=== PATIENT | male | born 1945 | race Caucasian/White ===

== ENCOUNTER 2021-07-23 12:01 | Inpatient (IN) ==
--- NOTE | 2021-07-23 12:12 | DR.SOBA ---
HPI Time Seen Time Seen by Provider: 07/23/21 12:10 Complaints Chief Complaint Doctors Comments: KNOWN COVID POSITIVE PATIENT THAT WAS BROUGHT IN BY EMS WITH PROGRESSIVE SHORTNESS OF BREATH. WAS DIAGNOSED 2 DAYS AGO AND SENT HOME ON O2 FROM [facility]. ROS Review of Systems Constitutional: Fatigue Eyes: No Symptoms Reported ENTM: No Symptoms Reported Respiratoy: Dry Cough and Short of Breath Cardiovascular: No Symptoms Reported Gastrointestinal/Abdominal: No Symptoms Reported Genitourinary: No Symptoms Reported Neurological: No Symptoms Reported Musculoskeletal: No Symptoms Reported Integumentary: No Symptoms Reported Hematologic/Lymphatic: No Symptoms Reported Endocrine: No Symptoms Reported Psychiatric: No Symptoms Reported All Other Systems: Reviewed and Negative PE Vital Signs Vitals: Temperature 97.9 F Pulse Rate 79 Respiratory Rate 22 Blood Pressure 102/58 O2 Sat by Pulse Oximetry 92 General Limitations: No Limitations General Appearance: In Distress Head Head Exam: Normal Inspection Eyes Eye exam: Normal Appearance ENT ENT Exam: Normal Exam Neck Neck Exam: Normal Inspection Chest Chest Inspection: Normal Inspection Respiratory Respiratory Exam: Respiratory Distress Respiratory Exam: Bilateral: Clear to Auscultation and Bilateral: Rhonchi Cardiovascular Cardiovascular Exam: Regular Rate and Normal Rhythm Abdominal Exam Abdominal Exam: Normal Inspection, Normal Bowel Sounds and Soft Extremities Extremities Exam: Normal Inspection Back Back Exam: Normal Inspection Neurologic Neurological Exam: Alert and Oriented X3 Psychiatric Psychiatric Exam: Normal Affect and Normal Mood Skin Skin Exam: Warm, Dry, Intact and Normal Color MDM Additional Information Obtained Additional Findings:: COVID PNEUMONIA WITH HYPOXIA Differential Diagnosis Differential Diagnosis: Respiratory Insufficiency and URI Differential Diagnosis Comment:: COVID PNEUMONIA WITH HYPOXIA COURSE Treatment Treatment: THIS PATIENT WAS INITIALLY PLACED ON NRB MASK TO KEEP O2SAT GREATER THAN 92%, HE WAS GIVEN AN ALBUTROL NEB AND 125MG SOLUMEDROL IV AND WE WERE ABLE TO WEAN HIM OFF THE MASK AND PUT HIM ON A VENTI-MASK AT 50% AND HIS O2 SAT REMAINED OVER 90%. PATIENT WAS TOLD THAT WE PLANNED TO ADMIT HIM TO HOSPITAL FOR COVID PNEUMONIA WITH HYPOXIA. SPOKE TO DR HEREDIA AND WILL ADMIT PATIENT TO ICU FOR COVID WITH HYPOXIA AND BILATERAL PNEUMONIA. ROR Labs Reviewed Laboratory Results Reviewed?: Yes Result Diagrams: 08/20/21 04:26 08/20/21 04:26 Laboratory: WBC 6.7 X10^3/uL (3.6-10.0) 07/23/21 12:30 RBC 2.96 X10^6/uL (4.7-6.0) L 07/23/21 12:30 Hgb 8.5 g/dL (13.5-18.0) L 07/23/21 12:30 Hct 25.4 % (42.0-54.0) L 07/23/21 12:30 MCV 85.8 fL (80.0-100.0) 07/23/21 12: MCH 28.9 pg (27.0-34.0) 07/23/21 12: MCHC 33.7 g/dL (33.0-35.0) 07/23/21 12: RDW 14.8 % (11.6-16.5) 07/23/21 12: Plt Count 88 X10^3/uL (150.0-450.0) L 07/23/21 12:30 MPV 9.3 fL (7.4-11.0) 07/23/21 12:30 Neut % (Auto) 88.0 % (42.0-75.0) H 07/23/21 12: Lymph % (Auto) 4.9 % (21.0-51.0) L 07/23/21 12:30 [place] % (Auto) 6.8 % (0.0-13.0) 07/23/21 12: Eos % (Auto) 0.2 % (0.9-2.9) L 07/23/21 12:30 Baso % (Auto) 0.1 % (0.2-1.0) L 07/23/21 12:30 Neut # (Auto) 5.9 x10^3/uL (2.2-4.8) H 07/23/21 12:30 Lymph # (Auto) 0.3 X10^3/uL (1.3-2.9) L 07/23/21 12:30 [place] # (Auto) 0.5 x10^3/uL (0.3-0.8) 07/23/21 12:30 Eos # (Auto) 0.0 x10^3/uL (0.0-0.2) 07/23/21 12:30 Baso # (Auto) 0.0 X10^3/uL (0.0-0.1) 07/23/21 12:30 Absolute Nucleated RBC 0.0 /100WBC 07/23/21 12:30 Sample Site Rbra 07/23/21 12:34 ABG pH 7.430 (7.35-7.45) 07/23/21 12:34 ABG pCO2 32.0 mmHg (35.0-45.0) L 07/23/21 12:34 ABG pO2 181.0 mmHg (80.0-100.0) H 07/23/21 12:34 ABG HCO3 21.2 mmol/L (22-26) L 07/23/21 12:34 ABG O2 Saturation 100.0 % (90-100) 07/23/21 12:34 ABG Base Excess -2.3 mmol/L (-2.0-2.0) L 07/23/21 12:34 Gene Test N/a 07/23/21 12:34 A-a Gradient 492.0 mmHg 07/23/21 12:34 FiO2 100.0 07/23/21 12:34 Blood Gas Comments 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 07/23/21 12:34 Sodium 131 mmol/L (136-145) L 07/23/21 12:30 Corrected Sodium 134 mmol/L (136-145) L 07/23/21 12:30 Potassium 4.7 mmol/L (3.5-5.1) 07/23/21 12:30 Chloride 99 mmol/L (98-107) 07/23/21 12:30 Carbon Dioxide 26.2 mmol/L (21-32) 07/23/21 12:30 BUN 52 mg/dL (7-18) H 07/23/21 12:30 Creatinine 2.52 mg/dL (0.70-1.30) H 07/23/21 12:30 Est GFR (MDRD) Af Amer 32 (>60) L 07/23/21 12:30 Est GFR (MDRD) Non-Af 27 (>60) L 07/23/21 12:30 Glucose 238 mg/dL (65-99) H 07/23/21 12:30 Calcium 8.1 mg/dL (8.5-10.1) L 07/23/21 12:30 Corrected Calcium 9.5 mg/dL (8.5-10.1) 07/23/21 12:30 Total Bilirubin 0.50 mg/dL (0.2-1.0) 07/23/21 12:30 AST 30 Units/L (15-37) 07/23/21 12:30 ALT 22 Units/L (12-78) 07/23/21 12:30 Alkaline Phosphatase 110 Units/L (46-116) 07/23/21 12:30 Creatine Kinase 86 Units/L (39-308) 07/23/21 12:30 CK-MB (CK-2) 1.3 ng/mL (0-4.0) 07/23/21 12:30 CK/CKMB % Calc 1.5 % (<4) 07/23/21 12:30 Troponin I High Sens 25.2 ng/L (4.0-60.0) 07/23/21 12:30 Total Protein 6.5 g/dL (6.4-8.2) 07/23/21 12:30 Albumin 2.3 g/dL (3.4-5.0) L 07/23/21 12:30 Globulin 4.2 g/dL (2.5-4.5) 07/23/21 12:30 Albumin/Globulin Ratio 0.5 Ratio (1.1-2.1) L 07/23/21 12:30 SARS CoV-2 RNA Rapid HERMELINDO Positive (NEGATIVE) A 07/23/21 16:00 Other Results Comments: COVID POSITIVE,HYPONATREMIA(SODIUM 131) XRAY XRAY Interpreted by: Radiologist (BILATERAL OPACITIES CONSISTENT WITH COVID PNEUMONIA) EKG Rhythm: Paced (ATRIAL SENSED -VENTICULAR PACED RHYTHM) Block: None Hypertrophy: None ST: Normal Opioid Opioid Risk Tool Total: 0 Total Score Risk Category: Low Risk Copyright: [facility] predicting aberrant behaviors Diagnosis Discharge Problem: COVID Acute renal failure Qualifiers: Acute renal failure type: unspecified Qualified Code(s): N17.9 - Acute kidney failure, unspecified Instructions Instructions: Anemia Hypokalemia COVID-19 Frequently Asked Questions Prone Position Therapy V-safe Information Sheet - [facility] (06/05/2020) COVID-19 COVID-19: How to Protect Yourself and Others - [facility] Community-Acquired Pneumonia, Adult, [id number]
[2021-07-23 12:37] LABS: ABG BASE EXCESS -2.3 mmol/L (-2.0-2.0); ABG HCO3 21.2 mmol/L (22-26)
--- NOTE | 2021-07-23 12:45 | RAD ---
HISTORYCOVID, SOB, COUGHSTUDYCHEST, 1 VIEWCOMPARISONNoneFINDINGSThe cardiomediastinal silhouette is stable. Valve replacement changes. Left-sided pacer and pacer wires demonstrate expected positioning. No pneumothorax. Patchy bilateral airspace opacities. The bony thorax appears intact.IMPRESSIONBilateral airspace opacities consistent with history of COVID-19. Recommend follow-up to resolution.Electronically signed by: GUSTAVO THOMPSON (Jul 23, 2021 12:44:41)
[2021-07-23] MEDS ORDERED: DUONEB 0.5 MG/3 MG (3 mL) NEB ONE ×2 (12:47→12:48)
[2021-07-23] MEDS ORDERED: SOLU-Medrol 125 MG VIAL IVP ONE (12:47)
[2021-07-23 12:48] LABS: BASOPHILS % (AUTO) 0.1 % (0.2-1.0); EOSINOPHILS % (AUTO) 0.2 % (0.9-2.9); HEMATOCRIT 25.4 % (42.0-54.0); HEMOGLOBIN 8.5 g/dL (13.5-18.0); LYMPHOCYTES # (AUTO) 0.3 X10^3/uL (1.3-2.9); LYMPHOCYTES % (AUTO) 4.9 % (21.0-51.0); MEAN CORPUSCULAR HEMOGLOBIN 28.9 pg (27.0-34.0); MEAN CORPUSCULAR HGB CONC 33.7 g/dL (33.0-35.0); MEAN CORPUSCULAR VOLUME 85.8 fL (80.0-100.0); MEAN PLATELET VOLUME 9.3 fL (7.4-11.0); MONOCYTES # (AUTO) 0.5 x10^3/uL (0.3-0.8); MONOCYTES % (AUTO) 6.8 % (0.0-13.0); NEUTROPHILS # (AUTO) 5.9 x10^3/uL (2.2-4.8); RED BLOOD COUNT 2.96 X10^6/uL (4.7-6.0); RED CELL DISTRIBUTION WIDTH 14.8 % (11.6-16.5); WHITE BLOOD COUNT 6.7 X10^3/uL (3.6-10.0)
[2021-07-23] MEDS ORDERED: XOPENEX 1.25 MG/3 ML NEBULE NEB ONE ×2 (12:51→12:52)
[2021-07-23] MEDS ORDERED: SOLU-Medrol 125 MG VIAL ONE (13:00)
[2021-07-23 13:09] LABS: ALBUMIN 2.3 g/dL (3.4-5.0); CALCIUM 8.1 mg/dL (8.5-10.1); CARBON DIOXIDE 26.2 mmol/L (21-32); CKMB % 1.5 % (<4); COR CA(FOR HYPOALB) 9.5 mg/dL (8.5-10.1); CREATINE KINASE MB 1.3 ng/mL (0-4.0); CREATININE 2.52 mg/dL (0.70-1.30); TOTAL PROTEIN 6.5 g/dL (6.4-8.2)
[2021-07-23] MEDS ORDERED: NS 1,000 ML IV 1,000 ML IV ONE (15:36)
[2021-07-23] MEDS ORDERED: NS 1,000 ML IV 1,000 ML ONE (15:48)
[2021-07-23 19:49] LABS: BILIRUBIN,URINE NEGATIVE (NEGATIVE); BLOOD/HEMOGLOBIN,URINE NEGATIVE (NEGATIVE); GLUCOSE, URINE 2+ (NEGATIVE); KETONES,URINE NEGATIVE (NEGATIVE); LEUKOCYTE ESTERASE ,URINE NEGATIVE (NEGATIVE); NITRITES,URINE NEGATIVE (NEGATIVE); PROTEIN,URINE 2+ (NEGATIVE); UROBILINOGEN,URINE NORMAL (NORMAL)
[2021-07-23 19:53] LABS: APPEARANCE,URINE SLIGHTLY HAZY (CLEAR); COLOR,URINE YELLOW (YELLOW)
[2021-07-23 19:59] LABS: BACTERIA,URINE 1+ /HPF (NEGATIVE); COARSE GRANULAR CASTS,URINE FEW /HPF (NEGATIVE); HYALINE CASTS, URINE FEW /LPF (NEGATIVE); RBC,URINE 0-2 /HPF (0-3); SQUAMOUS EPITHELIAL CELL,UR NEGATIVE /HPF (NEGATIVE)
[2021-07-23] MEDS ORDERED: REMDESIVIR 200 MG in NS 250 ML IV 250 ML IV ONE (20:00)
[2021-07-23] MEDS: PULMICORT NEB TX 0.5 MG NEB SCH (20:35)
[2021-07-23] MEDS: BROVANA IN SCH (20:35)
[2021-07-23] MEDS ORDERED: PULMICORT NEB TX 0.5 MG NEB SCH (21:00)
[2021-07-23] MEDS ORDERED: DUONEB 0.5 MG/3 MG (3 mL) NEB SCH (21:00)
[2021-07-23] MEDS: ASCORBIC ACID INJ MULTI-DOSE VIAL 1,500 MG in NS 100 ML IV 100 ML IV SCH (21:46)
[2021-07-23] MEDS: NS 1,000 ML IV 1,000 ML IV SCH (21:46)
[2021-07-23] MEDS: PEPCID TAB 40 MG PO SCH (21:47)
[2021-07-23] MEDS: ZINC SULFATE PO SCH (21:47)
[2021-07-23] MEDS: VIBRAMYCIN PO SCH (21:47)
[2021-07-23] MEDS: SOLU-Medrol 40 MG VIAL IVP SCH (21:48)
[2021-07-23] MEDS: NovoLIN R (or HumuLIN R) SUBCUT PRN (21:48)
[2021-07-24] MEDS: ASCORBIC ACID INJ MULTI-DOSE VIAL 1,500 MG in NS 100 ML IV 100 ML IV SCH ×2 (05:00→08:37)
[2021-07-24] MEDS ORDERED: TUSSIONEX PENNKINETIC SUSP ONE (05:24)
[2021-07-24 05:25] LABS: BASOPHILS % (AUTO) 0.2 % (0.2-1.0); HEMATOCRIT 25.2 % (42.0-54.0); HEMOGLOBIN 8.5 g/dL (13.5-18.0); LYMPHOCYTES # (AUTO) 0.3 X10^3/uL (1.3-2.9); LYMPHOCYTES % (AUTO) 9.5 % (21.0-51.0); MEAN CORPUSCULAR HGB CONC 33.6 g/dL (33.0-35.0); MEAN CORPUSCULAR VOLUME 86.4 fL (80.0-100.0); MEAN PLATELET VOLUME 9.6 fL (7.4-11.0); MONOCYTES # (AUTO) 0.1 x10^3/uL (0.3-0.8); MONOCYTES % (AUTO) 4.5 % (0.0-13.0); NEUTROPHILS # (AUTO) 2.6 x10^3/uL (2.2-4.8); NEUTROPHILS % (AUTO) 85.8 % (42.0-75.0); RED BLOOD COUNT 2.92 X10^6/uL (4.7-6.0); RED CELL DISTRIBUTION WIDTH 14.7 % (11.6-16.5)
[2021-07-24 05:38] LABS: CALCIUM 8.1 mg/dL (8.5-10.1); CARBON DIOXIDE 20.3 mmol/L (21-32); COR CA(FOR HYPOALB) 9.7 mg/dL (8.5-10.1); CREATININE 2.11 mg/dL (0.70-1.30); TOTAL PROTEIN 6.2 g/dL (6.4-8.2)
--- NOTE | 2021-07-24 05:52 | RAD ---
HISTORYCOVID PNEUMONIA HX: CAD, PACEMAKER, HTN, DM SX: STENTS, CABGSTUDYCHEST, 1 [id number]/2022FINDINGSThe trachea is midline. The cardiac silhouette is stable. Permanent pacing device.. Bilateral airspace opacities unchanged. No pneumothorax. The bony thorax is unremarkable.IMPRESSIONStable portable chest.Electronically signed by: Jeevan Guzmán (Jul 24, 2021 05:51:08)
[2021-07-24] MEDS: TUSSIONEX PENNKINETIC SUSP PO PRN ×2 (05:59→17:45)
[2021-07-24] MEDS: SOLU-Medrol 40 MG VIAL IVP SCH ×3 (05:59→21:37)
[2021-07-24] MEDS: NovoLIN R (or HumuLIN R) SUBCUT PRN ×4 (06:14→22:15)
[2021-07-24] MEDS: ZOSYN VIAL 3.375 GRAMS 3.375 G in NS 100 ML IV + SPIKE MINIBAG* 100 ML IV SCH ×3 (06:16)
[2021-07-24] MEDS: VIBRAMYCIN PO SCH ×2 (08:37→20:35)
[2021-07-24] MEDS: PEPCID TAB 40 MG PO SCH ×2 (08:37→20:35)
[2021-07-24] MEDS: ZINC SULFATE PO SCH ×2 (08:38→20:35)
[2021-07-24] MEDS: PULMICORT NEB TX 0.5 MG NEB SCH ×2 (08:50→20:56)
[2021-07-24] MEDS: BROVANA IN SCH ×2 (08:50→20:56)
[2021-07-24] MEDS ORDERED: VITAMIN D (1.25MG) PO SCH (09:00)
[2021-07-24] MEDS ORDERED: TRICOR TAB 160 MG PO SCH (09:00)
[2021-07-24] MEDS: PLAVIX PO SCH (11:14)
[2021-07-24] MEDS: ASPIRIN EC 81 MG PO SCH (11:14)
--- NOTE | 2021-07-24 12:40 | PCM.PROG ---
Progress Note Progress Note for Day of Date of Exam: 07/24/21 Past Medical Family Social History Past Med/Fam/Surg Hx: No changes since H&P Allergies: Allergies No Known Drug Allergies Allergy (Verified 07/23/21 12:02) Review of Systems ROS: No change since H&P Vital Signs and I&O's Vital Signs: Temperature 98.9 F Pulse Rate 105 Respiratory Rate 25 Blood Pressure 144/66 O2 Sat by Pulse Oximetry 94 Intake and Output: Intake & Output 07/21/21 07/22/21 07/23/21 07/24/21 23:59 23:59 23:59 23:59 Intake Total 513 / 513 421 / 421 Output Total 600 / 600 600 / 600 Balance -87 / -87 -179 / -179 Physical Exam Speech Pattern: Clear and Appropriate Laboratory and Diagnostics Result Diagrams: 07/24/21 05:03 07/24/21 12:05 Labs: Laboratory WBC 3.0 X10^3/uL (3.6-10.0) L 07/24/21 05:03 RBC 2.92 X10^6/uL (4.7-6.0) L 07/24/21 05:03 Hgb 8.5 g/dL (13.5-18.0) L 07/24/21 05:03 Hct 25.2 % (42.0-54.0) L 07/24/21 05:03 MCV 86.4 fL (80.0-100.0) 07/24/21 05:03 MCH 29.0 pg (27.0-34.0) 07/24/21 05:03 MCHC 33.6 g/dL (33.0-35.0) 07/24/21 05:03 RDW 14.7 % (11.6-16.5) 07/24/21 05:03 Plt Count 83 X10^3/uL (150.0-450.0) L 07/24/21 05:03 MPV 9.6 fL (7.4-11.0) 07/24/21 05:03 Neut % (Auto) 85.8 % (42.0-75.0) H 07/24/21 05:03 Lymph % (Auto) 9.5 % (21.0-51.0) L 07/24/21 05:03 [place] % (Auto) 4.5 % (0.0-13.0) 07/24/21 05:03 Eos % (Auto) 0.0 % (0.9-2.9) L 07/24/21 05:03 Baso % (Auto) 0.2 % (0.2-1.0) 07/24/21 05:03 Neut # (Auto) 2.6 x10^3/uL (2.2-4.8) 07/24/21 05:03 Lymph # (Auto) 0.3 X10^3/uL (1.3-2.9) L 07/24/21 05:03 [place] # (Auto) 0.1 x10^3/uL (0.3-0.8) L 07/24/21 05:03 Eos # (Auto) 0.0 x10^3/uL (0.0-0.2) 07/24/21 05:03 Baso # (Auto) 0.0 X10^3/uL (0.0-0.1) 07/24/21 05:03 Absolute Nucleated RBC 0.0 /100WBC 07/24/21 05:03 Sample Site Rbra 07/23/21 12:34 ABG pH 7.430 (7.35-7.45) 07/23/21 12:34 ABG pCO2 32.0 mmHg (35.0-45.0) L 07/23/21 12:34 ABG pO2 181.0 mmHg (80.0-100.0) H 07/23/21 12:34 ABG HCO3 21.2 mmol/L (22-26) L 07/23/21 12:34 ABG O2 Saturation 100.0 % (90-100) 07/23/21 12:34 ABG Base Excess -2.3 mmol/L (-2.0-2.0) L 07/23/21 12:34 Gene Test N/a 07/23/21 12:34 A-a Gradient 492.0 mmHg 07/23/21 12:34 FiO2 100.0 07/23/21 12:34 Blood Gas Comments 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 07/23/21 12:34 Sodium 135 mmol/L (136-145) L 07/24/21 05:03 Corrected Sodium 140 mmol/L (136-145) 07/24/21 05:03 Potassium 4.8 mmol/L (3.5-5.1) 07/24/21 05:03 Chloride 103 mmol/L (98-107) 07/24/21 05:03 Carbon Dioxide 20.3 mmol/L (21-32) L 07/24/21 05:03 BUN 54 mg/dL (7-18) H 07/24/21 05:03 Creatinine 2.11 mg/dL (0.70-1.30) H 07/24/21 05:03 Est GFR (MDRD) Af Amer 40 (>60) L 07/24/21 05:03 Est GFR (MDRD) Non-Af 33 (>60) L 07/24/21 05:03 Glucose 485 mg/dL (65-99) H 07/24/21 12:05 POC Glucose (mg/dL) 467 mg/dL (65-99) H 07/24/21 10:56 Calcium 8.1 mg/dL (8.5-10.1) L 07/24/21 05:03 Corrected Calcium 9.7 mg/dL (8.5-10.1) 07/24/21 05:03 Total Bilirubin 0.40 mg/dL (0.2-1.0) 07/24/21 05:03 AST 24 Units/L (15-37) 07/24/21 05:03 ALT 18 Units/L (12-78) 07/24/21 05:03 Alkaline Phosphatase 105 Units/L (46-116) 07/24/21 05:03 Creatine Kinase 86 Units/L (39-308) 07/23/21 12:30 CK-MB (CK-2) 1.3 ng/mL (0-4.0) 07/23/21 12:30 CK/CKMB % Calc 1.5 % (<4) 07/23/21 12:30 Troponin I High Sens 25.2 ng/L (4.0-60.0) 07/23/21 12:30 Total Protein 6.2 g/dL (6.4-8.2) L 07/24/21 05:03 Albumin 2.0 g/dL (3.4-5.0) L 07/24/21 05:03 Globulin 4.2 g/dL (2.5-4.5) 07/24/21 05:03 Albumin/Globulin Ratio 0.5 Ratio (1.1-2.1) L 07/24/21 05:03 Specimen Type Catherized urine 07/23/21 19:40 Urine Color Yellow (YELLOW) 07/23/21 19:40 Urine Appearance Slightly hazy (CLEAR) 07/23/21 19:40 Urine pH 5.0 (5.0 - 8.0) 07/23/21 19:40 Ur Specific [place] 1.020 (1.000-1.030) 07/23/21 19:40 Urine Protein 2+ (NEGATIVE) 07/23/21 19:40 Urine Glucose (UA) 2+ (NEGATIVE) 07/23/21 19:40 Urine Ketones Negative (NEGATIVE) 07/23/21 19:40 Urine Occult Blood Negative (NEGATIVE) 07/23/21 19:40 Urine Nitrite Negative (NEGATIVE) 07/23/21 19:40 Urine Bilirubin Negative (NEGATIVE) 07/23/21 19:40 Urine Urobilinogen Normal (NORMAL) 07/23/21 19:40 Ur Leukocyte Esterase Negative (NEGATIVE) 07/23/21 19:40 Urine RBC 0-2 /HPF (0-3) 07/23/21 19:40 Urine WBC 0-2 /HPF (0-5) 07/23/21 19:40 Ur Squamous Epith Cells Negative /HPF (NEGATIVE) 07/23/21 19:40 Amorphous Sediment 2+ /HPF (NEGATIVE) 07/23/21 19:40 Urine Bacteria 1+ /HPF (NEGATIVE) 07/23/21 19:40 Hyaline Casts Few /LPF (NEGATIVE) 07/23/21 19:40 Coarse Granular Casts Few /HPF (NEGATIVE) 07/23/21 19:40 Urine Mucus Few /HPF (NEGATIVE) 07/23/21 19:40 Ur Culture Indicated? No/not indicated 07/23/21 19:40 SARS CoV-2 RNA Rapid HERMELINDO Positive (NEGATIVE) A 07/23/21 16:00
--- NOTE | 2021-07-24 12:43 | DR.H&P ---
H&P History & Physical for Day of: H&P Date: 07/24/21 Chief Complaint Chief Complaint: Shortness of breath Generalized weakness Allergies Allergies Allergy/AdvReac Type Severity Reaction Status Date / Time No Known Drug Allergies Allergy Verified 07/23/21 12:02 History of Present Illness History of Present Illness: Pt is a 76 year old male past medical history of Hypertension, DMT2, CAD(Pacemaker), HLD, presenting with progressively worsening shortness of breath and weakness. He was diagnosed in [place] two days ago with COVID-19 and sent home with home oxygen. He reports no improvement in his symptoms. Labs/imaging: Wbc 3.0, Hgb 8.5, Plt 83, Na 135, K 4.8, Creatinine 2.11, Glucose 320, ABG: pH 7.43, pCO2 32, pO2 118, HCO3 21, O2sat 100% on Non-rebreather with FiO2 100%. CXR was obtained that revealed: Bilateral airspace opacities consistent with history of COVID-19. Pt was able to be converted to heated high flow oxygen with FiO2 currently at 93%. Will start patient on pneumonia protocol that includes: IVF NS@KVO ml/h, Solumedrol 80mg q8h, scheduled Bronchodilators Xopenex and Budesonide, Antibiotics: Doxycycline 100mg BID, Famotidine 40mg BID, Tussionex prn, immune supporting supplements, supplemental O2, SSI, I/S, Lovenox 30mg BID, Physical therapy, Respiratory therapy consult. Home medications were restarted. Wean/titrate supplemental o xygen as tolerated. Will order CRP. Hold nephrotoxic agents. Otherwise continue to closely monitor and follow up labs/imaging. Time spent on clinical assessment, reviewing labs and imaging, decision making, and documentation greater than 45 minutes. Past Medical History Past Medical History: Diabetes, Dyslipidemia and Hypertension Past Surgical History Surgical History: Angioplasty/Stents and CABG/Valve Surgery Family History Family Medical History: Diabetes Mellitus and Hypertension Social History Alcohol Use: None Drug Use: None Medications Home Medications: No Known Drug Allergies Allergy (Verified 07/23/21 12:02) CONTINUE taking the following medications alprazolam 0.25 mg PO QHS PRN 07/23/21 [History] aspirin 81 mg PO DAILY 07/23/21 [History] atorvastatin 20 mg PO QHS 07/23/21 [History] clopidogrel 75 mg PO DAILY 07/23/21 [History] codeine-guaifenesin 5 ml PO TID PRN 07/23/21 [History] diphenhydramine HCl [Benadryl] 50 mg PO QHS 07/23/21 [History] doxycycline monohydrate 100 mg PO BID 07/23/21 [History] furosemide 20 mg PO QAM 07/23/21 [History] insulin detemir U-100 [Levemir FlexTouch U-100 Insuln] 30 unit SUBCUT BID 07/23/21 [History] insulin lispro [Humalog KwikPen Insulin] 5 unit SUBCUT BID 07/23/21 [History] losartan 100 mg PO ONCE 07/23/21 [History] methimazole 10 mg PO DAILY 07/23/21 [History] metoprolol tartrate 25 mg PO HS 07/23/21 [History] multivitamin 1 tab PO QAM 07/23/21 [History] omega-3 fatty acids [Fish Oil] 1,000 mg PO ONCE 07/23/21 [History] pioglitazone-metformin 1 tab PO DAILY 07/23/21 [History] sitagliptin [Januvia] 100 mg PO ONCE 07/23/21 [History] tamsulosin 0.4 mg PO DAILY 07/23/21 [History] vitamin A-vitamin C-vit E-min [Ocuvite] 1 tab PO ONCE 07/23/21 [History] Labs Result Diagrams: 07/24/21 05:03 07/24/21 12:05 Labs: Laboratory WBC 3.0 X10^3/uL (3.6-10.0) L 07/24/21 05:03 RBC 2.92 X10^6/uL (4.7-6.0) L 07/24/21 05:03 Hgb 8.5 g/dL (13.5-18.0) L 07/24/21 05:03 Hct 25.2 % (42.0-54.0) L 07/24/21 05:03 MCV 86.4 fL (80.0-100.0) 07/24/21 05:03 MCH 29.0 pg (27.0-34.0) 07/24/21 05:03 MCHC 33.6 g/dL (33.0-35.0) 07/24/21 05:03 RDW 14.7 % (11.6-16.5) 07/24/21 05:03 Plt Count 83 X10^3/uL (150.0-450.0) L 07/24/21 05:03 MPV 9.6 fL (7.4-11.0) 07/24/21 05:03 Neut % (Auto) 85.8 % (42.0-75.0) H 07/24/21 05:03 Lymph % (Auto) 9.5 % (21.0-51.0) L 07/24/21 05:03 [place] % (Auto) 4.5 % (0.0-13.0) 07/24/21 05:03 Eos % (Auto) 0.0 % (0.9-2.9) L 07/24/21 05:03 Baso % (Auto) 0.2 % (0.2-1.0) 07/24/21 05:03 Neut # (Auto) 2.6 x10^3/uL (2.2-4.8) 07/24/21 05:03 Lymph # (Auto) 0.3 X10^3/uL (1.3-2.9) L 07/24/21 05:03 [place] # (Auto) 0.1 x10^3/uL (0.3-0.8) L 07/24/21 05:03 Eos # (Auto) 0.0 x10^3/uL (0.0-0.2) 07/24/21 05:03 Baso # (Auto) 0.0 X10^3/uL (0.0-0.1) 07/24/21 05:03 Absolute Nucleated RBC 0.0 /100WBC 07/24/21 05:03 Sample Site Rbra 07/23/21 12:34 ABG pH 7.430 (7.35-7.45) 07/23/21 12:34 ABG pCO2 32.0 mmHg (35.0-45.0) L 07/23/21 12:34 ABG pO2 181.0 mmHg (80.0-100.0) H 07/23/21 12:34 ABG HCO3 21.2 mmol/L (22-26) L 07/23/21 12:34 ABG O2 Saturation 100.0 % (90-100) 07/23/21 12:34 ABG Base Excess -2.3 mmol/L (-2.0-2.0) L 07/23/21 12:34 Gene Test N/a 07/23/21 12:34 A-a Gradient 492.0 mmHg 07/23/21 12:34 FiO2 100.0 07/23/21 12:34 Blood Gas Comments 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 12:34 Sodium 135 mmol/L (136-145) L 07/24/21 05:03 Corrected Sodium 140 mmol/L (136-145) 07/24/21 05:03 Potassium 4.8 mmol/L (3.5-5.1) 07/24/21 05:03 Chloride 103 mmol/L (98-107) 07/24/21 05:03 Carbon Dioxide 20.3 mmol/L (21-32) L 07/24/21 05:03 BUN 54 mg/dL (7-18) H 07/24/21 05:03 Creatinine 2.11 mg/dL (0.70-1.30) H 07/24/21 05:03 Est GFR (MDRD) Af Amer 40 (>60) L 07/24/21 05:03 Est GFR (MDRD) Non-Af 33 (>60) L 07/24/21 05:03 Glucose 485 mg/dL (65-99) H 07/24/21 12:05 POC Glucose (mg/dL) 467 mg/dL (65-99) H 07/24/21 10:56 Calcium 8.1 mg/dL (8.5-10.1) L 07/24/21 05:03 Corrected Calcium 9.7 mg/dL (8.5-10.1) 07/24/21 05:03 Total Bilirubin 0.40 mg/dL (0.2-1.0) 07/24/21 05:03 AST 24 Units/L (15-37) 07/24/21 05:03 ALT 18 Units/L (12-78) 07/24/21 05:03 Alkaline Phosphatase 105 Units/L (46-116) 07/24/21 05:03 Creatine Kinase 86 Units/L (39-308) 07/23/21 12:30 CK-MB (CK-2) 1.3 ng/mL (0-4.0) 07/23/21 12:30 CK/CKMB % Calc 1.5 % (<4) 07/23/21 12:30 Troponin I High Sens 25.2 ng/L (4.0-60.0) 07/23/21 12:30 Total Protein 6.2 g/dL (6.4-8.2) L 07/24/21 05:03 Albumin 2.0 g/dL (3.4-5.0) L 07/24/21 05:03 Globulin 4.2 g/dL (2.5-4.5) 07/24/21 05:03 Albumin/Globulin Ratio 0.5 Ratio (1.1-2.1) L 07/24/21 05:03 Specimen Type Catherized urine 07/23/21 19:40 Urine Color Yellow (YELLOW) 07/23/21 19:40 Urine Appearance Slightly hazy (CLEAR) 07/23/21 19:40 Urine pH 5.0 (5.0 - 8.0) 07/23/21 19:40 Ur Specific [place] 1.020 (1.000-1.030) 07/23/21 19:40 Urine Protein 2+ (NEGATIVE) 07/23/21 19:40 Urine Glucose (UA) 2+ (NEGATIVE) 07/23/21 19:40 Urine Ketones Negative (NEGATIVE) 07/23/21 19:40 Urine Occult Blood Negative (NEGATIVE) 07/23/21 19:40 Urine Nitrite Negative (NEGATIVE) 07/23/21 19:40 Urine Bilirubin Negative (NEGATIVE) 07/23/21 19:40 Urine Urobilinogen Normal (NORMAL) 07/23/21 19:40 Ur Leukocyte Esterase Negative (NEGATIVE) 07/23/21 19:40 Urine RBC 0-2 /HPF (0-3) 07/23/21 19:40 Urine WBC 0-2 /HPF (0-5) 07/23/21 19:40 Ur Squamous Epith Cells Negative /HPF (NEGATIVE) 07/23/21 19:40 Amorphous Sediment 2+ /HPF (NEGATIVE) 07/23/21 19:40 Urine Bacteria 1+ /HPF (NEGATIVE) 07/23/21 19:40 Hyaline Casts Few /LPF (NEGATIVE) 07/23/21 19:40 Coarse Granular Casts Few /HPF (NEGATIVE) 07/23/21 19:40 Urine Mucus Few /HPF (NEGATIVE) 07/23/21 19:40 Ur Culture Indicated? No/not indicated 07/23/21 19:40 SARS CoV-2 RNA Rapid HERMELINDO Positive (NEGATIVE) A 07/23/21 16:00 Review of Systems Constitutional: Chills and Weakness Eyes: No Symptoms Reported ENT: No Symptoms Reported Respiratory: Cough, Shortness of Breath and Wheezing Cardiovascular: No Symptoms Reported Gastrointestinal: No Symptoms Reported Genitourinary: No Symptoms Reported Musculoskeletal: No Symptoms Reported Skin: No Symptoms Reported Neurological: No Symptoms Reported Physical Exam Vital Signs: Temperature 98.9 F Pulse Rate 105 Respiratory Rate 25 Blood Pressure 144/66 O2 Sat by Pulse Oximetry 94 Oriented: Normal Eyes: Normal Ear: Normal Nose: Normal Throat: Normal Respiratory: Diminished Throughout, Rhonchi Throughout and Rales Throughout Cardiovascular: Normal : Normal Auscultation: Bowel Sounds: Normal Palpation: Normal Tenderness: Normal Skin: Normal Musculoskeletal: Normal Psychiatric: Normal Mood Description: Calm and Appropriate Affect: Normal Speech Pattern: Clear and Appropriate Assessment/Plan (1) Pneumonia due to COVID-19 virus: Status: Acute Plan: Pneumonia protocol (2) Acute renal failure: Status: Acute Plan: IVF (3) Hypertension: Status: Acute (4) Diabetes mellitus: Status: Acute Review H&P Reviewed: Yes Patient was examined?: Yes
[2021-07-24 18:15] VITALS: BMI 36.1
[2021-07-24] MEDS: TOPROL XL PO SCH (18:50)
[2021-07-24] MEDS: LIPITOR TAB 20 MG PO SCH (20:34)
[2021-07-24] MEDS: XANAX PO PRN (21:00)
[2021-07-24] MEDS ORDERED: PATIENT'S HOME MEDICATION (Insulin Detemir U-100 [Levemir Flextouch U-100 Insuln] 100 unit SUBCUT SCH (21:00)
[2021-07-24] MEDS ORDERED: LOPRESSOR TAB 25 MG PO SCH (21:00)
[2021-07-24] MEDS ORDERED: LOVENOX INJ 30 MG SYR SC SCH (21:00)
[2021-07-24] MEDS ORDERED: LEVEMIR SC SCH (21:00)
[2021-07-24] MEDS: NS 1,000 ML IV 1,000 ML IV SCH (21:36)
[2021-07-24] MEDS ORDERED: LEVEMIR SC ONE (22:31)
[2021-07-24] MEDS: REMDESIVIR 100 MG in NS 250 ML IV 250 ML IV SCH (22:33)
[2021-07-25] MEDS: NovoLIN R (or HumuLIN R) SUBCUT PRN ×4 (01:24→17:43)
[2021-07-25 05:02] LABS: ABG ALLEN TEST POS; ABG BASE EXCESS -3.8 mmol/L (-2.0-2.0); ABG HCO3 20.7 mmol/L (22-26)
[2021-07-25 05:11] LABS: BASOPHILS % (AUTO) 0 % (0.2-1.0); HEMATOCRIT 24.3 % (42.0-54.0); HEMOGLOBIN 8.1 g/dL (13.5-18.0); LYMPHOCYTES # (AUTO) 0.3 X10^3/uL (1.3-2.9); LYMPHOCYTES % (AUTO) 3.7 % (21.0-51.0); MEAN CORPUSCULAR HEMOGLOBIN 28.4 pg (27.0-34.0); MEAN CORPUSCULAR HGB CONC 33.2 g/dL (33.0-35.0); MEAN CORPUSCULAR VOLUME 85.6 fL (80.0-100.0); MEAN PLATELET VOLUME 9.9 fL (7.4-11.0); MONOCYTES # (AUTO) 0.5 x10^3/uL (0.3-0.8); MONOCYTES % (AUTO) 5.1 % (0.0-13.0); NEUTROPHILS # (AUTO) 8.2 x10^3/uL (2.2-4.8); NEUTROPHILS % (AUTO) 91.2 % (42.0-75.0); RED BLOOD COUNT 2.84 X10^6/uL (4.7-6.0); RED CELL DISTRIBUTION WIDTH 14.7 % (11.6-16.5)
[2021-07-25 05:17] LABS: CALCIUM 7.8 mg/dL (8.5-10.1); CARBON DIOXIDE 19.8 mmol/L (21-32); CREATININE 2.52 mg/dL (0.70-1.30)
[2021-07-25 05:55] LABS: PLATELET MORPHOLOGY COMMENT NORMAL (NORMAL)
[2021-07-25] MEDS: SOLU-Medrol 40 MG VIAL IVP SCH (06:25)
--- NOTE | 2021-07-25 06:32 | RAD ---
HISTORYCOVID-19STUDYCHEST, 1 VIEWCOMPARISONJanuary 2021TECHNIQUEPortable chest radiographFINDINGSNo significant overall change in the pattern of bilateral interstitial infiltrates and background ground-glass alveolar attenuation associated with the mid to lower lung nguyễn. No evolving pleural fluid collections, free air or pneumothorax. Stable size and morphology of the cardiac silhouette.IMPRESSIONUnchanged bilateral pulmonary opacities/infiltrates associated with an atypical pneumonia pattern.Electronically signed by: PABLO ESTRADA (Jul 25, 2021 06:31:38)
[2021-07-25] MEDS: PULMICORT NEB TX 0.5 MG NEB SCH ×2 (08:15→21:41)
[2021-07-25] MEDS: BROVANA IN SCH ×2 (08:15→21:41)
[2021-07-25] MEDS ORDERED: TAPAZOLE ONE (08:54)
[2021-07-25] MEDS ORDERED: TOPROL XL PO SCH (09:00)
[2021-07-25] MEDS ORDERED: VITAMIN A PO SCH (09:00)
[2021-07-25] MEDS ORDERED: PIOGLITAZONE METFORMIN PO SCH (09:00)
[2021-07-25] MEDS: ACTOS PO SCH (09:15)
[2021-07-25] MEDS: ASPIRIN EC 81 MG PO SCH (09:15)
[2021-07-25] MEDS: VIBRAMYCIN PO SCH ×2 (09:16→22:14)
[2021-07-25] MEDS: GLUCOPHAGE PO SCH (09:16)
[2021-07-25] MEDS: PEPCID TAB 40 MG PO SCH ×2 (09:16→22:13)
[2021-07-25] MEDS: PLAVIX PO SCH (09:16)
[2021-07-25] MEDS: VITAMIN D3 125 mcg (5,000 UNITS) PO SCH (09:16)
[2021-07-25] MEDS: LASIX PO SCH (09:16)
[2021-07-25] MEDS: VITAMIN C PO SCH (09:16)
[2021-07-25] MEDS: TOPROL XL PO SCH (09:22)
[2021-07-25] MEDS: TUSSIONEX PENNKINETIC SUSP PO PRN (09:22)
[2021-07-25] MEDS: FLOMAX PO SCH (09:22)
[2021-07-25] MEDS ORDERED: GLUCOPHAGE ONE (09:25)
[2021-07-25] MEDS: ZINC SULFATE PO SCH ×2 (09:26→22:14)
[2021-07-25] MEDS: DECADRON INJ IVP SCH (11:20)
[2021-07-25] MEDS: TAPAZOLE PO SCH (12:02)
[2021-07-25] MEDS: LOVENOX INJ 40 MG SYR SC SCH (12:03)
[2021-07-25] MEDS: LEVEMIR SC SCH ×2 (12:04→22:12)
--- NOTE | 2021-07-25 12:43 | PCM.PROG ---
Progress Note Progress Note for Day of Date of Exam: 07/25/21 Subjective Subjective: Pt is a 76 year old male past medical history of Hypertension, DMT2, CAD(Pacemaker), HLD, admitted with COVID-19 pneumonia and acute renal failure. This morning he reports minimal improvement in his symptoms. He is currently requiring heated high flow oxgen with FiO2 of 91%. Labs/imaging: Wbc 9.0, Hgb 8.1, Plt 105, Na 140, K 4.6, Creatinine 2.52, Glucose 410, ABG: pH 7.38, pCO2 35, pO2 75, HCO3 20, O2sat 95% on Non-rebreather with FiO2 91%. CRP 93. CXR was obtained that revealed: No change in bilateral airspace opacities consistent with history of COVID-19. Patient is currently on pneumonia protocol that includes: IVF NS@KVO ml/h, Solumedrol 80mg q8h, scheduled Bronchodilators Xopene x and Budesonide, Antibiotics: Doxycycline 100mg BID, Famotidine 40mg BID, Tussionex prn, immune supporting supplements, supplemental O2, SSI, I/S, Lovenox 30mg BID, Physical therapy, Respiratory therapy consult. Home medications were resumed. Wean/titrate supplemental oxygen as tolerated. Will change IV Solumedrol to IV Decadron. Hold nephrotoxic agents. Otherwise continue with current treatment plan. Will closely monitor and follow up labs/imaging. Time spent on clinical assessment, reviewing labs and imaging, decision making, and documentation greater than 45 minutes. Past Medical Family Social History Past Med/Fam/Surg Hx: No changes since H&P Allergies: Allergies No Known Drug Allergies Allergy (Verified 07/23/21 12:02) Review of Systems ROS: No change since H&P Vital Signs and I&O's Vital Signs: Temperature 98.6 F Pulse Rate 91 Respiratory Rate 28 Blood Pressure 115/59 O2 Sat by Pulse Oximetry 89 Intake and Output: Intake & Output 07/22/21 07/23/21 07/24/21 07/25/21 23:59 23:59 23:59 23:59 Intake Total 513 / 513 2364 / 2364 912 / 912 Output Total 600 / 600 2950 / 2950 900 / 900 Balance -87 / -87 -586 / -586 12 / 12 Physical Exam Oriented: Normal Eyes: Normal Ear: Normal Nose: Normal Throat: Normal Respiratory: Diminished, Rales and Rhonchi Cardiovascular: Normal : Normal Auscultation: Bowel Sounds: Normal Tenderness: Normal Skin: Normal Musculoskeletal: Normal Psychiatric: Normal Mood Description: Calm and Appropriate Affect: Normal Speech Pattern: Clear and Appropriate Laboratory and Diagnostics Result Diagrams: 07/25/21 04:41 07/25/21 04:41 Labs: Laboratory WBC 9.0 X10^3/uL (3.6-10.0) 07/25/21 04:41 RBC 2.84 X10^6/uL (4.7-6.0) L 07/25/21 04:41 Hgb 8.1 g/dL (13.5-18.0) L 07/25/21 04:41 Hct 24.3 % (42.0-54.0) L 07/25/21 04:41 MCV 85.6 fL (80.0-100.0) 07/25/21 04:41 MCH 28.4 pg (27.0-34.0) 07/25/21 04:41 MCHC 33.2 g/dL (33.0-35.0) 07/25/21 04:41 RDW 14.7 % (11.6-16.5) 07/25/21 04:41 Plt Count 105 X10^3/uL (150.0-450.0) L 07/25/21 04:41 Plt Count Comment Decreased (ADEQUATE) 07/25/21 04:41 MPV 9.9 fL (7.4-11.0) 07/25/21 04:41 Neut % (Auto) 91.2 % (42.0-75.0) H 07/25/21 04:41 Lymph % (Auto) 3.7 % (21.0-51.0) L 07/25/21 04:41 [place] % (Auto) 5.1 % (0.0-13.0) 07/25/21 04:41 Eos % (Auto) 0.0 % (0.9-2.9) L 07/25/21 04:41 Baso % (Auto) 0 % (0.2-1.0) L 07/25/21 04:41 Neut # (Auto) 8.2 x10^3/uL (2.2-4.8) H 07/25/21 04:41 Lymph # (Auto) 0.3 X10^3/uL (1.3-2.9) L 07/25/21 04:41 [place] # (Auto) 0.5 x10^3/uL (0.3-0.8) 07/25/21 04:41 Eos # (Auto) 0.0 x10^3/uL (0.0-0.2) 07/25/21 04:41 Baso # (Auto) 0.0 X10^3/uL (0.0-0.1) 07/25/21 04:41 Absolute Nucleated RBC 0.0 /100WBC 07/25/21 04:41 Total Counted 100 07/25/21 04:41 Neutrophils % (Manual) 91 % (39-76) H 07/25/21 04:41 Lymphocytes % (Manual) 4 % (13-43) L 07/25/21 04:41 Monocytes % (Manual) 5 % (4-9) 07/25/21 04:41 Plt Morphology Comment Normal (NORMAL) 07/25/21 04:41 RBC Morphology Normal (NORMAL) 07/25/21 04:41 Sample Site Rrad 07/25/21 05:01 ABG pH 7.380 (7.35-7.45) 07/25/21 05:01 ABG pCO2 35.0 mmHg (35.0-45.0) 07/25/21 05:01 ABG pO2 75.0 mmHg (80.0-100.0) L 07/25/21 05:01 ABG HCO3 20.7 mmol/L (22-26) L 07/25/21 05:01 ABG O2 Saturation 95.0 % (90-100) 07/25/21 05:01 ABG Base Excess -3.8 mmol/L (-2.0-2.0) L 07/25/21 05:01 Gene Test Pos 07/25/21 05:01 A-a Gradient 530.0 mmHg 07/25/21 05:01 FiO2 91.0 07/25/21 05:01 Blood Gas Comments Natalia abg well-mtf 07/25/21 05:01 Sodium 133 mmol/L (136-145) L 07/25/21 04:41 Corrected Sodium 140 mmol/L (136-145) 07/25/21 04:41 Potassium 4.6 mmol/L (3.5-5.1) 07/25/21 04:41 Chloride 102 mmol/L (98-107) 07/25/21 04:41 Carbon Dioxide 19.8 mmol/L (21-32) L 07/25/21 04:41 BUN 66 mg/dL (7-18) H 07/25/21 04:41 Creatinine 2.52 mg/dL (0.70-1.30) H 07/25/21 04:41 Est GFR (MDRD) Af Amer 32 (>60) L 07/25/21 04:41 Est GFR (MDRD) Non-Af 27 (>60) L 07/25/21 04:41 Glucose 410 mg/dL (65-99) H 07/25/21 04:41 POC Glucose (mg/dL) 337 mg/dL (65-99) H 07/25/21 11:53 Calcium 7.8 mg/dL (8.5-10.1) L 07/25/21 04:41 Corrected Calcium 9.7 mg/dL (8.5-10.1) 07/24/21 05:03 Total Bilirubin 0.40 mg/dL (0.2-1.0) 07/24/21 05:03 AST 24 Units/L (15-37) 07/24/21 05:03 ALT 18 Units/L (12-78) 07/24/21 05:03 Alkaline Phosphatase 105 Units/L (46-116) 07/24/21 05:03 Creatine Kinase 86 Units/L (39-308) 07/23/21 12:30 CK-MB (CK-2) 1.3 ng/mL (0-4.0) 07/23/21 12:30 CK/CKMB % Calc 1.5 % (<4) 07/23/21 12:30 Troponin I High Sens 25.2 ng/L (4.0-60.0) 07/23/21 12:30 C-Reactive Protein 93.90 mg/L (0-3.0) H 07/25/21 04:41 Total Protein 6.2 g/dL (6.4-8.2) L 07/24/21 05:03 Albumin 2.0 g/dL (3.4-5.0) L 07/24/21 05:03 Globulin 4.2 g/dL (2.5-4.5) 07/24/21 05:03 Albumin/Globulin Ratio 0.5 Ratio (1.1-2.1) L 07/24/21 05:03 Specimen Type Catherized urine 07/23/21 19:40 Urine Color Yellow (YELLOW) 07/23/21 19:40 Urine Appearance Slightly hazy (CLEAR) 07/23/21 19:40 Urine pH 5.0 (5.0 - 8.0) 07/23/21 19:40 Ur Specific [place] 1.020 (1.000-1.030) 07/23/21 19:40 Urine Protein 2+ (NEGATIVE) 07/23/21 19:40 Urine Glucose (UA) 2+ (NEGATIVE) 07/23/21 19:40 Urine Ketones Negative (NEGATIVE) 07/23/21 19:40 Urine Occult Blood Negative (NEGATIVE) 07/23/21 19:40 Urine Nitrite Negative (NEGATIVE) 07/23/21 19:40 Urine Bilirubin Negative (NEGATIVE) 07/23/21 19:40 Urine Urobilinogen Normal (NORMAL) 07/23/21 19:40 Ur Leukocyte Esterase Negative (NEGATIVE) 07/23/21 19:40 Urine RBC 0-2 /HPF (0-3) 07/23/21 19:40 Urine WBC 0-2 /HPF (0-5) 07/23/21 19:40 Ur Squamous Epith Cells Negative /HPF (NEGATIVE) 07/23/21 19:40 Amorphous Sediment 2+ /HPF (NEGATIVE) 07/23/21 19:40 Urine Bacteria 1+ /HPF (NEGATIVE) 07/23/21 19:40 Hyaline Casts Few /LPF (NEGATIVE) 07/23/21 19:40 Coarse Granular Casts Few /HPF (NEGATIVE) 07/23/21 19:40 Urine Mucus Few /HPF (NEGATIVE) 07/23/21 19:40 Ur Culture Indicated? No/not indicated 07/23/21 19:40 SARS CoV-2 RNA Rapid HERMELINDO Positive (NEGATIVE) A 07/23/21 16:00 Plan (1) Pneumonia due to COVID-19 virus: Status: Acute Plan: Pneumonia protocol (2) Acute renal failure: Status: Acute Plan: IVF (3) Hypertension: Status: Acute (4) Diabetes mellitus: Status: Acute
[2021-07-25] MEDS ORDERED: BENADRYL CAP/TAB 25 MG PO SCH (21:00)
[2021-07-25] MEDS ORDERED: COLACE CAP 100 MG PO SCH (21:00)
[2021-07-25] MEDS: LIPITOR TAB 20 MG PO SCH (22:13)
[2021-07-25] MEDS: NS 1,000 ML IV 1,000 ML IV SCH (22:13)
[2021-07-25] MEDS: REMDESIVIR 100 MG in NS 250 ML IV 250 ML IV SCH (23:04)
[2021-07-25] MEDS: XANAX PO PRN (23:09)
[2021-07-26] MEDS ORDERED: BENADRYL INJ 50 MG VIAL ONE (04:47)
[2021-07-26] MEDS: BENADRYL INJ 50 MG VIAL IV PRN (05:00)
[2021-07-26 05:16] LABS: BASOPHILS % (AUTO) 0.2 % (0.2-1.0); HEMATOCRIT 28.6 % (42.0-54.0); HEMOGLOBIN 9.4 g/dL (13.5-18.0); LYMPHOCYTES # (AUTO) 0.8 X10^3/uL (1.3-2.9); LYMPHOCYTES % (AUTO) 5.8 % (21.0-51.0); MEAN CORPUSCULAR HEMOGLOBIN 28.1 pg (27.0-34.0); MEAN CORPUSCULAR HGB CONC 32.9 g/dL (33.0-35.0); MEAN CORPUSCULAR VOLUME 85.5 fL (80.0-100.0); MEAN PLATELET VOLUME 9.6 fL (7.4-11.0); MONOCYTES % (AUTO) 7.3 % (0.0-13.0); NEUTROPHILS # (AUTO) 11.9 x10^3/uL (2.2-4.8); NEUTROPHILS % (AUTO) 86.7 % (42.0-75.0); RED BLOOD COUNT 3.34 X10^6/uL (4.7-6.0); RED CELL DISTRIBUTION WIDTH 14.6 % (11.6-16.5); WHITE BLOOD COUNT 13.7 X10^3/uL (3.6-10.0)
[2021-07-26 05:30] LABS: CALCIUM 8.4 mg/dL (8.5-10.1); CARBON DIOXIDE 23.4 mmol/L (21-32); CREATININE 2.22 mg/dL (0.70-1.30)
[2021-07-26 06:16] LABS: ABG BASE EXCESS -1.8 mmol/L (-2.0-2.0); ABG HCO3 22.1 mmol/L (22-26)
[2021-07-26 06:17] LABS: ABG ALLEN TEST POS
--- NOTE | 2021-07-26 06:22 | RAD ---
HISTORYCOVID+ HX: CAD, PACEMAKER, HTN, DM SX: STENTS, CABGSTUDYCHEST, 1 [id number]/2022FINDINGSThe trachea is midline. Permanent pacing device present. The cardiac silhouette is unremarkable. Bilateral interstitial infiltrates involving the mid and lower lung nguyễn. No pneumothorax. The bony thorax is unremarkable.IMPRESSIONBilateral pneumonic infiltrates unchanged from previous 07/25/2021..Electronically signed by: Jeevan Guzmán (Jul 26, 2021 06:20:56)
[2021-07-26] MEDS ORDERED: ATIVAN INJ 2 MG VIAL IVP PRN (06:28)
[2021-07-26] MEDS ORDERED: ATIVAN INJ 2 MG VIAL ONE (06:29)
--- NOTE | 2021-07-26 08:32 | PCM.PROG ---
Progress Note Progress Note for Day of Date of Exam: 07/26/21 Subjective Subjective: Pt is a 76 year old male past medical history of Hypertension, DMT2, CAD(Pacemaker), HLD, admitted with COVID-19 pneumonia and acute renal failure. Overnight, patient's breathing acutely worsened and his heated high flow oxygen had to be converted to BiPAP at FiO2 100%. This morning he is on the BiPAP with pulse ox 99%. Labs/imaging: Wbc 13.7, Hgb 9.4, Plt 137, Na 140, K 4.4, Creatinine 2.22, Glucose 137, CRP 64, ABG: pH 7.42, pCO2 34, pO2 117, HCO3 22, O2sat 99% on BiPAP with FiO2 100%. CXR was obtained that revealed: No change in bilateral airspace opacities consistent with history of COVID-19. Patient is currently on pneumonia protocol that includes: IVF NS@KVO ml/h, IV Decadron 4mg, scheduled Bronchodilators Xopenex and Budesonide, Antibiotics: Doxycycline 100mg BID, Famotidine 40mg BID, Tussionex prn, immune supporting supplements, supplemental O2, SSI, I/S, Lovenox 30mg BID, Physical therapy, Respiratory therapy consult, Smart Vest. Hyperglycemia has significantly improved. Wean/titrate supplemental oxygen as tolerated. Will add antibiotics Zosyn and order Actemra 400mg x 1 dose. Concern with pt now requiring maximum BiPAP support. Will continue with current treatment plan and closely monitor and follow up labs/imaging. Critical care time spent 30-74 minutes on clinical assessment, reviewing labs and imaging, decision making, and documentation greater than 45 minutes. Past Medical Family Social History Past Med/Fam/Surg Hx: No changes since H&P Allergies: Allergies No Known Drug Allergies Allergy (Verified 07/23/21 12:02) Review of Systems ROS: No change since H&P Vital Signs and I&O's Vital Signs: Temperature 98.6 F Pulse Rate 93 Respiratory Rate 43 Blood Pressure 127/94 O2 Sat by Pulse Oximetry 99 Intake and Output: Intake & Output 07/23/21 07/24/21 07/25/21 07/26/21 23:59 23:59 23:59 23:59 Intake Total 513 / 513 2364 / 2364 3372 / 3372 725 / 725 Output Total 600 / 600 2950 / 2950 2700 / 2700 800 / 800 Balance -87 / -87 -586 / -586 672 / 672 -75 / -75 Physical Exam Oriented: Normal Eyes: Normal Ear: Normal Nose: Normal Throat: Normal Respiratory: Diminished, Rales and Rhonchi Cardiovascular: Normal : Normal Auscultation: Bowel Sounds: Normal Tenderness: Normal Skin: Normal Musculoskeletal: Normal Psychiatric: Normal Mood Description: Calm and Appropriate Affect: Normal Speech Pattern: Clear and Appropriate Laboratory and Diagnostics Result Diagrams: 07/26/21 05:03 07/26/21 05:03 Labs: Laboratory WBC 13.7 X10^3/uL (3.6-10.0) H 07/26/21 05:03 RBC 3.34 X10^6/uL (4.7-6.0) L 07/26/21 05:03 Hgb 9.4 g/dL (13.5-18.0) L 07/26/21 05:03 Hct 28.6 % (42.0-54.0) L 07/26/21 05:03 MCV 85.5 fL (80.0-100.0) 07/26/21 05:03 MCH 28.1 pg (27.0-34.0) 07/26/21 05:03 MCHC 32.9 g/dL (33.0-35.0) L 07/26/21 05:03 RDW 14.6 % (11.6-16.5) 07/26/21 05:03 Plt Count 137 X10^3/uL (150.0-450.0) L 07/26/21 05:03 Plt Count Comment Decreased (ADEQUATE) 07/25/21 04:41 MPV 9.6 fL (7.4-11.0) 07/26/21 05:03 Neut % (Auto) 86.7 % (42.0-75.0) H 07/26/21 05:03 Lymph % (Auto) 5.8 % (21.0-51.0) L 07/26/21 05:03 [place] % (Auto) 7.3 % (0.0-13.0) 07/26/21 05:03 Eos % (Auto) 0.0 % (0.9-2.9) L 07/26/21 05:03 Baso % (Auto) 0.2 % (0.2-1.0) 07/26/21 05:03 Neut # (Auto) 11.9 x10^3/uL (2.2-4.8) H 07/26/21 05:03 Lymph # (Auto) 0.8 X10^3/uL (1.3-2.9) L 07/26/21 05:03 [place] # (Auto) 1.0 x10^3/uL (0.3-0.8) H 07/26/21 05:03 Eos # (Auto) 0.0 x10^3/uL (0.0-0.2) 07/26/21 05:03 Baso # (Auto) 0.0 X10^3/uL (0.0-0.1) 07/26/21 05:03 Absolute Nucleated RBC 0.1 /100WBC 07/26/21 05:03 Total Counted 100 07/25/21 04:41 Neutrophils % (Manual) 91 % (39-76) H 07/25/21 04:41 Lymphocytes % (Manual) 4 % (13-43) L 07/25/21 04:41 Monocytes % (Manual) 5 % (4-9) 07/25/21 04:41 Plt Morphology Comment Normal (NORMAL) 07/25/21 04:41 RBC Morphology Normal (NORMAL) 07/25/21 04:41 Sample Site Rr 07/26/21 06:01 ABG pH 7.420 (7.35-7.45) 07/26/21 06:01 ABG pCO2 34.0 mmHg (35.0-45.0) L 07/26/21 06:01 ABG pO2 117.0 mmHg (80.0-100.0) H 07/26/21 06:01 ABG HCO3 22.1 mmol/L (22-26) 07/26/21 06:01 ABG O2 Saturation 99.0 % (90-100) 07/26/21 06:01 ABG Base Excess -1.8 mmol/L (-2.0-2.0) 07/26/21 06:01 Gene Test Pos 07/26/21 06:01 A-a Gradient 554.0 mmHg 07/26/21 06:01 FiO2 100.0 07/26/21 06:01 Blood Gas Comments Natalia well sw 07/26/21 06:01 Sodium 140 mmol/L (136-145) 07/26/21 05:03 Corrected Sodium 141 mmol/L (136-145) 07/26/21 05:03 Potassium 4.4 mmol/L (3.5-5.1) 07/26/21 05:03 Chloride 106 mmol/L (98-107) 07/26/21 05:03 Carbon Dioxide 23.4 mmol/L (21-32) 07/26/21 05:03 BUN 70 mg/dL (7-18) H 07/26/21 05:03 Creatinine 2.22 mg/dL (0.70-1.30) H 07/26/21 05:03 Est GFR (MDRD) Af Amer 37 (>60) L 07/26/21 05:03 Est GFR (MDRD) Non-Af 31 (>60) L 07/26/21 05:03 Glucose 137 mg/dL (65-99) H 07/26/21 05:03 POC Glucose (mg/dL) 291 mg/dL (65-99) H 07/25/21 20:12 Calcium 8.4 mg/dL (8.5-10.1) L 07/26/21 05:03 Corrected Calcium 9.7 mg/dL (8.5-10.1) 07/24/21 05:03 Total Bilirubin 0.40 mg/dL (0.2-1.0) 07/24/21 05:03 AST 24 Units/L (15-37) 07/24/21 05:03 ALT 18 Units/L (12-78) 07/24/21 05:03 Alkaline Phosphatase 105 Units/L (46-116) 07/24/21 05:03 Creatine Kinase 86 Units/L (39-308) 07/23/21 12:30 CK-MB (CK-2) 1.3 ng/mL (0-4.0) 07/23/21 12:30 CK/CKMB % Calc 1.5 % (<4) 07/23/21 12:30 Troponin I High Sens 25.2 ng/L (4.0-60.0) 07/23/21 12:30 C-Reactive Protein 64.20 mg/L (0-3.0) H 07/26/21 05:03 Total Protein 6.2 g/dL (6.4-8.2) L 07/24/21 05:03 Albumin 2.0 g/dL (3.4-5.0) L 07/24/21 05:03 Globulin 4.2 g/dL (2.5-4.5) 07/24/21 05:03 Albumin/Globulin Ratio 0.5 Ratio (1.1-2.1) L 07/24/21 05:03 Specimen Type Catherized urine 07/23/21 19:40 Urine Color Yellow (YELLOW) 07/23/21 19:40 Urine Appearance Slightly hazy (CLEAR) 07/23/21 19:40 Urine pH 5.0 (5.0 - 8.0) 07/23/21 19:40 Ur Specific [place] 1.020 (1.000-1.030) 07/23/21 19:40 Urine Protein 2+ (NEGATIVE) 07/23/21 19:40 Urine Glucose (UA) 2+ (NEGATIVE) 07/23/21 19:40 Urine Ketones Negative (NEGATIVE) 07/23/21 19:40 Urine Occult Blood Negative (NEGATIVE) 07/23/21 19:40 Urine Nitrite Negative (NEGATIVE) 07/23/21 19:40 Urine Bilirubin Negative (NEGATIVE) 07/23/21 19:40 Urine Urobilinogen Normal (NORMAL) 07/23/21 19:40 Ur Leukocyte Esterase Negative (NEGATIVE) 07/23/21 19:40 Urine RBC 0-2 /HPF (0-3) 07/23/21 19:40 Urine WBC 0-2 /HPF (0-5) 07/23/21 19:40 Ur Squamous Epith Cells Negative /HPF (NEGATIVE) 07/23/21 19:40 Amorphous Sediment 2+ /HPF (NEGATIVE) 07/23/21 19:40 Urine Bacteria 1+ /HPF (NEGATIVE) 07/23/21 19:40 Hyaline Casts Few /LPF (NEGATIVE) 07/23/21 19:40 Coarse Granular Casts Few /HPF (NEGATIVE) 07/23/21 19:40 Urine Mucus Few /HPF (NEGATIVE) 07/23/21 19:40 Ur Culture Indicated? No/not indicated 07/23/21 19:40 SARS CoV-2 RNA Rapid HERMELINDO Positive (NEGATIVE) A 07/23/21 16:00 Plan (1) Pneumonia due to COVID-19 virus: Status: Acute Plan: Pneumonia protocol (2) Acute renal failure: Status: Acute Plan: IVF (3) Hypertension: Status: Acute (4) Diabetes mellitus: Status: Acute
[2021-07-26] MEDS: ZOSYN VIAL 3.375 GRAMS 3.375 G in NS 100 ML IV + SPIKE MINIBAG* 100 ML IV SCH ×3 (09:06→23:15)
[2021-07-26] MEDS ORDERED: TAPAZOLE ONE (09:26)
[2021-07-26] MEDS ORDERED: ACTEMRA 400 MG in NS 100 ML IV 80 ML IV SCH (09:30)
[2021-07-26] MEDS: BROVANA IN SCH ×2 (09:30→21:14)
[2021-07-26] MEDS: PULMICORT NEB TX 0.5 MG NEB SCH ×2 (09:30→21:14)
[2021-07-26] MEDS: LOVENOX INJ 40 MG SYR SC SCH (09:35)
[2021-07-26] MEDS: DECADRON INJ IVP SCH (10:35)
[2021-07-26] MEDS: PEPCID 20 MG VIAL 20 MG in NS 50 ML IV 50 ML IV SCH (11:10)
[2021-07-26 11:28] LABS: ALBUMIN 2.3 g/dL (3.4-5.0); COR CA(FOR HYPOALB) 9.8 mg/dL (8.5-10.1); TOTAL PROTEIN 6.8 g/dL (6.4-8.2)
[2021-07-26] MEDS: VIBRAMYCIN 100 MG in D5W 250 ML IV 250 ML IV SCH ×2 (11:30→20:28)
[2021-07-26] MEDS: MORPHINE SULFATE INJ 2 MG INJ IVP PRN ×2 (11:30→16:55)
[2021-07-26] MEDS: LOPRESSOR INJ 5 MG AMP IVP SCH ×3 (11:30→20:32)
[2021-07-26] MEDS ORDERED: D50W ABBOJECT SYR ONE (11:41)
[2021-07-26] MEDS: ACTOS PO SCH (12:49)
[2021-07-26] MEDS: TAPAZOLE PO SCH (12:51)
[2021-07-26] MEDS: ZINC SULFATE PO SCH (12:51)
[2021-07-26] MEDS: VIBRAMYCIN PO SCH (12:52)
[2021-07-26] MEDS: VITAMIN C PO SCH (12:52)
[2021-07-26] MEDS: VITAMIN D3 125 mcg (5,000 UNITS) PO SCH (12:52)
[2021-07-26] MEDS: TOPROL XL PO SCH (12:53)
[2021-07-26] MEDS: PEPCID TAB 40 MG PO SCH (12:53)
[2021-07-26] MEDS: PLAVIX PO SCH (12:53)
[2021-07-26] MEDS: LEVEMIR SC SCH ×2 (12:55→20:31)
[2021-07-26] MEDS: LASIX PO SCH (12:56)
[2021-07-26] MEDS: FLOMAX PO SCH (12:57)
[2021-07-26] MEDS: GLUCOPHAGE PO SCH (12:57)
[2021-07-26] MEDS: ASPIRIN EC 81 MG PO SCH (12:57)
[2021-07-26] MEDS ORDERED: LOVENOX INJ 40 MG SYR SC SCH (21:00)
[2021-07-26] MEDS: LOVENOX INJ 100 MG SYR SC SCH (22:30)
[2021-07-26] MEDS: REMDESIVIR 100 MG in NS 250 ML IV 250 ML IV SCH (22:55)
[2021-07-27] MEDS: MORPHINE SULFATE INJ 2 MG INJ IVP PRN (00:27)
[2021-07-27] MEDS: LOPRESSOR INJ 5 MG AMP IVP SCH ×5 (03:05→21:18)
[2021-07-27 05:04] LABS: BASOPHILS % (AUTO) 0.2 % (0.2-1.0); HEMATOCRIT 23.5 % (42.0-54.0); HEMOGLOBIN 7.8 g/dL (13.5-18.0); LYMPHOCYTES # (AUTO) 0.4 X10^3/uL (1.3-2.9); LYMPHOCYTES % (AUTO) 7.2 % (21.0-51.0); MEAN CORPUSCULAR HEMOGLOBIN 28.3 pg (27.0-34.0); MEAN CORPUSCULAR HGB CONC 33.2 g/dL (33.0-35.0); MEAN CORPUSCULAR VOLUME 85.3 fL (80.0-100.0); MEAN PLATELET VOLUME 9.5 fL (7.4-11.0); MONOCYTES # (AUTO) 0.4 x10^3/uL (0.3-0.8); MONOCYTES % (AUTO) 6.8 % (0.0-13.0); NEUTROPHILS # (AUTO) 4.7 x10^3/uL (2.2-4.8); NEUTROPHILS % (AUTO) 85.8 % (42.0-75.0); RED BLOOD COUNT 2.76 X10^6/uL (4.7-6.0); RED CELL DISTRIBUTION WIDTH 14.9 % (11.6-16.5)
[2021-07-27 05:07] LABS: ALBUMIN 1.9 g/dL (3.4-5.0); CALCIUM 8.2 mg/dL (8.5-10.1); COR CA(FOR HYPOALB) 9.9 mg/dL (8.5-10.1); CREATININE 1.72 mg/dL (0.70-1.30); TOTAL PROTEIN 5.9 g/dL (6.4-8.2)
[2021-07-27 05:44] LABS: WHITE BLOOD COUNT 5.5 X10^3/uL (3.6-10.0)
[2021-07-27] MEDS: NS 1,000 ML IV 1,000 ML IV SCH ×2 (05:53→08:22)
[2021-07-27] MEDS: ZOSYN VIAL 3.375 GRAMS 3.375 G in NS 100 ML IV + SPIKE MINIBAG* 100 ML IV SCH ×3 (06:00→22:34)
--- NOTE | 2021-07-27 06:17 | RAD ---
HISTORYCOVID F/USTUDYCHEST, 1 [id number].TECHNIQUEAP view of the chestFINDINGSLeft chest wall pacemaker with leads in good position. Status post aortic valve replacement. Stable bilateral mid to lower lung airspace and interstitial opacities. No definite pleural effusion or pneumothorax.IMPRESSIONNo significant change.Electronically signed by: Sung Zapata (Jul 27, 2021 06:16:49)
[2021-07-27] MEDS: GLUCOPHAGE PO SCH (08:22)
--- NOTE | 2021-07-27 08:25 | PCM.PROG ---
Progress Note Progress Note for Day of Date of Exam: 07/27/21 Subjective Subjective: Pt is a 76 year old male past medical history of Hypertension, DMT2, CAD(Pacemaker), Aortic valve replacement, HLD, admitted with COVID-19 pneumonia and acute renal failure. This morning patient's breathing status remains the same. Per daughter, he did sleep well overnight. He is currently requiring BiPAP at FiO2 100%. Yesterday, D-dimer elevated >20, and patient's Lovenox was increased to full dose. Renal function did improve from yesterday and will be able to get CTA Chest today. Labs/imaging: Wbc 5.5, Hgb 7.8, Plt 107, Na 145, K 5.2, Creatinine 1.72, Glucose 134, CRP 75, ABG: pH 7.39, pCO2 45, pO2 67, HCO3 27, O2sat 93% on BiPAP with FiO2 80%. Blood culture pending. CXR was obtained that revealed: No change in bilateral airspace opacities consistent with history of COVID-19. Patient is currently on pneumonia protocol that includes: IVF NS@KVO ml/h, IV Remdesivir, IV Decadron 4mg, scheduled Bronchodilators Xopenex and Budesonide, Antibiotics: IV Zosyn and Doxycycline 100mg BID, Received Actemra 400mg x 1 dose, Famotidine 40mg BID, Tussionex prn, immune supporting supplements, supplemental O2, SSI, I/S, Lovenox 30mg BID, Physical therapy, Respiratory therapy consult, Smart Vest. Will order tele-pulmonary/critical care consult for any further recommendations. Have central line placed, order TPN and correct hyperkalemia with kayexalate x 1 dose. Wean/titrate supplemental oxygen as tolerated. Will continue with current treatment plan and closely monitor and follow up labs/imaging. Critical care time spent 30-74 minutes on clinical assessment, reviewing labs and imaging, decision making, and documentation greater than 45 minutes. Past Medical Family Social History Past Med/Fam/Surg Hx: No changes since H&P Allergies: Allergies No Known Drug Allergies Allergy (Verified 07/23/21 12:02) Review of Systems ROS: No change since H&P Vital Signs and I&O's Vital Signs: Temperature 97.9 F Pulse Rate 65 Respiratory Rate 16 Blood Pressure 96/52 O2 Sat by Pulse Oximetry 97 Intake and Output: Intake & Output 07/24/21 07/25/21 07/26/21 07/27/21 23:59 23:59 23:59 23:59 Intake Total 2364 / 2364 3372 / 3372 1585 / 1585 295 / 295 Output Total 2950 / 2950 2700 / 2700 1840 / 1840 750 / 750 Balance -586 / -586 672 / 672 -255 / -255 -455 / -455 Physical Exam Oriented: Normal Eyes: Normal Ear: Normal Nose: Normal Throat: Normal Respiratory: Diminished, Rales and Rhonchi Cardiovascular: Normal : Normal Auscultation: Bowel Sounds: Normal Tenderness: Normal Skin: Normal Musculoskeletal: Normal Psychiatric: Normal Mood Description: Calm and Appropriate Affect: Normal Speech Pattern: Clear Laboratory and Diagnostics Result Diagrams: 07/27/21 04:40 07/27/21 04:40 Labs: Laboratory WBC 5.5 X10^3/uL (3.6-10.0) D 07/27/21 04:40 RBC 2.76 X10^6/uL (4.7-6.0) L 07/27/21 04:40 Hgb 7.8 g/dL (13.5-18.0) L 07/27/21 04:40 Hct 23.5 % (42.0-54.0) L 07/27/21 04:40 MCV 85.3 fL (80.0-100.0) 07/27/21 04:40 MCH 28.3 pg (27.0-34.0) 07/27/21 04:40 MCHC 33.2 g/dL (33.0-35.0) 07/27/21 04:40 RDW 14.9 % (11.6-16.5) 07/27/21 04:40 Plt Count 107 X10^3/uL (150.0-450.0) L 07/27/21 04:40 Plt Count Comment Decreased (ADEQUATE) 07/25/21 04:41 MPV 9.5 fL (7.4-11.0) 07/27/21 04:40 Neut % (Auto) 85.8 % (42.0-75.0) H 07/27/21 04:40 Lymph % (Auto) 7.2 % (21.0-51.0) L 07/27/21 04:40 [place] % (Auto) 6.8 % (0.0-13.0) 07/27/21 04:40 Eos % (Auto) 0.0 % (0.9-2.9) L 07/27/21 04:40 Baso % (Auto) 0.2 % (0.2-1.0) 07/27/21 04:40 Neut # (Auto) 4.7 x10^3/uL (2.2-4.8) 07/27/21 04:40 Lymph # (Auto) 0.4 X10^3/uL (1.3-2.9) L 07/27/21 04:40 [place] # (Auto) 0.4 x10^3/uL (0.3-0.8) 07/27/21 04:40 Eos # (Auto) 0.0 x10^3/uL (0.0-0.2) 07/27/21 04:40 Baso # (Auto) 0.0 X10^3/uL (0.0-0.1) 07/27/21 04:40 Absolute Nucleated RBC 0.1 /100WBC 07/27/21 04:40 Total Counted 100 07/25/21 04:41 Neutrophils % (Manual) 91 % (39-76) H 07/25/21 04:41 Lymphocytes % (Manual) 4 % (13-43) L 07/25/21 04:41 Monocytes % (Manual) 5 % (4-9) 07/25/21 04:41 Plt Morphology Comment Normal (NORMAL) 07/25/21 04:41 RBC Morphology Normal (NORMAL) 07/25/21 04:41 D-Dimer > 20.00 ug/ml (0.0-0.57) H* 07/26/21 16:30 Sample Site Rr 07/26/21 06:01 ABG pH 7.420 (7.35-7.45) 07/26/21 06:01 ABG pCO2 34.0 mmHg (35.0-45.0) L 07/26/21 06:01 ABG pO2 117.0 mmHg (80.0-100.0) H 07/26/21 06:01 ABG HCO3 22.1 mmol/L (22-26) 07/26/21 06:01 ABG O2 Saturation 99.0 % (90-100) 07/26/21 06:01 ABG Base Excess -1.8 mmol/L (-2.0-2.0) 07/26/21 06:01 Gene Test Pos 07/26/21 06:01 A-a Gradient 554.0 mmHg 07/26/21 06:01 FiO2 100.0 07/26/21 06:01 Blood Gas Comments Natalia well sw 07/26/21 06:01 Sodium 145 mmol/L (136-145) 07/27/21 04:40 Corrected Sodium 146 mmol/L (136-145) H 07/27/21 04:40 Potassium 5.2 mmol/L (3.5-5.1) H 07/27/21 04:40 Chloride 112 mmol/L (98-107) H 07/27/21 04:40 Carbon Dioxide 26.0 mmol/L (21-32) 07/27/21 04:40 BUN 57 mg/dL (7-18) H 07/27/21 04:40 Creatinine 1.72 mg/dL (0.70-1.30) H 07/27/21 04:40 Est GFR (MDRD) Af Amer 50 (>60) L 07/27/21 04:40 Est GFR (MDRD) Non-Af 42 (>60) L 07/27/21 04:40 Glucose 134 mg/dL (65-99) H 07/27/21 04:40 POC Glucose (mg/dL) 140 mg/dL (65-99) H 07/27/21 05:48 Calcium 8.2 mg/dL (8.5-10.1) L 07/27/21 04:40 Corrected Calcium 9.9 mg/dL (8.5-10.1) 07/27/21 04:40 Total Bilirubin 0.40 mg/dL (0.2-1.0) 07/27/21 04:40 AST 55 Units/L (15-37) H 07/27/21 04:40 ALT 40 Units/L (12-78) 07/27/21 04:40 Alkaline Phosphatase 121 Units/L (46-116) H 07/27/21 04:40 Creatine Kinase 86 Units/L (39-308) 07/23/21 12:30 CK-MB (CK-2) 1.3 ng/mL (0-4.0) 07/23/21 12:30 CK/CKMB % Calc 1.5 % (<4) 07/23/21 12:30 Troponin I High Sens 49.9 ng/L (4.0-60.0) 07/27/21 04:40 C-Reactive Protein 75.70 mg/L (0-3.0) H 07/27/21 04:40 B-Natriuretic Peptide 153 pg/mL (0-79) H 07/26/21 16:30 Total Protein 5.9 g/dL (6.4-8.2) L 07/27/21 04:40 Albumin 1.9 g/dL (3.4-5.0) L 07/27/21 04:40 Globulin 4.0 g/dL (2.5-4.5) 07/27/21 04:40 Albumin/Globulin Ratio 0.5 Ratio (1.1-2.1) L 07/27/21 04:40 Specimen Type Catherized urine 07/23/21 19:40 Urine Color Yellow (YELLOW) 07/23/21 19:40 Urine Appearance Slightly hazy (CLEAR) 07/23/21 19:40 Urine pH 5.0 (5.0 - 8.0) 07/23/21 19:40 Ur Specific [place] 1.020 (1.000-1.030) 07/23/21 19:40 Urine Protein 2+ (NEGATIVE) 07/23/21 19:40 Urine Glucose (UA) 2+ (NEGATIVE) 07/23/21 19:40 Urine Ketones Negative (NEGATIVE) 07/23/21 19:40 Urine Occult Blood Negative (NEGATIVE) 07/23/21 19:40 Urine Nitrite Negative (NEGATIVE) 07/23/21 19:40 Urine Bilirubin Negative (NEGATIVE) 07/23/21 19:40 Urine Urobilinogen Normal (NORMAL) 07/23/21 19:40 Ur Leukocyte Esterase Negative (NEGATIVE) 07/23/21 19:40 Urine RBC 0-2 /HPF (0-3) 07/23/21 19:40 Urine WBC 0-2 /HPF (0-5) 07/23/21 19:40 Ur Squamous Epith Cells Negative /HPF (NEGATIVE) 07/23/21 19:40 Amorphous Sediment 2+ /HPF (NEGATIVE) 07/23/21 19:40 Urine Bacteria 1+ /HPF (NEGATIVE) 07/23/21 19:40 Hyaline Casts Few /LPF (NEGATIVE) 07/23/21 19:40 Coarse Granular Casts Few /HPF (NEGATIVE) 07/23/21 19:40 Urine Mucus Few /HPF (NEGATIVE) 07/23/21 19:40 Ur Culture Indicated? No/not indicated 07/23/21 19:40 SARS CoV-2 RNA Rapid HERMELINDO Positive (NEGATIVE) A 07/23/21 16:00 Plan (1) Pneumonia due to COVID-19 virus: Status: Acute Plan: Pneumonia protocol (2) Acute renal failure: Status: Acute Plan: IVF (3) Hypertension: Status: Inactive (4) Diabetes mellitus: Status: Acute
[2021-07-27 08:46] LABS: ABG ALLEN TEST POS; ABG BASE EXCESS 1.8 mmol/L (-2.0-2.0); ABG HCO3 27.2 mmol/L (22-26)
[2021-07-27] MEDS: PULMICORT NEB TX 0.5 MG NEB SCH ×2 (09:16→20:25)
[2021-07-27] MEDS: BROVANA IN SCH ×2 (09:16→20:25)
[2021-07-27] MEDS: PEPCID 20 MG VIAL 20 MG in NS 50 ML IV 50 ML IV SCH (09:30)
[2021-07-27] MEDS: VIBRAMYCIN 100 MG in D5W 250 ML IV 250 ML IV SCH ×2 (09:30→20:00)
[2021-07-27] MEDS: DECADRON INJ IVP SCH (09:30)
[2021-07-27] MEDS: LEVEMIR SC SCH ×2 (09:35→21:17)
[2021-07-27] MEDS: LOVENOX INJ 100 MG SYR SC SCH ×2 (09:37→21:17)
[2021-07-27] MEDS ORDERED: XYLOCAINE 1 % (PLAIN) ONE (11:14)
--- NOTE | 2021-07-27 13:13 | DR.CONSULT ---
CONSULT Allergies Allergies Allergy/AdvReac Type Severity Reaction Status Date / Time No Known Drug Allergies Allergy Verified 07/23/21 12:02 Past Medical History Past Medical History: Diabetes, Dyslipidemia and Hypertension Past Surgical History Surgical History: Angioplasty/Stents and CABG/Valve Surgery Family History Family Medical History: Diabetes Mellitus and Hypertension Social History Alcohol Use: None Drug Use: None Medications Home Medications: No Known Drug Allergies Allergy (Verified 07/23/21 12:02) CONTINUE taking the following medications alprazolam 0.25 mg PO BID PRN 07/23/21 [History] aspirin 81 mg PO DAILY 07/23/21 [History] atorvastatin 20 mg PO DAILY 07/23/21 [History] clopidogrel 75 mg PO DAILY 07/23/21 [History] codeine-guaifenesin 5 ml PO Q4HR PRN 07/23/21 [History] diphenhydramine HCl [Benadryl] 25 mg PO QHS 07/23/21 [History] doxycycline monohydrate 100 mg PO BID 07/23/21 [History] insulin detemir U-100 [Levemir FlexTouch U-100 Insuln] 30 unit SUBCUT BID 07/23/21 [History] losartan 100 mg PO DAILY 07/23/21 [History] methimazole 10 mg PO DAILY 07/23/21 [History] multivitamin 1 tab PO DAILY 07/23/21 [History] sitagliptin [Januvia] 100 mg PO ONCE 07/23/21 [History] tamsulosin 0.4 mg PO DAILY 07/23/21 [History] acetaminophen 1,000 mg PO Q6H PRN 07/24/21 [History] metoprolol succinate 25 mg PO DAILY 07/24/21 [History] multivitamin,[id number] [Complete Multivitamin] 1 tab PO DAILY 07/24/21 [History] vitamin A-vitamin C-vit E-min [Eye Health] 1 tab PO BID 07/24/21 [History] Physical Exam Vital Signs: Temperature 97.2 F Pulse Rate 102 Respiratory Rate 27 Blood Pressure 136/63 O2 Sat by Pulse Oximetry 100 Plan (1) Pneumonia due to COVID-19 virus: Status: Acute (2) Acute renal failure: Status: Acute (3) Hypertension: Status: Acute (4) Diabetes mellitus: Status: Acute
--- NOTE | 2021-07-27 13:34 | RAD ---
HISTORYcentral line placement.br Relevant Clinical InformationSTUDYCHEST, 1 VIEWCOMPARISONOne-view chest July 27, 2021 at 4:57 a.m..FINDINGSThe trachea is midline. The cardiac silhouette is unremarkable. A right subclavian central venous catheter is been placed tip is in good position in the superior vena cava without pneumothorax. The bilateral left greater than right lower lobe interstitial infiltrates increased minimally compared to this morning's film. No pneumothorax or effusion is observed. Pacemaker is in place battery over the left shoulder 1 lead in the right atrium 1 in the inferior right ventricle. N. The bony thorax is unremarkable.IMPRESSIONMild worsening of the interstitial infiltrate especially in the left lung base compared to earlier film today.Right subclavian central venous catheter placed with tip in good position in the superior vena cava without pneumothorax..Electronically signed by: ЕЛЕНА CHEN (Jul 27, 2021 13:33:46)
--- NOTE | 2021-07-27 13:51 | DR.CONSULT ---
CONSULT Consultation for Day of: Date: 07/27/21 Allergies Allergies Allergy/AdvReac Type Severity Reaction Status Date / Time No Known Drug Allergies Allergy Verified 07/23/21 12:02 Past Medical History Past Medical History: Diabetes, Dyslipidemia and Hypertension Past Surgical History Surgical History: Angioplasty/Stents and CABG/Valve Surgery Family History Family Medical History: Diabetes Mellitus and Hypertension Social History Alcohol Use: None Drug Use: None Medications Home Medications: No Known Drug Allergies Allergy (Verified 07/23/21 12:02) CONTINUE taking the following medications alprazolam 0.25 mg PO BID PRN 07/23/21 [History] aspirin 81 mg PO DAILY 07/23/21 [History] atorvastatin 20 mg PO DAILY 07/23/21 [History] clopidogrel 75 mg PO DAILY 07/23/21 [History] codeine-guaifenesin 5 ml PO Q4HR PRN 07/23/21 [History] diphenhydramine HCl [Benadryl] 25 mg PO QHS 07/23/21 [History] doxycycline monohydrate 100 mg PO BID 07/23/21 [History] insulin detemir U-100 [Levemir FlexTouch U-100 Insuln] 30 unit SUBCUT BID 07/23/21 [History] losartan 100 mg PO DAILY 07/23/21 [History] methimazole 10 mg PO DAILY 07/23/21 [History] multivitamin 1 tab PO DAILY 07/23/21 [History] sitagliptin [Januvia] 100 mg PO ONCE 07/23/21 [History] tamsulosin 0.4 mg PO DAILY 07/23/21 [History] acetaminophen 1,000 mg PO Q6H PRN 07/24/21 [History] metoprolol succinate 25 mg PO DAILY 07/24/21 [History] multivitamin,[id number] [Complete Multivitamin] 1 tab PO DAILY 07/24/21 [History] vitamin A-vitamin C-vit E-min [Eye Health] 1 tab PO BID 07/24/21 [History] Physical Exam Vital Signs: Temperature 97.2 F Pulse Rate 102 Respiratory Rate 27 Blood Pressure 136/63 O2 Sat by Pulse Oximetry 100 Plan (1) Pneumonia due to COVID-19 virus: Status: Acute Narrative Support Text: Case discussed with bedside HEATHER Kim Patient on continuous BiPAP, at least overnight. FiO2 100%. ABG today 7.3 945//27.2 consistent with hypoxia. As per conversation, he is alert and awake. Recommend prone positioning/lateral prone, out of bed to chair/recliner to improve oxygenation. Trial of Precedex for comfort. However if remains hypoxic, intubation and mechanical ventilation would be required. Early goals of care conversation recommended High risk for pulmonary embolism. Scheduled for CT angiogram today. He had a central line placed for IV access. Full dose Lovenox in the interim Hemoglobin low normal at 7.8. Monitor H&H while on full dose anticoagulation. Platelet count stable; 107/baseline 88. I do not have access to images however chest x-ray today reads stable infiltrates. No leukocytosis. Afebrile. Possible to have secondary bacterial infection. Agree with empiric antibiotics Concurrent ACS, ECHO and cardiology (2) Acute renal failure: Status: Acute Plan: Improving Cr Monitor I/O Avoid nephrotoxic agents (3) Hypertension: Status: Inactive Plan: Metoprolol (4) Diabetes mellitus: Status: Acute Plan: Insulin sliding scale (5) Acute on chronic respiratory failure with hypoxia: Status: Acute (6) Elevated d-dimer: Status: Acute (7) Elevated troponin level: Status: Acute Plan: Stat ECG Heparin drip/full dose anticoagulation Troponin level trended down but remains high Cardiology evaluation (8) Hypokalemia: Status: Acute Plan: Stat ECG Calcium gluconate Albuterol nebulizers Insulin Kayexalate BMP every 2 hours until potassium normalizes and then every 6 hours sepsis labs Creatinine trending down. Expect worsening after CT angiogram. (9) Anemia: Status: Acute Plan: Trend H/H Transfuse to keep over 8 in patients with elevated troponin/ACS (10) Hypernatremia: Status: Acute Plan: Slow correction with D5 (11) Hypoalbuminemia: Status: Acute
[2021-07-27] MEDS ORDERED: KAYEXALATE SUSP RECTAL NR (14:00)
[2021-07-27] MEDS: NovoLIN R (or HumuLIN R) SUBCUT PRN (17:17)
[2021-07-27] MEDS: REMDESIVIR 100 MG in NS 250 ML IV 250 ML IV SCH (22:33)
[2021-07-28] MEDS: LOPRESSOR INJ 5 MG AMP IVP SCH ×4 (03:31→20:17)
[2021-07-28] MEDS ORDERED: NS 100 ML IV + SPIKE MINIBAG* 100 ML IV ONE (04:54)
[2021-07-28 05:15] LABS: ABG ALLEN TEST POS; ABG HCO3 29.1 mmol/L (22-26)
[2021-07-28] MEDS: NS 1,000 ML IV 1,000 ML IV SCH ×3 (05:20→23:26)
[2021-07-28] MEDS: ZOSYN VIAL 3.375 GRAMS 3.375 G in NS 100 ML IV + SPIKE MINIBAG* 100 ML IV SCH ×3 (05:21→21:56)
[2021-07-28 05:33] LABS: BASOPHILS % (AUTO) 0.4 % (0.2-1.0); HEMATOCRIT 24.6 % (42.0-54.0); HEMOGLOBIN 8.1 g/dL (13.5-18.0); LYMPHOCYTES # (AUTO) 0.5 X10^3/uL (1.3-2.9); MEAN CORPUSCULAR HEMOGLOBIN 27.7 pg (27.0-34.0); MEAN CORPUSCULAR HGB CONC 32.9 g/dL (33.0-35.0); MEAN CORPUSCULAR VOLUME 84.2 fL (80.0-100.0); MEAN PLATELET VOLUME 8.9 fL (7.4-11.0); MONOCYTES # (AUTO) 0.4 x10^3/uL (0.3-0.8); MONOCYTES % (AUTO) 7.2 % (0.0-13.0); NEUTROPHILS # (AUTO) 4.7 x10^3/uL (2.2-4.8); NEUTROPHILS % (AUTO) 83.4 % (42.0-75.0); RED BLOOD COUNT 2.92 X10^6/uL (4.7-6.0); WHITE BLOOD COUNT 5.7 X10^3/uL (3.6-10.0)
[2021-07-28 05:46] LABS: ALANINE AMINOTRANSFERASE 41 Units/L (12-78); ALBUMIN 2.1 g/dL (3.4-5.0); ALKALINE PHOSPHATASE 133 Units/L (46-116); ASPARTATE AMINO TRANSFERASE 43 Units/L (15-37); BLOOD UREA NITROGEN 54 mg/dL (7-18); CALCIUM 8.1 mg/dL (8.5-10.1); CARBON DIOXIDE 27.3 mmol/L (21-32); COR CA(FOR HYPOALB) 9.6 mg/dL (8.5-10.1); CREATININE 1.83 mg/dL (0.70-1.30); SODIUM 149 mmol/L (136-145); eGFR NON BLACK RACES 39 (>60)
[2021-07-28 05:53] LABS: CHLORIDE 115 mmol/L (98-107)
--- NOTE | 2021-07-28 06:06 | RAD ---
HISTORYCOVID+, F/USTUDYCHEST, 1 VIEWCOMPARISONOne day prior. CTA chest and chest radiograph.TECHNIQUEAP view of the chestFINDINGSLeft chest wall pacemaker with leads in good position. Cardiac and mediastinal contours are within normal limits. No significant change in mid to lower lung predominant airspace and interstitial opacities. No definite pleural effusion or pneumothorax.IMPRESSIONNo significant change.Electronically signed by: Sung Zapata (Jul 28, 2021 06:05:26)
[2021-07-28] MEDS: GLUCOPHAGE PO SCH (07:59)
[2021-07-28] MEDS ORDERED: PHARMACY CONSULT - TPN XX SCH (09:00)
[2021-07-28] MEDS: DECADRON INJ IVP SCH (09:04)
[2021-07-28] MEDS: LEVEMIR SC SCH (09:05)
[2021-07-28] MEDS: PEPCID 20 MG VIAL 20 MG in NS 50 ML IV 50 ML IV SCH (09:06)
[2021-07-28] MEDS: VIBRAMYCIN 100 MG in D5W 250 ML IV 250 ML IV SCH ×2 (09:06→20:17)
[2021-07-28] MEDS: BROVANA IN SCH ×2 (09:13→20:58)
[2021-07-28] MEDS: PULMICORT NEB TX 0.5 MG NEB SCH ×2 (09:13→20:58)
[2021-07-28] MEDS: LOVENOX INJ 30 MG SYR SC SCH ×2 (09:43→20:19)
--- NOTE | 2021-07-28 10:27 | PCM.PROG ---
Progress Note Progress Note for Day of Date of Exam: 07/28/21 Subjective Subjective: Pt is a 76 year old male past medical history of Hypertension, DMT2, CAD(Pacemaker), Aortic valve replacement, HLD, admitted with COVID-19 pneumonia and acute on chronic renal failure. There is no change this morning in patient's breathing status. He did not get much sleep overnight. He is currently requiring BiPAP at FiO2 80%. He did have CTA Chest yesterday that was negative for pulmonary embolism. Will decrease Lovenox dose back to 30mg BID. Labs/imaging: Wbc 5.7, Hgb 8.1, Plt 143, Na 149, K 4.1, Creatinine 1.83, Glucose 86, CRP 46, ABG: pH 7.47, pCO2 40, pO2 59, HCO3 29, O2sat 92% on BiPAP with FiO2 80%. Blood culture pending. CXR was obtained that revealed: No change in bilateral airspace opacities consistent with history of COVID-19. Patient is currently on pneumonia protocol that includes: IVF NS@KVO ml/h, IV Remdesivir, IV Decadron 4mg, scheduled Bronchodilators Xopenex and Budesonide, Antibiotics: IV Zosyn and Doxycycline 100mg BID, Received Actemra 400mg x 1 dose, Famotidine 40mg BID, Tussionex prn, immune supporting supplements, supplemental O2, SSI, I/S, Lovenox 30mg BID, Physical therapy, Respiratory therapy consult, Smart Vest. Tele- pulmonary/critical care consult yesterday, recommendations noted. Will try with lateral proning today if tolerated. Central line placed, TPN ordered. Hyperkalemia resolved. Increase FiO2 to 90%. Wean/titrate supplemental oxygen as tolerated. Will continue with current treatment plan and closely monitor and follow up labs/imaging. Critical care time spent 30-74 minutes on clinical assessment, reviewing labs and imaging, decision making, and documentation greater than 45 minutes. Past Medical Family Social History Past Med/Fam/Surg Hx: No changes since H&P Allergies: Allergies No Known Drug Allergies Allergy (Verified 07/23/21 12:02) Review of Systems ROS: No change since H&P Vital Signs and I&O's Vital Signs: Temperature 98.3 F Pulse Rate 92 Respiratory Rate 26 Blood Pressure 156/67 O2 Sat by Pulse Oximetry 96 Intake and Output: Intake & Output 07/25/21 07/26/21 07/27/21 07/28/21 23:59 23:59 23:59 23:59 Intake Total 3372 / 3372 1585 / 1585 1215 / 1215 220 / 220 Output Total 2700 / 2700 1840 / 1840 2650 / 2650 700 / 700 Balance 672 / 672 -255 / -255 -1435 / -1435 -480 / -480 Physical Exam Oriented: Normal Eyes: Normal Ear: Normal Nose: Normal Throat: Normal Respiratory: Diminished, Rales and Rhonchi Cardiovascular: Normal : Normal Auscultation: Bowel Sounds: Normal Tenderness: Normal Skin: Normal Musculoskeletal: Normal Psychiatric: Normal Mood Description: Calm and Appropriate Affect: Normal Speech Pattern: Clear and Appropriate Laboratory and Diagnostics Result Diagrams: 07/28/21 05:09 07/28/21 05:09 Labs: Laboratory WBC 5.7 X10^3/uL (3.6-10.0) 07/28/21 05:09 RBC 2.92 X10^6/uL (4.7-6.0) L 07/28/21 05:09 Hgb 8.1 g/dL (13.5-18.0) L 07/28/21 05:09 Hct 24.6 % (42.0-54.0) L 07/28/21 05:09 MCV 84.2 fL (80.0-100.0) 07/28/21 05:09 MCH 27.7 pg (27.0-34.0) 07/28/21 05:09 MCHC 32.9 g/dL (33.0-35.0) L 07/28/21 05:09 RDW 15.0 % (11.6-16.5) 07/28/21 05:09 Plt Count 143 X10^3/uL (150.0-450.0) L 07/28/21 05:09 Plt Count Comment Decreased (ADEQUATE) 07/25/21 04:41 MPV 8.9 fL (7.4-11.0) 07/28/21 05:09 Neut % (Auto) 83.4 % (42.0-75.0) H 07/28/21 05:09 Lymph % (Auto) 9.0 % (21.0-51.0) L 07/28/21 05:09 [place] % (Auto) 7.2 % (0.0-13.0) 07/28/21 05:09 Eos % (Auto) 0.0 % (0.9-2.9) L 07/28/21 05:09 Baso % (Auto) 0.4 % (0.2-1.0) 07/28/21 05:09 Neut # (Auto) 4.7 x10^3/uL (2.2-4.8) 07/28/21 05:09 Lymph # (Auto) 0.5 X10^3/uL (1.3-2.9) L 07/28/21 05:09 [place] # (Auto) 0.4 x10^3/uL (0.3-0.8) 07/28/21 05:09 Eos # (Auto) 0.0 x10^3/uL (0.0-0.2) 07/28/21 05:09 Baso # (Auto) 0.0 X10^3/uL (0.0-0.1) 07/28/21 05:09 Absolute Nucleated RBC 0.0 /100WBC 07/28/21 05:09 Total Counted 100 07/25/21 04:41 Neutrophils % (Manual) 91 % (39-76) H 07/25/21 04:41 Lymphocytes % (Manual) 4 % (13-43) L 07/25/21 04:41 Monocytes % (Manual) 5 % (4-9) 07/25/21 04:41 Plt Morphology Comment Normal (NORMAL) 07/25/21 04:41 RBC Morphology Normal (NORMAL) 07/25/21 04:41 D-Dimer > 20.00 ug/ml (0.0-0.57) H* 07/26/21 16:30 Sample Site Lrad 07/28/21 05:10 ABG pH 7.470 (7.35-7.45) H 07/28/21 05:10 ABG pCO2 40.0 mmHg (35.0-45.0) 07/28/21 05:10 ABG pO2 59.0 mmHg (80.0-100.0) L 07/28/21 05:10 ABG HCO3 29.1 mmol/L (22-26) H 07/28/21 05:10 ABG O2 Saturation 92.0 % (90-100) 07/28/21 05:10 ABG Base Excess 5.0 mmol/L (-2.0-2.0) H 07/28/21 05:10 Gene Test Pos 07/28/21 05:10 A-a Gradient 461.0 mmHg 07/28/21 05:10 FiO2 80.0 07/28/21 05:10 Blood Gas Comments Natalia well ms 07/28/21 05:10 Sodium 149 mmol/L (136-145) H 07/28/21 05:09 Corrected Sodium TNP 07/28/21 05:09 Potassium 4.1 mmol/L (3.5-5.1) 07/28/21 05:09 Chloride 115 mmol/L (98-107) H* 07/28/21 05:09 Carbon Dioxide 27.3 mmol/L (21-32) 07/28/21 05:09 BUN 54 mg/dL (7-18) H 07/28/21 05:09 Creatinine 1.83 mg/dL (0.70-1.30) H 07/28/21 05:09 Est GFR (MDRD) Af Amer 47 (>60) L 07/28/21 05:09 Est GFR (MDRD) Non-Af 39 (>60) L 07/28/21 05:09 Glucose 86 mg/dL (65-99) 07/28/21 05:09 POC Glucose (mg/dL) 80 mg/dL (65-99) 07/28/21 05:53 Calcium 8.1 mg/dL (8.5-10.1) L 07/28/21 05:09 Corrected Calcium 9.6 mg/dL (8.5-10.1) 07/28/21 05:09 Total Bilirubin 0.50 mg/dL (0.2-1.0) 07/28/21 05:09 AST 43 Units/L (15-37) H 07/28/21 05:09 ALT 41 Units/L (12-78) 07/28/21 05:09 Alkaline Phosphatase 133 Units/L (46-116) H 07/28/21 05:09 Creatine Kinase 86 Units/L (39-308) 07/23/21 12:30 CK-MB (CK-2) 1.3 ng/mL (0-4.0) 07/23/21 12:30 CK/CKMB % Calc 1.5 % (<4) 07/23/21 12:30 Troponin I High Sens 49.9 ng/L (4.0-60.0) 07/27/21 04:40 C-Reactive Protein 46.20 mg/L (0-3.0) H 07/28/21 05:09 B-Natriuretic Peptide 153 pg/mL (0-79) H 07/26/21 16:30 Total Protein 6.0 g/dL (6.4-8.2) L 07/28/21 05:09 Albumin 2.1 g/dL (3.4-5.0) L 07/28/21 05:09 Globulin 3.9 g/dL (2.5-4.5) 07/28/21 05:09 Albumin/Globulin Ratio 0.5 Ratio (1.1-2.1) L 07/28/21 05:09 Specimen Type Catherized urine 07/23/21 19:40 Urine Color Yellow (YELLOW) 07/23/21 19:40 Urine Appearance Slightly hazy (CLEAR) 07/23/21 19:40 Urine pH 5.0 (5.0 - 8.0) 07/23/21 19:40 Ur Specific Silver 1.020 (1.000-1.030) 07/23/21 19:40 Urine Protein 2+ (NEGATIVE) 07/23/21 19:40 Urine Glucose (UA) 2+ (NEGATIVE) 07/23/21 19:40 Urine Ketones Negative (NEGATIVE) 07/23/21 19:40 Urine Occult Blood Negative (NEGATIVE) 07/23/21 19:40 Urine Nitrite Negative (NEGATIVE) 07/23/21 19:40 Urine Bilirubin Negative (NEGATIVE) 07/23/21 19:40 Urine Urobilinogen Normal (NORMAL) 07/23/21 19:40 Ur Leukocyte Esterase Negative (NEGATIVE) 07/23/21 19:40 Urine RBC 0-2 /HPF (0-3) 07/23/21 19:40 Urine WBC 0-2 /HPF (0-5) 07/23/21 19:40 Ur Squamous Epith Cells Negative /HPF (NEGATIVE) 07/23/21 19:40 Amorphous Sediment 2+ /HPF (NEGATIVE) 07/23/21 19:40 Urine Bacteria 1+ /HPF (NEGATIVE) 07/23/21 19:40 Hyaline Casts Few /LPF (NEGATIVE) 07/23/21 19:40 Coarse Granular Casts Few /HPF (NEGATIVE) 07/23/21 19:40 Urine Mucus Few /HPF (NEGATIVE) 07/23/21 19:40 Ur Culture Indicated? No/not indicated 07/23/21 19:40 SARS CoV-2 RNA Rapid HERMELINOD Positive (NEGATIVE) A 07/23/21 16:00 Plan (1) Pneumonia due to COVID-19 virus: Status: Acute Plan: Pneumonia protocol (2) Acute renal failure: Status: Acute Plan: IVF (3) Hypertension: Status: Inactive (4) Diabetes mellitus: Status: Acute (5) Acute on chronic respiratory failure with hypoxia: Status: Acute (6) Elevated d-dimer: Status: Acute (7) Elevated troponin level: Status: Acute (8) Hypokalemia: Status: Acute (9) Anemia: Status: Acute (10) Hypernatremia: Status: Acute (11) Hypoalbuminemia: Status: Acute
[2021-07-28] MEDS ORDERED: DEXTROSE 10% 1,000 ML IV PRN (11:31)
[2021-07-28] MEDS: CLINIMIX 5 %/20 % 1,000 ML with MVI INJ (ADULT) 10 ML IV SCH ×4 (11:35→21:56)
[2021-07-28 13:03] LABS: MAGNESIUM 2.5 mg/dL (1.7-2.9); PHOSPHORUS 3.2 mg/dL (2.6-4.7)
[2021-07-28] MEDS: NovoLIN R (or HumuLIN R) SUBCUT PRN ×3 (16:02→23:45)
[2021-07-28] MEDS: BENADRYL INJ 50 MG VIAL IV PRN (23:45)
[2021-07-29] MEDS: LOPRESSOR INJ 5 MG AMP IVP SCH ×4 (03:38→21:51)
[2021-07-29] MEDS: NovoLIN R (or HumuLIN R) SUBCUT PRN ×4 (03:40→21:52)
--- NOTE | 2021-07-29 05:18 | RAD ---
PROCEDURE: Chest X-ray 1 View .HISTORY: COVID-19.TECHNIQUE: AP view .COMPARISON: None .TECHNICAL QUALITY: Satisfactory .FINDINGS:Normal size heart with pacemaker on the left.Normal central vascularity.Moderate patchy consolidation both lung nguyễn similar to previous study. No pleural fluid or pneumothorax.IMPRESSION:Unchanged bilateral pneumonia.Electronically signed by: Chase Giles (Jul 29, 2021 05:17:38)
[2021-07-29 05:30] LABS: ABG BASE EXCESS 0.8 mmol/L (-2.0-2.0)
[2021-07-29 05:31] LABS: ABG ALLEN TEST POS
[2021-07-29 05:32] LABS: BASOPHILS % (AUTO) 0.2 % (0.2-1.0); EOSINOPHILS % (AUTO) 0.8 % (0.9-2.9); HEMATOCRIT 21.9 % (42.0-54.0); HEMOGLOBIN 7.4 g/dL (13.5-18.0); LYMPHOCYTES # (AUTO) 0.4 X10^3/uL (1.3-2.9); LYMPHOCYTES % (AUTO) 8.9 % (21.0-51.0); MEAN CORPUSCULAR HEMOGLOBIN 28.3 pg (27.0-34.0); MEAN CORPUSCULAR HGB CONC 33.5 g/dL (33.0-35.0); MEAN CORPUSCULAR VOLUME 84.5 fL (80.0-100.0); MEAN PLATELET VOLUME 9.1 fL (7.4-11.0); MONOCYTES # (AUTO) 0.3 x10^3/uL (0.3-0.8); NEUTROPHILS # (AUTO) 3.5 x10^3/uL (2.2-4.8); NEUTROPHILS % (AUTO) 84.1 % (42.0-75.0); RED BLOOD COUNT 2.59 X10^6/uL (4.7-6.0); RED CELL DISTRIBUTION WIDTH 14.9 % (11.6-16.5); WHITE BLOOD COUNT 4.2 X10^3/uL (3.6-10.0)
[2021-07-29 05:37] LABS: ALBUMIN 1.8 g/dL (3.4-5.0); CALCIUM 8.1 mg/dL (8.5-10.1); CARBON DIOXIDE 27.9 mmol/L (21-32); COR CA(FOR HYPOALB) 9.9 mg/dL (8.5-10.1); CREATININE 1.71 mg/dL (0.70-1.30); TOTAL PROTEIN 5.4 g/dL (6.4-8.2)
[2021-07-29] MEDS: ZOSYN VIAL 3.375 GRAMS 3.375 G in NS 100 ML IV + SPIKE MINIBAG* 100 ML IV SCH ×3 (06:00→22:50)
[2021-07-29] MEDS: [UNRECOGNIZED DRUG - REMARK] IV SCH ×6 (07:42→20:30)
[2021-07-29] MEDS: PEPCID 20 MG VIAL 20 MG in NS 50 ML IV 50 ML IV SCH (08:23)
[2021-07-29] MEDS: DECADRON INJ IVP SCH (08:26)
[2021-07-29] MEDS: GLUCOPHAGE PO SCH (08:27)
[2021-07-29] MEDS: BROVANA IN SCH ×2 (08:30→21:00)
[2021-07-29] MEDS: PULMICORT NEB TX 0.5 MG NEB SCH ×2 (08:30→21:00)
--- NOTE | 2021-07-29 08:35 | PCM.PROG ---
Progress Note Progress Note for Day of Date of Exam: 07/29/21 Subjective Subjective: Pt is a 76 year old male past medical history of Hypertension, DMT2, CAD(Pacemaker), Aortic valve replacement, HLD, admitted with COVID-19 pneumonia and acute on chronic renal failure. This morning patient is sitting up on side of bed. He is currently requiring BiPAP at FiO2 80%, it was weaned down earlier from 90% after ABG this morning. Labs/imaging: Wbc 4.2, Hgb 7.4, Plt 135, Na 148, K 3.8, Creatinine 1.71, Glucose 306, CRP 46>22, ABG: pH 7.47, pCO2 33, pO2 153, HCO3 24, O2sat 99% on BiPAP with FiO2 90%. Blood culture NGTD. CXR was obtained that revealed: No change in bilateral airspace opacities consistent with history of COVID-19. Patient is currently on pneumonia protocol that includes: IVF NS@KVO ml/h, IV Remdesivir(completed), IV Decadron 4mg, scheduled Bronchodilators Xopenex and Budesonide, Antibiotics: IV Zosyn and Doxycycline 100mg BID, Received Actemra 400mg x 1 dose, Famotidine 40mg BID, Tussionex prn, immune supporting supplements, supplemental O2, SSI, I/S, Lovenox 30mg BID, Physical therapy, Respiratory therapy consult, Smart Vest. Has central line. Receiving TPN for nutrition. Will continue to wean/titrate supplemental oxygen as tolerated. Repeat ABG at noon. Restart home insulin at half dose. Will continue with current treatment plan and closely monitor and follow up labs/imaging. Critical care time spent 30-74 minutes on clinical assessment, reviewing labs and imaging, decision making, and documentation greater than 45 minutes. Past Medical Family Social History Past Med/Fam/Surg Hx: No changes since H&P Allergies: Allergies No Known Drug Allergies Allergy (Verified 07/23/21 12:02) Review of Systems ROS: No change since H&P Vital Signs and I&O's Vital Signs: Temperature 98.4 F Pulse Rate 85 Respiratory Rate 21 Blood Pressure 161/68 O2 Sat by Pulse Oximetry 97 Intake and Output: Intake & Output 07/26/21 07/27/21 07/28/21 07/29/21 23:59 23:59 23:59 23:59 Intake Total 1585 / 1585 1215 / 1215 1060 / 1060 2009 Output Total 1840 / 1840 2650 / 2650 2800 / 2800 950 / 950 Balance -255 / -255 -1435 / -1435 -1740 / -1740 1060 / 1060 Physical Exam Oriented: Normal Eyes: Normal Ear: Normal Nose: Normal Throat: Normal Respiratory: Diminished, Rales and Rhonchi Cardiovascular: Normal : Normal Auscultation: Bowel Sounds: Normal Tenderness: Normal Skin: Normal Musculoskeletal: Normal Psychiatric: Normal Mood Description: Calm and Appropriate Affect: Normal Speech Pattern: Clear and Appropriate Laboratory and Diagnostics Result Diagrams: 07/29/21 04:31 07/29/21 04:31 Labs: 07/26/21 16:38 Blood Blood Culture - Preliminary 07/26/21 16:30 Blood Blood Culture - Preliminary Laboratory WBC 4.2 X10^3/uL (3.6-10.0) 07/29/21 04:31 RBC 2.59 X10^6/uL (4.7-6.0) L 07/29/21 04:31 Hgb 7.4 g/dL (13.5-18.0) L 07/29/21 04:31 Hct 21.9 % (42.0-54.0) L 07/29/21 04:31 MCV 84.5 fL (80.0-100.0) 07/29/21 04:31 MCH 28.3 pg (27.0-34.0) 07/29/21 04:31 MCHC 33.5 g/dL (33.0-35.0) 07/29/21 04:31 RDW 14.9 % (11.6-16.5) 07/29/21 04:31 Plt Count 135 X10^3/uL (150.0-450.0) L 07/29/21 04:31 Plt Count Comment Decreased (ADEQUATE) 07/25/21 04:41 MPV 9.1 fL (7.4-11.0) 07/29/21 04:31 Neut % (Auto) 84.1 % (42.0-75.0) H 07/29/21 04:31 Lymph % (Auto) 8.9 % (21.0-51.0) L 07/29/21 04:31 [place] % (Auto) 6.0 % (0.0-13.0) 07/29/21 04:31 Eos % (Auto) 0.8 % (0.9-2.9) L 07/29/21 04:31 Baso % (Auto) 0.2 % (0.2-1.0) 07/29/21 04:31 Neut # (Auto) 3.5 x10^3/uL (2.2-4.8) 07/29/21 04:31 Lymph # (Auto) 0.4 X10^3/uL (1.3-2.9) L 07/29/21 04:31 [place] # (Auto) 0.3 x10^3/uL (0.3-0.8) 07/29/21 04:31 Eos # (Auto) 0.0 x10^3/uL (0.0-0.2) 07/29/21 04:31 Baso # (Auto) 0.0 X10^3/uL (0.0-0.1) 07/29/21 04:31 Absolute Nucleated RBC 0.1 /100WBC 07/29/21 04:31 Total Counted 100 07/25/21 04:41 Neutrophils % (Manual) 91 % (39-76) H 07/25/21 04:41 Lymphocytes % (Manual) 4 % (13-43) L 07/25/21 04:41 Monocytes % (Manual) 5 % (4-9) 07/25/21 04:41 Plt Morphology Comment Normal (NORMAL) 07/25/21 04:41 RBC Morphology Normal (NORMAL) 07/25/21 04:41 D-Dimer > 20.00 ug/ml (0.0-0.57) H* 07/26/21 16:30 Sample Site Lrad 07/29/21 05:25 ABG pH 7.470 (7.35-7.45) H 07/29/21 05:25 ABG pCO2 33.0 mmHg (35.0-45.0) L 07/29/21 05:25 ABG pO2 153.0 mmHg (80.0-100.0) H 07/29/21 05:25 ABG HCO3 24.0 mmol/L (22-26) 07/29/21 05:25 ABG O2 Saturation 99.0 % (90-100) 07/29/21 05:25 ABG Base Excess 0.8 mmol/L (-2.0-2.0) 07/29/21 05:25 Gene Test Pos 07/29/21 05:25 A-a Gradient 447.0 mmHg 07/29/21 05:25 FiO2 90.0 07/29/21 05:25 Blood Gas Comments Natalia well ms/mf 07/29/21 05:25 Sodium 148 mmol/L (136-145) H 07/29/21 04:31 Corrected Sodium 153 mmol/L (136-145) H 07/29/21 04:31 Potassium 3.8 mmol/L (3.5-5.1) 07/29/21 04:31 Chloride 114 mmol/L (98-107) H 07/29/21 04:31 Carbon Dioxide 27.9 mmol/L (21-32) 07/29/21 04:31 BUN 55 mg/dL (7-18) H 07/29/21 04:31 Creatinine 1.71 mg/dL (0.70-1.30) H 07/29/21 04:31 Est GFR (MDRD) Af Amer 51 (>60) L 07/29/21 04:31 Est GFR (MDRD) Non-Af 42 (>60) L 07/29/21 04:31 Glucose 306 mg/dL (65-99) H 07/29/21 04:31 POC Glucose (mg/dL) 249 mg/dL (65-99) H 07/29/21 03:25 Calcium 8.1 mg/dL (8.5-10.1) L 07/29/21 04:31 Corrected Calcium 9.9 mg/dL (8.5-10.1) 07/29/21 04:31 Phosphorus 3.2 mg/dL (2.6-4.7) 07/28/21 12:29 Magnesium 2.5 mg/dL (1.7-2.9) 07/28/21 12:29 Total Bilirubin 0.40 mg/dL (0.2-1.0) 07/29/21 04:31 AST 30 Units/L (15-37) 07/29/21 04:31 ALT 33 Units/L (12-78) 07/29/21 04:31 Alkaline Phosphatase 119 Units/L (46-116) H 07/29/21 04:31 Creatine Kinase 86 Units/L (39-308) 07/23/21 12:30 CK-MB (CK-2) 1.3 ng/mL (0-4.0) 07/23/21 12:30 CK/CKMB % Calc 1.5 % (<4) 07/23/21 12:30 Troponin I High Sens 49.9 ng/L (4.0-60.0) 07/27/21 04:40 C-Reactive Protein 22.70 mg/L (0-3.0) H 07/29/21 04:31 B-Natriuretic Peptide 153 pg/mL (0-79) H 07/26/21 16:30 Total Protein 5.4 g/dL (6.4-8.2) L 07/29/21 04:31 Albumin 1.8 g/dL (3.4-5.0) L 07/29/21 04:31 Globulin 3.6 g/dL (2.5-4.5) 07/29/21 04:31 Albumin/Globulin Ratio 0.5 Ratio (1.1-2.1) L 07/29/21 04:31 Prealbumin 14.0 mg/dL (18-35.7) L 07/29/21 04:31 Triglycerides 47 mg/dL (0-150) 07/28/21 12:29 Specimen Type Catherized urine 07/23/21 19:40 Urine Color Yellow (YELLOW) 07/23/21 19:40 Urine Appearance Slightly hazy (CLEAR) 07/23/21 19:40 Urine pH 5.0 (5.0 - 8.0) 07/23/21 19:40 Ur Specific [place] 1.020 (1.000-1.030) 07/23/21 19:40 Urine Protein 2+ (NEGATIVE) 07/23/21 19:40 Urine Glucose (UA) 2+ (NEGATIVE) 07/23/21 19:40 Urine Ketones Negative (NEGATIVE) 07/23/21 19:40 Urine Occult Blood Negative (NEGATIVE) 07/23/21 19:40 Urine Nitrite Negative (NEGATIVE) 07/23/21 19:40 Urine Bilirubin Negative (NEGATIVE) 07/23/21 19:40 Urine Urobilinogen Normal (NORMAL) 07/23/21 19:40 Ur Leukocyte Esterase Negative (NEGATIVE) 07/23/21 19:40 Urine RBC 0-2 /HPF (0-3) 07/23/21 19:40 Urine WBC 0-2 /HPF (0-5) 07/23/21 19:40 Ur Squamous Epith Cells Negative /HPF (NEGATIVE) 07/23/21 19:40 Amorphous Sediment 2+ /HPF (NEGATIVE) 07/23/21 19:40 Urine Bacteria 1+ /HPF (NEGATIVE) 07/23/21 19:40 Hyaline Casts Few /LPF (NEGATIVE) 07/23/21 19:40 Coarse Granular Casts Few /HPF (NEGATIVE) 07/23/21 19:40 Urine Mucus Few /HPF (NEGATIVE) 07/23/21 19:40 Ur Culture Indicated? No/not indicated 07/23/21 19:40 SARS CoV-2 RNA Rapid HERMELINDO Positive (NEGATIVE) A 07/23/21 16:00 Plan (1) Pneumonia due to COVID-19 virus: Status: Acute Plan: Pneumonia protocol (2) Acute renal failure: Status: Acute Plan: IVF (3) Hypertension: Status: Inactive (4) Diabetes mellitus: Status: Acute (5) Acute on chronic respiratory failure with hypoxia: Status: Acute (6) Elevated d-dimer: Status: Acute (7) Elevated troponin level: Status: Acute (8) Hypokalemia: Status: Acute (9) Anemia: Status: Acute (10) Hypernatremia: Status: Acute (11) Hypoalbuminemia: Status: Acute
[2021-07-29] MEDS: LOVENOX INJ 30 MG SYR SC SCH ×2 (09:00→21:51)
[2021-07-29] MEDS: VIBRAMYCIN 100 MG in D5W 250 ML IV 250 ML IV SCH ×2 (10:00→21:50)
[2021-07-29 13:03] LABS: ABG ALLEN TEST POS; ABG HCO3 25.2 mmol/L (22-26)
[2021-07-29] MEDS ORDERED: DRUG FILTER EXTENSION SET ONE (13:17)
[2021-07-29] MEDS ORDERED: LEVEMIR SC ONE (19:39)
[2021-07-29] MEDS ORDERED: NS 100 ML IV + SPIKE MINIBAG* 100 ML IV ONE (19:40)
[2021-07-29] MEDS: NS 1,000 ML IV 1,000 ML IV SCH (21:51)
[2021-07-29] MEDS: LEVEMIR SC SCH (21:52)
[2021-07-29] MEDS: RESTORIL CAP 15 MG PO PRN (21:54)
[2021-07-30 05:33] LABS: BASOPHILS % (AUTO) 0.1 % (0.2-1.0); EOSINOPHILS # (AUTO) 0.1 x10^3/uL (0.0-0.2); EOSINOPHILS % (AUTO) 3.1 % (0.9-2.9); HEMATOCRIT 23.9 % (42.0-54.0); HEMOGLOBIN 7.9 g/dL (13.5-18.0); LYMPHOCYTES # (AUTO) 0.4 X10^3/uL (1.3-2.9); LYMPHOCYTES % (AUTO) 9.7 % (21.0-51.0); MEAN CORPUSCULAR VOLUME 84.8 fL (80.0-100.0); MEAN PLATELET VOLUME 9.1 fL (7.4-11.0); MONOCYTES # (AUTO) 0.3 x10^3/uL (0.3-0.8); MONOCYTES % (AUTO) 5.9 % (0.0-13.0); NEUTROPHILS # (AUTO) 3.7 x10^3/uL (2.2-4.8); NEUTROPHILS % (AUTO) 81.2 % (42.0-75.0); RED BLOOD COUNT 2.82 X10^6/uL (4.7-6.0); RED CELL DISTRIBUTION WIDTH 14.6 % (11.6-16.5); WHITE BLOOD COUNT 4.6 X10^3/uL (3.6-10.0)
[2021-07-30 05:33] LABS: ABG ALLEN TEST POS; ABG HCO3 26.5 mmol/L (22-26)
[2021-07-30 05:42] LABS: CALCIUM 8.4 mg/dL (8.5-10.1); CARBON DIOXIDE 26.3 mmol/L (21-32); CREATININE 1.74 mg/dL (0.70-1.30); TOTAL PROTEIN 5.6 g/dL (6.4-8.2)
--- NOTE | 2021-07-30 06:18 | RAD ---
HISTORYSOBSTUDYCHEST, 1 [id number]/03/2022.TECHNIQUEAP view of the chestFINDINGSLeft chest wall pacemaker with leads in stable position. Cardiac and mediastinal contours are within normal limits. No significant change in bilateral mid to lower lung airspace opacities. No definite pleural effusion or pneumothorax. Soft tissue attenuation limits evaluation.IMPRESSIONNo significant change.Electronically signed by: Sung Zapata (Jul 30, 2021 06:16:54)
[2021-07-30] MEDS: LOPRESSOR INJ 5 MG AMP IVP SCH ×4 (06:25→21:00)
[2021-07-30] MEDS: ZOSYN VIAL 3.375 GRAMS 3.375 G in NS 100 ML IV + SPIKE MINIBAG* 100 ML IV SCH ×3 (06:26→23:00)
[2021-07-30] MEDS: NovoLIN R (or HumuLIN R) SUBCUT PRN ×4 (06:26→21:00)
[2021-07-30] MEDS: MORPHINE SULFATE INJ 2 MG INJ IVP PRN (08:15)
[2021-07-30] MEDS: [UNRECOGNIZED DRUG - REMARK] IV SCH ×6 (08:31→08:32)
[2021-07-30] MEDS: DECADRON INJ IVP SCH (09:02)
[2021-07-30] MEDS: LOVENOX INJ 30 MG SYR SC SCH ×2 (09:03→21:00)
[2021-07-30] MEDS: PEPCID 20 MG VIAL 20 MG in NS 50 ML IV 50 ML IV SCH (09:04)
[2021-07-30] MEDS: VIBRAMYCIN 100 MG in D5W 250 ML IV 250 ML IV SCH ×2 (09:04→21:00)
[2021-07-30] MEDS: GLUCOPHAGE PO SCH (09:17)
[2021-07-30] MEDS: LEVEMIR SC SCH ×2 (09:17→21:00)
[2021-07-30] MEDS: BROVANA IN SCH ×2 (09:35→21:25)
[2021-07-30] MEDS: PULMICORT NEB TX 0.5 MG NEB SCH ×2 (09:35→21:25)
[2021-07-30] MEDS ORDERED: SOLU-Medrol 40 MG VIAL IVP SCH (10:00)
[2021-07-30] MEDS: [UNRECOGNIZED DRUG - REMARK] IV SCH ×6 (10:08→23:52)
--- NOTE | 2021-07-30 10:50 | CT ---
HISTORYR/O PE, ELEVATED DDIMERSTUDYCTA CHESTCOMPARISONTECHNIQUEMultiple axial images of the chest were obtained from the thoracic inlet to the upper abdomen after the administration of IV contrast. 3D reconstructions utilizing axial MIPS imaging was performed and reviewed. Dose reduction techniques including Automated Exposure Control (AEC) and adjustment of mA and kV were utilized.FINDINGSThe heart size is normal. There is aortic valve replacement. Pacemaker leads are present. There is no evidence of a pulmonary embolus. There are reactive size mediastinal and hilar lymph nodes. Thyroid gland is normal. There is bronchial wall thickening. There is coarsening of the interstitial markings bilaterally with some relative sparing in the upper lobes. There are 2 nodules in the right upper lobe 1 of which measures 8 millimeters diameter and the other which measures 5 millimeters diameter. There is no effusion. There is fatty infiltration of the liver. There is a small hiatal hernia. There is some cortical scarring in both kidneys. There is no worrisome bone marrow lesion..IMPRESSION1. Negative for pulmonary embolism. 2. Coarsening of the interstitial markings of uncertain etiology. This could be fibrotic scarring related to viral pneumonia. There are 2 nodules in the right middle lobe which are likely postinflammatory. Consider follow-up CT in 6 months.Electronically signed by: Virgil East (Jul 27, 2021 15:02:45)
--- NOTE | 2021-07-30 12:14 | PCM.PROG ---
Progress Note - Progress Note for Day of Date of Exam: 07/30/21 - Subjective Subjective: Pt is a 76 year old male, patient of , with a past medical history of Hypertension, DMT2, CAD(Pacemaker), Aortic valve replacement, HLD. He was admitted with COVID-19 pneumonia and acute on chronic renal failure. This morning patient is sitting up on side of bed. He is currently requiring BiPAP at FiO2 75%. He was on 80% yesterday. It appears that saturations have remained 90-100% this morning and throughout the night. On examination, heart is regular in rate and rhythm. Bilateral lungs noted with rhonchi and rales, diminished. Abdomen is round, soft, and non-tender with hypoactive bowel sounds. He denies a bowel movement in several days. Labs/imaging: Wbc 4.6, rbc 2.82, hgb 7.9, hct 23.9, plt count 126, sodium 136, chloride 109, bun 54, creatinine 1.74, glucose 331, calcium 8.4, alk phos 130. Cr[ 12.80, bnp 89.1, total protein 5.6, albumin 2.0. ABG revealed: PH 7.430, pc02 40, p02 59, hc03 26.5, 02 sat 91, a-a gradient 426, fi02 75. Blood and sputum culture pending. CXR was obtained and revealed: Left chest wall pacemaker with leads in stable position. Cardiac and mediastinal contours are within normal limits. No significant change in bilateral mid to lower lung airspace opacities. No definite pleural effusion or pneumothorax. Soft tissue attenuation limits evaluation. Patient is currently on pneumonia protocol that includes: IVF NS@KVO ml/h, IV Decadron 4mg, scheduled Bronchodilators Xopenex and Budesonide, Antibiotics: IV Zosyn and Doxycycline 100mg BID, Received Actemra 400mg x 1 dose, Famotidine 40mg BID, Levemir 15 units sc Bid, Tussionex prn, immune supporting supplements, supplemental O2, SSI, I/S, Lovenox 30mg BID, Physical therapy, Respiratory therapy consult, Smart Vest. Has central line. Receiving TPN for nutrition. He has completed a course of Remdesivir. Today, we will discontinue the decadron and add solu-medrol 40mg iv q8h. We will also add Colace and milk of magnesia for constipation. We will continue to wean/titrate supplemental oxygen as tolerated. Will continue with current treatment plan and closely monitor and follow up labs/imaging. Pulmonology will consult with patient via tele-med today and then continue to follow. Critical care time spent 30-74 minutes on clinical assessment, reviewing labs and imaging, decision making, and documentation greater than 45 minutes. - Past Medical Family Social History Past Med/Fam/Surg Hx: No changes since H&P Allergies: Allergies No Known Drug Allergies Allergy (Verified 07/23/21 12:02) - Review of Systems ROS: No change since H&P - Vital Signs and I&O's Vital Signs: Temperature 98.2 F Pulse Rate 92 Respiratory Rate 38 Blood Pressure 115/56 O2 Sat by Pulse Oximetry 100 Intake and Output: Intake & Output 07/28/21 07/29/21 07/30/21 07/31/21 11:59 11:59 11:59 11:59 Intake Total 1140 / 1140 2850 / 2850 3393 / 3393 Output Total 2600 / 2600 3050 / 3050 2975 / 2975 Balance -1460 / -1460 -200 / -200 418 / 418 - Physical Exam Oriented: Normal Eyes: Normal Ear: Normal Nose: Normal Throat: Normal Respiratory: Diminished, Rales, Rhonchi Cardiovascular: Normal : Normal Auscultation: Bowel Sounds: Normal Palpation: Normal Tenderness: Normal Skin: Normal Musculoskeletal: Normal Psychiatric: Normal Mood Description: Calm, Appropriate Affect: Normal Speech Pattern: Clear, Appropriate - Laboratory and Diagnostics Result Diagrams: 07/30/21 04:45 07/30/21 04:45 Labs: 07/30/21 08:09 Sputum - Expectorated Sputum - Final 07/26/21 16:38 Blood Blood Culture - Preliminary 07/26/21 16:30 Blood Blood Culture - Preliminary Laboratory WBC 4.6 X10^3/uL (3.6-10.0) 07/30/21 04:45 RBC 2.82 X10^6/uL (4.7-6.0) L 07/30/21 04:45 Hgb 7.9 g/dL (13.5-18.0) L 07/30/21 04:45 Hct 23.9 % (42.0-54.0) L 07/30/21 04:45 MCV 84.8 fL (80.0-100.0) 07/30/21 04:45 MCH 28.0 pg (27.0-34.0) 07/30/21 04:45 MCHC 33.0 g/dL (33.0-35.0) 07/30/21 04:45 RDW 14.6 % (11.6-16.5) 07/30/21 04:45 Plt Count 126 X10^3/uL (150.0-450.0) L 07/30/21 04:45 Plt Count Comment Decreased (ADEQUATE) 07/25/21 04:41 MPV 9.1 fL (7.4-11.0) 07/30/21 04:45 Neut % (Auto) 81.2 % (42.0-75.0) H 07/30/21 04:45 Lymph % (Auto) 9.7 % (21.0-51.0) L 07/30/21 04:45 [place] % (Auto) 5.9 % (0.0-13.0) 07/30/21 04:45 Eos % (Auto) 3.1 % (0.9-2.9) H 07/30/21 04:45 Baso % (Auto) 0.1 % (0.2-1.0) L 07/30/21 04:45 Neut # (Auto) 3.7 x10^3/uL (2.2-4.8) 07/30/21 04:45 Lymph # (Auto) 0.4 X10^3/uL (1.3-2.9) L 07/30/21 04:45 [place] # (Auto) 0.3 x10^3/uL (0.3-0.8) 07/30/21 04:45 Eos # (Auto) 0.1 x10^3/uL (0.0-0.2) 07/30/21 04:45 Baso # (Auto) 0.0 X10^3/uL (0.0-0.1) 07/30/21 04:45 Absolute Nucleated RBC 0.0 /100WBC 07/30/21 04:45 Total Counted 100 07/25/21 04:41 Neutrophils % (Manual) 91 % (39-76) H 07/25/21 04:41 Lymphocytes % (Manual) 4 % (13-43) L 07/25/21 04:41 Monocytes % (Manual) 5 % (4-9) 07/25/21 04:41 Plt Morphology Comment Normal (NORMAL) 07/25/21 04:41 RBC Morphology Normal (NORMAL) 07/25/21 04:41 D-Dimer > 20.00 ug/ml (0.0-0.57) H* 07/26/21 16:30 Sample Site Lr 07/30/21 05:00 ABG pH 7.430 (7.35-7.45) 07/30/21 05:00 ABG pCO2 40.0 mmHg (35.0-45.0) 07/30/21 05:00 ABG pO2 59.0 mmHg (80.0-100.0) L 07/30/21 05:00 ABG HCO3 26.5 mmol/L (22-26) H 07/30/21 05:00 ABG O2 Saturation 91.0 % (90-100) 07/30/21 05:00 ABG Base Excess 2.0 mmol/L (-2.0-2.0) 07/30/21 05:00 Gene Test Pos 07/30/21 05:00 A-a Gradient 426.0 mmHg 07/30/21 05:00 FiO2 75.0 07/30/21 05:00 Blood Gas Comments [facility] 07/30/21 05:00 Sodium 136 mmol/L (136-145) 07/30/21 04:45 Corrected Sodium 142 mmol/L (136-145) 07/30/21 04:45 Potassium 3.6 mmol/L (3.5-5.1) 07/30/21 04:45 Chloride 109 mmol/L (98-107) H 07/30/21 04:45 Carbon Dioxide 26.3 mmol/L (21-32) 07/30/21 04:45 BUN 54 mg/dL (7-18) H 07/30/21 04:45 Creatinine 1.74 mg/dL (0.70-1.30) H 07/30/21 04:45 Est GFR (MDRD) Af Amer 50 (>60) L 07/30/21 04:45 Est GFR (MDRD) Non-Af 41 (>60) L 07/30/21 04:45 Glucose 331 mg/dL (65-99) H 07/30/21 04:45 POC Glucose (mg/dL) 282 mg/dL (65-99) H 07/30/21 11:36 Calcium 8.4 mg/dL (8.5-10.1) L 07/30/21 04:45 Corrected Calcium 10.0 mg/dL (8.5-10.1) 07/30/21 04:45 Phosphorus 3.2 mg/dL (2.6-4.7) 07/28/21 12:29 Magnesium 2.5 mg/dL (1.7-2.9) 07/28/21 12:29 Total Bilirubin 0.50 mg/dL (0.2-1.0) 07/30/21 04:45 AST 30 Units/L (15-37) 07/30/21 04:45 ALT 34 Units/L (12-78) 07/30/21 04:45 Alkaline Phosphatase 130 Units/L (46-116) H 07/30/21 04:45 Creatine Kinase 86 Units/L (39-308) 07/23/21 12:30 CK-MB (CK-2) 1.3 ng/mL (0-4.0) 07/23/21 12:30 CK/CKMB % Calc 1.5 % (<4) 07/23/21 12:30 Troponin I High Sens 49.9 ng/L (4.0-60.0) 07/27/21 04:40 C-Reactive Protein 12.80 mg/L (0-3.0) H 07/30/21 04:45 B-Natriuretic Peptide 89.1 pg/mL (0-79) H 07/30/21 04:45 Total Protein 5.6 g/dL (6.4-8.2) L 07/30/21 04:45 Albumin 2.0 g/dL (3.4-5.0) L 07/30/21 04:45 Globulin 3.6 g/dL (2.5-4.5) 07/30/21 04:45 Albumin/Globulin Ratio 0.6 Ratio (1.1-2.1) L 07/30/21 04:45 Prealbumin 14.0 mg/dL (18-35.7) L 07/29/21 04:31 Triglycerides 47 mg/dL (0-150) 07/28/21 12:29 Specimen Type Catherized urine 07/23/21 19:40 Urine Color Yellow (YELLOW) 07/23/21 19:40 Urine Appearance Slightly hazy (CLEAR) 07/23/21 19:40 Urine pH 5.0 (5.0 - 8.0) 07/23/21 19:40 Ur Specific [place] 1.020 (1.000-1.030) 07/23/21 19:40 Urine Protein 2+ (NEGATIVE) 07/23/21 19:40 Urine Glucose (UA) 2+ (NEGATIVE) 07/23/21 19:40 Urine Ketones Negative (NEGATIVE) 07/23/21 19:40 Urine Occult Blood Negative (NEGATIVE) 07/23/21 19:40 Urine Nitrite Negative (NEGATIVE) 07/23/21 19:40 Urine Bilirubin Negative (NEGATIVE) 07/23/21 19:40 Urine Urobilinogen Normal (NORMAL) 07/23/21 19:40 Ur Leukocyte Esterase Negative (NEGATIVE) 07/23/21 19:40 Urine RBC 0-2 /HPF (0-3) 07/23/21 19:40 Urine WBC 0-2 /HPF (0-5) 07/23/21 19:40 Ur Squamous Epith Cells Negative /HPF (NEGATIVE) 07/23/21 19:40 Amorphous Sediment 2+ /HPF (NEGATIVE) 07/23/21 19:40 Urine Bacteria 1+ /HPF (NEGATIVE) 07/23/21 19:40 Hyaline Casts Few /LPF (NEGATIVE) 07/23/21 19:40 Coarse Granular Casts Few /HPF (NEGATIVE) 07/23/21 19:40 Urine Mucus Few /HPF (NEGATIVE) 07/23/21 19:40 Ur Culture Indicated? No/not indicated 07/23/21 19:40 SARS CoV-2 RNA Rapid HERMELINDO Positive (NEGATIVE) A 07/23/21 16:00 - Plan (1) Pneumonia due to COVID-19 virus Status: Acute Plan: Pneumonia protocol (2) Acute on chronic respiratory failure with hypoxia Status: Acute (3) Acute renal failure Status: Acute Qualifiers: Acute renal failure type: unspecified Qualified Code(s): N17.9 - Acute kidney failure, unspecified Plan: IVF (4) Anemia Status: Acute Qualifiers: Anemia type: unspecified type Qualified Code(s): D64.9 - Anemia, unspecified (5) Hypokalemia Status: Acute (6) Elevated troponin level Status: Acute (7) Elevated d-dimer Status: Acute (8) Hypoalbuminemia Status: Acute (9) Hypernatremia Status: Acute (10) Diabetes mellitus Status: Chronic Qualifiers: Diabetes mellitus type: type 2 Diabetes mellitus intermediate insulin use: with intermediate use Diabetes mellitus complication status: with hyperglycemia Qualified Code(s): E11.65 - Type 2 diabetes mellitus with hyperglycemia; Z79.4 - [facility] (current) use of insulin (11) Hypertension Status: Chronic Qualifiers: Hypertension type: primary hypertension Qualified Code(s): I10 - Essential (primary) hypertension
--- NOTE | 2021-07-30 16:11 | PCM.PROG ---
Progress Note Progress Note for Day of Date of Exam: 07/30/21 Past Medical Family Social History Past Med/Fam/Surg Hx: No changes since H&P Allergies: SUJECTIVE Follow-up requested by providers Case discussed with bedside RN Bozena Patient was placed on BiPAP. Unable to see the settings however I am told that he is on FiO2 75% and he is saturating almost 100%. They did try to place him on high flow however his sats dropped to 80% and he was placed back on BiPAP. He is not able to prone/lateral prone but he has been out of bed to chair today. He does report anxiety. ASSESSMENT AND PLAN: -Precedex has not been tried yet; strongly recommend initiate the drip at low- dose and titrate as per anxiety/delirium symptoms. Monitor for hypotension and bradycardia. -He remains afebrile though some tachycardia and tachypnea is present which may be related to his respiratory distress. He already has had a CT angiogram that ruled out pulmonary embolism. -Labs suggestive of anemia but stable hemoglobin of 7.9. KALANI stable with a creatinine of 1.74. Hyperglycemia still persistent. -Recommend initiate insulin drip for hyperglycemia PROTOCOL IN ICU. -Input output reviewed, net negative fluid balance. Continue to monitor -Empiric antibiotics, de-escalate per culture results -Continue to monitor inflammatory panel including CRP and IL-6. Decadron, Vit C/D and zinc. If elevated may need Tocilizumab if not given yet -ABG with pO2 59; Increase FIO2. Daily ABGs. -If there is further clinical decline, intubation and mechanical ventilation would be required. Early goals of care discussion -If intubated, low tidal volume, high PEEP, neuro paralysis and prone positioning as per P/F ratio for ARDS secondary to Covid At this time, he is stable. Continue to wean oxygen as tolerated. No acute pulmonary recommendations. Please feel free to call us if there is a change in respiratory status or if you have any questions Thank you for the consultation! Review of Systems ROS: No change since H&P Vital Signs and I&O's Vital Signs: Temperature 97.6 F Pulse Rate 98 Respiratory Rate 26 Blood Pressure 110/55 O2 Sat by Pulse Oximetry 100 Intake and Output: Intake & Output 07/27/21 07/28/21 07/29/21 07/30/21 23:59 23:59 23:59 23:59 Intake Total 1215 / 1215 1060 / 1060 4757 / 4757 646 / 646 Output Total 2650 / 2650 2800 / 2800 2900 / 2900 1025 / 1025 Balance -1435 / -1435 -1740 / -1740 1857 / 1857 -379 / -379 Laboratory and Diagnostics Result Diagrams: 07/30/21 04:45 07/30/21 04:45 Labs: 07/30/21 08:09 Sputum - Expectorated Sputum - Final 07/26/21 16:38 Blood Blood Culture - Preliminary 07/26/21 16:30 Blood Blood Culture - Preliminary Laboratory WBC 4.6 X10^3/uL (3.6-10.0) 07/30/21 04:45 RBC 2.82 X10^6/uL (4.7-6.0) L 07/30/21 04:45 Hgb 7.9 g/dL (13.5-18.0) L 07/30/21 04:45 Hct 23.9 % (42.0-54.0) L 07/30/21 04:45 MCV 84.8 fL (80.0-100.0) 07/30/21 04:45 MCH 28.0 pg (27.0-34.0) 07/30/21 04:45 MCHC 33.0 g/dL (33.0-35.0) 07/30/21 04:45 RDW 14.6 % (11.6-16.5) 07/30/21 04:45 Plt Count 126 X10^3/uL (150.0-450.0) L 07/30/21 04:45 Plt Count Comment Decreased (ADEQUATE) 07/25/21 04:41 MPV 9.1 fL (7.4-11.0) 07/30/21 04:45 Neut % (Auto) 81.2 % (42.0-75.0) H 07/30/21 04:45 Lymph % (Auto) 9.7 % (21.0-51.0) L 07/30/21 04:45 [place] % (Auto) 5.9 % (0.0-13.0) 07/30/21 04:45 Eos % (Auto) 3.1 % (0.9-2.9) H 07/30/21 04:45 Baso % (Auto) 0.1 % (0.2-1.0) L 07/30/21 04:45 Neut # (Auto) 3.7 x10^3/uL (2.2-4.8) 07/30/21 04:45 Lymph # (Auto) 0.4 X10^3/uL (1.3-2.9) L 07/30/21 04:45 [place] # (Auto) 0.3 x10^3/uL (0.3-0.8) 07/30/21 04:45 Eos # (Auto) 0.1 x10^3/uL (0.0-0.2) 07/30/21 04:45 Baso # (Auto) 0.0 X10^3/uL (0.0-0.1) 07/30/21 04:45 Absolute Nucleated RBC 0.0 /100WBC 07/30/21 04:45 Total Counted 100 07/25/21 04:41 Neutrophils % (Manual) 91 % (39-76) H 07/25/21 04:41 Lymphocytes % (Manual) 4 % (13-43) L 07/25/21 04:41 Monocytes % (Manual) 5 % (4-9) 07/25/21 04:41 Plt Morphology Comment Normal (NORMAL) 07/25/21 04:41 RBC Morphology Normal (NORMAL) 07/25/21 04:41 D-Dimer > 20.00 ug/ml (0.0-0.57) H* 07/26/21 16:30 Sample Site Lr 07/30/21 05:00 ABG pH 7.430 (7.35-7.45) 07/30/21 05:00 ABG pCO2 40.0 mmHg (35.0-45.0) 07/30/21 05:00 ABG pO2 59.0 mmHg (80.0-100.0) L 07/30/21 05:00 ABG HCO3 26.5 mmol/L (22-26) H 07/30/21 05:00 ABG O2 Saturation 91.0 % (90-100) 07/30/21 05:00 ABG Base Excess 2.0 mmol/L (-2.0-2.0) 07/30/21 05:00 Gene Test Pos 07/30/21 05:00 A-a Gradient 426.0 mmHg 07/30/21 05:00 FiO2 75.0 07/30/21 05:00 Blood Gas Comments Natalia well sw 07/30/21 05:00 Sodium 136 mmol/L (136-145) 07/30/21 04:45 Corrected Sodium 142 mmol/L (136-145) 07/30/21 04:45 Potassium 3.6 mmol/L (3.5-5.1) 07/30/21 04:45 Chloride 109 mmol/L (98-107) H 07/30/21 04:45 Carbon Dioxide 26.3 mmol/L (21-32) 07/30/21 04:45 BUN 54 mg/dL (7-18) H 07/30/21 04:45 Creatinine 1.74 mg/dL (0.70-1.30) H 07/30/21 04:45 Est GFR (MDRD) Af Amer 50 (>60) L 07/30/21 04:45 Est GFR (MDRD) Non-Af 41 (>60) L 07/30/21 04:45 Glucose 331 mg/dL (65-99) H 07/30/21 04:45 POC Glucose (mg/dL) 269 mg/dL (65-99) H 07/30/21 15:28 Calcium 8.4 mg/dL (8.5-10.1) L 07/30/21 04:45 Corrected Calcium 10.0 mg/dL (8.5-10.1) 07/30/21 04:45 Phosphorus 3.2 mg/dL (2.6-4.7) 07/28/21 12:29 Magnesium 2.5 mg/dL (1.7-2.9) 07/28/21 12:29 Total Bilirubin 0.50 mg/dL (0.2-1.0) 07/30/21 04:45 AST 30 Units/L (15-37) 07/30/21 04:45 ALT 34 Units/L (12-78) 07/30/21 04:45 Alkaline Phosphatase 130 Units/L (46-116) H 07/30/21 04:45 Creatine Kinase 86 Units/L (39-308) 07/23/21 12:30 CK-MB (CK-2) 1.3 ng/mL (0-4.0) 07/23/21 12:30 CK/CKMB % Calc 1.5 % (<4) 07/23/21 12:30 Troponin I High Sens 49.9 ng/L (4.0-60.0) 07/27/21 04:40 C-Reactive Protein 12.80 mg/L (0-3.0) H 07/30/21 04:45 B-Natriuretic Peptide 89.1 pg/mL (0-79) H 07/30/21 04:45 Total Protein 5.6 g/dL (6.4-8.2) L 07/30/21 04:45 Albumin 2.0 g/dL (3.4-5.0) L 07/30/21 04:45 Globulin 3.6 g/dL (2.5-4.5) 07/30/21 04:45 Albumin/Globulin Ratio 0.6 Ratio (1.1-2.1) L 07/30/21 04:45 Prealbumin 14.0 mg/dL (18-35.7) L 07/29/21 04:31 Triglycerides 47 mg/dL (0-150) 07/28/21 12:29 Specimen Type Catherized urine 07/23/21 19:40 Urine Color Yellow (YELLOW) 07/23/21 19:40 Urine Appearance Slightly hazy (CLEAR) 07/23/21 19:40 Urine pH 5.0 (5.0 - 8.0) 07/23/21 19:40 Ur Specific [place] 1.020 (1.000-1.030) 07/23/21 19:40 Urine Protein 2+ (NEGATIVE) 07/23/21 19:40 Urine Glucose (UA) 2+ (NEGATIVE) 07/23/21 19:40 Urine Ketones Negative (NEGATIVE) 07/23/21 19:40 Urine Occult Blood Negative (NEGATIVE) 07/23/21 19:40 Urine Nitrite Negative (NEGATIVE) 07/23/21 19:40 Urine Bilirubin Negative (NEGATIVE) 07/23/21 19:40 Urine Urobilinogen Normal (NORMAL) 07/23/21 19:40 Ur Leukocyte Esterase Negative (NEGATIVE) 07/23/21 19:40 Urine RBC 0-2 /HPF (0-3) 07/23/21 19:40 Urine WBC 0-2 /HPF (0-5) 07/23/21 19:40 Ur Squamous Epith Cells Negative /HPF (NEGATIVE) 07/23/21 19:40 Amorphous Sediment 2+ /HPF (NEGATIVE) 07/23/21 19:40 Urine Bacteria 1+ /HPF (NEGATIVE) 07/23/21 19:40 Hyaline Casts Few /LPF (NEGATIVE) 07/23/21 19:40 Coarse Granular Casts Few /HPF (NEGATIVE) 07/23/21 19:40 Urine Mucus Few /HPF (NEGATIVE) 07/23/21 19:40 Ur Culture Indicated? No/not indicated 07/23/21 19:40 SARS CoV-2 RNA Rapid HERMELINDO Positive (NEGATIVE) A 07/23/21 16:00 Plan (1) Pneumonia due to COVID-19 virus: Status: Acute Plan: Pneumonia protocol (2) Acute on chronic respiratory failure with hypoxia: Status: Acute (3) Acute renal failure: Status: Acute Qualifiers: Acute renal failure type: unspecified Qualified Code(s): N17.9 - Acute kidney failure, unspecified Plan: IVF (4) Anemia: Status: Acute Qualifiers: Anemia type: unspecified type Qualified Code(s): D64.9 - Anemia, unspecified (5) Hypokalemia: Status: Acute (6) Elevated troponin level: Status: Acute (7) Elevated d-dimer: Status: Acute (8) Hypoalbuminemia: Status: Acute (9) Hypernatremia: Status: Acute (10) Diabetes mellitus: Status: Chronic Qualifiers: Diabetes mellitus complication status: with hyperglycemia 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
[2021-07-30] MEDS: MILK OF MAGNESIA PO SCH ×2 (16:54→22:52)
[2021-07-30] MEDS: COLACE CAP 100 MG PO SCH ×2 (16:54→22:49)
[2021-07-30] MEDS: PRECEDEX 400 MCG/100 ML *PREMIX 400 MCG/100 ML INFUS..BTL IV PRN (17:05)
[2021-07-31] MEDS: NS 1,000 ML IV 1,000 ML IV SCH ×2 (00:41→20:19)
[2021-07-31] MEDS: LOPRESSOR INJ 5 MG AMP IVP SCH ×4 (03:09→21:39)
[2021-07-31] MEDS: MORPHINE SULFATE INJ 2 MG INJ IVP PRN ×3 (03:10→20:22)
[2021-07-31 05:14] LABS: ABG ALLEN TEST POS; ABG BASE EXCESS 3.1 mmol/L (-2.0-2.0)
[2021-07-31] MEDS: PRECEDEX 400 MCG/100 ML *PREMIX 400 MCG/100 ML INFUS..BTL IV PRN ×2 (06:00→13:51)
[2021-07-31 06:16] LABS: BASOPHILS % (AUTO) 0.2 % (0.2-1.0); EOSINOPHILS # (AUTO) 0.2 x10^3/uL (0.0-0.2); EOSINOPHILS % (AUTO) 5.2 % (0.9-2.9); HEMATOCRIT 25.4 % (42.0-54.0); HEMOGLOBIN 8.4 g/dL (13.5-18.0); LYMPHOCYTES # (AUTO) 0.4 X10^3/uL (1.3-2.9); LYMPHOCYTES % (AUTO) 7.7 % (21.0-51.0); MEAN CORPUSCULAR HEMOGLOBIN 28.1 pg (27.0-34.0); MEAN CORPUSCULAR HGB CONC 33.1 g/dL (33.0-35.0); MEAN CORPUSCULAR VOLUME 84.9 fL (80.0-100.0); MEAN PLATELET VOLUME 8.5 fL (7.4-11.0); MONOCYTES # (AUTO) 0.2 x10^3/uL (0.3-0.8); MONOCYTES % (AUTO) 5.1 % (0.0-13.0); NEUTROPHILS # (AUTO) 3.8 x10^3/uL (2.2-4.8); NEUTROPHILS % (AUTO) 81.8 % (42.0-75.0); RED BLOOD COUNT 2.99 X10^6/uL (4.7-6.0); RED CELL DISTRIBUTION WIDTH 15.1 % (11.6-16.5); WHITE BLOOD COUNT 4.6 X10^3/uL (3.6-10.0)
[2021-07-31] MEDS: SOLU-Medrol 40 MG VIAL IVP SCH ×3 (06:19→21:41)
[2021-07-31] MEDS: ZOSYN VIAL 3.375 GRAMS 3.375 G in NS 100 ML IV + SPIKE MINIBAG* 100 ML IV SCH ×3 (06:19→21:41)
[2021-07-31 06:34] LABS: CALCIUM 8.6 mg/dL (8.5-10.1); CARBON DIOXIDE 25.7 mmol/L (21-32); COR CA(FOR HYPOALB) 10.2 mg/dL (8.5-10.1); CREATININE 1.59 mg/dL (0.70-1.30); TOTAL PROTEIN 5.6 g/dL (6.4-8.2)
--- NOTE | 2021-07-31 07:00 | RAD ---
HISTORYSOBSTUDYPortable AP chestCOMPARISONFebruary 2021FINDINGSHeart size and contour remain normal. Similar extent and distribution of bilateral pulmonary infiltrates. No new areas of involvement identified. Stable position of right subclavian line and pacemaker.IMPRESSIONNo change in appearance of bilateral pneumonia.Electronically signed by: LOTUS OCONNOR (Jul 31, 2021 06:59:29)
[2021-07-31 07:44] LABS: PHOSPHORUS 3.9 mg/dL (2.6-4.7)
[2021-07-31] MEDS: BROVANA IN SCH ×2 (08:35→20:00)
[2021-07-31] MEDS: PULMICORT NEB TX 0.5 MG NEB SCH ×2 (08:35→20:00)
[2021-07-31] MEDS: COLACE CAP 100 MG PO SCH ×2 (10:13→21:39)
[2021-07-31] MEDS: GLUCOPHAGE PO SCH (10:13)
[2021-07-31] MEDS: MILK OF MAGNESIA PO SCH ×2 (10:14→21:41)
[2021-07-31] MEDS: LEVEMIR SC SCH ×2 (10:19→20:21)
[2021-07-31] MEDS: LOVENOX INJ 30 MG SYR SC SCH ×2 (10:20→20:20)
[2021-07-31] MEDS: PEPCID 20 MG VIAL 20 MG in NS 50 ML IV 50 ML IV SCH (10:21)
[2021-07-31] MEDS: VIBRAMYCIN 100 MG in D5W 250 ML IV 250 ML IV SCH ×2 (10:22→20:20)
--- NOTE | 2021-07-31 12:07 | PCM.PROG ---
Progress Note - Progress Note for Day of Date of Exam: 07/31/21 - Subjective Subjective: Pt is a 76 year old male, patient of , with a past medical history of Hypertension, DMT2, CAD(Pacemaker), Aortic valve replacement, HLD. He was admitted with COVID-19 pneumonia and acute on chronic renal failure. This morning patient is sitting up on side of bed. He is currently requiring BiPAP at FiO2 80%. He was on 75% yesterday. It appears that saturations have remained 89-100% this morning and throughout the night. He does appear to be in mild respiratory distress this morning. Patients daughter reports that he usually takes something for anxiety but hasnt had it in several days. When asked, patient does report feeling anxious. He is on a precede drip, but this doesnt appear to have helped with the anxiety much. On examination, heart is regular in rate and rhythm. Bilateral lungs noted with rhonchi and rales, diminished. Abdomen is round, soft, and non-tender with hypoactive bowel sounds. He did have a bowel movement yesterday. Labs/imaging: Wbc 4.6, rbc 2.99, hgb 8.4, hct 25.4, plt count 97, sodium 144, potassium 3.7, chloride 112, bun 54, creatinine 1.59, glucose 142, alk phos 128, crp 7.60, bno 58.2, total protein 5.6, albumin 2.0. ABG revealed: PH 7.460, pc02 38, p02 56, hc03 27, 02 sat 90, base excess 3.1, a-a gradient 324, fi02 60.0. Blood and sputum culture pending. CXR was obtained and revealed: No change in appearance of bilateral pneumonia. Pamela bennett is currently on pneumonia protocol that includes: IVF NS@KVO ml/h, solu- medrol 40mg iv q8h, scheduled Bronchodilators Xopenex and Budesonide, Antibiotics: IV Zosyn and Doxycycline 100mg BID, Received Actemra 400mg x 1 dose, Famotidine 40mg BID, Levemir 15 units sc Bid, Tussionex prn, immune s upporting supplements, supplemental O2, SSI, I/S, Lovenox 30mg BID, Physical therapy, Respiratory therapy consult, Smart Vest. Has central line. Receiving TPN for nutrition. He has completed a course of Remdesivir. We will add Xanax 0.25mg po bid today. Otherwise, we will continue with current plan of care. We will continue to wean/titrate supplemental oxygen as tolerated. Will continue with current treatment plan and closely monitor and follow up labs/imaging. Pulmonology consulted yesterday and will continue to follow. Critical care time spent on clinical assessment, reviewing labs and imaging, decision making, and documentation greater than 45 minutes. - Past Medical Family Social History Past Med/Fam/Surg Hx: No changes since H&P Allergies: Allergies No Known Drug Allergies Allergy (Verified 07/23/21 12:02) - Review of Systems ROS: No change since H&P - Vital Signs and I&O's Vital Signs: Temperature 97.9 F Pulse Rate 69 Respiratory Rate 22 Blood Pressure 97/52 O2 Sat by Pulse Oximetry 100 Intake and Output: Intake & Output 07/29/21 07/30/21 07/31/21 08/01/21 11:59 11:59 11:59 11:59 Intake Total 2850 / 2850 3393 / 3393 3198 / 3198 Output Total 3050 / 3050 2975 / 2975 1999 Balance -200 / -200 418 / 418 1198 / 1198 - Physical Exam Oriented: Normal Eyes: Normal Ear: Normal Nose: Normal Throat: Normal Respiratory: Diminished, Rales, Rhonchi Cardiovascular: Normal : Normal Auscultation: Bowel Sounds: Normal Palpation: Normal Tenderness: Normal Skin: Normal Musculoskeletal: Normal Psychiatric: Normal Mood Description: Calm, Appropriate Affect: Normal Speech Pattern: Clear, Appropriate - Laboratory and Diagnostics Result Diagrams: 07/31/21 04:45 07/31/21 04:45 Labs: 07/30/21 08:09 Sputum - Expectorated Sputum Sputum Culture - Preliminary 07/30/21 08:09 Sputum - Expectorated Sputum - Final 07/26/21 16:38 Blood Blood Culture - Preliminary 07/26/21 16:30 Blood Blood Culture - Preliminary Laboratory WBC 4.6 X10^3/uL (3.6-10.0) 07/31/21 04:45 RBC 2.99 X10^6/uL (4.7-6.0) L 07/31/21 04:45 Hgb 8.4 g/dL (13.5-18.0) L 07/31/21 04:45 Hct 25.4 % (42.0-54.0) L 07/31/21 04:45 MCV 84.9 fL (80.0-100.0) 07/31/21 04:45 MCH 28.1 pg (27.0-34.0) 07/31/21 04:45 MCHC 33.1 g/dL (33.0-35.0) 07/31/21 04:45 RDW 15.1 % (11.6-16.5) 07/31/21 04:45 Plt Count 97 X10^3/uL (150.0-450.0) L 07/31/21 04:45 Plt Count Comment Decreased (ADEQUATE) 07/25/21 04:41 MPV 8.5 fL (7.4-11.0) 07/31/21 04:45 Neut % (Auto) 81.8 % (42.0-75.0) H 07/31/21 04:45 Lymph % (Auto) 7.7 % (21.0-51.0) L 07/31/21 04:45 [place] % (Auto) 5.1 % (0.0-13.0) 07/31/21 04:45 Eos % (Auto) 5.2 % (0.9-2.9) H 07/31/21 04:45 Baso % (Auto) 0.2 % (0.2-1.0) 07/31/21 04:45 Neut # (Auto) 3.8 x10^3/uL (2.2-4.8) 07/31/21 04:45 Lymph # (Auto) 0.4 X10^3/uL (1.3-2.9) L 07/31/21 04:45 [place] # (Auto) 0.2 x10^3/uL (0.3-0.8) L 07/31/21 04:45 Eos # (Auto) 0.2 x10^3/uL (0.0-0.2) 07/31/21 04:45 Baso # (Auto) 0.0 X10^3/uL (0.0-0.1) 07/31/21 04:45 Absolute Nucleated RBC 0.1 /100WBC 07/31/21 04:45 Total Counted 100 07/25/21 04:41 Neutrophils % (Manual) 91 % (39-76) H 07/25/21 04:41 Lymphocytes % (Manual) 4 % (13-43) L 07/25/21 04:41 Monocytes % (Manual) 5 % (4-9) 07/25/21 04:41 Plt Morphology Comment Normal (NORMAL) 07/25/21 04:41 RBC Morphology Normal (NORMAL) 07/25/21 04:41 D-Dimer > 20.00 ug/ml (0.0-0.57) H* 07/26/21 16:30 Sample Site Lr 07/31/21 05:00 ABG pH 7.460 (7.35-7.45) H 07/31/21 05:00 ABG pCO2 38.0 mmHg (35.0-45.0) 07/31/21 05:00 ABG pO2 56.0 mmHg (80.0-100.0) L 07/31/21 05:00 ABG HCO3 27.0 mmol/L (22-26) H 07/31/21 05:00 ABG O2 Saturation 90.0 % (90-100) 07/31/21 05:00 ABG Base Excess 3.1 mmol/L (-2.0-2.0) H 07/31/21 05:00 Gene Test Pos 07/31/21 05:00 A-a Gradient 324.0 mmHg 07/31/21 05:00 FiO2 60.0 07/31/21 05:00 Blood Gas Comments Natalia well sw 07/31/21 05:00 Sodium 144 mmol/L (136-145) 07/31/21 04:45 Corrected Sodium 145 mmol/L (136-145) 07/31/21 04:45 Potassium 3.7 mmol/L (3.5-5.1) 07/31/21 04:45 Chloride 112 mmol/L (98-107) H 07/31/21 04:45 Carbon Dioxide 25.7 mmol/L (21-32) 07/31/21 04:45 BUN 54 mg/dL (7-18) H 07/31/21 04:45 Creatinine 1.59 mg/dL (0.70-1.30) H 07/31/21 04:45 Est GFR (MDRD) Af Amer 55 (>60) L 07/31/21 04:45 Est GFR (MDRD) Non-Af 45 (>60) L 07/31/21 04:45 Glucose 142 mg/dL (65-99) H 07/31/21 04:45 POC Glucose (mg/dL) 123 mg/dL (65-99) H 07/31/21 06:47 Calcium 8.6 mg/dL (8.5-10.1) 07/31/21 04:45 Corrected Calcium 10.2 mg/dL (8.5-10.1) H 07/31/21 04:45 Phosphorus 3.9 mg/dL (2.6-4.7) 07/31/21 04:45 Magnesium 2.0 mg/dL (1.7-2.9) 07/31/21 04:45 Total Bilirubin 0.50 mg/dL (0.2-1.0) 07/31/21 04:45 AST 30 Units/L (15-37) 07/31/21 04:45 ALT 34 Units/L (12-78) 07/31/21 04:45 Alkaline Phosphatase 128 Units/L (46-116) H 07/31/21 04:45 Creatine Kinase 86 Units/L (39-308) 07/23/21 12:30 CK-MB (CK-2) 1.3 ng/mL (0-4.0) 07/23/21 12:30 CK/CKMB % Calc 1.5 % (<4) 07/23/21 12:30 Troponin I High Sens 49.9 ng/L (4.0-60.0) 07/27/21 04:40 C-Reactive Protein 7.60 mg/L (0-3.0) H 07/31/21 04:45 B-Natriuretic Peptide 58.2 pg/mL (0-79) 07/31/21 04:45 Total Protein 5.6 g/dL (6.4-8.2) L 07/31/21 04:45 Albumin 2.0 g/dL (3.4-5.0) L 07/31/21 04:45 Globulin 3.6 g/dL (2.5-4.5) 07/31/21 04:45 Albumin/Globulin Ratio 0.6 Ratio (1.1-2.1) L 07/31/21 04:45 Prealbumin 14.0 mg/dL (18-35.7) L 07/29/21 04:31 Triglycerides 74 mg/dL (0-150) 07/31/21 04:45 Specimen Type Catherized urine 07/23/21 19:40 Urine Color Yellow (YELLOW) 07/23/21 19:40 Urine Appearance Slightly hazy (CLEAR) 07/23/21 19:40 Urine pH 5.0 (5.0 - 8.0) 07/23/21 19:40 Ur Specific [place] 1.020 (1.000-1.030) 07/23/21 19:40 Urine Protein 2+ (NEGATIVE) 07/23/21 19:40 Urine Glucose (UA) 2+ (NEGATIVE) 07/23/21 19:40 Urine Ketones Negative (NEGATIVE) 07/23/21 19:40 Urine Occult Blood Negative (NEGATIVE) 07/23/21 19:40 Urine Nitrite Negative (NEGATIVE) 07/23/21 19:40 Urine Bilirubin Negative (NEGATIVE) 07/23/21 19:40 Urine Urobilinogen Normal (NORMAL) 07/23/21 19:40 Ur Leukocyte Esterase Negative (NEGATIVE) 07/23/21 19:40 Urine RBC 0-2 /HPF (0-3) 07/23/21 19:40 Urine WBC 0-2 /HPF (0-5) 07/23/21 19:40 Ur Squamous Epith Cells Negative /HPF (NEGATIVE) 07/23/21 19:40 Amorphous Sediment 2+ /HPF (NEGATIVE) 07/23/21 19:40 Urine Bacteria 1+ /HPF (NEGATIVE) 07/23/21 19:40 Hyaline Casts Few /LPF (NEGATIVE) 07/23/21 19:40 Coarse Granular Casts Few /HPF (NEGATIVE) 07/23/21 19:40 Urine Mucus Few /HPF (NEGATIVE) 07/23/21 19:40 Ur Culture Indicated? No/not indicated 07/23/21 19:40 SARS CoV-2 RNA Rapid HERMELINDO Positive (NEGATIVE) A 07/23/21 16:00 - Plan (1) Pneumonia due to COVID-19 virus Status: Acute Plan: Pneumonia protocol (2) Acute on chronic respiratory failure with hypoxia Status: Acute (3) Acute renal failure Status: Acute Qualifiers: Acute renal failure type: unspecified Qualified Code(s): N17.9 - Acute kidney failure, unspecified Plan: IVF (4) Anemia Status: Acute Qualifiers: Anemia type: unspecified type Qualified Code(s): D64.9 - Anemia, unspecified (5) Hypokalemia Status: Acute (6) Elevated troponin level Status: Acute (7) Elevated d-dimer Status: Acute (8) Hypoalbuminemia Status: Acute (9) Hypernatremia Status: Acute (10) Diabetes mellitus Status: Chronic Qualifiers: Diabetes mellitus type: type 2 Diabetes mellitus watermaster insulin use: with skilled nursing use Diabetes mellitus complication status: with hyperglycemia Qualified Code(s): E11.65 - Type 2 diabetes mellitus with hyperglycemia; Z79.4 - buttermaker (current) use of insulin (11) Hypertension Status: Chronic Qualifiers: Hypertension type: primary hypertension Qualified Code(s): I10 - Essential (primary) hypertension
[2021-07-31] MEDS: [UNRECOGNIZED DRUG - REMARK] IV SCH ×6 (12:41→21:38)
[2021-07-31] MEDS: NovoLIN R (or HumuLIN R) SUBCUT PRN ×3 (13:50→20:21)
[2021-07-31] MEDS ORDERED: VIBRAMYCIN IV ONE (19:08)
[2021-08-01] MEDS: PRECEDEX 400 MCG/100 ML *PREMIX 400 MCG/100 ML INFUS..BTL IV PRN ×3 (00:08→23:33)
[2021-08-01] MEDS ORDERED: DRUG FILTER EXTENSION SET ONE (02:51)
[2021-08-01] MEDS: MORPHINE SULFATE INJ 2 MG INJ IVP PRN ×2 (04:01→20:34)
[2021-08-01] MEDS: LOPRESSOR INJ 5 MG AMP IVP SCH ×4 (04:07→21:13)
[2021-08-01 04:18] LABS: ABG ALLEN TEST POS; ABG BASE EXCESS 0.3 mmol/L (-2.0-2.0); ABG HCO3 25.4 mmol/L (22-26)
[2021-08-01] MEDS: SOLU-Medrol 40 MG VIAL IVP SCH ×3 (05:06→21:15)
[2021-08-01] MEDS: ZOSYN VIAL 3.375 GRAMS 3.375 G in NS 100 ML IV + SPIKE MINIBAG* 100 ML IV SCH ×3 (05:07→21:15)
[2021-08-01 05:33] LABS: BASOPHILS % (AUTO) 0.3 % (0.2-1.0); EOSINOPHILS % (AUTO) 0.1 % (0.9-2.9); HEMATOCRIT 25.5 % (42.0-54.0); HEMOGLOBIN 8.5 g/dL (13.5-18.0); LYMPHOCYTES # (AUTO) 0.3 X10^3/uL (1.3-2.9); LYMPHOCYTES % (AUTO) 3.2 % (21.0-51.0); MEAN CORPUSCULAR HEMOGLOBIN 27.7 pg (27.0-34.0); MEAN CORPUSCULAR HGB CONC 33.1 g/dL (33.0-35.0); MEAN CORPUSCULAR VOLUME 83.5 fL (80.0-100.0); MEAN PLATELET VOLUME 9.1 fL (7.4-11.0); MONOCYTES # (AUTO) 0.3 x10^3/uL (0.3-0.8); MONOCYTES % (AUTO) 3.3 % (0.0-13.0); NEUTROPHILS # (AUTO) 7.6 x10^3/uL (2.2-4.8); NEUTROPHILS % (AUTO) 93.1 % (42.0-75.0); RED BLOOD COUNT 3.06 X10^6/uL (4.7-6.0); WHITE BLOOD COUNT 8.2 X10^3/uL (3.6-10.0)
[2021-08-01 05:44] LABS: ALBUMIN 2.1 g/dL (3.4-5.0); CALCIUM 8.9 mg/dL (8.5-10.1); CARBON DIOXIDE 24.9 mmol/L (21-32); COR CA(FOR HYPOALB) 10.4 mg/dL (8.5-10.1); CREATININE 1.5 mg/dL (0.70-1.30); TOTAL PROTEIN 6.2 g/dL (6.4-8.2)
[2021-08-01] MEDS: NovoLIN R (or HumuLIN R) SUBCUT PRN ×3 (05:46→16:54)
[2021-08-01 06:53] LABS: PLATELET MORPHOLOGY COMMENT NORMAL (NORMAL); POLYCHROMASIA SLIGHT
--- NOTE | 2021-08-01 07:09 | RAD ---
HISTORYCOVID-19 pneumoniaSTUDYAP chestCOMPARISONFebruary 2021FINDINGSNo change in appearance of cardiac size or contour or cardiac pacer. Persistent bilateral pulmonary infiltrates with slight interval improvement. No additional consolidation is identified. Stable position of central line. No pleural fluid or pneumothorax identified.IMPRESSIONSlight interval improvement in pneumonia. No new abnormality demonstrated.Electronically signed by: LOTUS OCONNOR (Aug 01, 2021 07:09:09)
[2021-08-01] MEDS ORDERED: VIBRAMYCIN IV ONE (08:05)
[2021-08-01] MEDS ORDERED: D5W 250 ML IV 250 ML IV ONE (08:11)
[2021-08-01] MEDS: LOVENOX INJ 30 MG SYR SC SCH ×2 (08:33→20:31)
[2021-08-01] MEDS: PEPCID 20 MG VIAL 20 MG in NS 50 ML IV 50 ML IV SCH (08:34)
[2021-08-01] MEDS: VIBRAMYCIN 100 MG in D5W 250 ML IV 250 ML IV SCH ×2 (08:34→20:30)
[2021-08-01] MEDS: LEVEMIR SC SCH ×2 (08:43→20:30)
[2021-08-01] MEDS: BROVANA IN SCH ×2 (08:58→20:13)
[2021-08-01] MEDS: PULMICORT NEB TX 0.5 MG NEB SCH ×2 (08:58→20:13)
[2021-08-01] MEDS ORDERED: GLUCOPHAGE ONE (10:14)
[2021-08-01] MEDS ORDERED: LOPRESSOR INJ 5 MG AMP ONE (10:14)
[2021-08-01] MEDS: MILK OF MAGNESIA PO SCH ×2 (10:48→20:32)
[2021-08-01] MEDS: XANAX PO SCH ×2 (10:49→20:31)
[2021-08-01] MEDS: COLACE CAP 100 MG PO SCH ×3 (11:15→23:32)
[2021-08-01] MEDS: GLUCOPHAGE PO SCH (11:15)
[2021-08-01] MEDS: [UNRECOGNIZED DRUG - REMARK] IV SCH ×3 (12:34)
--- NOTE | 2021-08-01 16:11 | PCM.PROG ---
Progress Note - Progress Note for Day of Date of Exam: 08/01/21 - Subjective Subjective: Pt is a 76 year old male, patient of , with a past medical history of Hypertension, DMT2, CAD(Pacemaker), Aortic valve replacement, HLD. He was admitted with COVID-19 pneumonia and acute on chronic renal failure. This morning patient is sitting up on side of bed. He is currently requiring BiPAP at FiO2 50%. It appears that saturations have remained 90-100% this morning and throughout the night. On examination, heart is regular in rate and rhythm. Bilateral lungs noted with rhonchi and rales, diminished. Abdomen is round, soft, and non-tender with hypoactive bowel sounds. Labs/imaging: Wbc 8.2, RBC 3.06, HGB 8.5, HCT 25.5, PLT COUNT 105, SODIUM 142, POTASSIUM 4.6, BUN 58, C REATININE 1.50, GLUCOSE 192, ALK PHOS 143, CRP 5.00, BNP 113, TOTAL PROTEIN 6.2, ALBUMIN 2.1. Blood and sputum culture pending. CXR was obtained and revealed: Slight interval improvement in pneumonia. No new abnormality demonstrated. Patient is currently on pneumonia protocol that includes: IVF NS@KVO ml/h, solu- medrol 40mg iv q8h, scheduled Bronchodilators Xopenex and Budesonide, Antibiotics: IV Zosyn and Doxycycline 100mg BID, Received Actemra 400mg x 1 dose, Famotidine 40mg BID, Levemir 15 units sc Bid, Tussionex prn, immune supporting supplements, supplemental O2, SSI, I/S, Lovenox 30mg BID, Physical therapy, Respiratory therapy consult, Smart Vest. Has central line. Receiving TPN for nutrition. He has completed a course of Remdesivir. We will continue with current plan of care today. We will continue to wean/titrate supplemental oxygen as tolerated. Will continue with current treatment plan and closely monitor and follow up labs/imaging. Pulmonology consulted yesterday and will c ontinue to follow. Critical care time spent on clinical assessment, reviewing labs and imaging, decision making, and documentation greater than 45 minutes. - Past Medical Family Social History Past Med/Fam/Surg Hx: No changes since H&P Allergies: Allergies No Known Drug Allergies Allergy (Verified 07/23/21 12:02) - Review of Systems ROS: No change since H&P - Vital Signs and I&O's Vital Signs: Temperature 97.4 F Pulse Rate 76 Respiratory Rate 23 Blood Pressure 121/58 O2 Sat by Pulse Oximetry 99 Intake and Output: Intake & Output 07/30/21 07/31/21 08/01/21 08/02/21 11:59 11:59 11:59 11:59 Intake Total 3393 / 3393 3198 / 3198 3678 / 3678 Output Total 2975 / 2975 1999 1650 / 1650 Balance 418 / 418 1198 / 1198 2027 - Physical Exam Oriented: Normal Eyes: Normal Ear: Normal Nose: Normal Throat: Normal Respiratory: Diminished, Rales, Rhonchi Cardiovascular: Normal : Normal Auscultation: Bowel Sounds: Normal Tenderness: Normal Skin: Normal Musculoskeletal: Normal Psychiatric: Normal Mood Description: Calm, Appropriate Affect: Normal Speech Pattern: Clear, Appropriate - Laboratory and Diagnostics Result Diagrams: 08/01/21 05:00 08/01/21 05:00 Labs: 07/26/21 16:38 Blood Blood Culture - Final 07/26/21 16:30 Blood Blood Culture - Final 07/30/21 08:09 Sputum - Expectorated Sputum Sputum Culture - Preliminary 07/30/21 08:09 Sputum - Expectorated Sputum - Final Laboratory WBC 8.2 X10^3/uL (3.6-10.0) 08/01/21 05:00 RBC 3.06 X10^6/uL (4.7-6.0) L 08/01/21 05:00 Hgb 8.5 g/dL (13.5-18.0) L 08/01/21 05:00 Hct 25.5 % (42.0-54.0) L 08/01/21 05:00 MCV 83.5 fL (80.0-100.0) 08/01/21 05:00 MCH 27.7 pg (27.0-34.0) 08/01/21 05:00 MCHC 33.1 g/dL (33.0-35.0) 08/01/21 05:00 RDW 15.0 % (11.6-16.5) 08/01/21 05:00 Plt Count 105 X10^3/uL (150.0-450.0) L 08/01/21 05:00 Plt Count Comment Decreased (ADEQUATE) 08/01/21 05:00 MPV 9.1 fL (7.4-11.0) 08/01/21 05:00 Neut % (Auto) 93.1 % (42.0-75.0) H 08/01/21 05:00 Lymph % (Auto) 3.2 % (21.0-51.0) L 08/01/21 05:00 [place] % (Auto) 3.3 % (0.0-13.0) 08/01/21 05:00 Eos % (Auto) 0.1 % (0.9-2.9) L 08/01/21 05:00 Baso % (Auto) 0.3 % (0.2-1.0) 08/01/21 05:00 Neut # (Auto) 7.6 x10^3/uL (2.2-4.8) H 08/01/21 05:00 Lymph # (Auto) 0.3 X10^3/uL (1.3-2.9) L 08/01/21 05:00 [place] # (Auto) 0.3 x10^3/uL (0.3-0.8) 08/01/21 05:00 Eos # (Auto) 0.0 x10^3/uL (0.0-0.2) 08/01/21 05:00 Baso # (Auto) 0.0 X10^3/uL (0.0-0.1) 08/01/21 05:00 Absolute Nucleated RBC 0.0 /100WBC 08/01/21 05:00 Total Counted 100 08/01/21 05:00 Neutrophils % (Manual) 94 % (39-76) H 08/01/21 05:00 Lymphocytes % (Manual) 2 % (13-43) L 08/01/21 05:00 Monocytes % (Manual) 4 % (4-9) 08/01/21 05:00 Plt Morphology Comment Normal (NORMAL) 08/01/21 05:00 RBC Morphology Abnormal (NORMAL) 08/01/21 05:00 Polychromasia Slight 08/01/21 05:00 D-Dimer > 20.00 ug/ml (0.0-0.57) H* 07/26/21 16:30 Sample Site Lr 08/01/21 04:13 ABG pH 7.390 (7.35-7.45) 08/01/21 04:13 ABG pCO2 42.0 mmHg (35.0-45.0) 08/01/21 04:13 ABG pO2 72.0 mmHg (80.0-100.0) L 08/01/21 04:13 ABG HCO3 25.4 mmol/L (22-26) 08/01/21 04:13 ABG O2 Saturation 94.0 % (90-100) 08/01/21 04:13 ABG Base Excess 0.3 mmol/L (-2.0-2.0) 08/01/21 04:13 Gene Test Pos 08/01/21 04:13 A-a Gradient 232.0 mmHg 08/01/21 04:13 FiO2 50.0 08/01/21 04:13 Blood Gas Comments Natalia well ae 08/01/21 04:13 Sodium 142 mmol/L (136-145) 08/01/21 05:00 Corrected Sodium 144 mmol/L (136-145) 08/01/21 05:00 Potassium 4.6 mmol/L (3.5-5.1) 08/01/21 05:00 Chloride 111 mmol/L (98-107) H 08/01/21 05:00 Carbon Dioxide 24.9 mmol/L (21-32) 08/01/21 05:00 BUN 58 mg/dL (7-18) H 08/01/21 05:00 Creatinine 1.50 mg/dL (0.70-1.30) H 08/01/21 05:00 Est GFR (MDRD) Af Amer 59 (>60) 08/01/21 05:00 Est GFR (MDRD) Non-Af 49 (>60) L 08/01/21 05:00 Glucose 192 mg/dL (65-99) H 08/01/21 05:00 POC Glucose (mg/dL) 258 mg/dL (65-99) H 08/01/21 11:12 Calcium 8.9 mg/dL (8.5-10.1) 08/01/21 05:00 Corrected Calcium 10.4 mg/dL (8.5-10.1) H 08/01/21 05:00 Phosphorus 3.9 mg/dL (2.6-4.7) 07/31/21 04:45 Magnesium 2.0 mg/dL (1.7-2.9) 07/31/21 04:45 Total Bilirubin 0.50 mg/dL (0.2-1.0) 08/01/21 05:00 AST 27 Units/L (15-37) 08/01/21 05:00 ALT 34 Units/L (12-78) 08/01/21 05:00 Alkaline Phosphatase 143 Units/L (46-116) H 08/01/21 05:00 Creatine Kinase 86 Units/L (39-308) 07/23/21 12:30 CK-MB (CK-2) 1.3 ng/mL (0-4.0) 07/23/21 12:30 CK/CKMB % Calc 1.5 % (<4) 07/23/21 12:30 Troponin I High Sens 49.9 ng/L (4.0-60.0) 07/27/21 04:40 C-Reactive Protein 5.00 mg/L (0-3.0) H 08/01/21 05:00 B-Natriuretic Peptide 113 pg/mL (0-79) H 08/01/21 05:00 Total Protein 6.2 g/dL (6.4-8.2) L 08/01/21 05:00 Albumin 2.1 g/dL (3.4-5.0) L 08/01/21 05:00 Globulin 4.1 g/dL (2.5-4.5) 08/01/21 05:00 Albumin/Globulin Ratio 0.5 Ratio (1.1-2.1) L 08/01/21 05:00 Prealbumin 14.0 mg/dL (18-35.7) L 07/29/21 04:31 Triglycerides 74 mg/dL (0-150) 07/31/21 04:45 Specimen Type Catherized urine 07/23/21 19:40 Urine Color Yellow (YELLOW) 07/23/21 19:40 Urine Appearance Slightly hazy (CLEAR) 07/23/21 19:40 Urine pH 5.0 (5.0 - 8.0) 07/23/21 19:40 Ur Specific [place] 1.020 (1.000-1.030) 07/23/21 19:40 Urine Protein 2+ (NEGATIVE) 07/23/21 19:40 Urine Glucose (UA) 2+ (NEGATIVE) 07/23/21 19:40 Urine Ketones Negative (NEGATIVE) 07/23/21 19:40 Urine Occult Blood Negative (NEGATIVE) 07/23/21 19:40 Urine Nitrite Negative (NEGATIVE) 07/23/21 19:40 Urine Bilirubin Negative (NEGATIVE) 07/23/21 19:40 Urine Urobilinogen Normal (NORMAL) 07/23/21 19:40 Ur Leukocyte Esterase Negative (NEGATIVE) 07/23/21 19:40 Urine RBC 0-2 /HPF (0-3) 07/23/21 19:40 Urine WBC 0-2 /HPF (0-5) 07/23/21 19:40 Ur Squamous Epith Cells Negative /HPF (NEGATIVE) 07/23/21 19:40 Amorphous Sediment 2+ /HPF (NEGATIVE) 07/23/21 19:40 Urine Bacteria 1+ /HPF (NEGATIVE) 07/23/21 19:40 Hyaline Casts Few /LPF (NEGATIVE) 07/23/21 19:40 Coarse Granular Casts Few /HPF (NEGATIVE) 07/23/21 19:40 Urine Mucus Few /HPF (NEGATIVE) 07/23/21 19:40 Ur Culture Indicated? No/not indicated 07/23/21 19:40 SARS CoV-2 RNA Rapid HERMELINDO Positive (NEGATIVE) A 07/23/21 16:00 - Plan (1) Pneumonia due to COVID-19 virus Status: Acute Plan: Pneumonia protocol (2) Acute on chronic respiratory failure with hypoxia Status: Acute (3) Acute renal failure Status: Acute Qualifiers: Acute renal failure type: unspecified Qualified Code(s): N17.9 - Acute kidney failure, unspecified Plan: IVF (4) Anemia Status: Acute Qualifiers: Anemia type: unspecified type Qualified Code(s): D64.9 - Anemia, un specified (5) Hypokalemia Status: Acute (6) Elevated troponin level Status: Acute (7) Elevated d-dimer Status: Acute (8) Hypoalbuminemia Status: Acute (9) Hypernatremia Status: Acute (10) Diabetes mellitus Status: Chronic Qualifiers: Diabetes mellitus type: type 2 Diabetes mellitus assisted insulin use: with assisted use Diabetes mellitus complication status: with hyperglycemia Qualified Code(s): E11.65 - Type 2 diabetes mellitus with hyperglycemia; Z79.4 - care home (current) use of insulin (11) Hypertension Status: Chronic Qualifiers: Hypertension type: primary hypertension Qualified Code(s): I10 - Essential (primary) hypertension
[2021-08-02] MEDS: NS 1,000 ML IV 1,000 ML IV SCH ×2 (05:06→20:30)
[2021-08-02] MEDS: LOPRESSOR INJ 5 MG AMP IVP SCH ×4 (05:06→21:14)
[2021-08-02] MEDS: ZOSYN VIAL 3.375 GRAMS 3.375 G in NS 100 ML IV + SPIKE MINIBAG* 100 ML IV SCH ×3 (05:07→21:15)
[2021-08-02] MEDS: SOLU-Medrol 40 MG VIAL IVP SCH ×3 (05:10→21:15)
[2021-08-02 05:42] LABS: CALCIUM 8.3 mg/dL (8.5-10.1); CREATININE 1.56 mg/dL (0.70-1.30)
--- NOTE | 2021-08-02 06:02 | RAD ---
HISTORYSOBSTUDYCHEST, 1 VIEWCOMPARISONOne day prior.TECHNIQUEAP view of the chestFINDINGSLeft chest wall pacemaker in situ. Cardiac valve again noted. Right sided central line stable. Cardiac and mediastinal contours are within normal limits. No significant change in bilateral airspace and interstitial opacities. No definite pleural effusion or pneumothorax.IMPRESSIONNo significant change.Electronically signed by: Sung Zapata (Aug 02, 2021 06:01:44)
[2021-08-02] MEDS: LEVEMIR SC SCH ×2 (08:53→21:14)
[2021-08-02] MEDS: LOVENOX INJ 30 MG SYR SC SCH ×2 (08:54→21:14)
[2021-08-02] MEDS: VIBRAMYCIN 100 MG in D5W 250 ML IV 250 ML IV SCH ×2 (08:54→20:29)
[2021-08-02] MEDS: PEPCID 20 MG VIAL 20 MG in NS 50 ML IV 50 ML IV SCH (08:57)
[2021-08-02] MEDS: PULMICORT NEB TX 0.5 MG NEB SCH ×2 (09:13→21:25)
[2021-08-02] MEDS: BROVANA IN SCH ×2 (09:13→21:25)
[2021-08-02] MEDS: MILK OF MAGNESIA PO SCH ×2 (09:43→21:15)
[2021-08-02] MEDS: MORPHINE SULFATE INJ 2 MG INJ IVP PRN ×2 (09:47→21:51)
[2021-08-02] MEDS: GLUCOPHAGE PO SCH (11:04)
[2021-08-02] MEDS: COLACE CAP 100 MG PO SCH ×2 (11:41→21:13)
[2021-08-02] MEDS: XANAX PO SCH ×2 (11:41→21:13)
[2021-08-02] MEDS: NovoLIN R (or HumuLIN R) SUBCUT PRN ×2 (11:47→16:18)
[2021-08-02] MEDS: PRECEDEX 400 MCG/100 ML *PREMIX 400 MCG/100 ML INFUS..BTL IV PRN (14:52)
[2021-08-02] MEDS: [UNRECOGNIZED DRUG - REMARK] IV SCH ×3 (15:17)
--- NOTE | 2021-08-02 22:37 | PCM.PROG ---
Progress Note Progress Note for Day of Date of Exam: 08/02/21 Subjective Subjective: Pt is a 76 year old male with a past medical history of Hypertension, DMT2, CAD(Pacemaker), Aortic valve replacement, HLD. He was admitted with COVID-19 pneumonia and acute on chronic renal failure. Over the weekend he responded well to treatments and is currently requiring BiPAP at FiO2 50%. Labs/imaging: Wbc 8.2, HGB 8.5, PLT COUNT 105, SODIUM 140, POTASSIUM 4.7, CREATININE 1.56, GLUCOSE 179, CRP 5.00, Blood culture: NGTD, Sputum culture: ENTEROBACTER AEROGENES, CXR was obtained and revealed: No significant change from prior. Patient is currently on pneumonia protocol that includes: IVF NS@KVO ml/h, Solu-medrol 40mg iv q8h, scheduled Bronchodilators Xopenex and Budesonide, Antibiotics: IV Zosyn and Doxycycline 100mg BID, Received Actemra 400mg x 1 dose, Famotidine 40mg BID, Levemir 15 units sc Bid, Tussionex prn, immune supporting supplements, supplemental O2, SSI, I/S, Lovenox 30mg BID, Physical therapy, Respiratory therapy consult, Smart Vest. Has central line. Receiving TP N for nutrition. He has completed a course of Remdesivir. Will change antibiotics to Rocephin based on sputum cultures. We will continue with current plan of care today and continue to wean/titrate supplemental oxygen as tolerated. Continue to closely monitor and follow up labs/imaging. Critical care time spent on clinical assessment, reviewing labs and imaging, decision making, and documentation greater than 45 minutes. Past Medical Family Social History Past Med/Fam/Surg Hx: No changes since H&P Allergies: Allergies No Known Drug Allergies Allergy (Verified 07/23/21 12:02) Review of Systems ROS: No change since H&P Vital Signs and I&O's Vital Signs: Temperature 97.6 F Pulse Rate 81 Respiratory Rate 23 Blood Pressure 103/55 O2 Sat by Pulse Oximetry 88 Intake and Output: Intake & Output 07/30/21 07/31/21 08/01/21 08/02/21 23:59 23:59 23:59 23:59 Intake Total 2962 / 2962 3637 / 3637 3711 / 3711 2437 / 2437 Output Total 2425 / 2425 1750 / 1750 1550 / 1550 1700 / 1700 Balance 537 / 537 1887 / 1887 2161 / 2161 737 / 737 Physical Exam Oriented: Normal Eyes: Normal Ear: Normal Nose: Normal Throat: Normal Respiratory: Diminished and Rales Cardiovascular: Normal : Normal Auscultation: Bowel Sounds: Normal Tenderness: Normal Skin: Normal Musculoskeletal: Normal Psychiatric: Normal Mood Description: Calm and Appropriate Affect: Normal Speech Pattern: Clear and Appropriate Laboratory and Diagnostics Result Diagrams: 08/01/21 05:00 08/02/21 05:01 Labs: 07/30/21 08:09 Sputum - Expectorated Sputum Sputum Culture - Final Enterobacter Aerogenes 07/30/21 08:09 Sputum - Expectorated Sputum - Final 07/26/21 16:38 Blood Blood Culture - Final 07/26/21 16:30 Blood Blood Culture - Final Laboratory WBC 8.2 X10^3/uL (3.6-10.0) 08/01/21 05:00 RBC 3.06 X10^6/uL (4.7-6.0) L 08/01/21 05:00 Hgb 8.5 g/dL (13.5-18.0) L 08/01/21 05:00 Hct 25.5 % (42.0-54.0) L 08/01/21 05:00 MCV 83.5 fL (80.0-100.0) 08/01/21 05:00 MCH 27.7 pg (27.0-34.0) 08/01/21 05:00 MCHC 33.1 g/dL (33.0-35.0) 08/01/21 05:00 RDW 15.0 % (11.6-16.5) 08/01/21 05:00 Plt Count 105 X10^3/uL (150.0-450.0) L 08/01/21 05:00 Plt Count Comment Decreased (ADEQUATE) 08/01/21 05:00 MPV 9.1 fL (7.4-11.0) 08/01/21 05:00 Neut % (Auto) 93.1 % (42.0-75.0) H 08/01/21 05:00 Lymph % (Auto) 3.2 % (21.0-51.0) L 08/01/21 05:00 [place] % (Auto) 3.3 % (0.0-13.0) 08/01/21 05:00 Eos % (Auto) 0.1 % (0.9-2.9) L 08/01/21 05:00 Baso % (Auto) 0.3 % (0.2-1.0) 08/01/21 05:00 Neut # (Auto) 7.6 x10^3/uL (2.2-4.8) H 08/01/21 05:00 Lymph # (Auto) 0.3 X10^3/uL (1.3-2.9) L 08/01/21 05:00 [place] # (Auto) 0.3 x10^3/uL (0.3-0.8) 08/01/21 05:00 Eos # (Auto) 0.0 x10^3/uL (0.0-0.2) 08/01/21 05:00 Baso # (Auto) 0.0 X10^3/uL (0.0-0.1) 08/01/21 05:00 Absolute Nucleated RBC 0.0 /100WBC 08/01/21 05:00 Total Counted 100 08/01/21 05:00 Neutrophils % (Manual) 94 % (39-76) H 08/01/21 05:00 Lymphocytes % (Manual) 2 % (13-43) L 08/01/21 05:00 Monocytes % (Manual) 4 % (4-9) 08/01/21 05:00 Plt Morphology Comment Normal (NORMAL) 08/01/21 05:00 RBC Morphology Abnormal (NORMAL) 08/01/21 05:00 Polychromasia Slight 08/01/21 05:00 D-Dimer > 20.00 ug/ml (0.0-0.57) H* 07/26/21 16:30 Sample Site Lr 08/01/21 04:13 ABG pH 7.390 (7.35-7.45) 08/01/21 04:13 ABG pCO2 42.0 mmHg (35.0-45.0) 08/01/21 04:13 ABG pO2 72.0 mmHg (80.0-100.0) L 08/01/21 04:13 ABG HCO3 25.4 mmol/L (22-26) 08/01/21 04:13 ABG O2 Saturation 94.0 % (90-100) 08/01/21 04:13 ABG Base Excess 0.3 mmol/L (-2.0-2.0) 08/01/21 04:13 Gene Test Pos 08/01/21 04:13 A-a Gradient 232.0 mmHg 08/01/21 04:13 FiO2 50.0 08/01/21 04:13 Blood Gas Comments Natalia well ae 08/01/21 04:13 Sodium 140 mmol/L (136-145) 08/02/21 05:01 Corrected Sodium 142 mmol/L (136-145) 08/02/21 05:01 Potassium 4.7 mmol/L (3.5-5.1) 08/02/21 05:01 Chloride 109 mmol/L (98-107) H 08/02/21 05:01 Carbon Dioxide 24.0 mmol/L (21-32) 08/02/21 05:01 BUN 64 mg/dL (7-18) H 08/02/21 05:01 Creatinine 1.56 mg/dL (0.70-1.30) H 08/02/21 05:01 Est GFR (MDRD) Af Amer 56 (>60) L 08/02/21 05:01 Est GFR (MDRD) Non-Af 46 (>60) L 08/02/21 05:01 Glucose 179 mg/dL (65-99) H 08/02/21 05:01 POC Glucose (mg/dL) 185 mg/dL (65-99) H 08/02/21 18:48 Calcium 8.3 mg/dL (8.5-10.1) L 08/02/21 05:01 Corrected Calcium 10.4 mg/dL (8.5-10.1) H 08/01/21 05:00 Phosphorus 3.9 mg/dL (2.6-4.7) 07/31/21 04:45 Magnesium 2.0 mg/dL (1.7-2.9) 07/31/21 04:45 Total Bilirubin 0.50 mg/dL (0.2-1.0) 08/01/21 05:00 AST 27 Units/L (15-37) 08/01/21 05:00 ALT 34 Units/L (12-78) 08/01/21 05:00 Alkaline Phosphatase 143 Units/L (46-116) H 08/01/21 05:00 Creatine Kinase 86 Units/L (39-308) 07/23/21 12:30 CK-MB (CK-2) 1.3 ng/mL (0-4.0) 07/23/21 12:30 CK/CKMB % Calc 1.5 % (<4) 07/23/21 12:30 Troponin I High Sens 49.9 ng/L (4.0-60.0) 07/27/21 04:40 C-Reactive Protein 1.70 mg/L (0-3.0) 08/02/21 05:01 B-Natriuretic Peptide 74.8 pg/mL (0-79) 08/02/21 05:01 Total Protein 6.2 g/dL (6.4-8.2) L 08/01/21 05:00 Albumin 2.1 g/dL (3.4-5.0) L 08/01/21 05:00 Globulin 4.1 g/dL (2.5-4.5) 08/01/21 05:00 Albumin/Globulin Ratio 0.5 Ratio (1.1-2.1) L 08/01/21 05:00 Prealbumin 14.0 mg/dL (18-35.7) L 07/29/21 04:31 Triglycerides 74 mg/dL (0-150) 07/31/21 04:45 Specimen Type Catherized urine 07/23/21 19:40 Urine Color Yellow (YELLOW) 07/23/21 19:40 Urine Appearance Slightly hazy (CLEAR) 07/23/21 19:40 Urine pH 5.0 (5.0 - 8.0) 07/23/21 19:40 Ur Specific [place] 1.020 (1.000-1.030) 07/23/21 19:40 Urine Protein 2+ (NEGATIVE) 07/23/21 19:40 Urine Glucose (UA) 2+ (NEGATIVE) 07/23/21 19:40 Urine Ketones Negative (NEGATIVE) 07/23/21 19:40 Urine Occult Blood Negative (NEGATIVE) 07/23/21 19:40 Urine Nitrite Negative (NEGATIVE) 07/23/21 19:40 Urine Bilirubin Negative (NEGATIVE) 07/23/21 19:40 Urine Urobilinogen Normal (NORMAL) 07/23/21 19:40 Ur Leukocyte Esterase Negative (NEGATIVE) 07/23/21 19:40 Urine RBC 0-2 /HPF (0-3) 07/23/21 19:40 Urine WBC 0-2 /HPF (0-5) 07/23/21 19:40 Ur Squamous Epith Cells Negative /HPF (NEGATIVE) 07/23/21 19:40 Amorphous Sediment 2+ /HPF (NEGATIVE) 07/23/21 19:40 Urine Bacteria 1+ /HPF (NEGATIVE) 07/23/21 19:40 Hyaline Casts Few /LPF (NEGATIVE) 07/23/21 19:40 Coarse Granular Casts Few /HPF (NEGATIVE) 07/23/21 19:40 Urine Mucus Few /HPF (NEGATIVE) 07/23/21 19:40 Ur Culture Indicated? No/not indicated 07/23/21 19:40 SARS CoV-2 RNA Rapid HERMELINDO Positive (NEGATIVE) A 07/23/21 16:00 Plan (1) Pneumonia due to COVID-19 virus: Status: Acute Plan: Pneumonia protocol (2) Acute on chronic respiratory failure with hypoxia: Status: Acute (3) Acute renal failure: Status: Acute Qualifiers: Acute renal failure type: unspecified Qualified Code(s): N17.9 - Acute kidney failure, unspecified Plan: IVF (4) Anemia: Status: Acute Qualifiers: Anemia type: unspecified type Qualified Code(s): D64.9 - Anemia, unspecified (5) Hypokalemia: Status: Acute (6) Elevated troponin level: Status: Acute (7) Elevated d-dimer: Status: Acute (8) Hypoalbuminemia: Status: Acute (9) Hypernatremia: Status: Acute (10) Diabetes mellitus: Status: Chronic Qualifiers: Diabetes mellitus complication status: with hyperglycemia Diabetes mellitus [facility] insulin use: with [facility] use Diabetes mellitus type: type 2 Qualified Code(s): E11.65 - Type 2 diabetes mellitus with hyperglycemia; Z79.4 - retirement (current) use of insulin (11) Hypertension: Status: Chronic Qualifiers: Hypertension type: primary hypertension Qualified Code(s): I10 - Essential (primary) hypertension
[2021-08-02] MEDS: ROCEPHIN VIAL 1 GRAM 1 G in NS 100 ML IV + SPIKE MINIBAG* 100 ML IV SCH (22:52)
[2021-08-03] MEDS: LOPRESSOR INJ 5 MG AMP IVP SCH ×4 (03:41→20:51)
[2021-08-03] MEDS: MORPHINE SULFATE INJ 2 MG INJ IVP PRN ×2 (04:41→22:09)
[2021-08-03] MEDS: SOLU-Medrol 40 MG VIAL IVP SCH ×3 (05:20→21:42)
[2021-08-03 05:27] LABS: CARBON DIOXIDE 24.4 mmol/L (21-32); CREATININE 1.5 mg/dL (0.70-1.30)
[2021-08-03 05:28] LABS: BASOPHILS % (AUTO) 0.2 % (0.2-1.0); HEMATOCRIT 25.6 % (42.0-54.0); HEMOGLOBIN 8.6 g/dL (13.5-18.0); LYMPHOCYTES # (AUTO) 0.6 X10^3/uL (1.3-2.9); LYMPHOCYTES % (AUTO) 7.2 % (21.0-51.0); MEAN CORPUSCULAR HEMOGLOBIN 28.1 pg (27.0-34.0); MEAN CORPUSCULAR HGB CONC 33.5 g/dL (33.0-35.0); MEAN CORPUSCULAR VOLUME 83.9 fL (80.0-100.0); MEAN PLATELET VOLUME 9.9 fL (7.4-11.0); MONOCYTES # (AUTO) 0.4 x10^3/uL (0.3-0.8); MONOCYTES % (AUTO) 4.5 % (0.0-13.0); NEUTROPHILS # (AUTO) 7.8 x10^3/uL (2.2-4.8); NEUTROPHILS % (AUTO) 88.1 % (42.0-75.0); RED BLOOD COUNT 3.05 X10^6/uL (4.7-6.0); RED CELL DISTRIBUTION WIDTH 15.1 % (11.6-16.5); WHITE BLOOD COUNT 8.9 X10^3/uL (3.6-10.0)
[2021-08-03 05:32] LABS: MAGNESIUM 1.9 mg/dL (1.7-2.9); PHOSPHORUS 3.8 mg/dL (2.6-4.7)
--- NOTE | 2021-08-03 07:20 | RAD ---
HISTORYSOBSTUDYCHEST, 1 [id number]/07/2022.TECHNIQUEAP view of the chestFINDINGSLeft chest wall pacemaker with leads in good position. The the patient is status post cardiac valve likely aortic valve replacement. Similar appearance of bilateral mid to lower lung airspace opacities. Background of COPD. No definite pleural effusion or pneumothorax. Patient is mildly rotated.IMPRESSIONNo significant change.Electronically signed by: Sung Zapata (Aug 03, 2021 07:19:28)
[2021-08-03] MEDS: BROVANA IN SCH ×2 (08:25→20:57)
[2021-08-03] MEDS: PULMICORT NEB TX 0.5 MG NEB SCH ×2 (08:25→20:57)
[2021-08-03] MEDS: COLACE CAP 100 MG PO SCH ×2 (09:02→20:50)
[2021-08-03] MEDS: LEVEMIR SC SCH ×2 (09:07→20:52)
[2021-08-03] MEDS: LOVENOX INJ 30 MG SYR SC SCH (09:08)
[2021-08-03] MEDS: PEPCID 20 MG VIAL 20 MG in NS 50 ML IV 50 ML IV SCH (09:09)
[2021-08-03] MEDS: PRECEDEX 400 MCG/100 ML *PREMIX 400 MCG/100 ML INFUS..BTL IV PRN ×2 (09:09→18:08)
[2021-08-03] MEDS: XANAX PO SCH ×2 (11:00→20:53)
[2021-08-03] MEDS: [UNRECOGNIZED DRUG - REMARK] IV SCH ×3 (14:46)
[2021-08-03] MEDS: MILK OF MAGNESIA PO SCH ×2 (15:13→20:51)
[2021-08-03] MEDS: GLUCOPHAGE PO SCH (15:13)
--- NOTE | 2021-08-03 19:12 | PCM.PROG ---
Progress Note Progress Note for Day of Date of Exam: 08/03/21 Subjective Subjective: Pt is a 76 year old male with a past medical history of Hypertension, DMT2, CAD(Pacemaker), Aortic valve replacement, HLD. He was admitted with COVID-19 pneumonia and acute on chronic renal failure. Yesterday patient had improvement and was able to be placed on heated high flow oxygen until night when he was placed on BiPAP. This morning witnessed patient being placed from BiPAP at FiO2 40% back to heated high flow. He is gradually improving. Labs/imaging: Wbc 8.9, HGB 8.6, PLT COUNT 87, SODIUM 138, POTASSIUM 4.2, CREATININE 1.50, GLUCOSE 148, Blood culture: NGTD, Sputum culture: ENTER OBACTER AEROGENES, CXR was obtained and revealed: No significant change from prior. Patient is currently on pneumonia protocol that includes: IVF NS@KVO ml/h, Solu-medrol 40mg iv q8h, scheduled Bronchodilators Xopenex and Budesonide, Antibiotics: IV Rocephin, Received Actemra 400mg x 1 dose, Famotidine 40mg BID, Levemir 15 units sc Bid, Tussionex prn, immune supporting supplements, supplemental O2, SSI, I/S, Lovenox 30mg BID, Physical therapy, Respiratory therapy consult, Smart Vest. Has central line. Receiving TPN for nutrition. He has completed a course of Remdesivir. Will continue with current plan of care today and continue to wean/titrate supplemental oxygen as tolerated. Continue to closely monitor and follow up labs/imaging. Time spent on clinical assessment, reviewing labs and imaging, decision making, and documentation greater than 45 minutes. Past Medical Family Social History Past Med/Fam/Surg Hx: No changes since H&P Allergies: Allergies No Known Drug Allergies Allergy (Verified 07/23/21 12:02) Review of Systems ROS: No change since H&P Vital Signs and I&O's Vital Signs: Temperature 97.0 F Pulse Rate 60 Respiratory Rate 17 Blood Pressure 140/63 O2 Sat by Pulse Oximetry 100 Intake and Output: Intake & Output 07/31/21 08/01/21 08/02/21 08/03/21 23:59 23:59 23:59 23:59 Intake Total 3637 / 3637 3711 / 3711 3466 / 3466 2454 / 2454 Output Total 1750 / 1750 1550 / 1550 2225 / 2225 1550 / 1550 Balance 1887 / 1887 2161 / 2161 1241 / 1241 904 / 904 Physical Exam Oriented: Normal Eyes: Normal Ear: Normal Nose: Normal Throat: Normal Respiratory: Diminished and Rales Cardiovascular: Normal : Normal Auscultation: Bowel Sounds: Normal Tenderness: Normal Skin: Normal Musculoskeletal: Normal Psychiatric: Normal Mood Description: Calm and Appropriate Affect: Normal Speech Pattern: Clear and Appropriate Laboratory and Diagnostics Result Diagrams: 08/03/21 05:00 08/03/21 05:00 Labs: 07/30/21 08:09 Sputum - Expectorated Sputum Sputum Culture - Final Enterobacter Aerogenes 07/30/21 08:09 Sputum - Expectorated Sputum - Final 07/26/21 16:38 Blood Blood Culture - Final 07/26/21 16:30 Blood Blood Culture - Final Laboratory WBC 8.9 X10^3/uL (3.6-10.0) 08/03/21 05:00 RBC 3.05 X10^6/uL (4.7-6.0) L 08/03/21 05:00 Hgb 8.6 g/dL (13.5-18.0) L 08/03/21 05:00 Hct 25.6 % (42.0-54.0) L 08/03/21 05:00 MCV 83.9 fL (80.0-100.0) 08/03/21 05:00 MCH 28.1 pg (27.0-34.0) 08/03/21 05:00 MCHC 33.5 g/dL (33.0-35.0) 08/03/21 05:00 RDW 15.1 % (11.6-16.5) 08/03/21 05:00 Plt Count 87 X10^3/uL (150.0-450.0) L 08/03/21 05:00 Plt Count Comment Decreased (ADEQUATE) 08/01/21 05:00 MPV 9.9 fL (7.4-11.0) 08/03/21 05:00 Neut % (Auto) 88.1 % (42.0-75.0) H 08/03/21 05:00 Lymph % (Auto) 7.2 % (21.0-51.0) L 08/03/21 05:00 [place] % (Auto) 4.5 % (0.0-13.0) 08/03/21 05:00 Eos % (Auto) 0.0 % (0.9-2.9) L 08/03/21 05:00 Baso % (Auto) 0.2 % (0.2-1.0) 08/03/21 05:00 Neut # (Auto) 7.8 x10^3/uL (2.2-4.8) H 08/03/21 05:00 Lymph # (Auto) 0.6 X10^3/uL (1.3-2.9) L 08/03/21 05:00 [place] # (Auto) 0.4 x10^3/uL (0.3-0.8) 08/03/21 05:00 Eos # (Auto) 0.0 x10^3/uL (0.0-0.2) 08/03/21 05:00 Baso # (Auto) 0.0 X10^3/uL (0.0-0.1) 08/03/21 05:00 Absolute Nucleated RBC 0.1 /100WBC 08/03/21 05:00 Total Counted 100 08/01/21 05:00 Neutrophils % (Manual) 94 % (39-76) H 08/01/21 05:00 Lymphocytes % (Manual) 2 % (13-43) L 08/01/21 05:00 Monocytes % (Manual) 4 % (4-9) 08/01/21 05:00 Plt Morphology Comment Normal (NORMAL) 08/01/21 05:00 RBC Morphology Abnormal (NORMAL) 08/01/21 05:00 Polychromasia Slight 08/01/21 05:00 D-Dimer > 20.00 ug/ml (0.0-0.57) H* 07/26/21 16:30 Sample Site Lr 08/01/21 04:13 ABG pH 7.390 (7.35-7.45) 08/01/21 04:13 ABG pCO2 42.0 mmHg (35.0-45.0) 08/01/21 04:13 ABG pO2 72.0 mmHg (80.0-100.0) L 08/01/21 04:13 ABG HCO3 25.4 mmol/L (22-26) 08/01/21 04:13 ABG O2 Saturation 94.0 % (90-100) 08/01/21 04:13 ABG Base Excess 0.3 mmol/L (-2.0-2.0) 08/01/21 04:13 Gene Test Pos 08/01/21 04:13 A-a Gradient 232.0 mmHg 08/01/21 04:13 FiO2 50.0 08/01/21 04:13 Blood Gas Comments Natalia well ae 08/01/21 04:13 Sodium 138 mmol/L (136-145) 08/03/21 05:00 Corrected Sodium 139 mmol/L (136-145) 08/03/21 05:00 Potassium 4.2 mmol/L (3.5-5.1) 08/03/21 05:00 Chloride 108 mmol/L (98-107) H 08/03/21 05:00 Carbon Dioxide 24.4 mmol/L (21-32) 08/03/21 05:00 BUN 69 mg/dL (7-18) H 08/03/21 05:00 Creatinine 1.50 mg/dL (0.70-1.30) H 08/03/21 05:00 Est GFR (MDRD) Af Amer 59 (>60) 08/03/21 05:00 Est GFR (MDRD) Non-Af 49 (>60) L 08/03/21 05:00 Glucose 148 mg/dL (65-99) H 08/03/21 05:00 POC Glucose (mg/dL) 167 mg/dL (65-99) H 08/03/21 19:01 Calcium 8.0 mg/dL (8.5-10.1) L 08/03/21 05:00 Corrected Calcium 10.4 mg/dL (8.5-10.1) H 08/01/21 05:00 Phosphorus 3.8 mg/dL (2.6-4.7) 08/03/21 05:00 Magnesium 1.9 mg/dL (1.7-2.9) 08/03/21 05:00 Total Bilirubin 0.50 mg/dL (0.2-1.0) 08/01/21 05:00 AST 27 Units/L (15-37) 08/01/21 05:00 ALT 34 Units/L (12-78) 08/01/21 05:00 Alkaline Phosphatase 143 Units/L (46-116) H 08/01/21 05:00 Creatine Kinase 86 Units/L (39-308) 07/23/21 12:30 CK-MB (CK-2) 1.3 ng/mL (0-4.0) 07/23/21 12:30 CK/CKMB % Calc 1.5 % (<4) 07/23/21 12:30 Troponin I High Sens 49.9 ng/L (4.0-60.0) 07/27/21 04:40 C-Reactive Protein 1.60 mg/L (0-3.0) 08/03/21 05:00 B-Natriuretic Peptide 60.6 pg/mL (0-79) 08/03/21 05:00 Total Protein 6.2 g/dL (6.4-8.2) L 08/01/21 05:00 Albumin 2.1 g/dL (3.4-5.0) L 08/01/21 05:00 Globulin 4.1 g/dL (2.5-4.5) 08/01/21 05:00 Albumin/Globulin Ratio 0.5 Ratio (1.1-2.1) L 08/01/21 05:00 Prealbumin 14.0 mg/dL (18-35.7) L 07/29/21 04:31 Triglycerides 59 mg/dL (0-150) 08/03/21 05:00 Specimen Type Catherized urine 07/23/21 19:40 Urine Color Yellow (YELLOW) 07/23/21 19:40 Urine Appearance Slightly hazy (CLEAR) 07/23/21 19:40 Urine pH 5.0 (5.0 - 8.0) 07/23/21 19:40 Ur Specific [place] 1.020 (1.000-1.030) 07/23/21 19:40 Urine Protein 2+ (NEGATIVE) 07/23/21 19:40 Urine Glucose (UA) 2+ (NEGATIVE) 07/23/21 19:40 Urine Ketones Negative (NEGATIVE) 07/23/21 19:40 Urine Occult Blood Negative (NEGATIVE) 07/23/21 19:40 Urine Nitrite Negative (NEGATIVE) 07/23/21 19:40 Urine Bilirubin Negative (NEGATIVE) 07/23/21 19:40 Urine Urobilinogen Normal (NORMAL) 07/23/21 19:40 Ur Leukocyte Esterase Negative (NEGATIVE) 07/23/21 19:40 Urine RBC 0-2 /HPF (0-3) 07/23/21 19:40 Urine WBC 0-2 /HPF (0-5) 07/23/21 19:40 Ur Squamous Epith Cells Negative /HPF (NEGATIVE) 07/23/21 19:40 Amorphous Sediment 2+ /HPF (NEGATIVE) 07/23/21 19:40 Urine Bacteria 1+ /HPF (NEGATIVE) 07/23/21 19:40 Hyaline Casts Few /LPF (NEGATIVE) 07/23/21 19:40 Coarse Granular Casts Few /HPF (NEGATIVE) 07/23/21 19:40 Urine Mucus Few /HPF (NEGATIVE) 07/23/21 19:40 Ur Culture Indicated? No/not indicated 07/23/21 19:40 SARS CoV-2 RNA Rapid HERMELINDO Positive (NEGATIVE) A 07/23/21 16:00 Plan (1) Pneumonia due to COVID-19 virus: Status: Acute Plan: Pneumonia protocol (2) Acute on chronic respiratory failure with hypoxia: Status: Acute (3) Acute renal failure: Status: Acute Qualifiers: Acute renal failure type: unspecified Qualified Code(s): N17.9 - Acute kidney failure, unspecified Plan: IVF (4) Anemia: Status: Acute Qualifiers: Anemia type: unspecified type Qualified Code(s): D64.9 - Anemia, unspecified (5) Hypokalemia: Status: Acute (6) Elevated troponin level: Status: Acute (7) Elevated d-dimer: Status: Acute (8) Hypoalbuminemia: Status: Acute (9) Hypernatremia: Status: Acute (10) Diabetes mellitus: Status: Chronic Qualifiers: Diabetes mellitus complication status: with hyperglycemia Diabetes mellitus correction insulin use: with correction use Diabetes mellitus type: type 2 Qualified Code(s): E11.65 - Type 2 diabetes mellitus with hyperglycemia; Z79.4 - [facility] (current) use of insulin (11) Hypertension: Status: Chronic Qualifiers: Hypertension type: primary hypertension Qualified Code(s): I10 - Essential (primary) hypertension
[2021-08-03] MEDS: NS 1,000 ML IV 1,000 ML IV SCH (20:49)
[2021-08-03] MEDS: ROCEPHIN VIAL 1 GRAM 1 G in NS 100 ML IV + SPIKE MINIBAG* 100 ML IV SCH (23:22)
[2021-08-04] MEDS: LOPRESSOR INJ 5 MG AMP IVP SCH ×4 (03:07→20:59)
[2021-08-04] MEDS: SOLU-Medrol 40 MG VIAL IVP SCH ×3 (05:40→20:10)
[2021-08-04] MEDS: NovoLIN R (or HumuLIN R) SUBCUT PRN (05:45)
[2021-08-04] MEDS: BROVANA IN SCH ×2 (08:20→20:45)
[2021-08-04] MEDS: PULMICORT NEB TX 0.5 MG NEB SCH ×2 (08:20→20:45)
[2021-08-04] MEDS ORDERED: XANAX PO PRN (08:57)
[2021-08-04] MEDS: LEVEMIR SC SCH ×2 (09:02→20:57)
[2021-08-04] MEDS: PEPCID 20 MG VIAL 20 MG in NS 50 ML IV 50 ML IV SCH (09:03)
[2021-08-04] MEDS: COLACE CAP 100 MG PO SCH ×2 (09:25→20:10)
[2021-08-04] MEDS: GLUCOPHAGE PO SCH (09:25)
[2021-08-04] MEDS: MILK OF MAGNESIA PO SCH ×2 (09:26→20:10)
[2021-08-04] MEDS: XANAX PO SCH ×2 (09:26→20:10)
--- NOTE | 2021-08-04 10:42 | PCM.PROG ---
Progress Note Progress Note for Day of Date of Exam: 08/04/21 Subjective Subjective: Pt is a 76 year old male with a past medical history of Hypertension, DMT2, CAD(Pacemaker), Aortic valve replacement, HLD. He was admitted with COVID-19 pneumonia and acute on chronic renal failure. Yesterday, patient did tolerate heated high flow for a brief period and then had to be placced on BiPAP@FiO2 40%. Will try attempting again today as tolerated. No labs were drawn this morning. Yesterday, Labs/imaging: Wbc 8.9, HGB 8.6, PLT COUNT 87, SODIUM 138, POTASSIUM 4.2, CREATININE 1.50, GLUCOSE 148, Blood culture: NGTD, Sputum culture: ENTEROBACTER AEROGENES, CXR was obtained and revealed: No significant change from prior. Patient is currently on pneumonia protocol that includes: IVF NS@KVO ml/h, Solu-medrol 40mg iv q8h, scheduled Bronchodilators Xopenex and Budesonide, Antibiotics: IV Rocephin, Received Actemra 400mg x 1 dose, Famotidine 40mg BID, Levemir 15 units sc Bid, Tussionex prn, immune supporting supplements, supplemental O2, SSI, I/S, Lovenox 30mg BID, Physical therapy, Respiratory therapy consult, Smart Vest. Has central line. Receiving TPN for nutrition. He has completed a course of Remdesivir. Will discontinue precedex gtt today and increase xanax for anxiety. Otherwise, will continue with current plan of care and continue to wean/titrate supplemental oxygen as tolerated. Continue to closely monitor and follow up labs/imaging. Time spent on clinical assessment, reviewing labs and imaging, decision making, and documentation greater than 45 minutes. Past Medical Family Social History Past Med/Fam/Surg Hx: No changes since H&P Allergies: Allergies No Known Drug Allergies Allergy (Verified 07/23/21 12:02) Review of Systems ROS: No change since H&P Vital Signs and I&O's Vital Signs: Temperature 97.6 F Pulse Rate 98 Respiratory Rate 31 Blood Pressure 116/53 O2 Sat by Pulse Oximetry 100 Intake and Output: Intake & Output 08/01/21 08/02/21 08/03/21 08/04/21 23:59 23:59 23:59 23:59 Intake Total 3711 / 3711 3466 / 3466 3356 / 3356 740 / 740 Output Total 1550 / 1550 2225 / 2225 2250 / 2250 1000 / 1000 Balance 2161 / 2161 1241 / 1241 1106 / 1106 -260 / -260 Physical Exam Oriented: Normal Eyes: Normal Ear: Normal Nose: Normal Throat: Normal Respiratory: Diminished and Rales Cardiovascular: Normal : Normal Auscultation: Bowel Sounds: Normal Tenderness: Normal Skin: Normal Musculoskeletal: Normal Psychiatric: Normal Mood Description: Calm and Appropriate Affect: Normal Speech Pattern: Clear and Appropriate Laboratory and Diagnostics Result Diagrams: 08/03/21 05:00 08/03/21 05:00 Labs: 07/30/21 08:09 Sputum - Expectorated Sputum Sputum Culture - Final Enterobacter Aerogenes 07/30/21 08:09 Sputum - Expectorated Sputum - Final 07/26/21 16:38 Blood Blood Culture - Final 07/26/21 16:30 Blood Blood Culture - Final Laboratory WBC 8.9 X10^3/uL (3.6-10.0) 08/03/21 05:00 RBC 3.05 X10^6/uL (4.7-6.0) L 08/03/21 05:00 Hgb 8.6 g/dL (13.5-18.0) L 08/03/21 05:00 Hct 25.6 % (42.0-54.0) L 08/03/21 05:00 MCV 83.9 fL (80.0-100.0) 08/03/21 05:00 MCH 28.1 pg (27.0-34.0) 08/03/21 05:00 MCHC 33.5 g/dL (33.0-35.0) 08/03/21 05:00 RDW 15.1 % (11.6-16.5) 08/03/21 05:00 Plt Count 87 X10^3/uL (150.0-450.0) L 08/03/21 05:00 Plt Count Comment Decreased (ADEQUATE) 08/01/21 05:00 MPV 9.9 fL (7.4-11.0) 08/03/21 05:00 Neut % (Auto) 88.1 % (42.0-75.0) H 08/03/21 05:00 Lymph % (Auto) 7.2 % (21.0-51.0) L 08/03/21 05:00 Clinch % (Auto) 4.5 % (0.0-13.0) 08/03/21 05:00 Eos % (Auto) 0.0 % (0.9-2.9) L 08/03/21 05:00 Baso % (Auto) 0.2 % (0.2-1.0) 08/03/21 05:00 Neut # (Auto) 7.8 x10^3/uL (2.2-4.8) H 08/03/21 05:00 Lymph # (Auto) 0.6 X10^3/uL (1.3-2.9) L 08/03/21 05:00 Clinch # (Auto) 0.4 x10^3/uL (0.3-0.8) 08/03/21 05:00 Eos # (Auto) 0.0 x10^3/uL (0.0-0.2) 08/03/21 05:00 Baso # (Auto) 0.0 X10^3/uL (0.0-0.1) 08/03/21 05:00 Absolute Nucleated RBC 0.1 /100WBC 08/03/21 05:00 Total Counted 100 08/01/21 05:00 Neutrophils % (Manual) 94 % (39-76) H 08/01/21 05:00 Lymphocytes % (Manual) 2 % (13-43) L 08/01/21 05:00 Monocytes % (Manual) 4 % (4-9) 08/01/21 05:00 Plt Morphology Comment Normal (NORMAL) 08/01/21 05:00 RBC Morphology Abnormal (NORMAL) 08/01/21 05:00 Polychromasia Slight 08/01/21 05:00 D-Dimer > 20.00 ug/ml (0.0-0.57) H* 07/26/21 16:30 Sample Site Lr 08/01/21 04:13 ABG pH 7.390 (7.35-7.45) 08/01/21 04:13 ABG pCO2 42.0 mmHg (35.0-45.0) 08/01/21 04:13 ABG pO2 72.0 mmHg (80.0-100.0) L 08/01/21 04:13 ABG HCO3 25.4 mmol/L (22-26) 08/01/21 04:13 ABG O2 Saturation 94.0 % (90-100) 08/01/21 04:13 ABG Base Excess 0.3 mmol/L (-2.0-2.0) 08/01/21 04:13 Gene Test Pos 08/01/21 04:13 A-a Gradient 232.0 mmHg 08/01/21 04:13 FiO2 50.0 08/01/21 04:13 Blood Gas Comments Natalia well ae 08/01/21 04:13 Sodium 138 mmol/L (136-145) 08/03/21 05:00 Corrected Sodium 139 mmol/L (136-145) 08/03/21 05:00 Potassium 4.2 mmol/L (3.5-5.1) 08/03/21 05:00 Chloride 108 mmol/L (98-107) H 08/03/21 05:00 Carbon Dioxide 24.4 mmol/L (21-32) 08/03/21 05:00 BUN 69 mg/dL (7-18) H 08/03/21 05:00 Creatinine 1.50 mg/dL (0.70-1.30) H 08/03/21 05:00 Est GFR (MDRD) Af Amer 59 (>60) 08/03/21 05:00 Est GFR (MDRD) Non-Af 49 (>60) L 08/03/21 05:00 Glucose 148 mg/dL (65-99) H 08/03/21 05:00 POC Glucose (mg/dL) 203 mg/dL (65-99) H 08/04/21 05:38 Calcium 8.0 mg/dL (8.5-10.1) L 08/03/21 05:00 Corrected Calcium 10.4 mg/dL (8.5-10.1) H 08/01/21 05:00 Phosphorus 3.8 mg/dL (2.6-4.7) 08/03/21 05:00 Magnesium 1.9 mg/dL (1.7-2.9) 08/03/21 05:00 Total Bilirubin 0.50 mg/dL (0.2-1.0) 08/01/21 05:00 AST 27 Units/L (15-37) 08/01/21 05:00 ALT 34 Units/L (12-78) 08/01/21 05:00 Alkaline Phosphatase 143 Units/L (46-116) H 08/01/21 05:00 Creatine Kinase 86 Units/L (39-308) 07/23/21 12:30 CK-MB (CK-2) 1.3 ng/mL (0-4.0) 07/23/21 12:30 CK/CKMB % Calc 1.5 % (<4) 07/23/21 12:30 Troponin I High Sens 49.9 ng/L (4.0-60.0) 07/27/21 04:40 C-Reactive Protein 1.60 mg/L (0-3.0) 08/03/21 05:00 B-Natriuretic Peptide 60.6 pg/mL (0-79) 08/03/21 05:00 Total Protein 6.2 g/dL (6.4-8.2) L 08/01/21 05:00 Albumin 2.1 g/dL (3.4-5.0) L 08/01/21 05:00 Globulin 4.1 g/dL (2.5-4.5) 08/01/21 05:00 Albumin/Globulin Ratio 0.5 Ratio (1.1-2.1) L 08/01/21 05:00 Prealbumin 24.8 mg/dL (18-35.7) 08/04/21 05:12 Triglycerides 59 mg/dL (0-150) 08/03/21 05:00 Specimen Type Catherized urine 07/23/21 19:40 Urine Color Yellow (YELLOW) 07/23/21 19:40 Urine Appearance Slightly hazy (CLEAR) 07/23/21 19:40 Urine pH 5.0 (5.0 - 8.0) 07/23/21 19:40 Ur Specific [place] 1.020 (1.000-1.030) 07/23/21 19:40 Urine Protein 2+ (NEGATIVE) 07/23/21 19:40 Urine Glucose (UA) 2+ (NEGATIVE) 07/23/21 19:40 Urine Ketones Negative (NEGATIVE) 07/23/21 19:40 Urine Occult Blood Negative (NEGATIVE) 07/23/21 19:40 Urine Nitrite Negative (NEGATIVE) 07/23/21 19:40 Urine Bilirubin Negative (NEGATIVE) 07/23/21 19:40 Urine Urobilinogen Normal (NORMAL) 07/23/21 19:40 Ur Leukocyte Esterase Negative (NEGATIVE) 07/23/21 19:40 Urine RBC 0-2 /HPF (0-3) 07/23/21 19:40 Urine WBC 0-2 /HPF (0-5) 07/23/21 19:40 Ur Squamous Epith Cells Negative /HPF (NEGATIVE) 07/23/21 19:40 Amorphous Sediment 2+ /HPF (NEGATIVE) 07/23/21 19:40 Urine Bacteria 1+ /HPF (NEGATIVE) 07/23/21 19:40 Hyaline Casts Few /LPF (NEGATIVE) 07/23/21 19:40 Coarse Granular Casts Few /HPF (NEGATIVE) 07/23/21 19:40 Urine Mucus Few /HPF (NEGATIVE) 07/23/21 19:40 Ur Culture Indicated? No/not indicated 07/23/21 19:40 SARS CoV-2 RNA Rapid HERMELINDO Positive (NEGATIVE) A 07/23/21 16:00 Plan (1) Pneumonia due to COVID-19 virus: Status: Acute Plan: Pneumonia protocol (2) Acute on chronic respiratory failure with hypoxia: Status: Acute (3) Acute renal failure: Status: Acute Qualifiers: Acute renal failure type: unspecified Qualified Code(s): N17.9 - Acute kidney failure, unspecified Plan: IVF (4) Anemia: Status: Acute Qualifiers: Anemia type: unspecified type Qualified Code(s): D64.9 - Anemia, unspecified (5) Hypokalemia: Status: Acute (6) Elevated troponin level: Status: Acute (7) Elevated d-dimer: Status: Acute (8) Hypoalbuminemia: Status: Acute (9) Hypernatremia: Status: Acute (10) Diabetes mellitus: Status: Chronic Qualifiers: Diabetes mellitus complication status: with hyperglycemia 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
[2021-08-04] MEDS: [UNRECOGNIZED DRUG - REMARK] IV SCH ×3 (14:48)
[2021-08-04] MEDS: NS 1,000 ML IV 1,000 ML IV SCH (21:01)
[2021-08-04] MEDS: ROCEPHIN VIAL 1 GRAM 1 G in NS 100 ML IV + SPIKE MINIBAG* 100 ML IV SCH (22:25)
[2021-08-05] MEDS: LOPRESSOR INJ 5 MG AMP IVP SCH ×4 (03:15→21:55)
[2021-08-05] MEDS: SOLU-Medrol 40 MG VIAL IVP SCH ×3 (06:10→21:54)
[2021-08-05 06:34] LABS: ALBUMIN 2.2 g/dL (3.4-5.0); CALCIUM 8.4 mg/dL (8.5-10.1); CARBON DIOXIDE 22.2 mmol/L (21-32); COR CA(FOR HYPOALB) 9.8 mg/dL (8.5-10.1); CREATININE 1.56 mg/dL (0.70-1.30); TOTAL PROTEIN 5.5 g/dL (6.4-8.2)
[2021-08-05 06:50] LABS: BASOPHILS % (AUTO) 0.1 % (0.2-1.0); HEMATOCRIT 27.2 % (42.0-54.0); HEMOGLOBIN 8.8 g/dL (13.5-18.0); LYMPHOCYTES # (AUTO) 0.5 X10^3/uL (1.3-2.9); LYMPHOCYTES % (AUTO) 4.1 % (21.0-51.0); MEAN CORPUSCULAR HEMOGLOBIN 27.6 pg (27.0-34.0); MEAN CORPUSCULAR HGB CONC 32.4 g/dL (33.0-35.0); MEAN CORPUSCULAR VOLUME 85.2 fL (80.0-100.0); MEAN PLATELET VOLUME 9.8 fL (7.4-11.0); MONOCYTES # (AUTO) 0.8 x10^3/uL (0.3-0.8); MONOCYTES % (AUTO) 6.5 % (0.0-13.0); NEUTROPHILS # (AUTO) 10.7 x10^3/uL (2.2-4.8); NEUTROPHILS % (AUTO) 89.3 % (42.0-75.0); RED CELL DISTRIBUTION WIDTH 15.5 % (11.6-16.5); WHITE BLOOD COUNT 11.9 X10^3/uL (3.6-10.0)
[2021-08-05] MEDS: PULMICORT NEB TX 0.5 MG NEB SCH ×2 (08:57→21:27)
[2021-08-05] MEDS: BROVANA IN SCH ×2 (08:57→21:27)
--- NOTE | 2021-08-05 09:13 | VAS ---
HISTORY: Extremity pain, swelling, and edemaStudy: Bilateral lower extremity Doppler venous ultrasound.TECHNIQUE: Multiple meza scale and color flow Doppler images of the deep venous system were obtained of the [right and left] lower extremity.FINDINGS:The deep venous system of the [right and left lower extremities were] evaluated from the level of the common femoral veins through the popliteal veins, bilaterally. Normal color flow and augmentation can be observed. In addition, normal compression is seen throughout the deep venous system. [No East's cyst is seen].IMPRESSION:1. Negative examination for DVT.Electronically signed by: AB KUO III (Aug 05, 2021 09:12:10)
[2021-08-05] MEDS ORDERED: ZOFRAN INJ 4 MG VIAL IVP PRN (10:08)
[2021-08-05] MEDS: ROBITUSSIN DM PO PRN ×2 (10:20→15:23)
[2021-08-05] MEDS: COLACE CAP 100 MG PO SCH ×2 (11:01→21:54)
[2021-08-05] MEDS: XANAX PO SCH ×2 (11:06→21:54)
[2021-08-05] MEDS: MILK OF MAGNESIA PO SCH ×2 (11:06→21:56)
[2021-08-05] MEDS: PLAVIX PO SCH (11:06)
[2021-08-05] MEDS: PEPCID 20 MG VIAL 20 MG in NS 50 ML IV 50 ML IV SCH (11:06)
[2021-08-05] MEDS: LOVENOX INJ 40 MG SYR SC SCH (11:07)
[2021-08-05] MEDS: GLUCOPHAGE PO SCH ×2 (11:08→13:13)
[2021-08-05] MEDS: LEVEMIR SC SCH ×2 (12:12→22:12)
[2021-08-05] MEDS ORDERED: LASIX IVP ONE (13:13)
[2021-08-05] MEDS: [UNRECOGNIZED DRUG - REMARK] IV SCH ×3 (14:04)
[2021-08-05] MEDS: NS 1,000 ML IV 1,000 ML IV SCH (21:54)
[2021-08-05] MEDS: ROCEPHIN 1 GRAM IV PREMIX 1 G/50 ML IV.SOLN. IV SCH (21:55)
[2021-08-06] MEDS: LOPRESSOR INJ 5 MG AMP IVP SCH ×4 (03:05→20:09)
[2021-08-06] MEDS: SOLU-Medrol 40 MG VIAL IVP SCH ×3 (04:50→21:30)
[2021-08-06 05:57] LABS: BASOPHILS % (AUTO) 0 % (0.2-1.0); EOSINOPHILS % (AUTO) 0.1 % (0.9-2.9); HEMATOCRIT 25.9 % (42.0-54.0); HEMOGLOBIN 8.6 g/dL (13.5-18.0); LYMPHOCYTES # (AUTO) 0.5 X10^3/uL (1.3-2.9); LYMPHOCYTES % (AUTO) 5.4 % (21.0-51.0); MEAN CORPUSCULAR HGB CONC 33.3 g/dL (33.0-35.0); MEAN CORPUSCULAR VOLUME 84.2 fL (80.0-100.0); MEAN PLATELET VOLUME 9.8 fL (7.4-11.0); MONOCYTES # (AUTO) 0.2 x10^3/uL (0.3-0.8); MONOCYTES % (AUTO) 2.7 % (0.0-13.0); NEUTROPHILS # (AUTO) 7.7 x10^3/uL (2.2-4.8); NEUTROPHILS % (AUTO) 91.8 % (42.0-75.0); RED BLOOD COUNT 3.08 X10^6/uL (4.7-6.0); WHITE BLOOD COUNT 8.4 X10^3/uL (3.6-10.0)
[2021-08-06 06:18] LABS: ALBUMIN 2.2 g/dL (3.4-5.0); CARBON DIOXIDE 23.1 mmol/L (21-32); COR CA(FOR HYPOALB) 9.4 mg/dL (8.5-10.1); CREATININE 1.5 mg/dL (0.70-1.30); TOTAL PROTEIN 5.3 g/dL (6.4-8.2)
[2021-08-06] MEDS: NovoLIN R (or HumuLIN R) SUBCUT PRN (06:40)
--- NOTE | 2021-08-06 06:49 | RAD ---
HISTORYFollow-up COVID-19STUDYChest AP [id number]/08/2022FINDINGSTher e is a pacemaker present obscuring a portion of the lateral left upper lobe. There is a right-sided central line in good position. Heart is upper limits normal in size. No congestive heart failure is noted. The lung apices are clear. Bilateral predominantly lower lobe interstitial ground-glass and alveolar infiltrates are unchanged. No pleural effusion or pneumothorax is identified. Bony thorax is unremarkable.IMPRESSIONNo significant change from the prior examinationElectronically signed by: GUSTAVO THOMPSON (Aug 06, 2021 06:48:49)
[2021-08-06 08:17] LABS: PLATELET MORPHOLOGY COMMENT NORMAL (NORMAL)
[2021-08-06] MEDS: XANAX PO SCH ×2 (08:28→20:08)
[2021-08-06] MEDS: PEPCID 20 MG VIAL 20 MG in NS 50 ML IV 50 ML IV SCH (08:29)
[2021-08-06] MEDS: MILK OF MAGNESIA PO SCH ×2 (08:29→20:11)
[2021-08-06] MEDS: GLUCOPHAGE PO SCH (08:30)
[2021-08-06] MEDS: COLACE CAP 100 MG PO SCH ×2 (08:30→20:09)
[2021-08-06] MEDS: LEVEMIR SC SCH ×2 (09:15→20:10)
[2021-08-06] MEDS: PLAVIX PO SCH (09:15)
[2021-08-06] MEDS: LOVENOX INJ 40 MG SYR SC SCH (09:15)
--- NOTE | 2021-08-06 09:15 | PCM.PROG ---
Progress Note Progress Note for Day of Date of Exam: 08/05/21 Subjective Subjective: Pt is a 76 year old male with a past medical history of Hypertension, DMT2, CAD(Pacemaker), Aortic valve replacement, HLD. He was admitted with COVID-19 pneumonia and acute on chronic renal failure. Pt reports a little worsening of shortness of breath this morning. He has been tolerating heated high flow for longer durations. Labs/imaging: Wbc 11.9, HGB 8.8, PLT COUNT 71, SODIUM 144, POTASSIUM 4.4, CREATININE 1.56, GLUCOSE 160, Blood culture: NGTD, Sputum culture: ENTEROBACTER AEROGENES, CXR was obtained and revealed: No significant change from prior. Patient is currently on pneumonia protocol that includes: IVF NS@KVO ml/h, Solu-medrol 40mg iv q8h, scheduled Bronchodilators Xopenex and Budesonide, Antibiotics: IV Rocephin, Received Actemra 400mg x 1 dose, Famotidine 40mg BID, Levemir 15 units sc Bid, Tussionex prn, immune supporting supplements, supplemental O2, SSI, I/S, Lovenox 40mg daily, Physical therapy, Respiratory therapy consult, Smart Vest. Has central line. Receiving TPN for nutrition. He has completed a course of Remdesivir. Pt does have lower extremity edema bilaterally on exam and platelets gradually decreasing. Will monitor platelets and get bilateral venous duplex to rule out DVT. Will give IV lasix 20mg x 1 dose. Otherwise, will continue with current plan of care and continue to wean/titrate supplemental oxygen as tolerated. Continue to closely monitor and follow up labs/imaging. Time spent on clinical assessment, reviewing labs and imaging, decision making, and documentation greater than 45 minutes. Past Medical Family Social History Past Med/Fam/Surg Hx: No changes since H&P Allergies: Allergies No Known Drug Allergies Allergy (Verified 07/23/21 12:02) Review of Systems ROS: No change since H&P Vital Signs and I&O's Vital Signs: Temperature 97.5 F Pulse Rate 127 Respiratory Rate 41 Blood Pressure 149/67 O2 Sat by Pulse Oximetry 81 Intake and Output: Intake & Output 08/03/21 08/04/21 08/05/21 08/06/21 23:59 23:59 23:59 23:59 Intake Total 3356 / 3356 3409 / 3409 3158 / 3158 900 / 900 Output Total 2250 / 2250 2475 / 2475 3945 / 3945 1500 / 1500 Balance 1106 / 1106 934 / 934 -787 / -787 -600 / -600 Physical Exam Oriented: Normal Eyes: Normal Ear: Normal Nose: Normal Throat: Normal Respiratory: Diminished and Rales Cardiovascular: Normal : Normal Auscultation: Bowel Sounds: Normal Tenderness: Normal Skin: Normal Musculoskeletal: Normal Psychiatric: Normal Mood Description: Calm and Appropriate Affect: Normal Speech Pattern: Clear and Appropriate Laboratory and Diagnostics Result Diagrams: 08/06/21 05:37 08/06/21 05:37 Labs: 07/30/21 08:09 Sputum - Expectorated Sputum Sputum Culture - Final Enterobacter Aerogenes 07/30/21 08:09 Sputum - Expectorated Sputum - Final 07/26/21 16:38 Blood Blood Culture - Final 07/26/21 16:30 Blood Blood Culture - Final Laboratory WBC 8.4 X10^3/uL (3.6-10.0) 08/06/21 05:37 RBC 3.08 X10^6/uL (4.7-6.0) L 08/06/21 05:37 Hgb 8.6 g/dL (13.5-18.0) L 08/06/21 05:37 Hct 25.9 % (42.0-54.0) L 08/06/21 05:37 MCV 84.2 fL (80.0-100.0) 08/06/21 05:37 MCH 28.0 pg (27.0-34.0) 08/06/21 05:37 MCHC 33.3 g/dL (33.0-35.0) 08/06/21 05:37 RDW 15.0 % (11.6-16.5) 08/06/21 05:37 Plt Count 56 X10^3/uL (150.0-450.0) L 08/06/21 05:37 Plt Count Comment Decreased (ADEQUATE) 08/06/21 05:37 MPV 9.8 fL (7.4-11.0) 08/06/21 05:37 Neut % (Auto) 91.8 % (42.0-75.0) H 08/06/21 05:37 Lymph % (Auto) 5.4 % (21.0-51.0) L 08/06/21 05:37 [place] % (Auto) 2.7 % (0.0-13.0) 08/06/21 05:37 Eos % (Auto) 0.1 % (0.9-2.9) L 08/06/21 05:37 Baso % (Auto) 0 % (0.2-1.0) L 08/06/21 05:37 Neut # (Auto) 7.7 x10^3/uL (2.2-4.8) H 08/06/21 05:37 Lymph # (Auto) 0.5 X10^3/uL (1.3-2.9) L 08/06/21 05:37 [place] # (Auto) 0.2 x10^3/uL (0.3-0.8) L 08/06/21 05:37 Eos # (Auto) 0.0 x10^3/uL (0.0-0.2) 08/06/21 05:37 Baso # (Auto) 0.0 X10^3/uL (0.0-0.1) 08/06/21 05:37 Absolute Nucleated RBC 0.1 /100WBC 08/06/21 05:37 Total Counted 100 08/06/21 05:37 Neutrophils % (Manual) 96 % (39-76) H 08/06/21 05:37 Lymphocytes % (Manual) 3 % (13-43) L 08/06/21 05:37 Monocytes % (Manual) 1 % (4-9) L 08/06/21 05:37 Plt Morphology Comment Normal (NORMAL) 08/06/21 05:37 RBC Morphology Normal (NORMAL) 08/06/21 05:37 Polychromasia Slight 08/01/21 05:00 D-Dimer > 20.00 ug/ml (0.0-0.57) H* 07/26/21 16:30 Sample Site Lr 08/01/21 04:13 ABG pH 7.390 (7.35-7.45) 08/01/21 04:13 ABG pCO2 42.0 mmHg (35.0-45.0) 08/01/21 04:13 ABG pO2 72.0 mmHg (80.0-100.0) L 08/01/21 04:13 ABG HCO3 25.4 mmol/L (22-26) 08/01/21 04:13 ABG O2 Saturation 94.0 % (90-100) 08/01/21 04:13 ABG Base Excess 0.3 mmol/L (-2.0-2.0) 08/01/21 04:13 Gene Test Pos 08/01/21 04:13 A-a Gradient 232.0 mmHg 08/01/21 04:13 FiO2 50.0 08/01/21 04:13 Blood Gas Comments Natalia well ae 08/01/21 04:13 Sodium 141 mmol/L (136-145) 08/06/21 05:37 Corrected Sodium 145 mmol/L (136-145) 08/06/21 05:37 Potassium 4.4 mmol/L (3.5-5.1) 08/06/21 05:37 Chloride 111 mmol/L (98-107) H 08/06/21 05:37 Carbon Dioxide 23.1 mmol/L (21-32) 08/06/21 05:37 BUN 69 mg/dL (7-18) H 08/06/21 05:37 Creatinine 1.50 mg/dL (0.70-1.30) H 08/06/21 05:37 Est GFR (MDRD) Af Amer 59 (>60) 08/06/21 05:37 Est GFR (MDRD) Non-Af 49 (>60) L 08/06/21 05:37 Glucose 255 mg/dL (65-99) H 08/06/21 05:37 POC Glucose (mg/dL) 151 mg/dL (65-99) H 08/05/21 20:26 Calcium 8.0 mg/dL (8.5-10.1) L 08/06/21 05:37 Corrected Calcium 9.4 mg/dL (8.5-10.1) 08/06/21 05:37 Phosphorus 3.8 mg/dL (2.6-4.7) 08/03/21 05:00 Magnesium 1.9 mg/dL (1.7-2.9) 08/03/21 05:00 Total Bilirubin 0.40 mg/dL (0.2-1.0) 08/06/21 05:37 AST 28 Units/L (15-37) 08/06/21 05:37 ALT 36 Units/L (12-78) 08/06/21 05:37 Alkaline Phosphatase 99 Units/L (46-116) 08/06/21 05:37 Creatine Kinase 86 Units/L (39-308) 07/23/21 12:30 CK-MB (CK-2) 1.3 ng/mL (0-4.0) 07/23/21 12:30 CK/CKMB % Calc 1.5 % (<4) 07/23/21 12:30 Troponin I High Sens 49.9 ng/L (4.0-60.0) 07/27/21 04:40 C-Reactive Protein 1.60 mg/L (0-3.0) 08/03/21 05:00 B-Natriuretic Peptide 60.6 pg/mL (0-79) 08/03/21 05:00 Total Protein 5.3 g/dL (6.4-8.2) L 08/06/21 05:37 Albumin 2.2 g/dL (3.4-5.0) L 08/06/21 05:37 Globulin 3.1 g/dL (2.5-4.5) 08/06/21 05:37 Albumin/Globulin Ratio 0.7 Ratio (1.1-2.1) L 08/06/21 05:37 Prealbumin 24.8 mg/dL (18-35.7) 08/04/21 05:12 Triglycerides 59 mg/dL (0-150) 08/03/21 05:00 Specimen Type Catherized urine 07/23/21 19:40 Urine Color Yellow (YELLOW) 07/23/21 19:40 Urine Appearance Slightly hazy (CLEAR) 07/23/21 19:40 Urine pH 5.0 (5.0 - 8.0) 07/23/21 19:40 Ur Specific [place] 1.020 (1.000-1.030) 07/23/21 19:40 Urine Protein 2+ (NEGATIVE) 07/23/21 19:40 Urine Glucose (UA) 2+ (NEGATIVE) 07/23/21 19:40 Urine Ketones Negative (NEGATIVE) 07/23/21 19:40 Urine Occult Blood Negative (NEGATIVE) 07/23/21 19:40 Urine Nitrite Negative (NEGATIVE) 07/23/21 19:40 Urine Bilirubin Negative (NEGATIVE) 07/23/21 19:40 Urine Urobilinogen Normal (NORMAL) 07/23/21 19:40 Ur Leukocyte Esterase Negative (NEGATIVE) 07/23/21 19:40 Urine RBC 0-2 /HPF (0-3) 07/23/21 19:40 Urine WBC 0-2 /HPF (0-5) 07/23/21 19:40 Ur Squamous Epith Cells Negative /HPF (NEGATIVE) 07/23/21 19:40 Amorphous Sediment 2+ /HPF (NEGATIVE) 07/23/21 19:40 Urine Bacteria 1+ /HPF (NEGATIVE) 07/23/21 19:40 Hyaline Casts Few /LPF (NEGATIVE) 07/23/21 19:40 Coarse Granular Casts Few /HPF (NEGATIVE) 07/23/21 19:40 Urine Mucus Few /HPF (NEGATIVE) 07/23/21 19:40 Ur Culture Indicated? No/not indicated 07/23/21 19:40 SARS CoV-2 RNA Rapid HERMELINDO Positive (NEGATIVE) A 07/23/21 16:00 Plan (1) Pneumonia due to COVID-19 virus: Status: Acute Plan: Pneumonia protocol (2) Acute on chronic respiratory failure with hypoxia: Status: Acute (3) Acute renal failure: Status: Acute Qualifiers: Acute renal failure type: unspecified Qualified Code(s): N17.9 - Acute kidney failure, unspecified Plan: IVF (4) Anemia: Status: Acute Qualifiers: Anemia type: unspecified type Qualified Code(s): D64.9 - Anemia, unspecified (5) Hypokalemia: Status: Acute (6) Elevated troponin level: Status: Acute (7) Elevated d-dimer: Status: Acute (8) Hypoalbuminemia: Status: Acute (9) Hypernatremia: Status: Acute (10) Diabetes mellitus: Status: Chronic Qualifiers: Diabetes mellitus complication status: with hyperglycemia 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
[2021-08-06] MEDS: [UNRECOGNIZED DRUG - REMARK] IV SCH ×6 (09:16→18:00)
[2021-08-06] MEDS: BROVANA IN SCH ×2 (09:17→21:11)
[2021-08-06] MEDS: PULMICORT NEB TX 0.5 MG NEB SCH ×2 (09:17→21:11)
--- NOTE | 2021-08-06 16:55 | PCM.PROG ---
Progress Note Progress Note for Day of Date of Exam: 08/06/21 Subjective Subjective: Pt is a 76 year old male with a past medical history of Hypertension, DMT2, CAD(Pacemaker), Aortic valve replacement, HLD. He was admitted with COVID-19 pneumonia and acute on chronic renal failure. Pt reports feeling some improvement this morning. He is sitting up on side of bed with heated high flow oxygen at FiO2 of 81%. Labs/imaging: Wbc 8.4, HGB 8.6, PLT COUNT 56, SODIUM 141, POTASSIUM 4.4, CREATININE 1.50, GLUCOSE 225, Blood culture: NGTD, Sputum culture: ENTEROBACTER AEROGENES, CXR was obtained and revealed: No significant change from prior. Patient is currently on pneumonia protocol that includes: IVF NS@KVO ml/h, Solu-medrol 40mg iv q8h, scheduled Bronchodilators Xopenex and Budesonide, Antibiotics: IV Rocephin, Received Actemra 400mg x 1 dose, Famotidine 40mg BID, Levemir 15 units sc Bid, Tussionex prn, immune supporting supplements, supplemental O2, SSI, I/S, Lovenox 40mg daily, Physical therapy, Respiratory therapy consult, Smart Vest. Has central line. Receiving TPN for nutrition. He has completed a course of Remdesivir. Bilateral lower extremity venous duplex negative for DVT yesterday. Will hold Lovenox due to thrombocytopenia and start SCDs. Consider HIT or platelet infusion if any further decreases in thrombocytopenia. Otherwise, will continue with current plan of care and continue to wean/titrate supplemental oxygen as tolerated. Continue to closely monitor and follow up labs/imaging. Time spent on clinical assessment, reviewing labs and imaging, decision making, and documentation greater than 45 minutes. Past Medical Family Social History Past Med/Fam/Surg Hx: No changes since H&P Allergies: Allergies No Known Drug Allergies Allergy (Verified 07/23/21 12:02) Review of Systems ROS: No change since H&P Vital Signs and I&O's Vital Signs: Temperature 97.4 F Pulse Rate 85 Respiratory Rate 26 Blood Pressure 145/61 O2 Sat by Pulse Oximetry 100 Intake and Output: Intake & Output 08/03/21 08/04/21 08/05/21 08/06/21 23:59 23:59 23:59 23:59 Intake Total 3356 / 3356 3409 / 3409 3158 / 3158 2100 / 2100 Output Total 2250 / 2250 2475 / 2475 3945 / 3945 2700 / 2700 Balance 1106 / 1106 934 / 934 -787 / -787 -600 / -600 Physical Exam Oriented: Normal Eyes: Normal Ear: Normal Nose: Normal Throat: Normal Respiratory: Diminished and Rales Cardiovascular: Normal : Normal Auscultation: Bowel Sounds: Normal Tenderness: Normal Skin: Normal Musculoskeletal: Normal Psychiatric: Normal Mood Description: Calm and Appropriate Affect: Normal Speech Pattern: Clear and Appropriate Laboratory and Diagnostics Result Diagrams: 08/06/21 05:37 08/06/21 05:37 Labs: 07/30/21 08:09 Sputum - Expectorated Sputum Sputum Culture - Final Enterobacter Aerogenes 07/30/21 08:09 Sputum - Expectorated Sputum - Final 07/26/21 16:38 Blood Blood Culture - Final 07/26/21 16:30 Blood Blood Culture - Final Laboratory WBC 8.4 X10^3/uL (3.6-10.0) 08/06/21 05:37 RBC 3.08 X10^6/uL (4.7-6.0) L 08/06/21 05:37 Hgb 8.6 g/dL (13.5-18.0) L 08/06/21 05:37 Hct 25.9 % (42.0-54.0) L 08/06/21 05:37 MCV 84.2 fL (80.0-100.0) 08/06/21 05:37 MCH 28.0 pg (27.0-34.0) 08/06/21 05:37 MCHC 33.3 g/dL (33.0-35.0) 08/06/21 05:37 RDW 15.0 % (11.6-16.5) 08/06/21 05:37 Plt Count 56 X10^3/uL (150.0-450.0) L 08/06/21 05:37 Plt Count Comment Decreased (ADEQUATE) 08/06/21 05:37 MPV 9.8 fL (7.4-11.0) 08/06/21 05:37 Neut % (Auto) 91.8 % (42.0-75.0) H 08/06/21 05:37 Lymph % (Auto) 5.4 % (21.0-51.0) L 08/06/21 05:37 [place] % (Auto) 2.7 % (0.0-13.0) 08/06/21 05:37 Eos % (Auto) 0.1 % (0.9-2.9) L 08/06/21 05:37 Baso % (Auto) 0 % (0.2-1.0) L 08/06/21 05:37 Neut # (Auto) 7.7 x10^3/uL (2.2-4.8) H 08/06/21 05:37 Lymph # (Auto) 0.5 X10^3/uL (1.3-2.9) L 08/06/21 05:37 [place] # (Auto) 0.2 x10^3/uL (0.3-0.8) L 08/06/21 05:37 Eos # (Auto) 0.0 x10^3/uL (0.0-0.2) 08/06/21 05:37 Baso # (Auto) 0.0 X10^3/uL (0.0-0.1) 08/06/21 05:37 Absolute Nucleated RBC 0.1 /100WBC 08/06/21 05:37 Total Counted 100 08/06/21 05:37 Neutrophils % (Manual) 96 % (39-76) H 08/06/21 05:37 Lymphocytes % (Manual) 3 % (13-43) L 08/06/21 05:37 Monocytes % (Manual) 1 % (4-9) L 08/06/21 05:37 Plt Morphology Comment Normal (NORMAL) 08/06/21 05:37 RBC Morphology Normal (NORMAL) 08/06/21 05:37 Polychromasia Slight 08/01/21 05:00 D-Dimer > 20.00 ug/ml (0.0-0.57) H* 07/26/21 16:30 Sample Site Lr 08/01/21 04:13 ABG pH 7.390 (7.35-7.45) 08/01/21 04:13 ABG pCO2 42.0 mmHg (35.0-45.0) 08/01/21 04:13 ABG pO2 72.0 mmHg (80.0-100.0) L 08/01/21 04:13 ABG HCO3 25.4 mmol/L (22-26) 08/01/21 04:13 ABG O2 Saturation 94.0 % (90-100) 08/01/21 04:13 ABG Base Excess 0.3 mmol/L (-2.0-2.0) 08/01/21 04:13 Gene Test Pos 08/01/21 04:13 A-a Gradient 232.0 mmHg 08/01/21 04:13 FiO2 50.0 08/01/21 04:13 Blood Gas Comments Natalia well ae 08/01/21 04:13 Sodium 141 mmol/L (136-145) 08/06/21 05:37 Corrected Sodium 145 mmol/L (136-145) 08/06/21 05:37 Potassium 4.4 mmol/L (3.5-5.1) 08/06/21 05:37 Chloride 111 mmol/L (98-107) H 08/06/21 05:37 Carbon Dioxide 23.1 mmol/L (21-32) 08/06/21 05:37 BUN 69 mg/dL (7-18) H 08/06/21 05:37 Creatinine 1.50 mg/dL (0.70-1.30) H 08/06/21 05:37 Est GFR (MDRD) Af Amer 59 (>60) 08/06/21 05:37 Est GFR (MDRD) Non-Af 49 (>60) L 08/06/21 05:37 Glucose 255 mg/dL (65-99) H 08/06/21 05:37 POC Glucose (mg/dL) 169 mg/dL (65-99) H 08/06/21 16:14 Calcium 8.0 mg/dL (8.5-10.1) L 08/06/21 05:37 Corrected Calcium 9.4 mg/dL (8.5-10.1) 08/06/21 05:37 Phosphorus 3.8 mg/dL (2.6-4.7) 08/03/21 05:00 Magnesium 1.9 mg/dL (1.7-2.9) 08/03/21 05:00 Total Bilirubin 0.40 mg/dL (0.2-1.0) 08/06/21 05:37 AST 28 Units/L (15-37) 08/06/21 05:37 ALT 36 Units/L (12-78) 08/06/21 05:37 Alkaline Phosphatase 99 Units/L (46-116) 08/06/21 05:37 Creatine Kinase 86 Units/L (39-308) 07/23/21 12:30 CK-MB (CK-2) 1.3 ng/mL (0-4.0) 07/23/21 12:30 CK/CKMB % Calc 1.5 % (<4) 07/23/21 12:30 Troponin I High Sens 49.9 ng/L (4.0-60.0) 07/27/21 04:40 C-Reactive Protein 1.60 mg/L (0-3.0) 08/03/21 05:00 B-Natriuretic Peptide 60.6 pg/mL (0-79) 08/03/21 05:00 Total Protein 5.3 g/dL (6.4-8.2) L 08/06/21 05:37 Albumin 2.2 g/dL (3.4-5.0) L 08/06/21 05:37 Globulin 3.1 g/dL (2.5-4.5) 08/06/21 05:37 Albumin/Globulin Ratio 0.7 Ratio (1.1-2.1) L 08/06/21 05:37 Prealbumin 24.8 mg/dL (18-35.7) 08/04/21 05:12 Triglycerides 59 mg/dL (0-150) 08/03/21 05:00 Specimen Type Catherized urine 07/23/21 19:40 Urine Color Yellow (YELLOW) 07/23/21 19:40 Urine Appearance Slightly hazy (CLEAR) 07/23/21 19:40 Urine pH 5.0 (5.0 - 8.0) 07/23/21 19:[address] [place] [address] 1.020 (1.000-1.030) 07/23/21 19:40 Urine Protein 2+ (NEGATIVE) 07/23/21 19:40 Urine Glucose (UA) 2+ (NEGATIVE) 07/23/21 19:40 Urine Ketones Negative (NEGATIVE) 07/23/21 19:40 Urine Occult Blood Negative (NEGATIVE) 07/23/21 19:40 Urine Nitrite Negative (NEGATIVE) 07/23/21 19:40 Urine Bilirubin Negative (NEGATIVE) 07/23/21 19:40 Urine Urobilinogen Normal (NORMAL) 07/23/21 19:40 Ur Leukocyte Esterase Negative (NEGATIVE) 07/23/21 19:40 Urine RBC 0-2 /HPF (0-3) 07/23/21 19:40 Urine WBC 0-2 /HPF (0-5) 07/23/21 19:40 Ur Squamous Epith Cells Negative /HPF (NEGATIVE) 07/23/21 19:40 Amorphous Sediment 2+ /HPF (NEGATIVE) 07/23/21 19:40 Urine Bacteria 1+ /HPF (NEGATIVE) 07/23/21 19:40 Hyaline Casts Few /LPF (NEGATIVE) 07/23/21 19:40 Coarse Granular Casts Few /HPF (NEGATIVE) 07/23/21 19:40 Urine Mucus Few /HPF (NEGATIVE) 07/23/21 19:40 Ur Culture Indicated? No/not indicated 07/23/21 19:40 SARS CoV-2 RNA Rapid HERMELINDO Positive (NEGATIVE) A 07/23/21 16:00 Plan (1) Pneumonia due to COVID-19 virus: Status: Acute Plan: Pneumonia protocol (2) Acute on chronic respiratory failure with hypoxia: Status: Acute (3) Acute renal failure: Status: Acute Qualifiers: Acute renal failure type: unspecified Qualified Code(s): N17.9 - Acute kidney failure, unspecified Plan: IVF (4) Anemia: Status: Acute Qualifiers: Anemia type: unspecified type Qualified Code(s): D64.9 - Anemia, unspecified (5) Hypokalemia: Status: Acute (6) Elevated troponin level: Status: Acute (7) Elevated d-dimer: Status: Acute (8) Hypoalbuminemia: Status: Acute (9) Hypernatremia: Status: Acute (10) Diabetes mellitus: Status: Chronic Qualifiers: Diabetes mellitus complication status: with hyperglycemia Diabetes mellitus halfway insulin use: with halfway use Diabetes mellitus type: type 2 Qualified Code(s): E11.65 - Type 2 diabetes mellitus with hyperglycemia; Z79.4 - superintendent terminal (current) use of insulin (11) Hypertension: Status: Chronic Qualifiers: Hypertension type: primary hypertension Qualified Code(s): I10 - Essential (primary) hypertension
[2021-08-06] MEDS ORDERED: DRUG FILTER EXTENSION SET ONE (17:56)
[2021-08-06] MEDS: NS 1,000 ML IV 1,000 ML IV SCH (20:08)
[2021-08-06] MEDS: ROCEPHIN 1 GRAM IV PREMIX 1 G/50 ML IV.SOLN. IV SCH (20:09)
[2021-08-07] MEDS: LOPRESSOR INJ 5 MG AMP IVP SCH ×2 (03:45→08:41)
[2021-08-07 04:53] LABS: BASOPHILS % (AUTO) 0.1 % (0.2-1.0); HEMATOCRIT 24.2 % (42.0-54.0); LYMPHOCYTES # (AUTO) 0.5 X10^3/uL (1.3-2.9); LYMPHOCYTES % (AUTO) 6.1 % (21.0-51.0); MEAN CORPUSCULAR HEMOGLOBIN 27.7 pg (27.0-34.0); MEAN CORPUSCULAR HGB CONC 33.1 g/dL (33.0-35.0); MEAN CORPUSCULAR VOLUME 83.5 fL (80.0-100.0); MEAN PLATELET VOLUME 9.3 fL (7.4-11.0); MONOCYTES # (AUTO) 0.4 x10^3/uL (0.3-0.8); MONOCYTES % (AUTO) 5.2 % (0.0-13.0); NEUTROPHILS % (AUTO) 88.6 % (42.0-75.0); RED CELL DISTRIBUTION WIDTH 15.6 % (11.6-16.5); WHITE BLOOD COUNT 7.9 X10^3/uL (3.6-10.0)
[2021-08-07 05:09] LABS: ALANINE AMINOTRANSFERASE 35 Units/L (12-78); ALBUMIN 2.1 g/dL (3.4-5.0); ALKALINE PHOSPHATASE 89 Units/L (46-116); ASPARTATE AMINO TRANSFERASE 22 Units/L (15-37); BLOOD UREA NITROGEN 70 mg/dL (7-18); CALCIUM 7.9 mg/dL (8.5-10.1); CARBON DIOXIDE 26.4 mmol/L (21-32); CHLORIDE 111 mmol/L (98-107); COR CA(FOR HYPOALB) 9.4 mg/dL (8.5-10.1); COR NA(FOR HYPERGLY) 143 mmol/L (136-145); CREATININE 1.38 mg/dL (0.70-1.30); SODIUM 140 mmol/L (136-145); TOTAL PROTEIN 5.1 g/dL (6.4-8.2); eGFR NON BLACK RACES 54 (>60)
[2021-08-07] MEDS: SOLU-Medrol 40 MG VIAL IVP SCH (05:30)
[2021-08-07] MEDS: NovoLIN R (or HumuLIN R) SUBCUT PRN (06:21)
[2021-08-07] MEDS: MILK OF MAGNESIA PO SCH ×2 (08:40→20:54)
[2021-08-07] MEDS: COLACE CAP 100 MG PO SCH ×2 (08:41→20:48)
[2021-08-07] MEDS: PLAVIX PO SCH (08:41)
[2021-08-07] MEDS: GLUCOPHAGE PO SCH (08:42)
[2021-08-07] MEDS: LEVEMIR SC SCH ×2 (08:42→20:49)
[2021-08-07] MEDS: XANAX PO SCH ×2 (08:43→22:05)
[2021-08-07] MEDS: PEPCID 20 MG VIAL 20 MG in NS 50 ML IV 50 ML IV SCH (08:54)
[2021-08-07] MEDS: BROVANA IN SCH ×2 (08:57→21:00)
[2021-08-07] MEDS: PULMICORT NEB TX 0.5 MG NEB SCH ×2 (08:57→21:00)
[2021-08-07] MEDS ORDERED: DRUG FILTER EXTENSION SET ONE (14:40)
[2021-08-07] MEDS: [UNRECOGNIZED DRUG - REMARK] IV SCH ×3 (15:34)
[2021-08-07] MEDS: TOPROL XL PO SCH (15:50)
[2021-08-07] MEDS: DECADRON TAB PO SCH (15:50)
[2021-08-07] MEDS: ELIQUIS PO SCH ×2 (15:50→22:05)
[2021-08-07] MEDS: NS 1,000 ML IV 1,000 ML IV SCH ×2 (15:51→20:48)
[2021-08-07] MEDS: ROCEPHIN 1 GRAM IV PREMIX 1 G/50 ML IV.SOLN. IV SCH (20:50)
[2021-08-08] MEDS: ROBITUSSIN DM PO PRN (03:53)
[2021-08-08 05:18] LABS: BASOPHILS % (AUTO) 0.6 % (0.2-1.0); EOSINOPHILS % (AUTO) 0.1 % (0.9-2.9); HEMATOCRIT 22.7 % (42.0-54.0); HEMOGLOBIN 7.5 g/dL (13.5-18.0); LYMPHOCYTES # (AUTO) 0.6 X10^3/uL (1.3-2.9); LYMPHOCYTES % (AUTO) 9.4 % (21.0-51.0); MEAN CORPUSCULAR HEMOGLOBIN 27.8 pg (27.0-34.0); MEAN CORPUSCULAR VOLUME 84.2 fL (80.0-100.0); MEAN PLATELET VOLUME 9.6 fL (7.4-11.0); MONOCYTES # (AUTO) 0.5 x10^3/uL (0.3-0.8); MONOCYTES % (AUTO) 7.5 % (0.0-13.0); NEUTROPHILS # (AUTO) 5.1 x10^3/uL (2.2-4.8); NEUTROPHILS % (AUTO) 82.4 % (42.0-75.0); RED CELL DISTRIBUTION WIDTH 15.4 % (11.6-16.5); WHITE BLOOD COUNT 6.1 X10^3/uL (3.6-10.0)
[2021-08-08 05:32] LABS: ALANINE AMINOTRANSFERASE 39 Units/L (12-78); ALKALINE PHOSPHATASE 76 Units/L (46-116); ASPARTATE AMINO TRANSFERASE 23 Units/L (15-37); BLOOD UREA NITROGEN 72 mg/dL (7-18); CALCIUM 7.8 mg/dL (8.5-10.1); CARBON DIOXIDE 26.3 mmol/L (21-32); CHLORIDE 111 mmol/L (98-107); COR CA(FOR HYPOALB) 9.4 mg/dL (8.5-10.1); COR NA(FOR HYPERGLY) 142 mmol/L (136-145); CREATININE 1.22 mg/dL (0.70-1.30); SODIUM 140 mmol/L (136-145); TOTAL PROTEIN 4.8 g/dL (6.4-8.2); eGFR NON BLACK RACES > 60 (>60)
[2021-08-08] MEDS: XANAX PO SCH ×2 (08:49→20:46)
[2021-08-08] MEDS: GLUCOPHAGE PO SCH (08:49)
[2021-08-08] MEDS: COLACE CAP 100 MG PO SCH ×2 (08:49→20:46)
[2021-08-08] MEDS: PLAVIX PO SCH (08:50)
[2021-08-08] MEDS: PULMICORT NEB TX 0.5 MG NEB SCH ×2 (08:50→21:15)
[2021-08-08] MEDS: BROVANA IN SCH ×2 (08:50→21:15)
[2021-08-08] MEDS: TOPROL XL PO SCH (08:50)
[2021-08-08] MEDS: MILK OF MAGNESIA PO SCH ×2 (08:51→21:57)
[2021-08-08] MEDS: LEVEMIR SC SCH ×2 (08:51→20:45)
[2021-08-08] MEDS: [UNRECOGNIZED DRUG - REMARK] IV SCH ×3 (08:52)
[2021-08-08] MEDS: ELIQUIS PO SCH ×2 (08:52→20:46)
[2021-08-08] MEDS: PEPCID 20 MG VIAL 20 MG in NS 50 ML IV 50 ML IV SCH (08:53)
[2021-08-08] MEDS: DECADRON TAB PO SCH (08:53)
[2021-08-08] MEDS ORDERED: DRUG FILTER EXTENSION SET ONE (11:12)
[2021-08-08] MEDS ORDERED: NS 250 ML IV 250 ML IV ONE (14:13)
[2021-08-08] MEDS: BENADRYL INJ 50 MG VIAL IV PRN (14:53)
[2021-08-08] MEDS: NS 1,000 ML IV 1,000 ML IV SCH (20:44)
[2021-08-08 20:59] LABS: HEMATOCRIT 26.9 % (42.0-54.0); HEMOGLOBIN 9.2 g/dL (13.5-18.0)
[2021-08-09] MEDS: NovoLIN R (or HumuLIN R) SUBCUT PRN (05:00)
[2021-08-09 05:21] LABS: EOSINOPHILS % (AUTO) 0.1 % (0.9-2.9); HEMOGLOBIN 7.9 g/dL (13.5-18.0); LYMPHOCYTES # (AUTO) 0.8 X10^3/uL (1.3-2.9); MEAN CORPUSCULAR VOLUME 82.5 fL (80.0-100.0); MEAN PLATELET VOLUME 10.6 fL (7.4-11.0)
[2021-08-09 05:32] LABS: BASOPHILS % (AUTO) 0.2 % (0.2-1.0); HEMATOCRIT 23.1 % (42.0-54.0); LYMPHOCYTES % (AUTO) 10.3 % (21.0-51.0); MEAN CORPUSCULAR HEMOGLOBIN 28.1 pg (27.0-34.0); MEAN CORPUSCULAR HGB CONC 34.1 g/dL (33.0-35.0); MONOCYTES # (AUTO) 0.6 x10^3/uL (0.3-0.8); MONOCYTES % (AUTO) 7.8 % (0.0-13.0); NEUTROPHILS % (AUTO) 81.6 % (42.0-75.0); RED BLOOD COUNT 2.81 X10^6/uL (4.7-6.0); RED CELL DISTRIBUTION WIDTH 15.7 % (11.6-16.5); WHITE BLOOD COUNT 7.3 X10^3/uL (3.6-10.0)
[2021-08-09 05:40] LABS: ALANINE AMINOTRANSFERASE 31 Units/L (12-78); ALKALINE PHOSPHATASE 71 Units/L (46-116); ASPARTATE AMINO TRANSFERASE 19 Units/L (15-37); BLOOD UREA NITROGEN 93 mg/dL (7-18); CALCIUM 7.9 mg/dL (8.5-10.1); CHLORIDE 108 mmol/L (98-107); COR CA(FOR HYPOALB) 9.5 mg/dL (8.5-10.1); COR NA(FOR HYPERGLY) 141 mmol/L (136-145); CREATININE 1.19 mg/dL (0.70-1.30); SODIUM 138 mmol/L (136-145); TOTAL PROTEIN 4.4 g/dL (6.4-8.2); eGFR NON BLACK RACES > 60 (>60)
[2021-08-09] MEDS: BROVANA IN SCH ×2 (07:48→20:05)
[2021-08-09] MEDS: PULMICORT NEB TX 0.5 MG NEB SCH ×2 (07:48→20:05)
[2021-08-09] MEDS: PEPCID 20 MG VIAL 20 MG in NS 50 ML IV 50 ML IV SCH (09:30)
[2021-08-09] MEDS: COLACE CAP 100 MG PO SCH ×2 (09:30→20:25)
[2021-08-09] MEDS: PLAVIX PO SCH (09:30)
[2021-08-09] MEDS: GLUCOPHAGE PO SCH (09:30)
[2021-08-09] MEDS: TOPROL XL PO SCH (09:30)
[2021-08-09] MEDS: DECADRON TAB PO SCH (09:30)
[2021-08-09] MEDS: XANAX PO SCH ×2 (09:30→20:26)
[2021-08-09] MEDS: ELIQUIS PO SCH ×2 (09:30→20:26)
[2021-08-09] MEDS: LEVEMIR SC SCH ×2 (09:30→20:26)
[2021-08-09] MEDS: MILK OF MAGNESIA PO SCH ×2 (10:40→20:26)
[2021-08-09] MEDS: NS 1,000 ML IV 1,000 ML IV SCH (20:27)
[2021-08-10 04:40] LABS: ALANINE AMINOTRANSFERASE 28 Units/L (12-78); ALBUMIN 1.9 g/dL (3.4-5.0); ALKALINE PHOSPHATASE 67 Units/L (46-116); ASPARTATE AMINO TRANSFERASE 17 Units/L (15-37); BLOOD UREA NITROGEN 90 mg/dL (7-18); CALCIUM 7.6 mg/dL (8.5-10.1); CARBON DIOXIDE 23.8 mmol/L (21-32); CHLORIDE 106 mmol/L (98-107); COR CA(FOR HYPOALB) 9.3 mg/dL (8.5-10.1); COR NA(FOR HYPERGLY) 139 mmol/L (136-145); CREATININE 1.29 mg/dL (0.70-1.30); SODIUM 136 mmol/L (136-145); TOTAL PROTEIN 4.2 g/dL (6.4-8.2); eGFR NON BLACK RACES 58 (>60)
[2021-08-10 04:42] LABS: BASOPHILS # (AUTO) 0.1 X10^3/uL (0.0-0.1); BASOPHILS % (AUTO) 1.4 % (0.2-1.0); EOSINOPHILS # (AUTO) 0.1 x10^3/uL (0.0-0.2); HEMATOCRIT 20.4 % (42.0-54.0); LYMPHOCYTES # (AUTO) 0.9 X10^3/uL (1.3-2.9); LYMPHOCYTES % (AUTO) 12.4 % (21.0-51.0); MEAN CORPUSCULAR HEMOGLOBIN 28.6 pg (27.0-34.0); MEAN CORPUSCULAR HGB CONC 33.9 g/dL (33.0-35.0); MEAN CORPUSCULAR VOLUME 84.6 fL (80.0-100.0); MEAN PLATELET VOLUME 10.8 fL (7.4-11.0); MONOCYTES # (AUTO) 0.5 x10^3/uL (0.3-0.8); MONOCYTES % (AUTO) 6.9 % (0.0-13.0); NEUTROPHILS # (AUTO) 5.5 x10^3/uL (2.2-4.8); NEUTROPHILS % (AUTO) 78.3 % (42.0-75.0); RED BLOOD COUNT 2.41 X10^6/uL (4.7-6.0); RED CELL DISTRIBUTION WIDTH 16.2 % (11.6-16.5); WHITE BLOOD COUNT 7.1 X10^3/uL (3.6-10.0)
[2021-08-10 05:13] LABS: HEMOGLOBIN 6.9 g/dL (13.5-18.0)
[2021-08-10] MEDS: BROVANA IN SCH ×2 (08:15→20:50)
[2021-08-10] MEDS: PULMICORT NEB TX 0.5 MG NEB SCH ×2 (08:15→20:50)
[2021-08-10] MEDS: ELIQUIS PO SCH ×2 (08:36→20:19)
[2021-08-10] MEDS: COLACE CAP 100 MG PO SCH ×2 (08:36→20:19)
[2021-08-10] MEDS: DECADRON TAB PO SCH (08:36)
[2021-08-10] MEDS: LEVEMIR SC SCH ×2 (08:37→20:20)
[2021-08-10] MEDS: PEPCID 20 MG VIAL 20 MG in NS 50 ML IV 50 ML IV SCH (08:38)
[2021-08-10] MEDS: XANAX PO SCH ×2 (08:38→20:19)
[2021-08-10] MEDS: MILK OF MAGNESIA PO SCH ×2 (08:38→20:19)
[2021-08-10] MEDS: TOPROL XL PO SCH (08:38)
[2021-08-10] MEDS: GLUCOPHAGE PO SCH (08:46)
[2021-08-10] MEDS ORDERED: NS 250 ML IV 250 ML IV ONE (11:26)
[2021-08-10] MEDS: NovoLIN R (or HumuLIN R) SUBCUT PRN ×3 (11:58→20:19)
[2021-08-10] MEDS ORDERED: NovoLIN R (or HumuLIN R) ONE (12:02)
--- NOTE | 2021-08-10 13:35 | PCM.PROG ---
Progress Note Progress Note for Day of Date of Exam: 08/09/21 Subjective Subjective: Pt is a 76 year old male with a past medical history of Hypertension, DMT2, CAD(Pacemaker), Aortic valve replacement, HLD. He was admitted with COVID-19 pneumonia and acute on chronic renal failure. Pt continued to slowly improve over the weekend, and is currently on heated high flow oxygen at FiO2 of 50%. He did require 2 units packed red blood cells for anemia, no active bleeding. Labs/imaging: Wbc 7.3, Hgb 7.9, Plt 41, Na 138, K 4.3, Cr 1.19, Glucose 225, Blood culture: NGTD. Patient is currently on pneumonia protocol that includes: IVF NS@KVO ml/h, IV decadron 4mg, scheduled Bronchodilators Xopenex and Budesonide, Antibiotics: IV Rocephin, Received Actemra 400mg x 1 dose, Famotidine 40mg BID, Levemir 15 units sc Bid, Tussionex prn, immune supporting supplements, supplemental O2, SSI, I/S, Lovenox 40mg daily, Physical therapy, Respiratory therapy consult, Smart Vest. Has central line. Receiving TPN for nutrition, he is tolerated po intake, will discontinue. He has completed a course of Remdesivir. Will continue to monitor thrombocytopenia, consider platelet infusion if any further decreases in thrombocytopenia. Otherwise, will continue with current plan of care and [place] to wean/titrate supplemental oxygen as tolerated. Continue to closely monitor and follow up labs/imaging. Time spent on clinical assessment, reviewing labs and imaging, decision making, and documentation greater than 45 minutes. Past Medical Family Social History Past Med/Fam/Surg Hx: No changes since H&P Allergies: Allergies No Known Drug Allergies Allergy (Verified 07/23/21 12:02) Review of Systems ROS: No change since H&P Vital Signs and I&O's Vital Signs: Temperature 97.6 F Pulse Rate 78 Respiratory Rate 24 Blood Pressure 145/64 O2 Sat by Pulse Oximetry 97 Intake and Output: Intake & Output 08/07/21 08/08/21 08/09/21 08/10/21 23:59 23:59 23:59 23:59 Intake Total 3330 / 3330 5158 / 5158 1716 / 1716 405 / 405 Output Total 2450 / 2450 3700 / 3700 4150 / 4150 900 / 900 Balance 880 / 880 1458 / 1458 -2434 / -2434 -495 / -495 Physical Exam Oriented: Normal Eyes: Normal Ear: Normal Nose: Normal Throat: Normal Respiratory: Diminished and Rales Cardiovascular: Normal : Normal Auscultation: Bowel Sounds: Normal Tenderness: Normal Skin: Normal Musculoskeletal: Normal Psychiatric: Normal Mood Description: Calm and Appropriate Affect: Normal Speech Pattern: Clear and Appropriate Laboratory and Diagnostics Result Diagrams: 08/10/21 04:12 08/10/21 04:12 Labs: 07/30/21 08:09 Sputum - Expectorated Sputum Sputum Culture - Final Enterobacter Aerogenes 07/30/21 08:09 Sputum - Expectorated Sputum - Final 07/26/21 16:38 Blood Blood Culture - Final 07/26/21 16:30 Blood Blood Culture - Final Laboratory WBC 7.1 X10^3/uL (3.6-10.0) 08/10/21 04:12 RBC 2.41 X10^6/uL (4.7-6.0) L 08/10/21 04:12 Hgb 6.9 g/dL (13.5-18.0) L* 08/10/21 04:12 Hct 20.4 % (42.0-54.0) L 08/10/21 04:12 MCV 84.6 fL (80.0-100.0) 08/10/21 04:12 MCH 28.6 pg (27.0-34.0) 08/10/21 04:12 MCHC 33.9 g/dL (33.0-35.0) 08/10/21 04:12 RDW 16.2 % (11.6-16.5) 08/10/21 04:12 Plt Count 39 X10^3/uL (150.0-450.0) L 08/10/21 04:12 Plt Count Comment Decreased (ADEQUATE) 08/06/21 05:37 MPV 10.8 fL (7.4-11.0) 08/10/21 04:12 Neut % (Auto) 78.3 % (42.0-75.0) H 08/10/21 04:12 Lymph % (Auto) 12.4 % (21.0-51.0) L 08/10/21 04:12 [place] % (Auto) 6.9 % (0.0-13.0) 08/10/21 04:12 Eos % (Auto) 1.0 % (0.9-2.9) 08/10/21 04:12 Baso % (Auto) 1.4 % (0.2-1.0) H 08/10/21 04:12 Neut # (Auto) 5.5 x10^3/uL (2.2-4.8) H 08/10/21 04:12 Lymph # (Auto) 0.9 X10^3/uL (1.3-2.9) L 08/10/21 04:12 [place] # (Auto) 0.5 x10^3/uL (0.3-0.8) 08/10/21 04:12 Eos # (Auto) 0.1 x10^3/uL (0.0-0.2) 08/10/21 04:12 Baso # (Auto) 0.1 X10^3/uL (0.0-0.1) 08/10/21 04:12 Absolute Nucleated RBC 0.2 /100WBC 08/10/21 04:12 Total Counted 100 08/06/21 05:37 Neutrophils % (Manual) 96 % (39-76) H 08/06/21 05:37 Lymphocytes % (Manual) 3 % (13-43) L 08/06/21 05:37 Monocytes % (Manual) 1 % (4-9) L 08/06/21 05:37 Plt Morphology Comment Normal (NORMAL) 08/06/21 05:37 RBC Morphology Normal (NORMAL) 08/06/21 05:37 Polychromasia Slight 08/01/21 05:00 PT 20.9 SECONDS (11.8-14.3) 08/10/21 07:55 INR Target Range - 08/10/21 07:55 INR 1.90 (0.8-1.3) H 08/10/21 07:55 APTT 26.6 SECONDS (22.9-36.5) 08/10/21 07:55 PTT Comment - 08/10/21 07:55 Fibrinogen 137 mg/dL (239-489) L* 08/10/21 07:55 D-Dimer 8.51 ug/ml (0.0-0.57) H* 08/10/21 07:55 Sample Site Lr 08/01/21 04:13 ABG pH 7.390 (7.35-7.45) 08/01/21 04:13 ABG pCO2 42.0 mmHg (35.0-45.0) 08/01/21 04:13 ABG pO2 72.0 mmHg (80.0-100.0) L 08/01/21 04:13 ABG HCO3 25.4 mmol/L (22-26) 08/01/21 04:13 ABG O2 Saturation 94.0 % (90-100) 08/01/21 04:13 ABG Base Excess 0.3 mmol/L (-2.0-2.0) 08/01/21 04:13 Gene Test Pos 08/01/21 04:13 A-a Gradient 232.0 mmHg 08/01/21 04:13 FiO2 50.0 08/01/21 04:13 Blood Gas Comments Natalia well ae 08/01/21 04:13 Sodium 136 mmol/L (136-145) 08/10/21 04:12 Corrected Sodium 139 mmol/L (136-145) 08/10/21 04:12 Potassium 4.4 mmol/L (3.5-5.1) 08/10/21 04:12 Chloride 106 mmol/L (98-107) 08/10/21 04:12 Carbon Dioxide 23.8 mmol/L (21-32) 08/10/21 04:12 BUN 90 mg/dL (7-18) H 08/10/21 04:12 Creatinine 1.29 mg/dL (0.70-1.30) 08/10/21 04:12 Est GFR (MDRD) Af Amer > 60 (>60) 08/10/21 04:12 Est GFR (MDRD) Non-Af 58 (>60) L 08/10/21 04:12 Glucose 242 mg/dL (65-99) H 08/10/21 04:12 POC Glucose (mg/dL) 257 mg/dL (65-99) H 08/10/21 11:29 Calcium 7.6 mg/dL (8.5-10.1) L 08/10/21 04:12 Corrected Calcium 9.3 mg/dL (8.5-10.1) 08/10/21 04:12 Phosphorus 3.8 mg/dL (2.6-4.7) 08/03/21 05:00 Magnesium 1.9 mg/dL (1.7-2.9) 08/03/21 05:00 Total Bilirubin 0.40 mg/dL (0.2-1.0) 08/10/21 04:12 AST 17 Units/L (15-37) 08/10/21 04:12 ALT 28 Units/L (12-78) 08/10/21 04:12 Alkaline Phosphatase 67 Units/L (46-116) 08/10/21 04:12 Creatine Kinase 86 Units/L (39-308) 07/23/21 12:30 CK-MB (CK-2) 1.3 ng/mL (0-4.0) 07/23/21 12:30 CK/CKMB % Calc 1.5 % (<4) 07/23/21 12:30 Troponin I High Sens 49.9 ng/L (4.0-60.0) 07/27/21 04:40 C-Reactive Protein < 0.50 mg/L (0-3.0) 08/08/21 04:46 B-Natriuretic Peptide 60.6 pg/mL (0-79) 08/03/21 05:00 Total Protein 4.2 g/dL (6.4-8.2) L 08/10/21 04:12 Albumin 1.9 g/dL (3.4-5.0) L 08/10/21 04:12 Globulin 2.3 g/dL (2.5-4.5) L 08/10/21 04:12 Albumin/Globulin Ratio 0.8 Ratio (1.1-2.1) L 08/10/21 04:12 Prealbumin 32.0 mg/dL (18-35.7) 08/10/21 04:12 Triglycerides 59 mg/dL (0-150) 08/03/21 05:00 Specimen Type Catherized urine 07/23/21 19:40 Urine Color Yellow (YELLOW) 07/23/21 19:40 Urine Appearance Slightly hazy (CLEAR) 07/23/21 19:40 Urine pH 5.0 (5.0 - 8.0) 07/23/21 19:40 Ur Specific [place] 1.020 (1.000-1.030) 07/23/21 19:40 Urine Protein 2+ (NEGATIVE) 07/23/21 19:40 Urine Glucose (UA) 2+ (NEGATIVE) 07/23/21 19:40 Urine Ketones Negative (NEGATIVE) 07/23/21 19:40 Urine Occult Blood Negative (NEGATIVE) 07/23/21 19:40 Urine Nitrite Negative (NEGATIVE) 07/23/21 19:40 Urine Bilirubin Negative (NEGATIVE) 07/23/21 19:40 Urine Urobilinogen Normal (NORMAL) 07/23/21 19:40 Ur Leukocyte Esterase Negative (NEGATIVE) 07/23/21 19:40 Urine RBC 0-2 /HPF (0-3) 07/23/21 19:40 Urine WBC 0-2 /HPF (0-5) 07/23/21 19:40 Ur Squamous Epith Cells Negative /HPF (NEGATIVE) 07/23/21 19:40 Amorphous Sediment 2+ /HPF (NEGATIVE) 07/23/21 19:40 Urine Bacteria 1+ /HPF (NEGATIVE) 07/23/21 19:40 Hyaline Casts Few /LPF (NEGATIVE) 07/23/21 19:40 Coarse Granular Casts Few /HPF (NEGATIVE) 07/23/21 19:40 Urine Mucus Few /HPF (NEGATIVE) 07/23/21 19:40 Ur Culture Indicated? No/not indicated 07/23/21 19:40 SARS CoV-2 RNA Rapid HERMELINDO Positive (NEGATIVE) A 07/23/21 16:00 Blood Type A POSITIVE 08/08/21 11:04 Antibody Screen Negative 08/08/21 11:04 Crossmatch See Detail 08/08/21 11:04 Plan (1) Pneumonia due to COVID-19 virus: Status: Acute Plan: Pneumonia protocol (2) Acute on chronic respiratory failure with hypoxia: Status: Acute (3) Acute renal failure: Status: Acute Qualifiers: Acute renal failure type: unspecified Qualified Code(s): N17.9 - Acute kidney failure, unspecified Plan: IVF (4) Anemia: Status: Acute Qualifiers: Anemia type: unspecified type Qualified Code(s): D64.9 - Anemia, unspecified (5) Hypokalemia: Status: Acute (6) Elevated troponin level: Status: Acute (7) Elevated d-dimer: Status: Acute (8) Hypoalbuminemia: Status: Acute (9) Hypernatremia: Status: Acute (10) Diabetes mellitus: Status: Chronic Qualifiers: Diabetes mellitus complication status: with hyperglycemia Diabetes mellitus senior care insulin use: with senior care use Diabetes mellitus type: type 2 Qualified Code(s): E11.65 - Type 2 diabetes mellitus with hyperglycemia; Z79.4 - custodial (current) use of insulin (11) Hypertension: Status: Chronic Qualifiers: Hypertension type: primary hypertension Qualified Code(s): I10 - Essential (primary) hypertension
--- NOTE | 2021-08-10 15:23 | PCM.PROG ---
Progress Note Progress Note for Day of Date of Exam: 08/10/21 Subjective Subjective: Pt is a 76 year old male with a past medical history of Hypertension, DMT2, CAD(Pacemaker), Aortic valve replacement, HLD. He was admitted with COVID-19 pneumonia and acute on chronic renal failure. Pt continues to improve and is currently on heated high flow oxygen at FiO2 of 46%. His hgb and platelets continue to decrease, will get coagulation and anemia panel and transfuse 1 unit of packed red blood cells and 2 units of platelets. He did require 2 units packed red blood cells over the weekend. No signs of any active bleeding. Labs/imaging: Wbc 7.1, Hgb 6.9, Plt 39, Na 136, K 4.4, Cr 1.29, Glucose 242, Blood culture: NGTD. Patient is currently on pneumonia protocol that includes: IVF NS@KVO ml/h, IV decadron 4mg, Eliquis 5mg BID, scheduled Bronchodilators Xopenex and Budesonide, Antibiotics: IV Rocephin, Received Actemra 400mg x 1 dose, Famotidine 40mg BID, Levemir 15 units sc Bid, Tussionex prn, immune supporting supplements, supplemental O2, SSI, I/S, Lovenox 40mg daily, Physical therapy, Respiratory therapy consult, Smart Vest. Has central line. He has completed a course of Remdesivir. Otherwise, will continue with current plan of care and continue to wean/titrate supplemental oxygen as tolerated. Continue to closely monitor and follow up labs/imaging. Time spent on clinical assessment, reviewing labs and imaging, decision making, and documentation greater than 45 minutes. Past Medical Family Social History Past Med/Fam/Surg Hx: No changes since H&P Allergies: Allergies No Known Drug Allergies Allergy (Verified 07/23/21 12:02) Review of Systems ROS: No change since H&P Vital Signs and I&O's Vital Signs: Temperature 97.6 F Pulse Rate 88 Respiratory Rate 30 Blood Pressure 133/61 O2 Sat by Pulse Oximetry 94 Intake and Output: Intake & Output 08/07/21 08/08/21 08/09/21 08/10/21 23:59 23:59 23:59 23:59 Intake Total 3330 / 3330 5158 / 5158 1716 / 1716 1636 / 1636 Output Total 2450 / 2450 3700 / 3700 4150 / 4150 2100 / 2100 Balance 880 / 880 1458 / 1458 -2434 / -2434 -464 / -464 Physical Exam Oriented: Normal Eyes: Normal Ear: Normal Nose: Normal Throat: Normal Respiratory: Diminished and Rales Cardiovascular: Normal : Normal Auscultation: Bowel Sounds: Normal Tenderness: Normal Skin: Normal Musculoskeletal: Normal Psychiatric: Normal Mood Description: Calm and Appropriate Affect: Normal Speech Pattern: Clear and Appropriate Laboratory and Diagnostics Result Diagrams: 08/10/21 04:12 08/10/21 04:12 Labs: 07/30/21 08:09 Sputum - Expectorated Sputum Sputum Culture - Final Enterobacter Aerogenes 07/30/21 08:09 Sputum - Expectorated Sputum - Final 07/26/21 16:38 Blood Blood Culture - Final 07/26/21 16:30 Blood Blood Culture - Final Laboratory WBC 7.1 X10^3/uL (3.6-10.0) 08/10/21 04:12 RBC 2.41 X10^6/uL (4.7-6.0) L 08/10/21 04:12 Hgb 6.9 g/dL (13.5-18.0) L* 08/10/21 04:12 Hct 20.4 % (42.0-54.0) L 08/10/21 04:12 MCV 84.6 fL (80.0-100.0) 08/10/21 04:12 MCH 28.6 pg (27.0-34.0) 08/10/21 04:12 MCHC 33.9 g/dL (33.0-35.0) 08/10/21 04:12 RDW 16.2 % (11.6-16.5) 08/10/21 04:12 Plt Count 39 X10^3/uL (150.0-450.0) L 08/10/21 04:12 Plt Count Comment Decreased (ADEQUATE) 08/06/21 05:37 MPV 10.8 fL (7.4-11.0) 08/10/21 04:12 Neut % (Auto) 78.3 % (42.0-75.0) H 08/10/21 04:12 Lymph % (Auto) 12.4 % (21.0-51.0) L 08/10/21 04:12 [place] % (Auto) 6.9 % (0.0-13.0) 08/10/21 04:12 Eos % (Auto) 1.0 % (0.9-2.9) 08/10/21 04:12 Baso % (Auto) 1.4 % (0.2-1.0) H 08/10/21 04:12 Neut # (Auto) 5.5 x10^3/uL (2.2-4.8) H 08/10/21 04:12 Lymph # (Auto) 0.9 X10^3/uL (1.3-2.9) L 08/10/21 04:12 [place] # (Auto) 0.5 x10^3/uL (0.3-0.8) 08/10/21 04:12 Eos # (Auto) 0.1 x10^3/uL (0.0-0.2) 08/10/21 04:12 Baso # (Auto) 0.1 X10^3/uL (0.0-0.1) 08/10/21 04:12 Absolute Nucleated RBC 0.2 /100WBC 08/10/21 04:12 Total Counted 100 08/06/21 05:37 Neutrophils % (Manual) 96 % (39-76) H 08/06/21 05:37 Lymphocytes % (Manual) 3 % (13-43) L 08/06/21 05:37 Monocytes % (Manual) 1 % (4-9) L 08/06/21 05:37 Plt Morphology Comment Normal (NORMAL) 08/06/21 05:37 RBC Morphology Normal (NORMAL) 08/06/21 05:37 Polychromasia Slight 08/01/21 05:00 PT 20.9 SECONDS (11.8-14.3) 08/10/21 07:55 INR Target Range - 08/10/21 07:55 INR 1.90 (0.8-1.3) H 08/10/21 07:55 APTT 26.6 SECONDS (22.9-36.5) 08/10/21 07:55 PTT Comment - 08/10/21 07:55 Fibrinogen 137 mg/dL (239-489) L* 08/10/21 07:55 D-Dimer 8.51 ug/ml (0.0-0.57) H* 08/10/21 07:55 Sample Site Lr 08/01/21 04:13 ABG pH 7.390 (7.35-7.45) 08/01/21 04:13 ABG pCO2 42.0 mmHg (35.0-45.0) 08/01/21 04:13 ABG pO2 72.0 mmHg (80.0-100.0) L 08/01/21 04:13 ABG HCO3 25.4 mmol/L (22-26) 08/01/21 04:13 ABG O2 Saturation 94.0 % (90-100) 08/01/21 04:13 ABG Base Excess 0.3 mmol/L (-2.0-2.0) 08/01/21 04:13 Gene Test Pos 08/01/21 04:13 A-a Gradient 232.0 mmHg 08/01/21 04:13 FiO2 50.0 08/01/21 04:13 Blood Gas Comments Natalia well ae 08/01/21 04:13 Sodium 136 mmol/L (136-145) 08/10/21 04:12 Corrected Sodium 139 mmol/L (136-145) 08/10/21 04:12 Potassium 4.4 mmol/L (3.5-5.1) 08/10/21 04:12 Chloride 106 mmol/L (98-107) 08/10/21 04:12 Carbon Dioxide 23.8 mmol/L (21-32) 08/10/21 04:12 BUN 90 mg/dL (7-18) H 08/10/21 04:12 Creatinine 1.29 mg/dL (0.70-1.30) 08/10/21 04:12 Est GFR (MDRD) Af Amer > 60 (>60) 08/10/21 04:12 Est GFR (MDRD) Non-Af 58 (>60) L 08/10/21 04:12 Glucose 242 mg/dL (65-99) H 08/10/21 04:12 POC Glucose (mg/dL) 257 mg/dL (65-99) H 08/10/21 11:29 Calcium 7.6 mg/dL (8.5-10.1) L 08/10/21 04:12 Corrected Calcium 9.3 mg/dL (8.5-10.1) 08/10/21 04:12 Phosphorus 3.8 mg/dL (2.6-4.7) 08/03/21 05:00 Magnesium 1.9 mg/dL (1.7-2.9) 08/03/21 05:00 Total Bilirubin 0.40 mg/dL (0.2-1.0) 08/10/21 04:12 AST 17 Units/L (15-37) 08/10/21 04:12 ALT 28 Units/L (12-78) 08/10/21 04:12 Alkaline Phosphatase 67 Units/L (46-116) 08/10/21 04:12 Creatine Kinase 86 Units/L (39-308) 07/23/21 12:30 CK-MB (CK-2) 1.3 ng/mL (0-4.0) 07/23/21 12:30 CK/CKMB % Calc 1.5 % (<4) 07/23/21 12:30 Troponin I High Sens 49.9 ng/L (4.0-60.0) 07/27/21 04:40 C-Reactive Protein < 0.50 mg/L (0-3.0) 08/08/21 04:46 B-Natriuretic Peptide 60.6 pg/mL (0-79) 08/03/21 05:00 Total Protein 4.2 g/dL (6.4-8.2) L 08/10/21 04:12 Albumin 1.9 g/dL (3.4-5.0) L 08/10/21 04:12 Globulin 2.3 g/dL (2.5-4.5) L 08/10/21 04:12 Albumin/Globulin Ratio 0.8 Ratio (1.1-2.1) L 08/10/21 04:12 Prealbumin 32.0 mg/dL (18-35.7) 08/10/21 04:12 Triglycerides 59 mg/dL (0-150) 08/03/21 05:00 Specimen Type Catherized urine 07/23/21 19:40 Urine Color Yellow (YELLOW) 07/23/21 19:40 Urine Appearance Slightly hazy (CLEAR) 07/23/21 19:40 Urine pH 5.0 (5.0 - 8.0) 07/23/21 19:40 Ur Specific [place] 1.020 (1.000-1.030) 07/23/21 19:40 Urine Protein 2+ (NEGATIVE) 07/23/21 19:40 Urine Glucose (UA) 2+ (NEGATIVE) 07/23/21 19:40 Urine Ketones Negative (NEGATIVE) 07/23/21 19:40 Urine Occult Blood Negative (NEGATIVE) 07/23/21 19:40 Urine Nitrite Negative (NEGATIVE) 07/23/21 19:40 Urine Bilirubin Negative (NEGATIVE) 07/23/21 19:40 Urine Urobilinogen Normal (NORMAL) 07/23/21 19:40 Ur Leukocyte Esterase Negative (NEGATIVE) 07/23/21 19:40 Urine RBC 0-2 /HPF (0-3) 07/23/21 19:40 Urine WBC 0-2 /HPF (0-5) 07/23/21 19:40 Ur Squamous Epith Cells Negative /HPF (NEGATIVE) 07/23/21 19:40 Amorphous Sediment 2+ /HPF (NEGATIVE) 07/23/21 19:40 Urine Bacteria 1+ /HPF (NEGATIVE) 07/23/21 19:40 Hyaline Casts Few /LPF (NEGATIVE) 07/23/21 19:40 Coarse Granular Casts Few /HPF (NEGATIVE) 07/23/21 19:40 Urine Mucus Few /HPF (NEGATIVE) 07/23/21 19:40 Ur Culture Indicated? No/not indicated 07/23/21 19:40 SARS CoV-2 RNA Rapid HERMELINDO Positive (NEGATIVE) A 07/23/21 16:00 Blood Type A POSITIVE 08/08/21 11:04 Antibody Screen Negative 08/08/21 11:04 Crossmatch See Detail 08/08/21 11:04 Plan (1) Pneumonia due to COVID-19 virus: Status: Acute Plan: Pneumonia protocol (2) Acute on chronic respiratory failure with hypoxia: Status: Acute (3) Acute renal failure: Status: Acute Qualifiers: Acute renal failure type: unspecified Qualified Code(s): N17.9 - Acute kidney failure, unspecified Plan: IVF (4) Anemia: Status: Acute Qualifiers: Anemia type: unspecified type Qualified Code(s): D64.9 - Anemia, unspecified (5) Hypokalemia: Status: Acute (6) Elevated troponin level: Status: Acute (7) Elevated d-dimer: Status: Acute (8) Hypoalbuminemia: Status: Acute (9) Hypernatremia: Status: Acute (10) Diabetes mellitus: Status: Chronic Qualifiers: Diabetes mellitus complication status: with hyperglycemia Diabetes mellitus intermediate school teacher insulin use: with intermediate school teacher use Diabetes mellitus type: type 2 Qualified Code(s): E11.65 - Type 2 diabetes mellitus with hyperglycemia; Z79.4 - custodial (current) use of insulin (11) Hypertension: Status: Chronic Qualifiers: Hypertension type: primary hypertension Qualified Code(s): I10 - Essential (primary) hypertension
[2021-08-10 16:13] LABS: HEMATOCRIT 24.3 % (42.0-54.0); HEMOGLOBIN 8.2 g/dL (13.5-18.0)
[2021-08-10] MEDS: SNACK - Diabetic Appropriate PO SCH (20:00)
[2021-08-10] MEDS ORDERED: CARDIZEM INJ 125 MG VIAL 125 MG in NS 100 ML IV 100 ML IV PRN (20:05)
[2021-08-11] MEDS: NS 1,000 ML IV 1,000 ML IV SCH ×3 (00:49→22:12)
[2021-08-11 05:17] LABS: ALANINE AMINOTRANSFERASE 31 Units/L (12-78); ALBUMIN 1.9 g/dL (3.4-5.0); ALKALINE PHOSPHATASE 67 Units/L (46-116); ASPARTATE AMINO TRANSFERASE 20 Units/L (15-37); BLOOD UREA NITROGEN 89 mg/dL (7-18); CALCIUM 7.8 mg/dL (8.5-10.1); CHLORIDE 103 mmol/L (98-107); COR CA(FOR HYPOALB) 9.5 mg/dL (8.5-10.1); COR NA(FOR HYPERGLY) 136 mmol/L (136-145); CREATININE 1.33 mg/dL (0.70-1.30); SODIUM 133 mmol/L (136-145); TOTAL PROTEIN 4.2 g/dL (6.4-8.2); eGFR NON BLACK RACES 56 (>60)
[2021-08-11 05:20] LABS: BASOPHILS # (AUTO) 0.1 X10^3/uL (0.0-0.1); BASOPHILS % (AUTO) 0.5 % (0.2-1.0); EOSINOPHILS # (AUTO) 0.1 x10^3/uL (0.0-0.2); HEMATOCRIT 20.7 % (42.0-54.0); HEMOGLOBIN 7.1 g/dL (13.5-18.0); LYMPHOCYTES # (AUTO) 0.8 X10^3/uL (1.3-2.9); LYMPHOCYTES % (AUTO) 7.7 % (21.0-51.0); MEAN CORPUSCULAR HEMOGLOBIN 28.8 pg (27.0-34.0); MEAN CORPUSCULAR HGB CONC 34.3 g/dL (33.0-35.0); MEAN CORPUSCULAR VOLUME 83.8 fL (80.0-100.0); MEAN PLATELET VOLUME 9.5 fL (7.4-11.0); MONOCYTES # (AUTO) 0.7 x10^3/uL (0.3-0.8); MONOCYTES % (AUTO) 6.2 % (0.0-13.0); NEUTROPHILS # (AUTO) 9.1 x10^3/uL (2.2-4.8); NEUTROPHILS % (AUTO) 84.6 % (42.0-75.0); RED BLOOD COUNT 2.47 X10^6/uL (4.7-6.0); RED CELL DISTRIBUTION WIDTH 16.2 % (11.6-16.5); WHITE BLOOD COUNT 10.8 X10^3/uL (3.6-10.0)
[2021-08-11] MEDS: NovoLIN R (or HumuLIN R) SUBCUT PRN (05:55)
[2021-08-11] MEDS ORDERED: NS 500 ML IV 500 ML IV ONE (08:07)
[2021-08-11 08:12] LABS: IRON 33 ug/dL (50-175)
[2021-08-11] MEDS: DECADRON TAB PO SCH (08:31)
[2021-08-11] MEDS: COLACE CAP 100 MG PO SCH ×2 (08:31→20:11)
[2021-08-11] MEDS: LEVEMIR SC SCH ×2 (08:32→20:11)
[2021-08-11] MEDS: PEPCID 20 MG VIAL 20 MG in NS 50 ML IV 50 ML IV SCH (08:32)
[2021-08-11] MEDS: MILK OF MAGNESIA PO SCH ×2 (08:32→20:11)
[2021-08-11] MEDS: GLUCOPHAGE PO SCH (08:32)
[2021-08-11] MEDS: XANAX PO SCH ×2 (08:33→20:11)
[2021-08-11] MEDS: TOPROL XL PO SCH (08:33)
[2021-08-11] MEDS: PULMICORT NEB TX 0.5 MG NEB SCH ×2 (08:41→20:52)
[2021-08-11] MEDS: BROVANA IN SCH ×2 (08:41→20:52)
[2021-08-11 15:11] LABS: HEMOGLOBIN 6.6 g/dL (13.5-18.0)
[2021-08-11 15:12] LABS: HEMATOCRIT 19.1 % (42.0-54.0)
--- NOTE | 2021-08-11 16:23 | PCM.PROG ---
Progress Note Progress Note for Day of Date of Exam: 08/11/21 Subjective Subjective: Pt is a 76 year old male with a past medical history of Hypertension, DMT2, CAD(Pacemaker), Aortic valve replacement, HLD. He was admitted with COVID-19 pneumonia and acute on chronic renal failure. This morning patient is resting comfortably in bed with heated high flow on FiO2 of 46%. His platelets responded well to transfusion, however his hemoglobin continues to not respond adequately and slowly trending down despite receiving 1 unit of packed red blood cells. Will get fecal occult and anemia labs today. Hold eliquis, and transfuse 2 units of Fresh frozen plasma due to decreased fi brinogen levels. Labs/imaging: Wbc 10.8, Hgb 7.1, Plt 85, Na 133, K 4.5, Cr 1.33, Glucose 241, Blood culture: NGTD. Patient is currently on pneumonia protocol that includes: IVF NS@KVO ml/h, IV decadron 4mg, Eliquis 5mg BID(hold), scheduled Bronchodilators Xopenex and Budesonide, Antibiotics: IV Rocephin, Received Actemra 400mg x 1 dose, Famotidine 40mg BID, Levemir 15 units sc Bid, Tussionex prn, immune supporting supplements, supplemental O2, SSI, I/S, Physical therapy, Respiratory therapy consult, Smart Vest. Has central line. He has completed a course of Remdesivir. Otherwise, will continue with current plan of care and continue to wean/titrate supplemental oxygen as tolerated. Continue to closely monitor and follow up labs/imaging. Time spent on clinical assessment, reviewing labs and imaging, decision making, and documentation greater than 45 minutes. Past Medical Family Social History Past Med/Fam/Surg Hx: No changes since H&P Allergies: Allergies No Known Drug Allergies Allergy (Verified 07/23/21 12:02) Review of Systems ROS: No change since H&P Vital Signs and I&O's Vital Signs: Temperature 97.6 F Pulse Rate 87 Respiratory Rate 27 Blood Pressure 129/60 O2 Sat by Pulse Oximetry 95 Intake and Output: Intake & Output 08/08/21 08/09/21 08/10/21 08/11/21 23:59 23:59 23:59 23:59 Intake Total 5158 / 5158 1716 / 1716 2813 / 2813 721 / 721 Output Total 3700 / 3700 4150 / 4150 3225 / 3225 800 / 800 Balance 1458 / 1458 -2434 / -2434 -412 / -412 -79 / -79 Physical Exam Oriented: Normal Eyes: Normal Ear: Normal Nose: Normal Throat: Normal Respiratory: Diminished Cardiovascular: Normal : Normal Auscultation: Bowel Sounds: Normal Tenderness: Normal Skin: Normal Musculoskeletal: Normal Psychiatric: Normal Mood Description: Calm and Appropriate Affect: Normal Speech Pattern: Clear and Appropriate Laboratory and Diagnostics Result Diagrams: 08/11/21 14:45 08/11/21 04:32 Labs: 07/30/21 08:09 Sputum - Expectorated Sputum Sputum Culture - Final Enterobacter Aerogenes 07/30/21 08:09 Sputum - Expectorated Sputum - Final 07/26/21 16:38 Blood Blood Culture - Final 07/26/21 16:30 Blood Blood Culture - Final Laboratory WBC 10.8 X10^3/uL (3.6-10.0) H 08/11/21 04:32 RBC 2.47 X10^6/uL (4.7-6.0) L 08/11/21 04:32 Hgb 6.6 g/dL (13.5-18.0) L* 08/11/21 14:45 Hct 19.1 % (42.0-54.0) L* 08/11/21 14:45 MCV 83.8 fL (80.0-100.0) 08/11/21 04:32 MCH 28.8 pg (27.0-34.0) 08/11/21 04:32 MCHC 34.3 g/dL (33.0-35.0) 08/11/21 04:32 RDW 16.2 % (11.6-16.5) 08/11/21 04:32 Plt Count 85 X10^3/uL (150.0-450.0) L 08/11/21 04:32 Plt Count Comment Decreased (ADEQUATE) 08/06/21 05:37 MPV 9.5 fL (7.4-11.0) 08/11/21 04:32 Neut % (Auto) 84.6 % (42.0-75.0) H 08/11/21 04:32 Lymph % (Auto) 7.7 % (21.0-51.0) L 08/11/21 04:32 [place] % (Auto) 6.2 % (0.0-13.0) 08/11/21 04:32 Eos % (Auto) 1.0 % (0.9-2.9) 08/11/21 04:32 Baso % (Auto) 0.5 % (0.2-1.0) 08/11/21 04:32 Neut # (Auto) 9.1 x10^3/uL (2.2-4.8) H 08/11/21 04:32 Lymph # (Auto) 0.8 X10^3/uL (1.3-2.9) L 08/11/21 04:32 [place] # (Auto) 0.7 x10^3/uL (0.3-0.8) 08/11/21 04:32 Eos # (Auto) 0.1 x10^3/uL (0.0-0.2) 08/11/21 04:32 Baso # (Auto) 0.1 X10^3/uL (0.0-0.1) 08/11/21 04:32 Absolute Nucleated RBC 0.3 /100WBC 08/11/21 04:32 Total Counted 100 08/06/21 05:37 Neutrophils % (Manual) 96 % (39-76) H 08/06/21 05:37 Lymphocytes % (Manual) 3 % (13-43) L 08/06/21 05:37 Monocytes % (Manual) 1 % (4-9) L 08/06/21 05:37 Plt Morphology Comment Normal (NORMAL) 08/06/21 05:37 RBC Morphology Normal (NORMAL) 08/06/21 05:37 Polychromasia Slight 08/01/21 05:00 PT 20.9 SECONDS (11.8-14.3) 08/10/21 07:55 INR Target Range - 08/10/21 07:55 INR 1.90 (0.8-1.3) H 08/10/21 07:55 APTT 26.6 SECONDS (22.9-36.5) 08/10/21 07:55 PTT Comment - 08/10/21 07:55 Fibrinogen 137 mg/dL (239-489) L* 08/10/21 07:55 D-Dimer 8.51 ug/ml (0.0-0.57) H* 08/10/21 07:55 Sample Site Lr 08/01/21 04:13 ABG pH 7.390 (7.35-7.45) 08/01/21 04:13 ABG pCO2 42.0 mmHg (35.0-45.0) 08/01/21 04:13 ABG pO2 72.0 mmHg (80.0-100.0) L 08/01/21 04:13 ABG HCO3 25.4 mmol/L (22-26) 08/01/21 04:13 ABG O2 Saturation 94.0 % (90-100) 08/01/21 04:13 ABG Base Excess 0.3 mmol/L (-2.0-2.0) 08/01/21 04:13 Gene Test Pos 08/01/21 04:13 A-a Gradient 232.0 mmHg 08/01/21 04:13 FiO2 50.0 08/01/21 04:13 Blood Gas Comments Natalia well ae 08/01/21 04:13 Sodium 133 mmol/L (136-145) L 08/11/21 04:32 Corrected Sodium 136 mmol/L (136-145) 08/11/21 04:32 Potassium 4.5 mmol/L (3.5-5.1) 08/11/21 04:32 Chloride 103 mmol/L (98-107) 08/11/21 04:32 Carbon Dioxide 27.0 mmol/L (21-32) 08/11/21 04:32 BUN 89 mg/dL (7-18) H 08/11/21 04:32 Creatinine 1.33 mg/dL (0.70-1.30) H 08/11/21 04:32 Est GFR (MDRD) Af Amer > 60 (>60) 08/11/21 04:32 Est GFR (MDRD) Non-Af 56 (>60) L 08/11/21 04:32 Glucose 241 mg/dL (65-99) H 08/11/21 04:32 POC Glucose (mg/dL) 105 mg/dL (65-99) H 08/11/21 11:12 Calcium 7.8 mg/dL (8.5-10.1) L 08/11/21 04:32 Corrected Calcium 9.5 mg/dL (8.5-10.1) 08/11/21 04:32 Phosphorus 3.8 mg/dL (2.6-4.7) 08/03/21 05:00 Magnesium 1.9 mg/dL (1.7-2.9) 08/03/21 05:00 Iron 33 ug/dL (50-175) L 08/11/21 04:32 Transferrin 280 mg/dL (202-364) 08/11/21 04:32 Ferritin 53 ng/mL (26-388) 08/11/21 04:32 Total Bilirubin 0.50 mg/dL (0.2-1.0) 08/11/21 04:32 AST 20 Units/L (15-37) 08/11/21 04:32 ALT 31 Units/L (12-78) 08/11/21 04:32 Alkaline Phosphatase 67 Units/L (46-116) 08/11/21 04:32 Creatine Kinase 86 Units/L (39-308) 07/23/21 12:30 CK-MB (CK-2) 1.3 ng/mL (0-4.0) 07/23/21 12:30 CK/CKMB % Calc 1.5 % (<4) 07/23/21 12:30 Troponin I High Sens 49.9 ng/L (4.0-60.0) 07/27/21 04:40 C-Reactive Protein < 0.50 mg/L (0-3.0) 08/08/21 04:46 B-Natriuretic Peptide 60.6 pg/mL (0-79) 08/03/21 05:00 Total Protein 4.2 g/dL (6.4-8.2) L 08/11/21 04:32 Albumin 1.9 g/dL (3.4-5.0) L 08/11/21 04:32 Globulin 2.3 g/dL (2.5-4.5) L 08/11/21 04:32 Albumin/Globulin Ratio 0.8 Ratio (1.1-2.1) L 08/11/21 04:32 Prealbumin 32.0 mg/dL (18-35.7) 08/10/21 04:12 Triglycerides 59 mg/dL (0-150) 08/03/21 05:00 Vitamin B12 698 pg/mL (193-986) 08/11/21 04:32 Folate 16.3 ng/mL (>8.6) 08/11/21 04:32 Specimen Type Catherized urine 07/23/21 19:40 Urine Color Yellow (YELLOW) 07/23/21 19:40 Urine Appearance Slightly hazy (CLEAR) 07/23/21 19:40 Urine pH 5.0 (5.0 - 8.0) 07/23/21 19:40 Ur Specific [place] 1.020 (1.000-1.030) 07/23/21 19:40 Urine Protein 2+ (NEGATIVE) 07/23/21 19:40 Urine Glucose (UA) 2+ (NEGATIVE) 07/23/21 19:40 Urine Ketones Negative (NEGATIVE) 07/23/21 19:40 Urine Occult Blood Negative (NEGATIVE) 07/23/21 19:40 Urine Nitrite Negative (NEGATIVE) 07/23/21 19:40 Urine Bilirubin Negative (NEGATIVE) 07/23/21 19:40 Urine Urobilinogen Normal (NORMAL) 07/23/21 19:40 Ur Leukocyte Esterase Negative (NEGATIVE) 07/23/21 19:40 Urine RBC 0-2 /HPF (0-3) 07/23/21 19:40 Urine WBC 0-2 /HPF (0-5) 07/23/21 19:40 Ur Squamous Epith Cells Negative /HPF (NEGATIVE) 07/23/21 19:40 Amorphous Sediment 2+ /HPF (NEGATIVE) 07/23/21 19:40 Urine Bacteria 1+ /HPF (NEGATIVE) 07/23/21 19:40 Hyaline Casts Few /LPF (NEGATIVE) 07/23/21 19:40 Coarse Granular Casts Few /HPF (NEGATIVE) 07/23/21 19:40 Urine Mucus Few /HPF (NEGATIVE) 07/23/21 19:40 Ur Culture Indicated? No/not indicated 07/23/21 19:40 SARS CoV-2 RNA Rapid HERMELINDO Positive (NEGATIVE) A 07/23/21 16:00 Blood Type A POSITIVE 08/08/21 11:04 Antibody Screen Negative 08/08/21 11:04 Crossmatch See Detail 08/08/21 11:04 Plan (1) Pneumonia due to COVID-19 virus: Status: Acute Plan: Pneumonia protocol (2) Acute on chronic respiratory failure with hypoxia: Status: Acute (3) Acute renal failure: Status: Acute Qualifiers: Acute renal failure type: unspecified Qualified Code(s): N17.9 - Acute kidney failure, unspecified Plan: IVF (4) Anemia: Status: Acute Qualifiers: Anemia type: unspecified type Qualified Code(s): D64.9 - Anemia, unspecified (5) Hypokalemia: Status: Acute (6) Elevated troponin level: Status: Acute (7) Elevated d-dimer: Status: Acute (8) Hypoalbuminemia: Status: Acute (9) Hypernatremia: Status: Acute (10) Diabetes mellitus: Status: Chronic Qualifiers: Diabetes mellitus complication status: with hyperglycemia Diabetes mellitus assisted insulin use: with buttermaker continuous churn use Diabetes mellitus type: type 2 Qualified Code(s): E11.65 - Type 2 diabetes mellitus with hyperglycemia; Z79.4 - MCC (current) use of insulin (11) Hypertension: Status: Chronic Qualifiers: Hypertension type: primary hypertension Qualified Code(s): I10 - Essential (primary) hypertension
[2021-08-11] MEDS: SNACK - Diabetic Appropriate PO SCH (20:00)
[2021-08-11 20:54] LABS: HEMATOCRIT 21.6 % (42.0-54.0); HEMOGLOBIN 7.6 g/dL (13.5-18.0)
[2021-08-12 05:35] LABS: BASOPHILS % (AUTO) 0.2 % (0.2-1.0); EOSINOPHILS # (AUTO) 0.1 x10^3/uL (0.0-0.2); EOSINOPHILS % (AUTO) 1.6 % (0.9-2.9); HEMATOCRIT 20.3 % (42.0-54.0); HEMOGLOBIN 7.2 g/dL (13.5-18.0); LYMPHOCYTES # (AUTO) 0.8 X10^3/uL (1.3-2.9); LYMPHOCYTES % (AUTO) 10.4 % (21.0-51.0); MEAN CORPUSCULAR HEMOGLOBIN 30.2 pg (27.0-34.0); MEAN CORPUSCULAR HGB CONC 35.7 g/dL (33.0-35.0); MEAN CORPUSCULAR VOLUME 84.7 fL (80.0-100.0); MEAN PLATELET VOLUME 8.8 fL (7.4-11.0); MONOCYTES # (AUTO) 0.5 x10^3/uL (0.3-0.8); NEUTROPHILS # (AUTO) 6.3 x10^3/uL (2.2-4.8); NEUTROPHILS % (AUTO) 80.8 % (42.0-75.0); RED BLOOD COUNT 2.39 X10^6/uL (4.7-6.0); WHITE BLOOD COUNT 7.8 X10^3/uL (3.6-10.0)
[2021-08-12 05:47] LABS: ALANINE AMINOTRANSFERASE 29 Units/L (12-78); ALBUMIN 2.1 g/dL (3.4-5.0); ALKALINE PHOSPHATASE 64 Units/L (46-116); ASPARTATE AMINO TRANSFERASE 22 Units/L (15-37); BLOOD UREA NITROGEN 66 mg/dL (7-18); CALCIUM 7.8 mg/dL (8.5-10.1); CARBON DIOXIDE 29.4 mmol/L (21-32); CHLORIDE 104 mmol/L (98-107); COR CA(FOR HYPOALB) 9.3 mg/dL (8.5-10.1); COR NA(FOR HYPERGLY) 137 mmol/L (136-145); CREATININE 1.12 mg/dL (0.70-1.30); SODIUM 137 mmol/L (136-145); TOTAL PROTEIN 4.5 g/dL (6.4-8.2); eGFR NON BLACK RACES > 60 (>60)
--- NOTE | 2021-08-12 05:59 | RAD ---
PROCEDURE: Chest X-ray 1 View .HISTORY: Follow-up pneumonia.TECHNIQUE: AP view .COMPARISON: 08/06/2021.TECHNICAL QUALITY: Satisfactory .FINDINGS:Unremarkable cardio mediastinal silhouette with pacemaker on the left.Normal central vascularity.Unchanged moderate consolidation lung bases consistent with pneumonia. No pleural fluid or pneumothorax.IMPRESSION:Unchanged bibasilar pneumonia.Electronically signed by: Chase Giles (Aug 12, 2021 05:58:42)
[2021-08-12] MEDS ORDERED: MYLICON TAB 80 MG CHEW PO PRN (08:28)
[2021-08-12] MEDS: PULMICORT NEB TX 0.5 MG NEB SCH ×2 (08:57→21:08)
[2021-08-12] MEDS: BROVANA IN SCH ×2 (08:57→21:08)
[2021-08-12] MEDS: COLACE CAP 100 MG PO SCH ×2 (09:16→20:36)
[2021-08-12] MEDS: GLUCOPHAGE PO SCH (09:16)
[2021-08-12] MEDS: TOPROL XL PO SCH (09:17)
[2021-08-12] MEDS: PEPCID 20 MG VIAL 20 MG in NS 50 ML IV 50 ML IV SCH (09:17)
[2021-08-12] MEDS: LEVEMIR SC SCH ×2 (09:17→20:36)
[2021-08-12] MEDS: MILK OF MAGNESIA PO SCH ×2 (09:17→20:36)
[2021-08-12] MEDS: XANAX PO SCH ×2 (09:18→20:36)
[2021-08-12] MEDS: PROTONIX INJ 40 MG VIAL IVP SCH ×2 (09:20→20:36)
--- NOTE | 2021-08-12 12:21 | CT ---
HISTORYANEMIA, CONSITPATIONSTUDYCT abdomen pelvis with IV contrastCOMPARISONNoneTECHNIQUEMultiple axial images of the abdomen and pelvis were obtained from the lung bases to the pubic symphysis after the administration of IV contrast. Dose reduction techniques including Automated Exposure Control (AEC) and adjustment of mA and kV were utilized.FINDINGSThe visualized portions of the lung bases reveal cystic bronchiectasis with abnormal alveolar and interstitial densities. No honeycombing is seen. Appearance is worrisome for possible chronic interstitial lung disease. Probably reactive subcarinal lymph nodes.Spleen is normal in size. There is a simple cyst in the inferior right hepatic lobe measuring 1.0 cm.Gallbladder appears normal. No biliary ductal dilation.No pancreatic abnormality is seen.Left adrenal gland appears normal but there is a heterogeneous left adrenal nodule that measures 3.0 x 1.5 cm. Recommend further evaluation with MRI if patient's cardiac device is compatible.Parapelvic renal cysts are suspected bilaterally without evidence of hydronephrosis or nephrolithiasis. There are likely small exophytic cysts, also. Bladder is decompressed with a Holloway catheter. No ureteral stones are seen.GI contrast reaches the distal small bowel. No evidence of diverticulitis or colitis. No constipation. Normal appendix is seen.No abnormalities are seen of the reproductive organs.Abdominal aorta is normal in size.Small likely reactive mesenteric and retroperitoneal lymph nodes are seen. Tiny right retrocrural lymph node is probably reactive.No free intraperitoneal air or fluid is seen. Tiny umbilical hernia containing fat.No acute bony abnormality is seen. Prominent chronic lumbar spondylosis.IMPRESSIONPossible chronic interstitial lung disease changes at the lung bases. These have a changed appearance since prior study. Findings may represent post infectious changes of COVID 19 pneumonia.3.0 cm right adrenal nodule is indeterminate. Recommend further evaluation with MRI if patient's cardiac device is compatible. Otherwise, follow-up CT in 6 months time is recommended.No evidence of bowel obstruction or constipation.Electronically signed by: Ed Vega (Aug 12, 2021 12:20:54)
--- NOTE | 2021-08-12 13:01 | PCM.PROG ---
Progress Note Progress Note for Day of Date of Exam: 08/12/21 Subjective Subjective: Pt is a 76 year old male with a past medical history of Hypertension, DMT2, CAD(Pacemaker), Aortic valve replacement, HLD. He was admitted with COVID-19 pneumonia and acute on chronic renal failure. This morning patient requiring heated high flow oxygen with FiO2 of 46%. No acute events overnight. He did not have bowel movement, fecal occult pending. Anemia labs does reveal iron deficiency anemia. His hgb and platelets continues to gradually trend downward. Will start on IV protonix 40mg BID, consult general surgery Dr Villanueva for further evaluation. Will get CTAP to evaluate further. Labs/imaging: Wbc 7.8, Hgb 7.2, Plt 53, Na 137, K 4.1, Cr 1.17, Glucose 118, CXR: no significant cardiopulmonary changes from prior. Blood culture: NGTD. Patient is currently on pneumonia protocol that includes: IVF NS@KVO ml/h, IV decadron 4mg, Eliquis 5mg BID(hold), scheduled Bronchodilators Xopenex and Budesonide, Received Actemra 400mg x 1 dose, Famotidine 40mg BID, Levemir 15 units sc Bid, Tussionex prn, immune supporting supplements, supplemental O2, SSI, I/S, Physical therapy, Respiratory therapy consult, Smart Vest. Has central line. He has completed a course of Remdesivir. Discontinue IV decadron. Otherwise, will continue with current plan of care and continue to wean/titrate supplemental oxygen as tolerated. Continue to closely monitor and follow up labs/imaging. Time spent on clinical assessment, reviewing labs and imaging, decision making, and documentation greater than 45 minutes. Past Medical Family Social History Past Med/Fam/Surg Hx: No changes since H&P Allergies: Allergies No Known Drug Allergies Allergy (Verified 07/23/21 12:02) Review of Systems ROS: No change since H&P Vital Signs and I&O's Vital Signs: Temperature 98.0 F Pulse Rate 95 Respiratory Rate 23 Blood Pressure 102/70 O2 Sat by Pulse Oximetry 86 Intake and Output: Intake & Output 08/09/21 08/10/21 08/11/21 08/12/21 23:59 23:59 23:59 23:59 Intake Total 1716 / 1716 2813 / 2813 3160 / 3160 364 / 364 Output Total 4150 / 4150 3225 / 3225 2700 / 2700 800 / 800 Balance -2434 / -2434 -412 / -412 460 / 460 -436 / -436 Physical Exam Oriented: Normal Eyes: Normal Ear: Normal Nose: Normal Throat: Normal Respiratory: Diminished Cardiovascular: Normal : Normal Auscultation: Bowel Sounds: Normal Tenderness: Normal Skin: Normal Musculoskeletal: Normal Psychiatric: Normal Mood Description: Calm and Appropriate Affect: Normal Speech Pattern: Clear and Appropriate Laboratory and Diagnostics Result Diagrams: 08/12/21 04:28 08/12/21 04:28 Labs: 07/30/21 08:09 Sputum - Expectorated Sputum Sputum Culture - Final Enterobacter Aerogenes 07/30/21 08:09 Sputum - Expectorated Sputum - Final 07/26/21 16:38 Blood Blood Culture - Final 07/26/21 16:30 Blood Blood Culture - Final Laboratory WBC 7.8 X10^3/uL (3.6-10.0) 08/12/21 04:28 RBC 2.39 X10^6/uL (4.7-6.0) L 08/12/21 04:28 Hgb 7.2 g/dL (13.5-18.0) L 08/12/21 04:28 Hct 20.3 % (42.0-54.0) L 08/12/21 04:28 MCV 84.7 fL (80.0-100.0) 08/12/21 04:28 MCH 30.2 pg (27.0-34.0) 08/12/21 04:28 MCHC 35.7 g/dL (33.0-35.0) H 08/12/21 04:28 RDW 15.0 % (11.6-16.5) 08/12/21 04:28 Plt Count 53 X10^3/uL (150.0-450.0) L 08/12/21 04:28 Plt Count Comment Decreased (ADEQUATE) 08/06/21 05:37 MPV 8.8 fL (7.4-11.0) 08/12/21 04:28 Neut % (Auto) 80.8 % (42.0-75.0) H 08/12/21 04:28 Lymph % (Auto) 10.4 % (21.0-51.0) L 08/12/21 04:28 [place] % (Auto) 7.0 % (0.0-13.0) 08/12/21 04:28 Eos % (Auto) 1.6 % (0.9-2.9) 08/12/21 04:28 Baso % (Auto) 0.2 % (0.2-1.0) 08/12/21 04:28 Neut # (Auto) 6.3 x10^3/uL (2.2-4.8) H 08/12/21 04:28 Lymph # (Auto) 0.8 X10^3/uL (1.3-2.9) L 08/12/21 04:28 [place] # (Auto) 0.5 x10^3/uL (0.3-0.8) 08/12/21 04:28 Eos # (Auto) 0.1 x10^3/uL (0.0-0.2) 08/12/21 04:28 Baso # (Auto) 0.0 X10^3/uL (0.0-0.1) 08/12/21 04:28 Absolute Nucleated RBC 0.2 /100WBC 08/12/21 04:28 Total Counted 100 08/06/21 05:37 Neutrophils % (Manual) 96 % (39-76) H 08/06/21 05:37 Lymphocytes % (Manual) 3 % (13-43) L 08/06/21 05:37 Monocytes % (Manual) 1 % (4-9) L 08/06/21 05:37 Plt Morphology Comment Normal (NORMAL) 08/06/21 05:37 RBC Morphology Normal (NORMAL) 08/06/21 05:37 Polychromasia Slight 08/01/21 05:00 PT 20.9 SECONDS (11.8-14.3) 08/10/21 07:55 INR Target Range - 08/10/21 07:55 INR 1.90 (0.8-1.3) H 08/10/21 07:55 APTT 26.6 SECONDS (22.9-36.5) 08/10/21 07:55 PTT Comment - 08/10/21 07:55 Fibrinogen 137 mg/dL (239-489) L* 08/10/21 07:55 D-Dimer 8.51 ug/ml (0.0-0.57) H* 08/10/21 07:55 Sample Site Lr 08/01/21 04:13 ABG pH 7.390 (7.35-7.45) 08/01/21 04:13 ABG pCO2 42.0 mmHg (35.0-45.0) 08/01/21 04:13 ABG pO2 72.0 mmHg (80.0-100.0) L 08/01/21 04:13 ABG HCO3 25.4 mmol/L (22-26) 08/01/21 04:13 ABG O2 Saturation 94.0 % (90-100) 08/01/21 04:13 ABG Base Excess 0.3 mmol/L (-2.0-2.0) 08/01/21 04:13 Gene Test Pos 08/01/21 04:13 A-a Gradient 232.0 mmHg 08/01/21 04:13 FiO2 50.0 08/01/21 04:13 Blood Gas Comments Natalia well ae 08/01/21 04:13 Sodium 137 mmol/L (136-145) 08/12/21 04:28 Corrected Sodium 137 mmol/L (136-145) 08/12/21 04:28 Potassium 4.1 mmol/L (3.5-5.1) 08/12/21 04:28 Chloride 104 mmol/L (98-107) 08/12/21 04:28 Carbon Dioxide 29.4 mmol/L (21-32) 08/12/21 04:28 BUN 66 mg/dL (7-18) H 08/12/21 04:28 Creatinine 1.12 mg/dL (0.70-1.30) 08/12/21 04:28 Est GFR (MDRD) Af Amer > 60 (>60) 08/12/21 04:28 Est GFR (MDRD) Non-Af > 60 (>60) 08/12/21 04:28 Glucose 118 mg/dL (65-99) H 08/12/21 04:28 POC Glucose (mg/dL) 146 mg/dL (65-99) H 08/12/21 12:12 Calcium 7.8 mg/dL (8.5-10.1) L 08/12/21 04:28 Corrected Calcium 9.3 mg/dL (8.5-10.1) 08/12/21 04:28 Phosphorus 3.8 mg/dL (2.6-4.7) 08/03/21 05:00 Magnesium 1.9 mg/dL (1.7-2.9) 08/03/21 05:00 Iron 33 ug/dL (50-175) L 08/11/21 04:32 Transferrin 280 mg/dL (202-364) 08/11/21 04:32 Ferritin 53 ng/mL (26-388) 08/11/21 04:32 Total Bilirubin 0.70 mg/dL (0.2-1.0) 08/12/21 04:28 AST 22 Units/L (15-37) 08/12/21 04:28 ALT 29 Units/L (12-78) 08/12/21 04:28 Alkaline Phosphatase 64 Units/L (46-116) 08/12/21 04:28 Creatine Kinase 86 Units/L (39-308) 07/23/21 12:30 CK-MB (CK-2) 1.3 ng/mL (0-4.0) 07/23/21 12:30 CK/CKMB % Calc 1.5 % (<4) 07/23/21 12:30 Troponin I High Sens 49.9 ng/L (4.0-60.0) 07/27/21 04:40 C-Reactive Protein < 0.50 mg/L (0-3.0) 08/08/21 04:46 B-Natriuretic Peptide 60.6 pg/mL (0-79) 08/03/21 05:00 Total Protein 4.5 g/dL (6.4-8.2) L 08/12/21 04:28 Albumin 2.1 g/dL (3.4-5.0) L 08/12/21 04:28 Globulin 2.4 g/dL (2.5-4.5) L 08/12/21 04:28 Albumin/Globulin Ratio 0.9 Ratio (1.1-2.1) L 08/12/21 04:28 Prealbumin 32.0 mg/dL (18-35.7) 08/10/21 04:12 Triglycerides 59 mg/dL (0-150) 08/03/21 05:00 Vitamin B12 698 pg/mL (193-986) 08/11/21 04:32 Folate 16.3 ng/mL (>8.6) 08/11/21 04:32 Specimen Type Catherized urine 07/23/21 19:40 Urine Color Yellow (YELLOW) 07/23/21 19:40 Urine Appearance Slightly hazy (CLEAR) 07/23/21 19:40 Urine pH 5.0 (5.0 - 8.0) 07/23/21 19:40 Ur Specific [place] 1.020 (1.000-1.030) 07/23/21 19:40 Urine Protein 2+ (NEGATIVE) 07/23/21 19:40 Urine Glucose (UA) 2+ (NEGATIVE) 07/23/21 19:40 Urine Ketones Negative (NEGATIVE) 07/23/21 19:40 Urine Occult Blood Negative (NEGATIVE) 07/23/21 19:40 Urine Nitrite Negative (NEGATIVE) 07/23/21 19:40 Urine Bilirubin Negative (NEGATIVE) 07/23/21 19:40 Urine Urobilinogen Normal (NORMAL) 07/23/21 19:40 Ur Leukocyte Esterase Negative (NEGATIVE) 07/23/21 19:40 Urine RBC 0-2 /HPF (0-3) 07/23/21 19:40 Urine WBC 0-2 /HPF (0-5) 07/23/21 19:40 Ur Squamous Epith Cells Negative /HPF (NEGATIVE) 07/23/21 19:40 Amorphous Sediment 2+ /HPF (NEGATIVE) 07/23/21 19:40 Urine Bacteria 1+ /HPF (NEGATIVE) 07/23/21 19:40 Hyaline Casts Few /LPF (NEGATIVE) 07/23/21 19:40 Coarse Granular Casts Few /HPF (NEGATIVE) 07/23/21 19:40 Urine Mucus Few /HPF (NEGATIVE) 07/23/21 19:40 Ur Culture Indicated? No/not indicated 07/23/21 19:40 SARS CoV-2 RNA Rapid HERMELINDO Positive (NEGATIVE) A 07/23/21 16:00 Blood Type A POSITIVE 08/08/21 11:04 Antibody Screen Negative 08/08/21 11:04 Crossmatch See Detail 08/08/21 11:04 Plan (1) Pneumonia due to COVID-19 virus: Status: Acute Plan: Pneumonia protocol (2) Acute on chronic respiratory failure with hypoxia: Status: Acute (3) Acute renal failure: Status: Acute Qualifiers: Acute renal failure type: unspecified Qualified Code(s): N17.9 - Acute kidney failure, unspecified Plan: IVF (4) Anemia: Status: Acute Qualifiers: Anemia type: unspecified type Qualified Code(s): D64.9 - Anemia, unspecified (5) Hypokalemia: Status: Acute (6) Elevated troponin level: Status: Acute (7) Elevated d-dimer: Status: Acute (8) Hypoalbuminemia: Status: Acute (9) Hypernatremia: Status: Acute (10) Diabetes mellitus: Status: Chronic Qualifiers: Diabetes mellitus complication status: with hyperglycemia 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
[2021-08-12] MEDS: NovoLIN R (or HumuLIN R) SUBCUT PRN ×2 (16:26→20:37)
[2021-08-12] MEDS: SNACK - Diabetic Appropriate PO SCH (20:35)
[2021-08-12] MEDS: NS 1,000 ML IV 1,000 ML IV SCH (20:35)
[2021-08-13 04:55] LABS: BASOPHILS % (AUTO) 0.3 % (0.2-1.0); EOSINOPHILS # (AUTO) 0.1 x10^3/uL (0.0-0.2); EOSINOPHILS % (AUTO) 0.9 % (0.9-2.9); HEMATOCRIT 21.2 % (42.0-54.0); HEMOGLOBIN 7.3 g/dL (13.5-18.0); LYMPHOCYTES # (AUTO) 0.6 X10^3/uL (1.3-2.9); LYMPHOCYTES % (AUTO) 9.6 % (21.0-51.0); MEAN CORPUSCULAR HEMOGLOBIN 29.8 pg (27.0-34.0); MEAN CORPUSCULAR HGB CONC 34.7 g/dL (33.0-35.0); MEAN CORPUSCULAR VOLUME 85.8 fL (80.0-100.0); MEAN PLATELET VOLUME 9.1 fL (7.4-11.0); MONOCYTES # (AUTO) 0.4 x10^3/uL (0.3-0.8); MONOCYTES % (AUTO) 6.8 % (0.0-13.0); NEUTROPHILS # (AUTO) 5.3 x10^3/uL (2.2-4.8); NEUTROPHILS % (AUTO) 82.4 % (42.0-75.0); RED BLOOD COUNT 2.46 X10^6/uL (4.7-6.0); RED CELL DISTRIBUTION WIDTH 16.3 % (11.6-16.5); WHITE BLOOD COUNT 6.5 X10^3/uL (3.6-10.0)
[2021-08-13 05:04] LABS: ALANINE AMINOTRANSFERASE 32 Units/L (12-78); ALBUMIN 2.1 g/dL (3.4-5.0); ALKALINE PHOSPHATASE 70 Units/L (46-116); ASPARTATE AMINO TRANSFERASE 24 Units/L (15-37); BLOOD UREA NITROGEN 51 mg/dL (7-18); CALCIUM 7.7 mg/dL (8.5-10.1); CARBON DIOXIDE 27.8 mmol/L (21-32); CHLORIDE 104 mmol/L (98-107); COR CA(FOR HYPOALB) 9.2 mg/dL (8.5-10.1); COR NA(FOR HYPERGLY) 136 mmol/L (136-145); CREATININE 1.18 mg/dL (0.70-1.30); SODIUM 136 mmol/L (136-145); TOTAL PROTEIN 4.8 g/dL (6.4-8.2); eGFR NON BLACK RACES > 60 (>60)
[2021-08-13] MEDS: PULMICORT NEB TX 0.5 MG NEB SCH ×2 (08:42→20:05)
[2021-08-13] MEDS: BROVANA IN SCH ×2 (08:42→20:05)
[2021-08-13] MEDS ORDERED: NS 100 ML IV 100 ML with VENOFER 400 MG IV NR ×2 (09:00)
[2021-08-13] MEDS: COLACE CAP 100 MG PO SCH ×2 (09:34→20:13)
[2021-08-13] MEDS: GLUCOPHAGE PO SCH (09:35)
[2021-08-13] MEDS: LEVEMIR SC SCH ×2 (09:35→20:13)
[2021-08-13] MEDS: PEPCID 20 MG VIAL 20 MG in NS 50 ML IV 50 ML IV SCH (09:36)
[2021-08-13] MEDS: MILK OF MAGNESIA PO SCH ×2 (09:36→20:14)
[2021-08-13] MEDS: XANAX PO SCH ×2 (09:37→20:14)
[2021-08-13] MEDS: TOPROL XL PO SCH (09:37)
[2021-08-13] MEDS: PROTONIX INJ 40 MG VIAL IVP SCH ×2 (09:37→20:14)
[2021-08-13] MEDS: NovoLIN R (or HumuLIN R) SUBCUT PRN ×2 (11:54→16:33)
[2021-08-13] MEDS: NS 1,000 ML IV 1,000 ML IV SCH (20:12)
[2021-08-13] MEDS: SNACK - Diabetic Appropriate PO SCH (20:13)
[2021-08-14 05:24] LABS: BASOPHILS # (AUTO) 0.2 X10^3/uL (0.0-0.1); BASOPHILS % (AUTO) 3.2 % (0.2-1.0); EOSINOPHILS # (AUTO) 0.3 x10^3/uL (0.0-0.2); EOSINOPHILS % (AUTO) 4.5 % (0.9-2.9); HEMATOCRIT 22.3 % (42.0-54.0); HEMOGLOBIN 7.6 g/dL (13.5-18.0); LYMPHOCYTES # (AUTO) 0.8 X10^3/uL (1.3-2.9); LYMPHOCYTES % (AUTO) 11.3 % (21.0-51.0); MEAN CORPUSCULAR HEMOGLOBIN 29.7 pg (27.0-34.0); MEAN CORPUSCULAR HGB CONC 34.2 g/dL (33.0-35.0); MEAN CORPUSCULAR VOLUME 86.8 fL (80.0-100.0); MEAN PLATELET VOLUME 9.3 fL (7.4-11.0); MONOCYTES # (AUTO) 0.1 x10^3/uL (0.3-0.8); NEUTROPHILS # (AUTO) 5.7 x10^3/uL (2.2-4.8); RED BLOOD COUNT 2.57 X10^6/uL (4.7-6.0); RED CELL DISTRIBUTION WIDTH 16.6 % (11.6-16.5); WHITE BLOOD COUNT 7.3 X10^3/uL (3.6-10.0)
[2021-08-14 05:27] LABS: ALANINE AMINOTRANSFERASE 33 Units/L (12-78); ALBUMIN 2.1 g/dL (3.4-5.0); ALKALINE PHOSPHATASE 72 Units/L (46-116); ASPARTATE AMINO TRANSFERASE 23 Units/L (15-37); BLOOD UREA NITROGEN 37 mg/dL (7-18); CALCIUM 7.5 mg/dL (8.5-10.1); CHLORIDE 105 mmol/L (98-107); CREATININE 1.12 mg/dL (0.70-1.30); SODIUM 140 mmol/L (136-145); TOTAL PROTEIN 4.9 g/dL (6.4-8.2); eGFR NON BLACK RACES > 60 (>60)
[2021-08-14] MEDS: COLACE CAP 100 MG PO SCH ×2 (08:04→21:25)
[2021-08-14] MEDS: GLUCOPHAGE PO SCH (08:04)
[2021-08-14] MEDS: LEVEMIR SC SCH (08:05)
[2021-08-14] MEDS: XANAX PO SCH ×2 (08:05→21:25)
[2021-08-14] MEDS: MILK OF MAGNESIA PO SCH ×2 (08:05→22:25)
[2021-08-14] MEDS: PROTONIX INJ 40 MG VIAL IVP SCH ×2 (08:05→21:25)
[2021-08-14] MEDS: PEPCID 20 MG VIAL 20 MG in NS 50 ML IV 50 ML IV SCH (08:05)
[2021-08-14] MEDS: TOPROL XL PO SCH (08:05)
--- NOTE | 2021-08-14 08:44 | PCM.PROG ---
Progress Note Progress Note for Day of Date of Exam: 08/13/21 Subjective Subjective: Pt is a 76 year old male with a past medical history of Hypertension, DMT2, CAD(Pacemaker), Aortic valve replacement, HLD. He was admitted with COVID-19 pneumonia and acute on chronic renal failure. This morning patient was able to be placed on 6L nasal cannula supplemental oxygen. No acute events overnight. Consulted general surgery Dr Villanueva for further evaluation of anemia, however physician was not contacted. Hemoglobin appears to have stabilized, especially after catheter removal that nursing did note clots expelled. Fecal occult was positive. Will hold on consulting covering physician and monitor hemoglobin. Will order iron infusion Venofer to help with iron deficiency anemia. Labs/imaging: Wbc 6.5, Hgb 7.3, Plt 57, Na 136, K 4.2, Cr 1.18, Glucose 114, CTAP was obtained that revealed no acute intraabdominal abnormality. Blood culture: NGTD. Patient is currently on pneumonia protocol that includes: IVF NS@KVO ml/h, Eliquis 5mg BID(hold), scheduled Bronchodilators Xopenex and Budesonide, Received Actemra 400mg x 1 dose, IV protonix 40mg BID, Famotidine 40mg BID, Levemir 5 units daily, Tussionex prn, immune supporting supplements, supplemental O2, SSI, I/S, Physical therapy, Respiratory therapy consult, Smart Vest. Has central line. He has completed a course of Remdesivir. Otherwise, will continue with current plan of care and continue to wean/titrate supplemental oxygen as tolerated. Continue to closely monitor and follow up labs/imaging. Time spent on clinical assessment, reviewing labs and imaging, decision making, and documentation greater than 45 minutes. Past Medical Family Social History Past Med/Fam/Surg Hx: No changes since H&P Allergies: Allergies No Known Drug Allergies Allergy (Verified 07/23/21 12:02) Review of Systems ROS: No change since H&P Vital Signs and I&O's Vital Signs: Temperature 97.5 F Pulse Rate 89 Respiratory Rate 37 Blood Pressure 113/65 O2 Sat by Pulse Oximetry 89 Intake and Output: Intake & Output 08/11/21 08/12/21 08/13/21 08/14/21 23:59 23:59 23:59 23:59 Intake Total 3160 / 3160 1322 / 1322 1134 / 1134 371 / 371 Output Total 2700 / 2700 2450 / 2450 1969 / 1969 900 / 900 Balance 460 / 460 -1128 / -1128 -836 / -836 -529 / -529 Physical Exam Oriented: Normal Eyes: Normal Ear: Normal Nose: Normal Throat: Normal Respiratory: Diminished Cardiovascular: Normal : Normal Auscultation: Bowel Sounds: Normal Tenderness: Normal Skin: Normal Musculoskeletal: Normal Psychiatric: Normal Mood Description: Calm and Appropriate Affect: Normal Speech Pattern: Clear and Appropriate Laboratory and Diagnostics Result Diagrams: 08/14/21 04:26 08/14/21 04:26 Labs: 07/30/21 08:09 Sputum - Expectorated Sputum Sputum Culture - Final Enterobacter Aerogenes 07/30/21 08:09 Sputum - Expectorated Sputum - Final 07/26/21 16:38 Blood Blood Culture - Final 07/26/21 16:30 Blood Blood Culture - Final Laboratory WBC 7.3 X10^3/uL (3.6-10.0) 08/14/21 04:26 RBC 2.57 X10^6/uL (4.7-6.0) L 08/14/21 04:26 Hgb 7.6 g/dL (13.5-18.0) L 08/14/21 04:26 Hct 22.3 % (42.0-54.0) L 08/14/21 04:26 MCV 86.8 fL (80.0-100.0) 08/14/21 04:26 MCH 29.7 pg (27.0-34.0) 08/14/21 04:26 MCHC 34.2 g/dL (33.0-35.0) 08/14/21 04:26 RDW 16.6 % (11.6-16.5) H 08/14/21 04:26 Plt Count 62 X10^3/uL (150.0-450.0) L 08/14/21 04:26 Plt Count Comment Decreased (ADEQUATE) 08/06/21 05:37 MPV 9.3 fL (7.4-11.0) 08/14/21 04:26 Neut % (Auto) 79.0 % (42.0-75.0) H 08/14/21 04:26 Lymph % (Auto) 11.3 % (21.0-51.0) L 08/14/21 04:26 [place] % (Auto) 2.0 % (0.0-13.0) 08/14/21 04:26 Eos % (Auto) 4.5 % (0.9-2.9) H 08/14/21 04:26 Baso % (Auto) 3.2 % (0.2-1.0) H 08/14/21 04:26 Neut # (Auto) 5.7 x10^3/uL (2.2-4.8) H 08/14/21 04:26 Lymph # (Auto) 0.8 X10^3/uL (1.3-2.9) L 08/14/21 04:26 [place] # (Auto) 0.1 x10^3/uL (0.3-0.8) L 08/14/21 04:26 Eos # (Auto) 0.3 x10^3/uL (0.0-0.2) H 08/14/21 04:26 Baso # (Auto) 0.2 X10^3/uL (0.0-0.1) H 08/14/21 04:26 Absolute Nucleated RBC 0.2 /100WBC 08/14/21 04:26 Total Counted 100 08/06/21 05:37 Neutrophils % (Manual) 96 % (39-76) H 08/06/21 05:37 Lymphocytes % (Manual) 3 % (13-43) L 08/06/21 05:37 Monocytes % (Manual) 1 % (4-9) L 08/06/21 05:37 Plt Morphology Comment Normal (NORMAL) 08/06/21 05:37 RBC Morphology Normal (NORMAL) 08/06/21 05:37 Polychromasia Slight 08/01/21 05:00 PT 20.9 SECONDS (11.8-14.3) 08/10/21 07:55 INR Target Range - 08/10/21 07:55 INR 1.90 (0.8-1.3) H 08/10/21 07:55 APTT 26.6 SECONDS (22.9-36.5) 08/10/21 07:55 PTT Comment - 08/10/21 07:55 Fibrinogen 137 mg/dL (239-489) L* 08/10/21 07:55 D-Dimer 8.51 ug/ml (0.0-0.57) H* 08/10/21 07:55 Sample Site Lr 08/01/21 04:13 ABG pH 7.390 (7.35-7.45) 08/01/21 04:13 ABG pCO2 42.0 mmHg (35.0-45.0) 08/01/21 04:13 ABG pO2 72.0 mmHg (80.0-100.0) L 08/01/21 04:13 ABG HCO3 25.4 mmol/L (22-26) 08/01/21 04:13 ABG O2 Saturation 94.0 % (90-100) 08/01/21 04:13 ABG Base Excess 0.3 mmol/L (-2.0-2.0) 08/01/21 04:13 Gene Test Pos 08/01/21 04:13 A-a Gradient 232.0 mmHg 08/01/21 04:13 FiO2 50.0 08/01/21 04:13 Blood Gas Comments Natalia well ae 08/01/21 04:13 Sodium 140 mmol/L (136-145) 08/14/21 04:26 Corrected Sodium TNP 08/14/21 04:26 Potassium 3.6 mmol/L (3.5-5.1) 08/14/21 04:26 Chloride 105 mmol/L (98-107) 08/14/21 04:26 Carbon Dioxide 29.0 mmol/L (21-32) 08/14/21 04:26 BUN 37 mg/dL (7-18) H 08/14/21 04:26 Creatinine 1.12 mg/dL (0.70-1.30) 08/14/21 04:26 Est GFR (MDRD) Af Amer > 60 (>60) 08/14/21 04:26 Est GFR (MDRD) Non-Af > 60 (>60) 08/14/21 04:26 Glucose 48 mg/dL (65-99) L* 08/14/21 04:26 POC Glucose (mg/dL) 79 mg/dL (65-99) 08/14/21 06:01 Calcium 7.5 mg/dL (8.5-10.1) L 08/14/21 04:26 Corrected Calcium 9.0 mg/dL (8.5-10.1) 08/14/21 04:26 Phosphorus 3.8 mg/dL (2.6-4.7) 08/03/21 05:00 Magnesium 1.9 mg/dL (1.7-2.9) 08/03/21 05:00 Iron 33 ug/dL (50-175) L 08/11/21 04:32 Transferrin 280 mg/dL (202-364) 08/11/21 04:32 Ferritin 53 ng/mL (26-388) 08/11/21 04:32 Total Bilirubin 0.60 mg/dL (0.2-1.0) 08/14/21 04:26 AST 23 Units/L (15-37) 08/14/21 04:26 ALT 33 Units/L (12-78) 08/14/21 04:26 Alkaline Phosphatase 72 Units/L (46-116) 08/14/21 04:26 Creatine Kinase 86 Units/L (39-308) 07/23/21 12:30 CK-MB (CK-2) 1.3 ng/mL (0-4.0) 07/23/21 12:30 CK/CKMB % Calc 1.5 % (<4) 07/23/21 12:30 Troponin I High Sens 49.9 ng/L (4.0-60.0) 07/27/21 04:40 C-Reactive Protein < 0.50 mg/L (0-3.0) 08/08/21 04:46 B-Natriuretic Peptide 60.6 pg/mL (0-79) 08/03/21 05:00 Total Protein 4.9 g/dL (6.4-8.2) L 08/14/21 04:26 Albumin 2.1 g/dL (3.4-5.0) L 08/14/21 04:26 Globulin 2.8 g/dL (2.5-4.5) 08/14/21 04:26 Albumin/Globulin Ratio 0.8 Ratio (1.1-2.1) L 08/14/21 04:26 Prealbumin 32.0 mg/dL (18-35.7) 08/10/21 04:12 Triglycerides 59 mg/dL (0-150) 08/03/21 05:00 Vitamin B12 698 pg/mL (193-986) 08/11/21 04:32 Folate 16.3 ng/mL (>8.6) 08/11/21 04:32 Specimen Type Catherized urine 07/23/21 19:40 Urine Color Yellow (YELLOW) 07/23/21 19:40 Urine Appearance Slightly hazy (CLEAR) 07/23/21 19:40 Urine pH 5.0 (5.0 - 8.0) 07/23/21 19:40 Ur Specific [place] 1.020 (1.000-1.030) 07/23/21 19:40 Urine Protein 2+ (NEGATIVE) 07/23/21 19:40 Urine Glucose (UA) 2+ (NEGATIVE) 07/23/21 19:40 Urine Ketones Negative (NEGATIVE) 07/23/21 19:40 Urine Occult Blood Negative (NEGATIVE) 07/23/21 19:40 Urine Nitrite Negative (NEGATIVE) 07/23/21 19:40 Urine Bilirubin Negative (NEGATIVE) 07/23/21 19:40 Urine Urobilinogen Normal (NORMAL) 07/23/21 19:40 Ur Leukocyte Esterase Negative (NEGATIVE) 07/23/21 19:40 Urine RBC 0-2 /HPF (0-3) 07/23/21 19:40 Urine WBC 0-2 /HPF (0-5) 07/23/21 19:40 Ur Squamous Epith Cells Negative /HPF (NEGATIVE) 07/23/21 19:40 Amorphous Sediment 2+ /HPF (NEGATIVE) 07/23/21 19:40 Urine Bacteria 1+ /HPF (NEGATIVE) 07/23/21 19:40 Hyaline Casts Few /LPF (NEGATIVE) 07/23/21 19:40 Coarse Granular Casts Few /HPF (NEGATIVE) 07/23/21 19:40 Urine Mucus Few /HPF (NEGATIVE) 07/23/21 19:40 Ur Culture Indicated? No/not indicated 07/23/21 19:40 Stool Description 50g black semi form 08/12/21 15:40 Stl Occult Blood (IFOB) Positive (NEGATIVE) A 08/12/21 15:40 SARS CoV-2 RNA Rapid HERMELINDO Positive (NEGATIVE) A 07/23/21 16:00 Blood Type A POSITIVE 08/08/21 11:04 Antibody Screen Negative 08/08/21 11:04 Crossmatch See Detail 08/08/21 11:04 Plan (1) Pneumonia due to COVID-19 virus: Status: Acute Plan: Pneumonia protocol (2) Acute on chronic respiratory failure with hypoxia: Status: Acute (3) Acute renal failure: Status: Acute Qualifiers: Acute renal failure type: unspecified Qualified Code(s): N17.9 - Acute kidney failure, unspecified Plan: IVF (4) Anemia: Status: Acute Qualifiers: Anemia type: unspecified type Qualified Code(s): D64.9 - Anemia, unspecified (5) Hypokalemia: Status: Acute (6) Elevated troponin level: Status: Acute (7) Elevated d-dimer: Status: Acute (8) Hypoalbuminemia: Status: Acute (9) Hypernatremia: Status: Acute (10) Diabetes mellitus: Status: Chronic Qualifiers: Diabetes mellitus complication status: with hyperglycemia Diabetes mellitus halfway insulin use: with halfway use Diabetes mellitus type: type 2 Qualified Code(s): E11.65 - Type 2 diabetes mellitus with hyperglycemia; Z79.4 - terminal manager (current) use of insulin (11) Hypertension: Status: Chronic Qualifiers: Hypertension type: primary hypertension Qualified Code(s): I10 - Essential (primary) hypertension
--- NOTE | 2021-08-14 08:49 | PCM.PROG ---
Progress Note Progress Note for Day of Date of Exam: 08/14/21 Subjective Subjective: Pt is a 76 year old male with a past medical history of Hypertension, DMT2, CAD(Pacemaker), Aortic valve replacement, HLD. He was admitted with COVID-19 pneumonia and acute on chronic renal failure. This morning patient is currently requiring 5L nasal cannula supplemental oxygen. No acute events overnight. Pt received iron infusion Venofer yesterday to help with iron deficiency anemia. Hemoglobin has stabilized. Labs/imaging: Wbc 7.3, Hgb 7.6, Plt 62, Na 140, K 3.6, Cr 1.12, Glucose 48, Blood culture: NGTD. Patient is currently on pneumonia protocol that includes: IVF NS@KVO ml/h, Eliquis 5mg BID(hold), scheduled Bronchodilators Xopenex and Budesonide, Received Actemra 400mg x 1 dose, IV protonix 40mg BID, Famotidine 40mg BID, Levemir 5 units daily, Tussionex prn, immune supporting supplements, supplemental O2, SSI, I/S, Physical therapy, Respiratory therapy consult, Smart Vest. Has central line. He has completed a course of Remdesivir. Pt with some hypoglycemia this morning, w ill discontinue Levemir, encourage more po intake for nutrition, can add Ensure. Otherwise, will continue with current plan of care and continue to wean/titrate supplemental oxygen as tolerated. Continue to closely monitor and follow up labs/imaging. Time spent on clinical assessment, reviewing labs and imaging, decision making, and documentation greater than 45 minutes. Past Medical Family Social History Past Med/Fam/Surg Hx: No changes since H&P Allergies: Allergies No Known Drug Allergies Allergy (Verified 07/23/21 12:02) Review of Systems ROS: No change since H&P Vital Signs and I&O's Vital Signs: Temperature 97.5 F Pulse Rate 89 Respiratory Rate 37 Blood Pressure 113/65 O2 Sat by Pulse Oximetry 89 Intake and Output: Intake & Output 08/11/21 08/12/21 08/13/21 08/14/21 23:59 23:59 23:59 23:59 Intake Total 3160 / 3160 1322 / 1322 1134 / 1134 371 / 371 Output Total 2700 / 2700 2450 / 2450 1969 / 1970 900 / 900 Balance 460 / 460 -1128 / -1128 -836 / -836 -529 / -529 Physical Exam Oriented: Normal Eyes: Normal Ear: Normal Nose: Normal Throat: Normal Respiratory: Diminished Cardiovascular: Normal : Normal Auscultation: Bowel Sounds: Normal Tenderness: Normal Skin: Normal Musculoskeletal: Normal Psychiatric: Normal Mood Description: Calm and Appropriate Affect: Normal Speech Pattern: Clear and Appropriate Laboratory and Diagnostics Result Diagrams: 08/14/21 04:26 08/14/21 04:26 Labs: 07/30/21 08:09 Sputum - Expectorated Sputum Sputum Culture - Final Enterobacter Aerogenes 07/30/21 08:09 Sputum - Expectorated Sputum - Final 07/26/21 16:38 Blood Blood Culture - Final 07/26/21 16:30 Blood Blood Culture - Final Laboratory WBC 7.3 X10^3/uL (3.6-10.0) 08/14/21 04:26 RBC 2.57 X10^6/uL (4.7-6.0) L 08/14/21 04:26 Hgb 7.6 g/dL (13.5-18.0) L 08/14/21 04:26 Hct 22.3 % (42.0-54.0) L 08/14/21 04:26 MCV 86.8 fL (80.0-100.0) 08/14/21 04:26 MCH 29.7 pg (27.0-34.0) 08/14/21 04:26 MCHC 34.2 g/dL (33.0-35.0) 08/14/21 04:26 RDW 16.6 % (11.6-16.5) H 08/14/21 04:26 Plt Count 62 X10^3/uL (150.0-450.0) L 08/14/21 04:26 Plt Count Comment Decreased (ADEQUATE) 08/06/21 05:37 MPV 9.3 fL (7.4-11.0) 08/14/21 04:26 Neut % (Auto) 79.0 % (42.0-75.0) H 08/14/21 04:26 Lymph % (Auto) 11.3 % (21.0-51.0) L 08/14/21 04:26 [place] % (Auto) 2.0 % (0.0-13.0) 08/14/21 04:26 Eos % (Auto) 4.5 % (0.9-2.9) H 08/14/21 04:26 Baso % (Auto) 3.2 % (0.2-1.0) H 08/14/21 04:26 Neut # (Auto) 5.7 x10^3/uL (2.2-4.8) H 08/14/21 04:26 Lymph # (Auto) 0.8 X10^3/uL (1.3-2.9) L 08/14/21 04:26 [place] # (Auto) 0.1 x10^3/uL (0.3-0.8) L 08/14/21 04:26 Eos # (Auto) 0.3 x10^3/uL (0.0-0.2) H 08/14/21 04:26 Baso # (Auto) 0.2 X10^3/uL (0.0-0.1) H 08/14/21 04:26 Absolute Nucleated RBC 0.2 /100WBC 08/14/21 04:26 Total Counted 100 08/06/21 05:37 Neutrophils % (Manual) 96 % (39-76) H 08/06/21 05:37 Lymphocytes % (Manual) 3 % (13-43) L 08/06/21 05:37 Monocytes % (Manual) 1 % (4-9) L 08/06/21 05:37 Plt Morphology Comment Normal (NORMAL) 08/06/21 05:37 RBC Morphology Normal (NORMAL) 08/06/21 05:37 Polychromasia Slight 08/01/21 05:00 PT 20.9 SECONDS (11.8-14.3) 08/10/21 07:55 INR Target Range - 08/10/21 07:55 INR 1.90 (0.8-1.3) H 08/10/21 07:55 APTT 26.6 SECONDS (22.9-36.5) 08/10/21 07:55 PTT Comment - 08/10/21 07:55 Fibrinogen 137 mg/dL (239-489) L* 08/10/21 07:55 D-Dimer 8.51 ug/ml (0.0-0.57) H* 08/10/21 07:55 Sample Site Lr 08/01/21 04:13 ABG pH 7.390 (7.35-7.45) 08/01/21 04:13 ABG pCO2 42.0 mmHg (35.0-45.0) 08/01/21 04:13 ABG pO2 72.0 mmHg (80.0-100.0) L 08/01/21 04:13 ABG HCO3 25.4 mmol/L (22-26) 08/01/21 04:13 ABG O2 Saturation 94.0 % (90-100) 08/01/21 04:13 ABG Base Excess 0.3 mmol/L (-2.0-2.0) 08/01/21 04:13 Gene Test Pos 08/01/21 04:13 A-a Gradient 232.0 mmHg 08/01/21 04:13 FiO2 50.0 08/01/21 04:13 Blood Gas Comments Natalia well ae 08/01/21 04:13 Sodium 140 mmol/L (136-145) 08/14/21 04:26 Corrected Sodium TNP 08/14/21 04:26 Potassium 3.6 mmol/L (3.5-5.1) 08/14/21 04:26 Chloride 105 mmol/L (98-107) 08/14/21 04:26 Carbon Dioxide 29.0 mmol/L (21-32) 08/14/21 04:26 BUN 37 mg/dL (7-18) H 08/14/21 04:26 Creatinine 1.12 mg/dL (0.70-1.30) 08/14/21 04:26 Est GFR (MDRD) Af Amer > 60 (>60) 08/14/21 04:26 Est GFR (MDRD) Non-Af > 60 (>60) 08/14/21 04:26 Glucose 48 mg/dL (65-99) L* 08/14/21 04:26 POC Glucose (mg/dL) 79 mg/dL (65-99) 08/14/21 06:01 Calcium 7.5 mg/dL (8.5-10.1) L 08/14/21 04:26 Corrected Calcium 9.0 mg/dL (8.5-10.1) 08/14/21 04:26 Phosphorus 3.8 mg/dL (2.6-4.7) 08/03/21 05:00 Magnesium 1.9 mg/dL (1.7-2.9) 08/03/21 05:00 Iron 33 ug/dL (50-175) L 08/11/21 04:32 Transferrin 280 mg/dL (202-364) 08/11/21 04:32 Ferritin 53 ng/mL (26-388) 08/11/21 04:32 Total Bilirubin 0.60 mg/dL (0.2-1.0) 08/14/21 04:26 AST 23 Units/L (15-37) 08/14/21 04:26 ALT 33 Units/L (12-78) 08/14/21 04:26 Alkaline Phosphatase 72 Units/L (46-116) 08/14/21 04:26 Creatine Kinase 86 Units/L (39-308) 07/23/21 12:30 CK-MB (CK-2) 1.3 ng/mL (0-4.0) 07/23/21 12:30 CK/CKMB % Calc 1.5 % (<4) 07/23/21 12:30 Troponin I High Sens 49.9 ng/L (4.0-60.0) 07/27/21 04:40 C-Reactive Protein < 0.50 mg/L (0-3.0) 08/08/21 04:46 B-Natriuretic Peptide 60.6 pg/mL (0-79) 08/03/21 05:00 Total Protein 4.9 g/dL (6.4-8.2) L 08/14/21 04:26 Albumin 2.1 g/dL (3.4-5.0) L 08/14/21 04:26 Globulin 2.8 g/dL (2.5-4.5) 08/14/21 04:26 Albumin/Globulin Ratio 0.8 Ratio (1.1-2.1) L 08/14/21 04:26 Prealbumin 32.0 mg/dL (18-35.7) 08/10/21 04:12 Triglycerides 59 mg/dL (0-150) 08/03/21 05:00 Vitamin B12 698 pg/mL (193-986) 08/11/21 04:32 Folate 16.3 ng/mL (>8.6) 08/11/21 04:32 Specimen Type Catherized urine 07/23/21 19:40 Urine Color Yellow (YELLOW) 07/23/21 19:40 Urine Appearance Slightly hazy (CLEAR) 07/23/21 19:40 Urine pH 5.0 (5.0 - 8.0) 07/23/21 19:40 Ur Specific [place] 1.020 (1.000-1.030) 07/23/21 19:40 Urine Protein 2+ (NEGATIVE) 07/23/21 19:40 Urine Glucose (UA) 2+ (NEGATIVE) 07/23/21 19:40 Urine Ketones Negative (NEGATIVE) 07/23/21 19:40 Urine Occult Blood Negative (NEGATIVE) 07/23/21 19:40 Urine Nitrite Negative (NEGATIVE) 07/23/21 19:40 Urine Bilirubin Negative (NEGATIVE) 07/23/21 19:40 Urine Urobilinogen Normal (NORMAL) 07/23/21 19:40 Ur Leukocyte Esterase Negative (NEGATIVE) 07/23/21 19:40 Urine RBC 0-2 /HPF (0-3) 07/23/21 19:40 Urine WBC 0-2 /HPF (0-5) 07/23/21 19:40 Ur Squamous Epith Cells Negative /HPF (NEGATIVE) 07/23/21 19:40 Amorphous Sediment 2+ /HPF (NEGATIVE) 07/23/21 19:40 Urine Bacteria 1+ /HPF (NEGATIVE) 07/23/21 19:40 Hyaline Casts Few /LPF (NEGATIVE) 07/23/21 19:40 Coarse Granular Casts Few /HPF (NEGATIVE) 07/23/21 19:40 Urine Mucus Few /HPF (NEGATIVE) 07/23/21 19:40 Ur Culture Indicated? No/not indicated 07/23/21 19:40 Stool Description 50g black semi form 08/12/21 15:40 Stl Occult Blood (IFOB) Positive (NEGATIVE) A 08/12/21 15:40 SARS CoV-2 RNA Rapid HERMELINDO Positive (NEGATIVE) A 07/23/21 16:00 Blood Type A POSITIVE 08/08/21 11:04 Antibody Screen Negative 08/08/21 11:04 Crossmatch See Detail 08/08/21 11:04 Plan (1) Pneumonia due to COVID-19 virus: Status: Acute Plan: Pneumonia protocol (2) Acute on chronic respiratory failure with hypoxia: Status: Acute (3) Acute renal failure: Status: Acute Qualifiers: Acute renal failure type: unspecified Qualified Code(s): N17.9 - Acute kidney failure, unspecified Plan: IVF (4) Anemia: Status: Acute Qualifiers: Anemia type: unspecified type Qualified Code(s): D64.9 - Anemia, unspecified (5) Hypokalemia: Status: Acute (6) Elevated troponin level: Status: Acute (7) Elevated d-dimer: Status: Acute (8) Hypoalbuminemia: Status: Acute (9) Hypernatremia: Status: Acute (10) Diabetes mellitus: Status: Chronic Qualifiers: Diabetes mellitus complication status: with hyperglycemia Diabetes mellitus jail 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
[2021-08-14] MEDS: PULMICORT NEB TX 0.5 MG NEB SCH ×2 (09:16→20:39)
[2021-08-14] MEDS: BROVANA IN SCH ×2 (09:16→20:39)
[2021-08-14] MEDS: NovoLIN R (or HumuLIN R) SUBCUT PRN ×2 (16:52→22:48)
[2021-08-14] MEDS: NS 1,000 ML IV 1,000 ML IV SCH (21:25)
[2021-08-14] MEDS: SNACK - Diabetic Appropriate PO SCH (22:24)
[2021-08-15 06:30] LABS: BASOPHILS % (AUTO) 0.4 % (0.2-1.0); EOSINOPHILS # (AUTO) 0.3 x10^3/uL (0.0-0.2); EOSINOPHILS % (AUTO) 4.4 % (0.9-2.9); HEMATOCRIT 22.6 % (42.0-54.0); HEMOGLOBIN 7.6 g/dL (13.5-18.0); LYMPHOCYTES # (AUTO) 0.8 X10^3/uL (1.3-2.9); LYMPHOCYTES % (AUTO) 11.7 % (21.0-51.0); MEAN CORPUSCULAR HEMOGLOBIN 29.6 pg (27.0-34.0); MEAN CORPUSCULAR HGB CONC 33.8 g/dL (33.0-35.0); MEAN CORPUSCULAR VOLUME 87.6 fL (80.0-100.0); MEAN PLATELET VOLUME 10.5 fL (7.4-11.0); MONOCYTES # (AUTO) 0.4 x10^3/uL (0.3-0.8); MONOCYTES % (AUTO) 6.3 % (0.0-13.0); NEUTROPHILS # (AUTO) 5.1 x10^3/uL (2.2-4.8); NEUTROPHILS % (AUTO) 77.2 % (42.0-75.0); RED BLOOD COUNT 2.58 X10^6/uL (4.7-6.0); RED CELL DISTRIBUTION WIDTH 17.5 % (11.6-16.5); WHITE BLOOD COUNT 6.7 X10^3/uL (3.6-10.0)
[2021-08-15 06:32] LABS: ALANINE AMINOTRANSFERASE 28 Units/L (12-78); ALKALINE PHOSPHATASE 76 Units/L (46-116); ASPARTATE AMINO TRANSFERASE 20 Units/L (15-37); BLOOD UREA NITROGEN 28 mg/dL (7-18); CALCIUM 7.2 mg/dL (8.5-10.1); CARBON DIOXIDE 28.3 mmol/L (21-32); CHLORIDE 104 mmol/L (98-107); COR CA(FOR HYPOALB) 8.8 mg/dL (8.5-10.1); CREATININE 1.17 mg/dL (0.70-1.30); SODIUM 138 mmol/L (136-145); TOTAL PROTEIN 4.8 g/dL (6.4-8.2); eGFR NON BLACK RACES > 60 (>60)
[2021-08-15] MEDS: MILK OF MAGNESIA PO SCH ×4 (08:20→20:42)
[2021-08-15] MEDS: COLACE CAP 100 MG PO SCH ×2 (08:20→20:42)
[2021-08-15] MEDS: GLUCOPHAGE PO SCH (08:20)
[2021-08-15] MEDS: PROTONIX INJ 40 MG VIAL IVP SCH ×2 (08:21→20:48)
[2021-08-15] MEDS: PEPCID 20 MG VIAL 20 MG in NS 50 ML IV 50 ML IV SCH (08:21)
[2021-08-15] MEDS: XANAX PO SCH ×2 (08:22→20:48)
[2021-08-15] MEDS: TOPROL XL PO SCH (08:22)
[2021-08-15] MEDS: BROVANA IN SCH ×2 (09:33→20:03)
[2021-08-15] MEDS: PULMICORT NEB TX 0.5 MG NEB SCH ×2 (09:33→20:03)
[2021-08-15] MEDS ORDERED: LASIX PO ONE (11:11)
--- NOTE | 2021-08-15 11:13 | PCM.PROG ---
Progress Note Progress Note for Day of Date of Exam: 08/15/21 Subjective Subjective: Pt is a 76 year old male with a past medical history of Hypertension, DMT2, CAD(Pacemaker), Aortic valve replacement, HLD. He was admitted with COVID-19 pneumonia and acute on chronic renal failure. This morning he is requiring 5L nasal cannula supplemental oxygen and continues to gradually improve. No acute events overnight. Labs/imaging: Wbc 6.7, Hgb 7.6, Plt 72, Na 138, K 4.1, Cr 1.17, Glucose 94, Blood culture: NGTD. Patient is currently on pneumonia protocol that includes: IVF NS@KVO ml/h, Eliquis 5mg BID(hold), scheduled Bronchodilators Xopenex and Budesonide, Received Actemra 40 0mg x 1 dose, IV protonix 40mg BID, Famotidine 40mg BID, Levemir 5 units daily(hold), Tussionex prn, immune supporting supplements, supplemental O2, SSI, I/S, Physical therapy, Respiratory therapy consult, Smart Vest. Has central line. He has completed a course of Remdesivir. Pt had some edema bilateral legs, will order Lasix 20mg x 1 dose. Otherwise, will continue with current plan of care and continue to wean/titrate supplemental oxygen as tolerated. Continue to closely monitor and follow up labs/imaging. Past Medical Family Social History Past Med/Fam/Surg Hx: No changes since H&P Allergies: Allergies No Known Drug Allergies Allergy (Verified 07/23/21 12:02) Review of Systems ROS: No change since H&P Vital Signs and I&O's Vital Signs: Temperature 97.9 F Pulse Rate 96 Respiratory Rate 24 Blood Pressure 130/60 O2 Sat by Pulse Oximetry 92 Intake and Output: Intake & Output 08/12/21 08/13/21 08/14/21 08/15/21 23:59 23:59 23:59 23:59 Intake Total 1322 / 1322 1134 / 1134 1202 / 1202 508 / 508 Output Total 2450 / 2450 1969 / 1969 2900 / 2900 575 / 575 Balance -1128 / -1128 -836 / -836 -1698 / -1698 -67 / -67 Physical Exam Oriented: Normal Eyes: Normal Ear: Normal Nose: Normal Throat: Normal Respiratory: Diminished Cardiovascular: Normal : Normal Auscultation: Bowel Sounds: Normal Tenderness: Normal Skin: Normal Musculoskeletal: Normal Psychiatric: Normal Mood Description: Calm and Appropriate Affect: Normal Speech Pattern: Clear and Appropriate Laboratory and Diagnostics Result Diagrams: 08/15/21 05:20 08/15/21 05:20 Labs: 07/30/21 08:09 Sputum - Expectorated Sputum Sputum Culture - Final Enterobacter Aerogenes 07/30/21 08:09 Sputum - Expectorated Sputum - Final 07/26/21 16:38 Blood Blood Culture - Final 07/26/21 16:30 Blood Blood Culture - Final Laboratory WBC 6.7 X10^3/uL (3.6-10.0) 08/15/21 05:20 RBC 2.58 X10^6/uL (4.7-6.0) L 08/15/21 05:20 Hgb 7.6 g/dL (13.5-18.0) L 08/15/21 05:20 Hct 22.6 % (42.0-54.0) L 08/15/21 05:20 MCV 87.6 fL (80.0-100.0) 08/15/21 05:20 MCH 29.6 pg (27.0-34.0) 08/15/21 05:20 MCHC 33.8 g/dL (33.0-35.0) 08/15/21 05:20 RDW 17.5 % (11.6-16.5) H 08/15/21 05:20 Plt Count 72 X10^3/uL (150.0-450.0) L 08/15/21 05:20 Plt Count Comment Decreased (ADEQUATE) 08/06/21 05:37 MPV 10.5 fL (7.4-11.0) 08/15/21 05:20 Neut % (Auto) 77.2 % (42.0-75.0) H 08/15/21 05:20 Lymph % (Auto) 11.7 % (21.0-51.0) L 08/15/21 05:20 [place] % (Auto) 6.3 % (0.0-13.0) 08/15/21 05:20 Eos % (Auto) 4.4 % (0.9-2.9) H 08/15/21 05:20 Baso % (Auto) 0.4 % (0.2-1.0) 08/15/21 05:20 Neut # (Auto) 5.1 x10^3/uL (2.2-4.8) H 08/15/21 05:20 Lymph # (Auto) 0.8 X10^3/uL (1.3-2.9) L 08/15/21 05:20 [place] # (Auto) 0.4 x10^3/uL (0.3-0.8) 08/15/21 05:20 Eos # (Auto) 0.3 x10^3/uL (0.0-0.2) H 08/15/21 05:20 Baso # (Auto) 0.0 X10^3/uL (0.0-0.1) 08/15/21 05:20 Absolute Nucleated RBC 0.2 /100WBC 08/15/21 05:20 Total Counted 100 08/06/21 05:37 Neutrophils % (Manual) 96 % (39-76) H 08/06/21 05:37 Lymphocytes % (Manual) 3 % (13-43) L 08/06/21 05:37 Monocytes % (Manual) 1 % (4-9) L 08/06/21 05:37 Plt Morphology Comment Normal (NORMAL) 08/06/21 05:37 RBC Morphology Normal (NORMAL) 08/06/21 05:37 Polychromasia Slight 08/01/21 05:00 PT 20.9 SECONDS (11.8-14.3) 08/10/21 07:55 INR Target Range - 08/10/21 07:55 INR 1.90 (0.8-1.3) H 08/10/21 07:55 APTT 26.6 SECONDS (22.9-36.5) 08/10/21 07:55 PTT Comment - 08/10/21 07:55 Fibrinogen 137 mg/dL (239-489) L* 08/10/21 07:55 D-Dimer 8.51 ug/ml (0.0-0.57) H* 08/10/21 07:55 Sample Site Lr 08/01/21 04:13 ABG pH 7.390 (7.35-7.45) 08/01/21 04:13 ABG pCO2 42.0 mmHg (35.0-45.0) 08/01/21 04:13 ABG pO2 72.0 mmHg (80.0-100.0) L 08/01/21 04:13 ABG HCO3 25.4 mmol/L (22-26) 08/01/21 04:13 ABG O2 Saturation 94.0 % (90-100) 08/01/21 04:13 ABG Base Excess 0.3 mmol/L (-2.0-2.0) 08/01/21 04:13 Gene Test Pos 08/01/21 04:13 A-a Gradient 232.0 mmHg 08/01/21 04:13 FiO2 50.0 08/01/21 04:13 Blood Gas Comments Natalia well ae 08/01/21 04:13 Sodium 138 mmol/L (136-145) 08/15/21 05:20 Corrected Sodium TNP 08/15/21 05:20 Potassium 4.1 mmol/L (3.5-5.1) 08/15/21 05:20 Chloride 104 mmol/L (98-107) 08/15/21 05:20 Carbon Dioxide 28.3 mmol/L (21-32) 08/15/21 05:20 BUN 28 mg/dL (7-18) H 08/15/21 05:20 Creatinine 1.17 mg/dL (0.70-1.30) 08/15/21 05:20 Est GFR (MDRD) Af Amer > 60 (>60) 08/15/21 05:20 Est GFR (MDRD) Non-Af > 60 (>60) 08/15/21 05:20 Glucose 94 mg/dL (65-99) 08/15/21 05:20 POC Glucose (mg/dL) 93 mg/dL (65-99) 08/15/21 05:22 Calcium 7.2 mg/dL (8.5-10.1) L 08/15/21 05:20 Corrected Calcium 8.8 mg/dL (8.5-10.1) 08/15/21 05:20 Phosphorus 3.8 mg/dL (2.6-4.7) 08/03/21 05:00 Magnesium 1.9 mg/dL (1.7-2.9) 08/03/21 05:00 Iron 33 ug/dL (50-175) L 08/11/21 04:32 Transferrin 280 mg/dL (202-364) 08/11/21 04:32 Ferritin 53 ng/mL (26-388) 08/11/21 04:32 Total Bilirubin 0.50 mg/dL (0.2-1.0) 08/15/21 05:20 AST 20 Units/L (15-37) 08/15/21 05:20 ALT 28 Units/L (12-78) 08/15/21 05:20 Alkaline Phosphatase 76 Units/L (46-116) 08/15/21 05:20 Creatine Kinase 86 Units/L (39-308) 07/23/21 12:30 CK-MB (CK-2) 1.3 ng/mL (0-4.0) 07/23/21 12:30 CK/CKMB % Calc 1.5 % (<4) 07/23/21 12:30 Troponin I High Sens 49.9 ng/L (4.0-60.0) 07/27/21 04:40 C-Reactive Protein < 0.50 mg/L (0-3.0) 08/08/21 04:46 B-Natriuretic Peptide 60.6 pg/mL (0-79) 08/03/21 05:00 Total Protein 4.8 g/dL (6.4-8.2) L 08/15/21 05:20 Albumin 2.0 g/dL (3.4-5.0) L 08/15/21 05:20 Globulin 2.8 g/dL (2.5-4.5) 08/15/21 05:20 Albumin/Globulin Ratio 0.7 Ratio (1.1-2.1) L 08/15/21 05:20 Prealbumin 32.0 mg/dL (18-35.7) 08/10/21 04:12 Triglycerides 59 mg/dL (0-150) 08/03/21 05:00 Vitamin B12 698 pg/mL (193-986) 08/11/21 04:32 Folate 16.3 ng/mL (>8.6) 08/11/21 04:32 Specimen Type Catherized urine 07/23/21 19:40 Urine Color Yellow (YELLOW) 07/23/21 19:40 Urine Appearance Slightly hazy (CLEAR) 07/23/21 19:40 Urine pH 5.0 (5.0 - 8.0) 07/23/21 19:40 Ur Specific [place] 1.020 (1.000-1.030) 07/23/21 19:40 Urine Protein 2+ (NEGATIVE) 07/23/21 19:40 Urine Glucose (UA) 2+ (NEGATIVE) 07/23/21 19:40 Urine Ketones Negative (NEGATIVE) 07/23/21 19:40 Urine Occult Blood Negative (NEGATIVE) 07/23/21 19:40 Urine Nitrite Negative (NEGATIVE) 07/23/21 19:40 Urine Bilirubin Negative (NEGATIVE) 07/23/21 19:40 Urine Urobilinogen Normal (NORMAL) 07/23/21 19:40 Ur Leukocyte Esterase Negative (NEGATIVE) 07/23/21 19:40 Urine RBC 0-2 /HPF (0-3) 07/23/21 19:40 Urine WBC 0-2 /HPF (0-5) 07/23/21 19:40 Ur Squamous Epith Cells Negative /HPF (NEGATIVE) 07/23/21 19:40 Amorphous Sediment 2+ /HPF (NEGATIVE) 07/23/21 19:40 Urine Bacteria 1+ /HPF (NEGATIVE) 07/23/21 19:40 Hyaline Casts Few /LPF (NEGATIVE) 07/23/21 19:40 Coarse Granular Casts Few /HPF (NEGATIVE) 07/23/21 19:40 Urine Mucus Few /HPF (NEGATIVE) 07/23/21 19:40 Ur Culture Indicated? No/not indicated 07/23/21 19:40 Stool Description 50g black semi form 08/12/21 15:40 Stl Occult Blood (IFOB) Positive (NEGATIVE) A 08/12/21 15:40 SARS CoV-2 RNA Rapid HERMELINDO Positive (NEGATIVE) A 07/23/21 16:00 Blood Type A POSITIVE 08/08/21 11:04 Antibody Screen Negative 08/08/21 11:04 Crossmatch See Detail 08/08/21 11:04 Plan (1) Pneumonia due to COVID-19 virus: Status: Acute Plan: Pneumonia protocol (2) Acute on chronic respiratory failure with hypoxia: Status: Acute (3) Acute renal failure: Status: Acute Qualifiers: Acute renal failure type: unspecified Qualified Code(s): N17.9 - Acute kidney failure, unspecified Plan: IVF (4) Anemia: Status: Acute Qualifiers: Anemia type: unspecified type Qualified Code(s): D64.9 - Anemia, unspecified (5) Hypokalemia: Status: Acute (6) Elevated troponin level: Status: Acute (7) Elevated d-dimer: Status: Acute (8) Hypoalbuminemia: Status: Acute (9) Hypernatremia: Status: Acute (10) Diabetes mellitus: Status: Chronic Qualifiers: Diabetes mellitus complication status: with hyperglycemia 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
[2021-08-15] MEDS: NovoLIN R (or HumuLIN R) SUBCUT PRN (11:44)
[2021-08-15] MEDS: NS 1,000 ML IV 1,000 ML IV SCH (20:00)
[2021-08-15] MEDS: SNACK - Diabetic Appropriate PO SCH (20:41)
[2021-08-15] MEDS: RESTORIL CAP 15 MG PO PRN (20:48)
[2021-08-16 05:38] LABS: BASOPHILS % (AUTO) 0.4 % (0.2-1.0); EOSINOPHILS # (AUTO) 0.3 x10^3/uL (0.0-0.2); EOSINOPHILS % (AUTO) 4.1 % (0.9-2.9); HEMATOCRIT 22.9 % (42.0-54.0); HEMOGLOBIN 7.6 g/dL (13.5-18.0); LYMPHOCYTES # (AUTO) 0.4 X10^3/uL (1.3-2.9); LYMPHOCYTES % (AUTO) 6.5 % (21.0-51.0); MEAN CORPUSCULAR HEMOGLOBIN 29.2 pg (27.0-34.0); MEAN CORPUSCULAR HGB CONC 33.2 g/dL (33.0-35.0); MEAN CORPUSCULAR VOLUME 87.9 fL (80.0-100.0); MONOCYTES # (AUTO) 0.3 x10^3/uL (0.3-0.8); MONOCYTES % (AUTO) 4.6 % (0.0-13.0); NEUTROPHILS # (AUTO) 5.8 x10^3/uL (2.2-4.8); NEUTROPHILS % (AUTO) 84.4 % (42.0-75.0); RED CELL DISTRIBUTION WIDTH 16.8 % (11.6-16.5); WHITE BLOOD COUNT 6.8 X10^3/uL (3.6-10.0)
[2021-08-16 05:39] LABS: ALANINE AMINOTRANSFERASE 29 Units/L (12-78); ALBUMIN 1.9 g/dL (3.4-5.0); ALKALINE PHOSPHATASE 80 Units/L (46-116); ASPARTATE AMINO TRANSFERASE 21 Units/L (15-37); BLOOD UREA NITROGEN 24 mg/dL (7-18); CALCIUM 7.2 mg/dL (8.5-10.1); CARBON DIOXIDE 27.8 mmol/L (21-32); CHLORIDE 103 mmol/L (98-107); COR CA(FOR HYPOALB) 8.9 mg/dL (8.5-10.1); COR NA(FOR HYPERGLY) 139 mmol/L (136-145); CREATININE 1.28 mg/dL (0.70-1.30); SODIUM 137 mmol/L (136-145); TOTAL PROTEIN 4.8 g/dL (6.4-8.2); eGFR NON BLACK RACES 58 (>60)
[2021-08-16] MEDS: PROTONIX INJ 40 MG VIAL IVP SCH ×2 (08:10→21:00)
[2021-08-16] MEDS: PEPCID 20 MG VIAL 20 MG in NS 50 ML IV 50 ML IV SCH (08:10)
[2021-08-16] MEDS: COLACE CAP 100 MG PO SCH ×2 (08:54→21:00)
[2021-08-16] MEDS: MILK OF MAGNESIA PO SCH ×2 (08:54→23:45)
[2021-08-16] MEDS: XANAX PO SCH ×2 (08:55→21:00)
[2021-08-16] MEDS: TOPROL XL PO SCH (08:55)
[2021-08-16] MEDS: GLUCOPHAGE PO SCH (08:55)
[2021-08-16] MEDS: LEVEMIR SC SCH (08:55)
[2021-08-16] MEDS: BROVANA IN SCH ×2 (09:04→20:35)
[2021-08-16] MEDS: PULMICORT NEB TX 0.5 MG NEB SCH ×2 (09:04→20:35)
[2021-08-16] MEDS: NovoLIN R (or HumuLIN R) SUBCUT PRN ×2 (11:14→16:16)
--- NOTE | 2021-08-16 16:01 | PCM.PROG ---
Progress Note Progress Note for Day of Date of Exam: 08/16/21 Subjective Subjective: Pt is a 76 year old male with a past medical history of Hypertension, DMT2, CAD(Pacemaker), Aortic valve replacement, HLD. He was admitted with COVID-19 pneumonia and acute on chronic renal failure. Pt is still requiring 5L nasal cannula supplemental oxygen but continues to gradually improve in strength and endurance. No acute events overnight. Labs/imaging: Wbc 6.8, Hgb 7.6, Plt 64, Na 137, K 4.0, Cr 1.28, Glucose 193, Blood culture: NGTD. Patient is currently on pneumonia protocol that includes: IVF NS@KVO ml/h, Eliquis 5mg BID(hold), scheduled Bronchodilators Xopenex and Budesonide, Received Actemra 400mg x 1 dose, IV protonix 40mg BID, Famotidine 40mg BID, Levemir 5 units daily(hold), Tussionex prn, immune supporting supplements, supplemental O2, SSI, I/S, Physical therapy, Respiratory therapy consult, Smart Vest. Has central line. He has completed a course of Remdesivir. Appetite has improved, will restart Levemir at 5 units daily. Otherwise, will continue with current plan of care and continue to wean/titrate supplemental oxygen as tolerated. Continue to closely monitor and follow up labs/imaging. Past Medical Family Social History Past Med/Fam/Surg Hx: No changes since H&P Allergies: Allergies No Known Drug Allergies Allergy (Verified 07/23/21 12:02) Review of Systems ROS: No change since H&P Vital Signs and I&O's Vital Signs: Temperature 97.7 F Pulse Rate 90 Respiratory Rate 22 Blood Pressure 113/56 O2 Sat by Pulse Oximetry 95 Intake and Output: Intake & Output 08/13/21 08/14/21 08/15/21 08/16/21 23:59 23:59 23:59 23:59 Intake Total 1134 / 1134 1202 / 1202 2458 / 2458 1327 / 1327 Output Total 1969 / 1969 2900 / 2900 1000 / 1000 800 / 800 Balance -836 / -836 -1698 / -1698 1458 / 1458 527 / 527 Physical Exam Oriented: Normal Eyes: Normal Ear: Normal Nose: Normal Throat: Normal Respiratory: Diminished Cardiovascular: Normal : Normal Auscultation: Bowel Sounds: Normal Tenderness: Normal Skin: Normal Musculoskeletal: Normal Psychiatric: Normal Mood Description: Calm and Appropriate Affect: Normal Speech Pattern: Clear and Appropriate Laboratory and Diagnostics Result Diagrams: 08/16/21 04:27 08/16/21 04:27 Labs: 07/30/21 08:09 Sputum - Expectorated Sputum Sputum Culture - Final Enterobacter Aerogenes 07/30/21 08:09 Sputum - Expectorated Sputum - Final 07/26/21 16:38 Blood Blood Culture - Final 07/26/21 16:30 Blood Blood Culture - Final Laboratory WBC 6.8 X10^3/uL (3.6-10.0) 08/16/21 04:27 RBC 2.60 X10^6/uL (4.7-6.0) L 08/16/21 04:27 Hgb 7.6 g/dL (13.5-18.0) L 08/16/21 04:27 Hct 22.9 % (42.0-54.0) L 08/16/21 04:27 MCV 87.9 fL (80.0-100.0) 08/16/21 04:27 MCH 29.2 pg (27.0-34.0) 08/16/21 04:27 MCHC 33.2 g/dL (33.0-35.0) 08/16/21 04:27 RDW 16.8 % (11.6-16.5) H 08/16/21 04:27 Plt Count 64 X10^3/uL (150.0-450.0) L 08/16/21 04:27 Plt Count Comment Decreased (ADEQUATE) 08/06/21 05:37 MPV 9.0 fL (7.4-11.0) 08/16/21 04:27 Neut % (Auto) 84.4 % (42.0-75.0) H 08/16/21 04:27 Lymph % (Auto) 6.5 % (21.0-51.0) L 08/16/21 04:27 [place] % (Auto) 4.6 % (0.0-13.0) 08/16/21 04:27 Eos % (Auto) 4.1 % (0.9-2.9) H 08/16/21 04:27 Baso % (Auto) 0.4 % (0.2-1.0) 08/16/21 04:27 Neut # (Auto) 5.8 x10^3/uL (2.2-4.8) H 08/16/21 04:27 Lymph # (Auto) 0.4 X10^3/uL (1.3-2.9) L 08/16/21 04:27 [place] # (Auto) 0.3 x10^3/uL (0.3-0.8) 08/16/21 04:27 Eos # (Auto) 0.3 x10^3/uL (0.0-0.2) H 08/16/21 04:27 Baso # (Auto) 0.0 X10^3/uL (0.0-0.1) 08/16/21 04:27 Absolute Nucleated RBC 0.1 /100WBC 08/16/21 04:27 Total Counted 100 08/06/21 05:37 Neutrophils % (Manual) 96 % (39-76) H 08/06/21 05:37 Lymphocytes % (Manual) 3 % (13-43) L 08/06/21 05:37 Monocytes % (Manual) 1 % (4-9) L 08/06/21 05:37 Plt Morphology Comment Normal (NORMAL) 08/06/21 05:37 RBC Morphology Normal (NORMAL) 08/06/21 05:37 Polychromasia Slight 08/01/21 05:00 PT 20.9 SECONDS (11.8-14.3) 08/10/21 07:55 INR Target Range - 08/10/21 07:55 INR 1.90 (0.8-1.3) H 08/10/21 07:55 APTT 26.6 SECONDS (22.9-36.5) 08/10/21 07:55 PTT Comment - 08/10/21 07:55 Fibrinogen 137 mg/dL (239-489) L* 08/10/21 07:55 D-Dimer 8.51 ug/ml (0.0-0.57) H* 08/10/21 07:55 Sample Site Lr 08/01/21 04:13 ABG pH 7.390 (7.35-7.45) 08/01/21 04:13 ABG pCO2 42.0 mmHg (35.0-45.0) 08/01/21 04:13 ABG pO2 72.0 mmHg (80.0-100.0) L 08/01/21 04:13 ABG HCO3 25.4 mmol/L (22-26) 08/01/21 04:13 ABG O2 Saturation 94.0 % (90-100) 08/01/21 04:13 ABG Base Excess 0.3 mmol/L (-2.0-2.0) 08/01/21 04:13 Gene Test Pos 08/01/21 04:13 A-a Gradient 232.0 mmHg 08/01/21 04:13 FiO2 50.0 08/01/21 04:13 Blood Gas Comments Natalia well ae 08/01/21 04:13 Sodium 137 mmol/L (136-145) 08/16/21 04:27 Corrected Sodium 139 mmol/L (136-145) 08/16/21 04:27 Potassium 4.0 mmol/L (3.5-5.1) 08/16/21 04:27 Chloride 103 mmol/L (98-107) 08/16/21 04:27 Carbon Dioxide 27.8 mmol/L (21-32) 08/16/21 04:27 BUN 24 mg/dL (7-18) H 08/16/21 04:27 Creatinine 1.28 mg/dL (0.70-1.30) 08/16/21 04:27 Est GFR (MDRD) Af Amer > 60 (>60) 08/16/21 04:27 Est GFR (MDRD) Non-Af 58 (>60) L 08/16/21 04:27 Glucose 193 mg/dL (65-99) H 08/16/21 04:27 POC Glucose (mg/dL) 263 mg/dL (65-99) H 08/16/21 11:10 Calcium 7.2 mg/dL (8.5-10.1) L 08/16/21 04:27 Corrected Calcium 8.9 mg/dL (8.5-10.1) 08/16/21 04:27 Phosphorus 3.8 mg/dL (2.6-4.7) 08/03/21 05:00 Magnesium 1.9 mg/dL (1.7-2.9) 08/03/21 05:00 Iron 33 ug/dL (50-175) L 08/11/21 04:32 Transferrin 280 mg/dL (202-364) 08/11/21 04:32 Ferritin 53 ng/mL (26-388) 08/11/21 04:32 Total Bilirubin 0.60 mg/dL (0.2-1.0) 08/16/21 04:27 AST 21 Units/L (15-37) 08/16/21 04:27 ALT 29 Units/L (12-78) 08/16/21 04:27 Alkaline Phosphatase 80 Units/L (46-116) 08/16/21 04:27 Creatine Kinase 86 Units/L (39-308) 07/23/21 12:30 CK-MB (CK-2) 1.3 ng/mL (0-4.0) 07/23/21 12:30 CK/CKMB % Calc 1.5 % (<4) 07/23/21 12:30 Troponin I High Sens 49.9 ng/L (4.0-60.0) 07/27/21 04:40 C-Reactive Protein < 0.50 mg/L (0-3.0) 08/08/21 04:46 B-Natriuretic Peptide 60.6 pg/mL (0-79) 08/03/21 05:00 Total Protein 4.8 g/dL (6.4-8.2) L 08/16/21 04:27 Albumin 1.9 g/dL (3.4-5.0) L 08/16/21 04:27 Globulin 2.9 g/dL (2.5-4.5) 08/16/21 04:27 Albumin/Globulin Ratio 0.7 Ratio (1.1-2.1) L 08/16/21 04:27 Prealbumin 32.0 mg/dL (18-35.7) 08/10/21 04:12 Triglycerides 59 mg/dL (0-150) 08/03/21 05:00 Vitamin B12 698 pg/mL (193-986) 08/11/21 04:32 Folate 16.3 ng/mL (>8.6) 08/11/21 04:32 Specimen Type Catherized urine 07/23/21 19:40 Urine Color Yellow (YELLOW) 07/23/21 19:40 Urine Appearance Slightly hazy (CLEAR) 07/23/21 19:40 Urine pH 5.0 (5.0 - 8.0) 07/23/21 19:40 Ur Specific [place] 1.020 (1.000-1.030) 07/23/21 19:40 Urine Protein 2+ (NEGATIVE) 07/23/21 19:40 Urine Glucose (UA) 2+ (NEGATIVE) 07/23/21 19:40 Urine Ketones Negative (NEGATIVE) 07/23/21 19:40 Urine Occult Blood Negative (NEGATIVE) 07/23/21 19:40 Urine Nitrite Negative (NEGATIVE) 07/23/21 19:40 Urine Bilirubin Negative (NEGATIVE) 07/23/21 19:40 Urine Urobilinogen Normal (NORMAL) 07/23/21 19:40 Ur Leukocyte Esterase Negative (NEGATIVE) 07/23/21 19:40 Urine RBC 0-2 /HPF (0-3) 07/23/21 19:40 Urine WBC 0-2 /HPF (0-5) 07/23/21 19:40 Ur Squamous Epith Cells Negative /HPF (NEGATIVE) 07/23/21 19:40 Amorphous Sediment 2+ /HPF (NEGATIVE) 07/23/21 19:40 Urine Bacteria 1+ /HPF (NEGATIVE) 07/23/21 19:40 Hyaline Casts Few /LPF (NEGATIVE) 07/23/21 19:40 Coarse Granular Casts Few /HPF (NEGATIVE) 07/23/21 19:40 Urine Mucus Few /HPF (NEGATIVE) 07/23/21 19:40 Ur Culture Indicated? No/not indicated 07/23/21 19:40 Stool Description 50g black semi form 08/12/21 15:40 Stl Occult Blood (IFOB) Positive (NEGATIVE) A 08/12/21 15:40 SARS CoV-2 RNA Rapid HERMELINDO Positive (NEGATIVE) A 07/23/21 16:00 Blood Type A POSITIVE 08/08/21 11:04 Antibody Screen Negative 08/08/21 11:04 Crossmatch See Detail 08/08/21 11:04 Plan (1) Pneumonia due to COVID-19 virus: Status: Acute Plan: Pneumonia protocol (2) Acute on chronic respiratory failure with hypoxia: Status: Acute (3) Acute renal failure: Status: Acute Qualifiers: Acute renal failure type: unspecified Qualified Code(s): N17.9 - Acute kidney failure, unspecified Plan: IVF (4) Anemia: Status: Acute Qualifiers: Anemia type: unspecified type Qualified Code(s): D64.9 - Anemia, unspecified (5) Hypokalemia: Status: Acute (6) Elevated troponin level: Status: Acute (7) Elevated d-dimer: Status: Acute (8) Hypoalbuminemia: Status: Acute (9) Hypernatremia: Status: Acute (10) Diabetes mellitus: Status: Chronic Qualifiers: Diabetes mellitus complication status: with hyperglycemia Diabetes mellitus correction insulin use: with middle or intermediate school principal use Diabetes mellitus type: type 2 Qualified Code(s): E11.65 - Type 2 diabetes mellitus with hyperglycemia; Z79.4 - intermediate designer (current) use of insulin (11) Hypertension: Status: Chronic Qualifiers: Hypertension type: primary hypertension Qualified Code(s): I10 - Essential (primary) hypertension
[2021-08-16] MEDS: NS 1,000 ML IV 1,000 ML IV SCH (19:15)
[2021-08-16] MEDS: SNACK - Diabetic Appropriate PO SCH (20:00)
[2021-08-16] MEDS ORDERED: SNACK - Diabetic Appropriate PO SCH (20:00)
[2021-08-16] MEDS: RESTORIL CAP 15 MG PO PRN (21:00)
--- NOTE | 2021-08-17 05:29 | RAD ---
HISTORYPNEUMONIA F/U HX: CAD, PACEMAKER, HTN, DM SX: STENTS, CABGSTUDYCHEST, 1 [id number] trachea is midline. The cardiac silhouette is unremarkable. Permanent pacing device. Patchy bilateral pneumonic infiltrates.. The bony thorax is unremarkable.IMPRESSIONBibasilar pneumonia unchanged from 08/12/2021.Electronically signed by: Jeevan Guzmán (Aug 17, 2021 05:27:26)
[2021-08-17 05:33] LABS: BASOPHILS % (AUTO) 0.4 % (0.2-1.0); EOSINOPHILS # (AUTO) 0.3 x10^3/uL (0.0-0.2); EOSINOPHILS % (AUTO) 5.5 % (0.9-2.9); HEMATOCRIT 22.3 % (42.0-54.0); HEMOGLOBIN 7.5 g/dL (13.5-18.0); LYMPHOCYTES # (AUTO) 0.6 X10^3/uL (1.3-2.9); LYMPHOCYTES % (AUTO) 11.5 % (21.0-51.0); MEAN CORPUSCULAR HEMOGLOBIN 29.7 pg (27.0-34.0); MEAN CORPUSCULAR HGB CONC 33.7 g/dL (33.0-35.0); MEAN CORPUSCULAR VOLUME 88.2 fL (80.0-100.0); MEAN PLATELET VOLUME 9.6 fL (7.4-11.0); MONOCYTES # (AUTO) 0.3 x10^3/uL (0.3-0.8); MONOCYTES % (AUTO) 5.7 % (0.0-13.0); NEUTROPHILS % (AUTO) 76.9 % (42.0-75.0); RED BLOOD COUNT 2.53 X10^6/uL (4.7-6.0); RED CELL DISTRIBUTION WIDTH 17.8 % (11.6-16.5); WHITE BLOOD COUNT 5.2 X10^3/uL (3.6-10.0)
[2021-08-17 05:45] LABS: ALANINE AMINOTRANSFERASE 27 Units/L (12-78); ALBUMIN 1.9 g/dL (3.4-5.0); ALKALINE PHOSPHATASE 79 Units/L (46-116); ASPARTATE AMINO TRANSFERASE 21 Units/L (15-37); BLOOD UREA NITROGEN 20 mg/dL (7-18); CALCIUM 7.2 mg/dL (8.5-10.1); CARBON DIOXIDE 27.1 mmol/L (21-32); CHLORIDE 104 mmol/L (98-107); COR CA(FOR HYPOALB) 8.9 mg/dL (8.5-10.1); COR NA(FOR HYPERGLY) 139 mmol/L (136-145); CREATININE 1.15 mg/dL (0.70-1.30); SODIUM 138 mmol/L (136-145); TOTAL PROTEIN 4.9 g/dL (6.4-8.2); eGFR NON BLACK RACES > 60 (>60)
[2021-08-17] MEDS ORDERED: MORPHINE SULFATE INJ 4 MG IVP PRN (08:00)
[2021-08-17] MEDS: MILK OF MAGNESIA PO SCH ×2 (08:22→20:46)
[2021-08-17] MEDS: PULMICORT NEB TX 0.5 MG NEB SCH ×2 (08:23→20:15)
[2021-08-17] MEDS: BROVANA IN SCH ×2 (08:23→20:15)
[2021-08-17] MEDS ORDERED: LASIX IVP ONE (08:30)
[2021-08-17] MEDS: GLUCOPHAGE PO SCH (08:40)
[2021-08-17] MEDS: COLACE CAP 100 MG PO SCH ×2 (08:40→20:46)
[2021-08-17] MEDS: TOPROL XL PO SCH (08:40)
[2021-08-17] MEDS: XANAX PO SCH ×2 (08:40→20:47)
[2021-08-17] MEDS: PROTONIX INJ 40 MG VIAL IVP SCH ×2 (08:40→20:47)
[2021-08-17] MEDS: LEVEMIR SC SCH (08:41)
[2021-08-17] MEDS: PEPCID 20 MG VIAL 20 MG in NS 50 ML IV 50 ML IV SCH (08:41)
[2021-08-17] MEDS: NovoLIN R (or HumuLIN R) SUBCUT PRN ×3 (11:19→20:59)
--- NOTE | 2021-08-17 14:02 | PCM.PROG ---
Progress Note Progress Note for Day of Date of Exam: 08/17/21 Subjective Subjective: Pt is a 76 year old male with a past medical history of Hypertension, DMT2, CAD(Pacemaker), Aortic valve replacement, HLD. He was admitted with COVID-19 pneumonia and acute on chronic renal failure. Pt is now at 4L nasal cannula supplemental oxygen but with any exertion his pulse ox drops down to low to mid 80s rapidly. He does recover back with rest. No acute events overnight. Labs/imaging: Wbc 5.2, Hgb 7.5, Plt 69, Na 138, K 3.6, Cr 1.15, Glucose 140, CXR: no significant change from prior. Blood culture: NGTD. Patient is currently on pneumonia protocol that includes: IVF NS@KVO ml/h, Eliquis 5mg BID(hold), scheduled Bronchodilators Xopenex and Budesonide, Received Actemra 400mg x 1 dose, IV protonix 40mg BID, Famotidine 40mg BID, Levemir 5 units daily, Tussionex prn, immune supporting supplements, supplemental O2, SSI, I/S, Physical therapy, Respiratory therapy consult, Smart Vest. Has central line. He has completed a course of Remdesivir. Otherwise, will continue with current plan of care and continue to wean/titrate supplemental oxygen as tolerated. Continue to closely monitor and follow up labs/imaging. Past Medical Family Social History Past Med/Fam/Surg Hx: No changes since H&P Allergies: Allergies No Known Drug Allergies Allergy (Verified 07/23/21 12:02) Review of Systems ROS: No change since H&P Vital Signs and I&O's Vital Signs: Temperature 97.7 F Pulse Rate 87 Respiratory Rate 23 Blood Pressure 115/54 O2 Sat by Pulse Oximetry 96 Intake and Output: Intake & Output 08/14/21 08/15/21 08/16/21 08/17/21 23:59 23:59 23:59 23:59 Intake Total 1202 / 1202 2458 / 2458 1765 / 1765 781 / 781 Output Total 2900 / 2900 1000 / 1000 1000 / 1000 1125 / 1125 Balance -1698 / -1698 1458 / 1458 765 / 765 -344 / -344 Physical Exam Oriented: Normal Eyes: Normal Ear: Normal Nose: Normal Throat: Normal Respiratory: Diminished Cardiovascular: Normal : Normal Auscultation: Bowel Sounds: Normal Tenderness: Normal Skin: Normal Musculoskeletal: Normal Psychiatric: Normal Mood Description: Calm and Appropriate Affect: Normal Speech Pattern: Clear and Appropriate Laboratory and Diagnostics Result Diagrams: 08/17/21 05:00 08/17/21 05:00 Labs: 07/30/21 08:09 Sputum - Expectorated Sputum Sputum Culture - Final Enterobacter Aerogenes 07/30/21 08:09 Sputum - Expectorated Sputum - Final 07/26/21 16:38 Blood Blood Culture - Final 07/26/21 16:30 Blood Blood Culture - Final Laboratory WBC 5.2 X10^3/uL (3.6-10.0) 08/17/21 05:00 RBC 2.53 X10^6/uL (4.7-6.0) L 08/17/21 05:00 Hgb 7.5 g/dL (13.5-18.0) L 08/17/21 05:00 Hct 22.3 % (42.0-54.0) L 08/17/21 05:00 MCV 88.2 fL (80.0-100.0) 08/17/21 05:00 MCH 29.7 pg (27.0-34.0) 08/17/21 05:00 MCHC 33.7 g/dL (33.0-35.0) 08/17/21 05:00 RDW 17.8 % (11.6-16.5) H 08/17/21 05:00 Plt Count 69 X10^3/uL (150.0-450.0) L 08/17/21 05:00 Plt Count Comment Decreased (ADEQUATE) 08/06/21 05:37 MPV 9.6 fL (7.4-11.0) 08/17/21 05:00 Neut % (Auto) 76.9 % (42.0-75.0) H 08/17/21 05:00 Lymph % (Auto) 11.5 % (21.0-51.0) L 08/17/21 05:00 [place] % (Auto) 5.7 % (0.0-13.0) 08/17/21 05:00 Eos % (Auto) 5.5 % (0.9-2.9) H 08/17/21 05:00 Baso % (Auto) 0.4 % (0.2-1.0) 08/17/21 05:00 Neut # (Auto) 4.0 x10^3/uL (2.2-4.8) 08/17/21 05:00 Lymph # (Auto) 0.6 X10^3/uL (1.3-2.9) L 08/17/21 05:00 [place] # (Auto) 0.3 x10^3/uL (0.3-0.8) 08/17/21 05:00 Eos # (Auto) 0.3 x10^3/uL (0.0-0.2) H 08/17/21 05:00 Baso # (Auto) 0.0 X10^3/uL (0.0-0.1) 08/17/21 05:00 Absolute Nucleated RBC 0.1 /100WBC 08/17/21 05:00 Total Counted 100 08/06/21 05:37 Neutrophils % (Manual) 96 % (39-76) H 08/06/21 05:37 Lymphocytes % (Manual) 3 % (13-43) L 08/06/21 05:37 Monocytes % (Manual) 1 % (4-9) L 08/06/21 05:37 Plt Morphology Comment Normal (NORMAL) 08/06/21 05:37 RBC Morphology Normal (NORMAL) 08/06/21 05:37 Polychromasia Slight 08/01/21 05:00 PT 20.9 SECONDS (11.8-14.3) 08/10/21 07:55 INR Target Range - 08/10/21 07:55 INR 1.90 (0.8-1.3) H 08/10/21 07:55 APTT 26.6 SECONDS (22.9-36.5) 08/10/21 07:55 PTT Comment - 08/10/21 07:55 Fibrinogen 137 mg/dL (239-489) L* 08/10/21 07:55 D-Dimer 8.51 ug/ml (0.0-0.57) H* 08/10/21 07:55 Sample Site Lr 08/01/21 04:13 ABG pH 7.390 (7.35-7.45) 08/01/21 04:13 ABG pCO2 42.0 mmHg (35.0-45.0) 08/01/21 04:13 ABG pO2 72.0 mmHg (80.0-100.0) L 08/01/21 04:13 ABG HCO3 25.4 mmol/L (22-26) 08/01/21 04:13 ABG O2 Saturation 94.0 % (90-100) 08/01/21 04:13 ABG Base Excess 0.3 mmol/L (-2.0-2.0) 08/01/21 04:13 Gene Test Pos 08/01/21 04:13 A-a Gradient 232.0 mmHg 08/01/21 04:13 FiO2 50.0 08/01/21 04:13 Blood Gas Comments Natalia well ae 08/01/21 04:13 Sodium 138 mmol/L (136-145) 08/17/21 05:00 Corrected Sodium 139 mmol/L (136-145) 08/17/21 05:00 Potassium 3.6 mmol/L (3.5-5.1) 08/17/21 05:00 Chloride 104 mmol/L (98-107) 08/17/21 05:00 Carbon Dioxide 27.1 mmol/L (21-32) 08/17/21 05:00 BUN 20 mg/dL (7-18) H 08/17/21 05:00 Creatinine 1.15 mg/dL (0.70-1.30) 08/17/21 05:00 Est GFR (MDRD) Af Amer > 60 (>60) 08/17/21 05:00 Est GFR (MDRD) Non-Af > 60 (>60) 08/17/21 05:00 Glucose 140 mg/dL (65-99) H 08/17/21 05:00 POC Glucose (mg/dL) 266 mg/dL (65-99) H 08/17/21 11:18 Calcium 7.2 mg/dL (8.5-10.1) L 08/17/21 05:00 Corrected Calcium 8.9 mg/dL (8.5-10.1) 08/17/21 05:00 Phosphorus 3.8 mg/dL (2.6-4.7) 08/03/21 05:00 Magnesium 1.9 mg/dL (1.7-2.9) 08/03/21 05:00 Iron 33 ug/dL (50-175) L 08/11/21 04:32 Transferrin 280 mg/dL (202-364) 08/11/21 04:32 Ferritin 53 ng/mL (26-388) 08/11/21 04:32 Total Bilirubin 0.60 mg/dL (0.2-1.0) 08/17/21 05:00 AST 21 Units/L (15-37) 08/17/21 05:00 ALT 27 Units/L (12-78) 08/17/21 05:00 Alkaline Phosphatase 79 Units/L (46-116) 08/17/21 05:00 Creatine Kinase 86 Units/L (39-308) 07/23/21 12:30 CK-MB (CK-2) 1.3 ng/mL (0-4.0) 07/23/21 12:30 CK/CKMB % Calc 1.5 % (<4) 07/23/21 12:30 Troponin I High Sens 49.9 ng/L (4.0-60.0) 07/27/21 04:40 C-Reactive Protein < 0.50 mg/L (0-3.0) 08/08/21 04:46 B-Natriuretic Peptide 60.6 pg/mL (0-79) 08/03/21 05:00 Total Protein 4.9 g/dL (6.4-8.2) L 08/17/21 05:00 Albumin 1.9 g/dL (3.4-5.0) L 08/17/21 05:00 Globulin 3.0 g/dL (2.5-4.5) 08/17/21 05:00 Albumin/Globulin Ratio 0.6 Ratio (1.1-2.1) L 08/17/21 05:00 Prealbumin 32.0 mg/dL (18-35.7) 08/10/21 04:12 Triglycerides 59 mg/dL (0-150) 08/03/21 05:00 Vitamin B12 698 pg/mL (193-986) 08/11/21 04:32 Folate 16.3 ng/mL (>8.6) 08/11/21 04:32 Specimen Type Catherized urine 07/23/21 19:40 Urine Color Yellow (YELLOW) 07/23/21 19:40 Urine Appearance Slightly hazy (CLEAR) 07/23/21 19:40 Urine pH 5.0 (5.0 - 8.0) 07/23/21 19:40 Ur Specific [place] 1.020 (1.000-1.030) 07/23/21 19:40 Urine Protein 2+ (NEGATIVE) 07/23/21 19:40 Urine Glucose (UA) 2+ (NEGATIVE) 07/23/21 19:40 Urine Ketones Negative (NEGATIVE) 07/23/21 19:40 Urine Occult Blood Negative (NEGATIVE) 07/23/21 19:40 Urine Nitrite Negative (NEGATIVE) 07/23/21 19:40 Urine Bilirubin Negative (NEGATIVE) 07/23/21 19:40 Urine Urobilinogen Normal (NORMAL) 07/23/21 19:40 Ur Leukocyte Esterase Negative (NEGATIVE) 07/23/21 19:40 Urine RBC 0-2 /HPF (0-3) 07/23/21 19:40 Urine WBC 0-2 /HPF (0-5) 07/23/21 19:40 Ur Squamous Epith Cells Negative /HPF (NEGATIVE) 07/23/21 19:40 Amorphous Sediment 2+ /HPF (NEGATIVE) 07/23/21 19:40 Urine Bacteria 1+ /HPF (NEGATIVE) 07/23/21 19:40 Hyaline Casts Few /LPF (NEGATIVE) 07/23/21 19:40 Coarse Granular Casts Few /HPF (NEGATIVE) 07/23/21 19:40 Urine Mucus Few /HPF (NEGATIVE) 07/23/21 19:40 Ur Culture Indicated? No/not indicated 07/23/21 19:40 Stool Description 50g black semi form 08/12/21 15:40 Stl Occult Blood (IFOB) Positive (NEGATIVE) A 08/12/21 15:40 SARS CoV-2 RNA Rapid HERMELINDO Positive (NEGATIVE) A 07/23/21 16:00 Blood Type A POSITIVE 08/08/21 11:04 Antibody Screen Negative 08/08/21 11:04 Crossmatch See Detail 08/08/21 11:04 Plan (1) Pneumonia due to COVID-19 virus: Status: Acute Plan: Pneumonia protocol (2) Acute on chronic respiratory failure with hypoxia: Status: Acute (3) Acute renal failure: Status: Acute Qualifiers: Acute renal failure type: unspecified Qualified Code(s): N17.9 - Acute kidney failure, unspecified Plan: IVF (4) Anemia: Status: Acute Qualifiers: Anemia type: unspecified type Qualified Code(s): D64.9 - Anemia, unspecified (5) Hypokalemia: Status: Acute (6) Elevated troponin level: Status: Acute (7) Elevated d-dimer: Status: Acute (8) Hypoalbuminemia: Status: Acute (9) Hypernatremia: Status: Acute (10) Diabetes mellitus: Status: Chronic Qualifiers: Diabetes mellitus complication status: with hyperglycemia Diabetes mellitus long chain quiller tender insulin use: with penitentiary use Diabetes mellitus type: type 2 Qualified Code(s): E11.65 - Type 2 diabetes mellitus with hyperglycemia; Z79.4 - nursing home (current) use of insulin (11) Hypertension: Status: Chronic Qualifiers: Hypertension type: primary hypertension Qualified Code(s): I10 - Essential (primary) hypertension
[2021-08-17] MEDS: NS 1,000 ML IV 1,000 ML IV SCH (20:46)
[2021-08-17] MEDS: SNACK - Diabetic Appropriate PO SCH (20:47)
[2021-08-17] MEDS: RESTORIL CAP 15 MG PO PRN (21:00)
[2021-08-18 05:31] LABS: BASOPHILS % (AUTO) 0.3 % (0.2-1.0); EOSINOPHILS # (AUTO) 0.2 x10^3/uL (0.0-0.2); EOSINOPHILS % (AUTO) 5.9 % (0.9-2.9); HEMATOCRIT 20.8 % (42.0-54.0); LYMPHOCYTES # (AUTO) 0.5 X10^3/uL (1.3-2.9); LYMPHOCYTES % (AUTO) 12.9 % (21.0-51.0); MEAN CORPUSCULAR HEMOGLOBIN 29.8 pg (27.0-34.0); MEAN CORPUSCULAR HGB CONC 33.9 g/dL (33.0-35.0); MEAN PLATELET VOLUME 9.6 fL (7.4-11.0); MONOCYTES # (AUTO) 0.3 x10^3/uL (0.3-0.8); MONOCYTES % (AUTO) 7.4 % (0.0-13.0); NEUTROPHILS % (AUTO) 73.5 % (42.0-75.0); RED BLOOD COUNT 2.36 X10^6/uL (4.7-6.0); RED CELL DISTRIBUTION WIDTH 18.4 % (11.6-16.5); WHITE BLOOD COUNT 4.1 X10^3/uL (3.6-10.0)
[2021-08-18 05:46] LABS: ALANINE AMINOTRANSFERASE 24 Units/L (12-78); ALBUMIN 1.7 g/dL (3.4-5.0); ALKALINE PHOSPHATASE 76 Units/L (46-116); ASPARTATE AMINO TRANSFERASE 19 Units/L (15-37); BLOOD UREA NITROGEN 20 mg/dL (7-18); CALCIUM 7.3 mg/dL (8.5-10.1); CARBON DIOXIDE 28.6 mmol/L (21-32); CHLORIDE 105 mmol/L (98-107); COR CA(FOR HYPOALB) 9.1 mg/dL (8.5-10.1); COR NA(FOR HYPERGLY) 140 mmol/L (136-145); CREATININE 1.32 mg/dL (0.70-1.30); SODIUM 139 mmol/L (136-145); TOTAL PROTEIN 4.7 g/dL (6.4-8.2); eGFR NON BLACK RACES 56 (>60)
[2021-08-18] MEDS: COLACE CAP 100 MG PO SCH ×2 (08:19→20:39)
[2021-08-18] MEDS: MILK OF MAGNESIA PO SCH ×2 (08:20→20:39)
[2021-08-18] MEDS: LEVEMIR SC SCH (08:20)
[2021-08-18] MEDS: GLUCOPHAGE PO SCH (08:20)
[2021-08-18] MEDS: PROTONIX INJ 40 MG VIAL IVP SCH ×2 (08:21→20:39)
[2021-08-18] MEDS: PEPCID 20 MG VIAL 20 MG in NS 50 ML IV 50 ML IV SCH (08:21)
[2021-08-18] MEDS: XANAX PO SCH ×2 (08:21→20:39)
[2021-08-18] MEDS: TOPROL XL PO SCH (08:21)
[2021-08-18] MEDS: BROVANA IN SCH ×2 (08:27→21:06)
[2021-08-18] MEDS: PULMICORT NEB TX 0.5 MG NEB SCH ×2 (08:27→21:06)
[2021-08-18] MEDS ORDERED: POTASSIUM CHL 40 MEQ/NS 0.45% 500 ML IV PRN (11:12)
[2021-08-18] MEDS ORDERED: KLOR-CON PO PRN (11:12)
[2021-08-18] MEDS ORDERED: POTASSIUM CHL 60 MEQ/NS 0.45% 500 ML IV PRN (11:12)
[2021-08-18] MEDS ORDERED: K-RIDER 10 MEQ/NS 100 ML 10 MEQ/100 ML BAG IV PRN (11:12)
[2021-08-18] MEDS ORDERED: POTASSIUM CHLORIDE LIQ 20 MEQ UDC PO PRN (11:12)
[2021-08-18] MEDS ORDERED: MICRO K EXTEN CAP 10 MEQ PO PRN (11:12)
[2021-08-18] MEDS: K-DUR TAB 20 MEQ PO PRN (11:36)
[2021-08-18] MEDS: NovoLIN R (or HumuLIN R) SUBCUT PRN ×3 (11:37→20:39)
[2021-08-18] MEDS: NS 1,000 ML IV 1,000 ML IV SCH (20:38)
[2021-08-18] MEDS: SNACK - Diabetic Appropriate PO SCH (20:38)
[2021-08-18] MEDS: RESTORIL CAP 15 MG PO PRN (20:43)
[2021-08-19 06:21] LABS: ALANINE AMINOTRANSFERASE 23 Units/L (12-78); ALBUMIN 1.5 g/dL (3.4-5.0); ALKALINE PHOSPHATASE 68 Units/L (46-116); ASPARTATE AMINO TRANSFERASE 18 Units/L (15-37); BLOOD UREA NITROGEN 19 mg/dL (7-18); CALCIUM 6.7 mg/dL (8.5-10.1); CHLORIDE 108 mmol/L (98-107); COR CA(FOR HYPOALB) 8.7 mg/dL (8.5-10.1); COR NA(FOR HYPERGLY) 141 mmol/L (136-145); CREATININE 1.15 mg/dL (0.70-1.30); MAGNESIUM 1.8 mg/dL (1.7-2.9); SODIUM 140 mmol/L (136-145); TOTAL PROTEIN 4.4 g/dL (6.4-8.2); eGFR NON BLACK RACES > 60 (>60)
[2021-08-19 06:23] LABS: BASOPHILS % (AUTO) 0.4 % (0.2-1.0); EOSINOPHILS # (AUTO) 0.2 x10^3/uL (0.0-0.2); EOSINOPHILS % (AUTO) 4.7 % (0.9-2.9); LYMPHOCYTES # (AUTO) 0.5 X10^3/uL (1.3-2.9); LYMPHOCYTES % (AUTO) 14.4 % (21.0-51.0); MEAN CORPUSCULAR HEMOGLOBIN 29.6 pg (27.0-34.0); MEAN CORPUSCULAR HGB CONC 33.4 g/dL (33.0-35.0); MEAN CORPUSCULAR VOLUME 88.6 fL (80.0-100.0); MEAN PLATELET VOLUME 9.7 fL (7.4-11.0); MONOCYTES # (AUTO) 0.3 x10^3/uL (0.3-0.8); MONOCYTES % (AUTO) 8.7 % (0.0-13.0); NEUTROPHILS # (AUTO) 2.7 x10^3/uL (2.2-4.8); NEUTROPHILS % (AUTO) 71.8 % (42.0-75.0); RED BLOOD COUNT 2.26 X10^6/uL (4.7-6.0); RED CELL DISTRIBUTION WIDTH 18.2 % (11.6-16.5); WHITE BLOOD COUNT 3.7 X10^3/uL (3.6-10.0)
[2021-08-19 06:32] LABS: HEMOGLOBIN 6.7 g/dL (13.5-18.0)
[2021-08-19] MEDS: GLUCOPHAGE PO SCH (08:02)
[2021-08-19] MEDS: LEVEMIR SC SCH (08:02)
[2021-08-19] MEDS: COLACE CAP 100 MG PO SCH ×2 (08:02→20:36)
[2021-08-19] MEDS: MILK OF MAGNESIA PO SCH ×2 (08:03→20:36)
[2021-08-19] MEDS: PEPCID 20 MG VIAL 20 MG in NS 50 ML IV 50 ML IV SCH (08:03)
[2021-08-19] MEDS: PROTONIX INJ 40 MG VIAL IVP SCH ×2 (08:03→20:36)
[2021-08-19] MEDS: K-DUR TAB 20 MEQ PO PRN (08:04)
[2021-08-19] MEDS: TOPROL XL PO SCH (08:04)
[2021-08-19] MEDS: XANAX PO SCH ×2 (08:04→20:36)
[2021-08-19] MEDS: MAGNESIUM SULFATE 1 GRAM/100 mL PREMIX 1 G/100 ML BAG IV PRN ×2 (08:05→10:05)
[2021-08-19] MEDS ORDERED: NS 500 ML IV 500 ML IV ONE (08:17)
--- NOTE | 2021-08-19 08:55 | PCM.PROG ---
Progress Note Progress Note for Day of Date of Exam: 08/18/21 Subjective Subjective: Pt is a 76 year old male with a past medical history of Hypertension, DMT2, CAD(Pacemaker), Aortic valve replacement, HLD. He was admitted with COVID-19 pneumonia and acute on chronic renal failure. Pt is requiring between 4L-5L nasal cannula supplemental oxygen. No acute events overnight. Labs/imaging: Wbc 4.1, Hgb 7.0, Plt 69, Na 139, K 3.2, Cr 1.32, Glucose 138, Blood culture: NGTD. Patient is currently on pneumonia protocol that includes: IVF NS@KVO ml/h, Eliquis 5mg BID(hold), scheduled Bronchodilators Xopenex and Budesonide, Received Actemra 400mg x 1 dose, IV protonix 40mg BID, Famotidine 40mg BID, Levemir 5 units daily, Tussionex prn, immune supporting supplements, supplemental O2, SSI, I/S, Physical therapy, Respiratory therapy consult, Smart Vest. Has central line. He has completed a course of Remdesivir. Otherwise, will continue with current plan of care and continue to wean/titrate supplemental oxygen as tolerated. Continue to closely monitor and follow up labs/imaging. Past Medical Family Social History Past Med/Fam/Surg Hx: No changes since H&P Allergies: Allergies No Known Drug Allergies Allergy (Verified 07/23/21 12:02) Review of Systems ROS: No change since H&P Vital Signs and I&O's Vital Signs: Temperature 98.6 F Pulse Rate 105 Respiratory Rate 30 Blood Pressure 108/62 O2 Sat by Pulse Oximetry 86 Intake and Output: Intake & Output 08/16/21 08/17/21 08/18/21 08/19/21 23:59 23:59 23:59 23:59 Intake Total 1765 / 1765 1256 / 1256 1412 / 1412 430 / 430 Output Total 1000 / 1000 1125 / 1125 1250 / 1250 900 / 900 Balance 765 / 765 131 / 131 162 / 162 -470 / -470 Physical Exam Oriented: Normal Eyes: Normal Ear: Normal Nose: Normal Throat: Normal Respiratory: Diminished Cardiovascular: Normal : Normal Auscultation: Bowel Sounds: Normal Tenderness: Normal Skin: Normal Musculoskeletal: Normal Psychiatric: Normal Mood Description: Calm and Appropriate Affect: Normal Speech Pattern: Clear and Appropriate Laboratory and Diagnostics Result Diagrams: 08/19/21 05:10 08/19/21 05:10 Labs: 07/30/21 08:09 Sputum - Expectorated Sputum Sputum Culture - Final Enterobacter Aerogenes 07/30/21 08:09 Sputum - Expectorated Sputum - Final 07/26/21 16:38 Blood Blood Culture - Final 07/26/21 16:30 Blood Blood Culture - Final Laboratory WBC 3.7 X10^3/uL (3.6-10.0) 08/19/21 05:10 RBC 2.26 X10^6/uL (4.7-6.0) L 08/19/21 05:10 Hgb 6.7 g/dL (13.5-18.0) L* 08/19/21 05:10 Hct 20.0 % (42.0-54.0) L* 08/19/21 05:10 MCV 88.6 fL (80.0-100.0) 08/19/21 05:10 MCH 29.6 pg (27.0-34.0) 08/19/21 05:10 MCHC 33.4 g/dL (33.0-35.0) 08/19/21 05:10 RDW 18.2 % (11.6-16.5) H 08/19/21 05:10 Plt Count 61 X10^3/uL (150.0-450.0) L 08/19/21 05:10 Plt Count Comment Decreased (ADEQUATE) 08/06/21 05:37 MPV 9.7 fL (7.4-11.0) 08/19/21 05:10 Neut % (Auto) 71.8 % (42.0-75.0) 08/19/21 05:10 Lymph % (Auto) 14.4 % (21.0-51.0) L 08/19/21 05:10 [place] % (Auto) 8.7 % (0.0-13.0) 08/19/21 05:10 Eos % (Auto) 4.7 % (0.9-2.9) H 08/19/21 05:10 Baso % (Auto) 0.4 % (0.2-1.0) 08/19/21 05:10 Neut # (Auto) 2.7 x10^3/uL (2.2-4.8) 08/19/21 05:10 Lymph # (Auto) 0.5 X10^3/uL (1.3-2.9) L 08/19/21 05:10 [place] # (Auto) 0.3 x10^3/uL (0.3-0.8) 08/19/21 05:10 Eos # (Auto) 0.2 x10^3/uL (0.0-0.2) 08/19/21 05:10 Baso # (Auto) 0.0 X10^3/uL (0.0-0.1) 08/19/21 05:10 Absolute Nucleated RBC 0.1 /100WBC 08/19/21 05:10 Total Counted 100 08/06/21 05:37 Neutrophils % (Manual) 96 % (39-76) H 08/06/21 05:37 Lymphocytes % (Manual) 3 % (13-43) L 08/06/21 05:37 Monocytes % (Manual) 1 % (4-9) L 08/06/21 05:37 Plt Morphology Comment Normal (NORMAL) 08/06/21 05:37 RBC Morphology Normal (NORMAL) 08/06/21 05:37 Polychromasia Slight 08/01/21 05:00 PT 20.9 SECONDS (11.8-14.3) 08/10/21 07:55 INR Target Range - 08/10/21 07:55 INR 1.90 (0.8-1.3) H 08/10/21 07:55 APTT 26.6 SECONDS (22.9-36.5) 08/10/21 07:55 PTT Comment - 08/10/21 07:55 Fibrinogen 137 mg/dL (239-489) L* 08/10/21 07:55 D-Dimer 8.51 ug/ml (0.0-0.57) H* 08/10/21 07:55 Sample Site Lr 08/01/21 04:13 ABG pH 7.390 (7.35-7.45) 08/01/21 04:13 ABG pCO2 42.0 mmHg (35.0-45.0) 08/01/21 04:13 ABG pO2 72.0 mmHg (80.0-100.0) L 08/01/21 04:13 ABG HCO3 25.4 mmol/L (22-26) 08/01/21 04:13 ABG O2 Saturation 94.0 % (90-100) 08/01/21 04:13 ABG Base Excess 0.3 mmol/L (-2.0-2.0) 08/01/21 04:13 Gene Test Pos 08/01/21 04:13 A-a Gradient 232.0 mmHg 08/01/21 04:13 FiO2 50.0 08/01/21 04:13 Blood Gas Comments Natalia well ae 08/01/21 04:13 Sodium 140 mmol/L (136-145) 08/19/21 05:10 Corrected Sodium 141 mmol/L (136-145) 08/19/21 05:10 Potassium 3.4 mmol/L (3.5-5.1) L 08/19/21 05:10 Chloride 108 mmol/L (98-107) H 08/19/21 05:10 Carbon Dioxide 25.0 mmol/L (21-32) 08/19/21 05:10 BUN 19 mg/dL (7-18) H 08/19/21 05:10 Creatinine 1.15 mg/dL (0.70-1.30) 08/19/21 05:10 Est GFR (MDRD) Af Amer > 60 (>60) 08/19/21 05:10 Est GFR (MDRD) Non-Af > 60 (>60) 08/19/21 05:10 Glucose 145 mg/dL (65-99) H 08/19/21 05:10 POC Glucose (mg/dL) 156 mg/dL (65-99) H 08/19/21 05:03 Calcium 6.7 mg/dL (8.5-10.1) L 08/19/21 05:10 Corrected Calcium 8.7 mg/dL (8.5-10.1) 08/19/21 05:10 Phosphorus 3.8 mg/dL (2.6-4.7) 08/03/21 05:00 Magnesium 1.8 mg/dL (1.7-2.9) 08/19/21 05:10 Iron 33 ug/dL (50-175) L 08/11/21 04:32 Transferrin 280 mg/dL (202-364) 08/11/21 04:32 Ferritin 53 ng/mL (26-388) 08/11/21 04:32 Total Bilirubin 0.50 mg/dL (0.2-1.0) 08/19/21 05:10 AST 18 Units/L (15-37) 08/19/21 05:10 ALT 23 Units/L (12-78) 08/19/21 05:10 Alkaline Phosphatase 68 Units/L (46-116) 08/19/21 05:10 Creatine Kinase 86 Units/L (39-308) 07/23/21 12:30 CK-MB (CK-2) 1.3 ng/mL (0-4.0) 07/23/21 12:30 CK/CKMB % Calc 1.5 % (<4) 07/23/21 12:30 Troponin I High Sens 49.9 ng/L (4.0-60.0) 07/27/21 04:40 C-Reactive Protein < 0.50 mg/L (0-3.0) 08/08/21 04:46 B-Natriuretic Peptide 60.6 pg/mL (0-79) 08/03/21 05:00 Total Protein 4.4 g/dL (6.4-8.2) L 08/19/21 05:10 Albumin 1.5 g/dL (3.4-5.0) L 08/19/21 05:10 Globulin 2.9 g/dL (2.5-4.5) 08/19/21 05:10 Albumin/Globulin Ratio 0.5 Ratio (1.1-2.1) L 08/19/21 05:10 Prealbumin 32.0 mg/dL (18-35.7) 08/10/21 04:12 Triglycerides 59 mg/dL (0-150) 08/03/21 05:00 Vitamin B12 698 pg/mL (193-986) 08/11/21 04:32 Folate 16.3 ng/mL (>8.6) 08/11/21 04:32 Specimen Type Catherized urine 07/23/21 19:40 Urine Color Yellow (YELLOW) 07/23/21 19:40 Urine Appearance Slightly hazy (CLEAR) 07/23/21 19:40 Urine pH 5.0 (5.0 - 8.0) 07/23/21 19:40 Ur Specific [place] 1.020 (1.000-1.030) 07/23/21 19:40 Urine Protein 2+ (NEGATIVE) 07/23/21 19:40 Urine Glucose (UA) 2+ (NEGATIVE) 07/23/21 19:40 Urine Ketones Negative (NEGATIVE) 07/23/21 19:40 Urine Occult Blood Negative (NEGATIVE) 07/23/21 19:40 Urine Nitrite Negative (NEGATIVE) 07/23/21 19:40 Urine Bilirubin Negative (NEGATIVE) 07/23/21 19:40 Urine Urobilinogen Normal (NORMAL) 07/23/21 19:40 Ur Leukocyte Esterase Negative (NEGATIVE) 07/23/21 19:40 Urine RBC 0-2 /HPF (0-3) 07/23/21 19:40 Urine WBC 0-2 /HPF (0-5) 07/23/21 19:40 Ur Squamous Epith Cells Negative /HPF (NEGATIVE) 07/23/21 19:40 Amorphous Sediment 2+ /HPF (NEGATIVE) 07/23/21 19:40 Urine Bacteria 1+ /HPF (NEGATIVE) 07/23/21 19:40 Hyaline Casts Few /LPF (NEGATIVE) 07/23/21 19:40 Coarse Granular Casts Few /HPF (NEGATIVE) 07/23/21 19:40 Urine Mucus Few /HPF (NEGATIVE) 07/23/21 19:40 Ur Culture Indicated? No/not indicated 07/23/21 19:40 Stool Description 50g black semi form 08/12/21 15:40 Stl Occult Blood (IFOB) Positive (NEGATIVE) A 08/12/21 15:40 SARS CoV-2 RNA Rapid HERMELINDO Positive (NEGATIVE) A 07/23/21 16:00 Blood Type A POSITIVE 08/08/21 11:04 Antibody Screen Negative 08/08/21 11:04 Crossmatch See Detail 08/08/21 11:04 Plan (1) Pneumonia due to COVID-19 virus: Status: Acute Plan: Pneumonia protocol (2) Acute on chronic respiratory failure with hypoxia: Status: Acute (3) Acute renal failure: Status: Acute Qualifiers: Acute renal failure type: unspecified Qualified Code(s): N17.9 - Acute kidney failure, unspecified Plan: IVF (4) Anemia: Status: Acute Qualifiers: Anemia type: unspecified type Qualified Code(s): D64.9 - Anemia, unspecified (5) Hypokalemia: Status: Acute (6) Elevated troponin level: Status: Acute (7) Elevated d-dimer: Status: Acute (8) Hypoalbuminemia: Status: Acute (9) Hypernatremia: Status: Acute (10) Diabetes mellitus: Status: Chronic Qualifiers: Diabetes mellitus complication status: with hyperglycemia Diabetes mellitus ferry terminal supervisor insulin use: with ferry terminal supervisor use Diabetes mellitus type: type 2 Qualified Code(s): E11.65 - Type 2 diabetes mellitus with hyperglycemia; Z79.4 - assisted (current) use of insulin (11) Hypertension: Status: Chronic Qualifiers: Hypertension type: primary hypertension Qualified Code(s): I10 - Essential (primary) hypertension
[2021-08-19] MEDS: PULMICORT NEB TX 0.5 MG NEB SCH ×2 (09:01→20:10)
[2021-08-19] MEDS: BROVANA IN SCH ×2 (09:01→20:10)
--- NOTE | 2021-08-19 09:13 | PCM.PROG ---
Progress Note Progress Note for Day of Date of Exam: 08/19/21 Subjective Subjective: Pt is a 76 year old male with a past medical history of Hypertension, DMT2, CAD(Pacemaker), Aortic valve replacement, HLD. He was admitted with COVID-19 pneumonia and acute on chronic renal failure. Pt is requiring 4L nasal cannula supplemental oxygen. No acute events overnight. Labs/imaging: Wbc 3.7, Hgb 6.7, Plt 61, Na 140, K 3.4, Cr 1.15, Glucose 145, Blood culture: NGTD. Patient is currently on pneumonia protocol that includes: IVF NS@KVO ml/h, Eliquis 5mg BID(hold), scheduled Bronchodilators Xopenex and Budesonide, Received Actemra 400mg x 1 dose, IV protonix 40mg BID, Famotidine 40mg BID, Levemir 5 units daily, Tussionex prn, immune supporting supplements, supplemental O2, SSI, I/S, Physical therapy, Respiratory therapy consult, Smart Vest. Has central line. He has completed a course of Remdesivir. Will give 1 unit packed red blood cells today due to anemia. Start on carafate TID. Otherwise, will continue with current plan of care and continue to wean/titrate supplemental oxygen as tolerated. Continue to closely monitor and follow up labs/imaging. Past Medical Family Social History Past Med/Fam/Surg Hx: No changes since H&P Allergies: Allergies No Known Drug Allergies Allergy (Verified 07/23/21 12:02) Review of Systems ROS: No change since H&P Vital Signs and I&O's Vital Signs: Temperature 98.6 F Pulse Rate 100 Respiratory Rate 35 Blood Pressure 110/54 O2 Sat by Pulse Oximetry 90 Intake and Output: Intake & Output 08/16/21 08/17/21 08/18/21 08/19/21 23:59 23:59 23:59 23:59 Intake Total 1765 / 1765 1256 / 1256 1412 / 1412 430 / 430 Output Total 1000 / 1000 1125 / 1125 1250 / 1250 900 / 900 Balance 765 / 765 131 / 131 162 / 162 -470 / -470 Physical Exam Oriented: Normal Eyes: Normal Ear: Normal Nose: Normal Throat: Normal Respiratory: Diminished Cardiovascular: Normal : Normal Auscultation: Bowel Sounds: Normal Tenderness: Normal Skin: Normal Musculoskeletal: Normal Psychiatric: Normal Mood Description: Calm and Appropriate Affect: Normal Speech Pattern: Clear and Appropriate Laboratory and Diagnostics Result Diagrams: 08/19/21 05:10 08/19/21 05:10 Labs: 07/30/21 08:09 Sputum - Expectorated Sputum Sputum Culture - Final Enterobacter Aerogenes 07/30/21 08:09 Sputum - Expectorated Sputum - Final 07/26/21 16:38 Blood Blood Culture - Final 07/26/21 16:30 Blood Blood Culture - Final Laboratory WBC 3.7 X10^3/uL (3.6-10.0) 08/19/21 05:10 RBC 2.26 X10^6/uL (4.7-6.0) L 08/19/21 05:10 Hgb 6.7 g/dL (13.5-18.0) L* 08/19/21 05:10 Hct 20.0 % (42.0-54.0) L* 08/19/21 05:10 MCV 88.6 fL (80.0-100.0) 08/19/21 05:10 MCH 29.6 pg (27.0-34.0) 08/19/21 05:10 MCHC 33.4 g/dL (33.0-35.0) 08/19/21 05:10 RDW 18.2 % (11.6-16.5) H 08/19/21 05:10 Plt Count 61 X10^3/uL (150.0-450.0) L 08/19/21 05:10 Plt Count Comment Decreased (ADEQUATE) 08/06/21 05:37 MPV 9.7 fL (7.4-11.0) 08/19/21 05:10 Neut % (Auto) 71.8 % (42.0-75.0) 08/19/21 05:10 Lymph % (Auto) 14.4 % (21.0-51.0) L 08/19/21 05:10 [place] % (Auto) 8.7 % (0.0-13.0) 08/19/21 05:10 Eos % (Auto) 4.7 % (0.9-2.9) H 08/19/21 05:10 Baso % (Auto) 0.4 % (0.2-1.0) 08/19/21 05:10 Neut # (Auto) 2.7 x10^3/uL (2.2-4.8) 08/19/21 05:10 Lymph # (Auto) 0.5 X10^3/uL (1.3-2.9) L 08/19/21 05:10 [place] # (Auto) 0.3 x10^3/uL (0.3-0.8) 08/19/21 05:10 Eos # (Auto) 0.2 x10^3/uL (0.0-0.2) 08/19/21 05:10 Baso # (Auto) 0.0 X10^3/uL (0.0-0.1) 08/19/21 05:10 Absolute Nucleated RBC 0.1 /100WBC 08/19/21 05:10 Total Counted 100 08/06/21 05:37 Neutrophils % (Manual) 96 % (39-76) H 08/06/21 05:37 Lymphocytes % (Manual) 3 % (13-43) L 08/06/21 05:37 Monocytes % (Manual) 1 % (4-9) L 08/06/21 05:37 Plt Morphology Comment Normal (NORMAL) 08/06/21 05:37 RBC Morphology Normal (NORMAL) 08/06/21 05:37 Polychromasia Slight 08/01/21 05:00 PT 20.9 SECONDS (11.8-14.3) 08/10/21 07:55 INR Target Range - 08/10/21 07:55 INR 1.90 (0.8-1.3) H 08/10/21 07:55 APTT 26.6 SECONDS (22.9-36.5) 08/10/21 07:55 PTT Comment - 08/10/21 07:55 Fibrinogen 137 mg/dL (239-489) L* 08/10/21 07:55 D-Dimer 8.51 ug/ml (0.0-0.57) H* 08/10/21 07:55 Sample Site Lr 08/01/21 04:13 ABG pH 7.390 (7.35-7.45) 08/01/21 04:13 ABG pCO2 42.0 mmHg (35.0-45.0) 08/01/21 04:13 ABG pO2 72.0 mmHg (80.0-100.0) L 08/01/21 04:13 ABG HCO3 25.4 mmol/L (22-26) 08/01/21 04:13 ABG O2 Saturation 94.0 % (90-100) 08/01/21 04:13 ABG Base Excess 0.3 mmol/L (-2.0-2.0) 08/01/21 04:13 Gene Test Pos 08/01/21 04:13 A-a Gradient 232.0 mmHg 08/01/21 04:13 FiO2 50.0 08/01/21 04:13 Blood Gas Comments Natalia well ae 08/01/21 04:13 Sodium 140 mmol/L (136-145) 08/19/21 05:10 Corrected Sodium 141 mmol/L (136-145) 08/19/21 05:10 Potassium 3.4 mmol/L (3.5-5.1) L 08/19/21 05:10 Chloride 108 mmol/L (98-107) H 08/19/21 05:10 Carbon Dioxide 25.0 mmol/L (21-32) 08/19/21 05:10 BUN 19 mg/dL (7-18) H 08/19/21 05:10 Creatinine 1.15 mg/dL (0.70-1.30) 08/19/21 05:10 Est GFR (MDRD) Af Amer > 60 (>60) 08/19/21 05:10 Est GFR (MDRD) Non-Af > 60 (>60) 08/19/21 05:10 Glucose 145 mg/dL (65-99) H 08/19/21 05:10 POC Glucose (mg/dL) 156 mg/dL (65-99) H 08/19/21 05:03 Calcium 6.7 mg/dL (8.5-10.1) L 08/19/21 05:10 Corrected Calcium 8.7 mg/dL (8.5-10.1) 08/19/21 05:10 Phosphorus 3.8 mg/dL (2.6-4.7) 08/03/21 05:00 Magnesium 1.8 mg/dL (1.7-2.9) 08/19/21 05:10 Iron 33 ug/dL (50-175) L 08/11/21 04:32 Transferrin 280 mg/dL (202-364) 08/11/21 04:32 Ferritin 53 ng/mL (26-388) 08/11/21 04:32 Total Bilirubin 0.50 mg/dL (0.2-1.0) 08/19/21 05:10 AST 18 Units/L (15-37) 08/19/21 05:10 ALT 23 Units/L (12-78) 08/19/21 05:10 Alkaline Phosphatase 68 Units/L (46-116) 08/19/21 05:10 Creatine Kinase 86 Units/L (39-308) 07/23/21 12:30 CK-MB (CK-2) 1.3 ng/mL (0-4.0) 07/23/21 12:30 CK/CKMB % Calc 1.5 % (<4) 07/23/21 12:30 Troponin I High Sens 49.9 ng/L (4.0-60.0) 07/27/21 04:40 C-Reactive Protein < 0.50 mg/L (0-3.0) 08/08/21 04:46 B-Natriuretic Peptide 60.6 pg/mL (0-79) 08/03/21 05:00 Total Protein 4.4 g/dL (6.4-8.2) L 08/19/21 05:10 Albumin 1.5 g/dL (3.4-5.0) L 08/19/21 05:10 Globulin 2.9 g/dL (2.5-4.5) 08/19/21 05:10 Albumin/Globulin Ratio 0.5 Ratio (1.1-2.1) L 08/19/21 05:10 Prealbumin 32.0 mg/dL (18-35.7) 08/10/21 04:12 Triglycerides 59 mg/dL (0-150) 08/03/21 05:00 Vitamin B12 698 pg/mL (193-986) 08/11/21 04:32 Folate 16.3 ng/mL (>8.6) 08/11/21 04:32 Specimen Type Catherized urine 07/23/21 19:40 Urine Color Yellow (YELLOW) 07/23/21 19:40 Urine Appearance Slightly hazy (CLEAR) 07/23/21 19:40 Urine pH 5.0 (5.0 - 8.0) 07/23/21 19:40 Ur Specific [place] 1.020 (1.000-1.030) 07/23/21 19:40 Urine Protein 2+ (NEGATIVE) 07/23/21 19:40 Urine Glucose (UA) 2+ (NEGATIVE) 07/23/21 19:40 Urine Ketones Negative (NEGATIVE) 07/23/21 19:40 Urine Occult Blood Negative (NEGATIVE) 07/23/21 19:40 Urine Nitrite Negative (NEGATIVE) 07/23/21 19:40 Urine Bilirubin Negative (NEGATIVE) 07/23/21 19:40 Urine Urobilinogen Normal (NORMAL) 07/23/21 19:40 Ur Leukocyte Esterase Negative (NEGATIVE) 07/23/21 19:40 Urine RBC 0-2 /HPF (0-3) 07/23/21 19:40 Urine WBC 0-2 /HPF (0-5) 07/23/21 19:40 Ur Squamous Epith Cells Negative /HPF (NEGATIVE) 07/23/21 19:40 Amorphous Sediment 2+ /HPF (NEGATIVE) 07/23/21 19:40 Urine Bacteria 1+ /HPF (NEGATIVE) 07/23/21 19:40 Hyaline Casts Few /LPF (NEGATIVE) 07/23/21 19:40 Coarse Granular Casts Few /HPF (NEGATIVE) 07/23/21 19:40 Urine Mucus Few /HPF (NEGATIVE) 07/23/21 19:40 Ur Culture Indicated? No/not indicated 07/23/21 19:40 Stool Description 50g black semi form 08/12/21 15:40 Stl Occult Blood (IFOB) Positive (NEGATIVE) A 08/12/21 15:40 SARS CoV-2 RNA Rapid HERMELINDO Positive (NEGATIVE) A 07/23/21 16:00 Blood Type A POSITIVE 08/08/21 11:04 Antibody Screen Negative 08/08/21 11:04 Crossmatch See Detail 08/08/21 11:04 Plan (1) Pneumonia due to COVID-19 virus: Status: Acute Plan: Pneumonia protocol (2) Acute on chronic respiratory failure with hypoxia: Status: Acute (3) Acute renal failure: Status: Acute Qualifiers: Acute renal failure type: unspecified Qualified Code(s): N17.9 - Acute kidney failure, unspecified Plan: IVF (4) Anemia: Status: Acute Qualifiers: Anemia type: unspecified type Qualified Code(s): D64.9 - Anemia, unspecified (5) Hypokalemia: Status: Acute (6) Elevated troponin level: Status: Acute (7) Elevated d-dimer: Status: Acute (8) Hypoalbuminemia: Status: Acute (9) Hypernatremia: Status: Acute (10) Diabetes mellitus: Status: Chronic Qualifiers: Diabetes mellitus complication status: with hyperglycemia Diabetes mellitus chcf insulin use: with exterminator helper use Diabetes mellitus type: type 2 Qualified Code(s): E11.65 - Type 2 diabetes mellitus with hyperglycemia; Z79.4 - exterminator helper (current) use of insulin (11) Hypertension: Status: Chronic Qualifiers: Hypertension type: primary hypertension Qualified Code(s): I10 - Essential (primary) hypertension
[2021-08-19] MEDS: NovoLIN R (or HumuLIN R) SUBCUT PRN ×2 (11:23→20:37)
--- NOTE | 2021-08-19 13:11 | PCM.PROG ---
Progress Note Progress Note for Day of Date of Exam: 08/19/21 Past Medical Family Social History Allergies: Allergies No Known Drug Allergies Allergy (Verified 07/23/21 12:02) Vital Signs and I&O's Vital Signs: Temperature 98.3 F Pulse Rate 95 Respiratory Rate 30 Blood Pressure 110/54 O2 Sat by Pulse Oximetry 92 Intake and Output: Intake & Output 08/16/21 08/17/21 08/18/21 08/19/21 23:59 23:59 23:59 23:59 Intake Total 1765 / 1765 1256 / 1256 1412 / 1412 430 / 430 Output Total 1000 / 1000 1125 / 1125 1250 / 1250 900 / 900 Balance 765 / 765 131 / 131 162 / 162 -470 / -470 Physical Exam Auscultation: Bowel Sounds: Normal Laboratory and Diagnostics Result Diagrams: 08/19/21 05:10 08/19/21 05:10 Labs: 07/30/21 08:09 Sputum - Expectorated Sputum Sputum Culture - Final Enterobacter Aerogenes 07/30/21 08:09 Sputum - Expectorated Sputum - Final 07/26/21 16:38 Blood Blood Culture - Final 07/26/21 16:30 Blood Blood Culture - Final Laboratory WBC 3.7 X10^3/uL (3.6-10.0) 08/19/21 05:10 RBC 2.26 X10^6/uL (4.7-6.0) L 08/19/21 05:10 Hgb 6.7 g/dL (13.5-18.0) L* 08/19/21 05:10 Hct 20.0 % (42.0-54.0) L* 08/19/21 05:10 MCV 88.6 fL (80.0-100.0) 08/19/21 05:10 MCH 29.6 pg (27.0-34.0) 08/19/21 05:10 MCHC 33.4 g/dL (33.0-35.0) 08/19/21 05:10 RDW 18.2 % (11.6-16.5) H 08/19/21 05:10 Plt Count 61 X10^3/uL (150.0-450.0) L 08/19/21 05:10 Plt Count Comment Decreased (ADEQUATE) 08/06/21 05:37 MPV 9.7 fL (7.4-11.0) 08/19/21 05:10 Neut % (Auto) 71.8 % (42.0-75.0) 08/19/21 05:10 Lymph % (Auto) 14.4 % (21.0-51.0) L 08/19/21 05:10 [place] % (Auto) 8.7 % (0.0-13.0) 08/19/21 05:10 Eos % (Auto) 4.7 % (0.9-2.9) H 08/19/21 05:10 Baso % (Auto) 0.4 % (0.2-1.0) 08/19/21 05:10 Neut # (Auto) 2.7 x10^3/uL (2.2-4.8) 08/19/21 05:10 Lymph # (Auto) 0.5 X10^3/uL (1.3-2.9) L 08/19/21 05:10 [place] # (Auto) 0.3 x10^3/uL (0.3-0.8) 08/19/21 05:10 Eos # (Auto) 0.2 x10^3/uL (0.0-0.2) 08/19/21 05:10 Baso # (Auto) 0.0 X10^3/uL (0.0-0.1) 08/19/21 05:10 Absolute Nucleated RBC 0.1 /100WBC 08/19/21 05:10 Total Counted 100 08/06/21 05:37 Neutrophils % (Manual) 96 % (39-76) H 08/06/21 05:37 Lymphocytes % (Manual) 3 % (13-43) L 08/06/21 05:37 Monocytes % (Manual) 1 % (4-9) L 08/06/21 05:37 Plt Morphology Comment Normal (NORMAL) 08/06/21 05:37 RBC Morphology Normal (NORMAL) 08/06/21 05:37 Polychromasia Slight 08/01/21 05:00 PT 20.9 SECONDS (11.8-14.3) 08/10/21 07:55 INR Target Range - 08/10/21 07:55 INR 1.90 (0.8-1.3) H 08/10/21 07:55 APTT 26.6 SECONDS (22.9-36.5) 08/10/21 07:55 PTT Comment - 08/10/21 07:55 Fibrinogen 137 mg/dL (239-489) L* 08/10/21 07:55 D-Dimer 8.51 ug/ml (0.0-0.57) H* 08/10/21 07:55 Sample Site Lr 08/01/21 04:13 ABG pH 7.390 (7.35-7.45) 08/01/21 04:13 ABG pCO2 42.0 mmHg (35.0-45.0) 08/01/21 04:13 ABG pO2 72.0 mmHg (80.0-100.0) L 08/01/21 04:13 ABG HCO3 25.4 mmol/L (22-26) 08/01/21 04:13 ABG O2 Saturation 94.0 % (90-100) 08/01/21 04:13 ABG Base Excess 0.3 mmol/L (-2.0-2.0) 08/01/21 04:13 Gene Test Pos 08/01/21 04:13 A-a Gradient 232.0 mmHg 08/01/21 04:13 FiO2 50.0 08/01/21 04:13 Blood Gas Comments Natalia well ae 08/01/21 04:13 Sodium 140 mmol/L (136-145) 08/19/21 05:10 Corrected Sodium 141 mmol/L (136-145) 08/19/21 05:10 Potassium 3.4 mmol/L (3.5-5.1) L 08/19/21 05:10 Chloride 108 mmol/L (98-107) H 08/19/21 05:10 Carbon Dioxide 25.0 mmol/L (21-32) 08/19/21 05:10 BUN 19 mg/dL (7-18) H 08/19/21 05:10 Creatinine 1.15 mg/dL (0.70-1.30) 08/19/21 05:10 Est GFR (MDRD) Af Amer > 60 (>60) 08/19/21 05:10 Est GFR (MDRD) Non-Af > 60 (>60) 08/19/21 05:10 Glucose 145 mg/dL (65-99) H 08/19/21 05:10 POC Glucose (mg/dL) 252 mg/dL (65-99) H 08/19/21 11:14 Calcium 6.7 mg/dL (8.5-10.1) L 08/19/21 05:10 Corrected Calcium 8.7 mg/dL (8.5-10.1) 08/19/21 05:10 Phosphorus 3.8 mg/dL (2.6-4.7) 08/03/21 05:00 Magnesium 1.8 mg/dL (1.7-2.9) 08/19/21 05:10 Iron 33 ug/dL (50-175) L 08/11/21 04:32 Transferrin 280 mg/dL (202-364) 08/11/21 04:32 Ferritin 53 ng/mL (26-388) 08/11/21 04:32 Total Bilirubin 0.50 mg/dL (0.2-1.0) 08/19/21 05:10 AST 18 Units/L (15-37) 08/19/21 05:10 ALT 23 Units/L (12-78) 08/19/21 05:10 Alkaline Phosphatase 68 Units/L (46-116) 08/19/21 05:10 Creatine Kinase 86 Units/L (39-308) 07/23/21 12:30 CK-MB (CK-2) 1.3 ng/mL (0-4.0) 07/23/21 12:30 CK/CKMB % Calc 1.5 % (<4) 07/23/21 12:30 Troponin I High Sens 49.9 ng/L (4.0-60.0) 07/27/21 04:40 C-Reactive Protein < 0.50 mg/L (0-3.0) 08/08/21 04:46 B-Natriuretic Peptide 60.6 pg/mL (0-79) 08/03/21 05:00 Total Protein 4.4 g/dL (6.4-8.2) L 08/19/21 05:10 Albumin 1.5 g/dL (3.4-5.0) L 08/19/21 05:10 Globulin 2.9 g/dL (2.5-4.5) 08/19/21 05:10 Albumin/Globulin Ratio 0.5 Ratio (1.1-2.1) L 08/19/21 05:10 Prealbumin 32.0 mg/dL (18-35.7) 08/10/21 04:12 Triglycerides 59 mg/dL (0-150) 08/03/21 05:00 Vitamin B12 698 pg/mL (193-986) 08/11/21 04:32 Folate 16.3 ng/mL (>8.6) 08/11/21 04:32 Specimen Type Catherized urine 07/23/21 19:40 Urine Color Yellow (YELLOW) 07/23/21 19:40 Urine Appearance Slightly hazy (CLEAR) 07/23/21 19:40 Urine pH 5.0 (5.0 - 8.0) 07/23/21 19:40 Ur Specific [place] 1.020 (1.000-1.030) 07/23/21 19:40 Urine Protein 2+ (NEGATIVE) 07/23/21 19:40 Urine Glucose (UA) 2+ (NEGATIVE) 07/23/21 19:40 Urine Ketones Negative (NEGATIVE) 07/23/21 19:40 Urine Occult Blood Negative (NEGATIVE) 07/23/21 19:40 Urine Nitrite Negative (NEGATIVE) 07/23/21 19:40 Urine Bilirubin Negative (NEGATIVE) 07/23/21 19:40 Urine Urobilinogen Normal (NORMAL) 07/23/21 19:40 Ur Leukocyte Esterase Negative (NEGATIVE) 07/23/21 19:40 Urine RBC 0-2 /HPF (0-3) 07/23/21 19:40 Urine WBC 0-2 /HPF (0-5) 07/23/21 19:40 Ur Squamous Epith Cells Negative /HPF (NEGATIVE) 07/23/21 19:40 Amorphous Sediment 2+ /HPF (NEGATIVE) 07/23/21 19:40 Urine Bacteria 1+ /HPF (NEGATIVE) 07/23/21 19:40 Hyaline Casts Few /LPF (NEGATIVE) 07/23/21 19:40 Coarse Granular Casts Few /HPF (NEGATIVE) 07/23/21 19:40 Urine Mucus Few /HPF (NEGATIVE) 07/23/21 19:40 Ur Culture Indicated? No/not indicated 07/23/21 19:40 Stool Description 50g black semi form 08/12/21 15:40 Stl Occult Blood (IFOB) Positive (NEGATIVE) A 08/12/21 15:40 SARS CoV-2 RNA Rapid HERMELINDO Positive (NEGATIVE) A 07/23/21 16:00 Blood Type A POSITIVE 08/19/21 08:41 Antibody Screen Negative 08/19/21 08:41 Crossmatch See Detail 08/19/21 08:41 Plan (1) Pneumonia due to COVID-19 virus: Status: Acute Plan: Case discussed with bedside RN Reynold. Patient is a very pleasant 76-year-old male who has been in ICU for hypoxic respiratory failure secondary to Covid pneumonia. I was previously consulted for continuous BiPAP however after optimization his oxygen requirement has significantly come down. A few days ago he was taken off high flow. Today he was weaned down from 5 L to 4 L oxygen via nasal cannula. From respiratory point of view he is doing very well. Unfortunately he was having melanotic stools and his hemoglobin dropped. Hemoglobin is 6.7. He is getting blood transfusions. Consider GI consult. Continue to wean oxygen as tolerated Continue lung recruitment maneuvers Monitor input/output to keep negative fluid balance From pulmonary standpoint, he is stable for discharge to rehab versus home depending on physical therapy's recommendations. No further pulmonary recommendations. Thank you for involving us in care of the patient. Please feel free to call us with any questions. (2) Acute on chronic respiratory failure with hypoxia: Status: Acute (3) Acute renal failure: Status: Acute Qualifiers: Acute renal failure type: unspecified Qualified Code(s): N17.9 - Acute kidney failure, unspecified Plan: IVF (4) Anemia: Status: Acute Qualifiers: Anemia type: unspecified type Qualified Code(s): D64.9 - Anemia, unspecified (5) Hypokalemia: Status: Acute (6) Elevated troponin level: Status: Acute (7) Elevated d-dimer: Status: Acute (8) Hypoalbuminemia: Status: Acute (9) Hypernatremia: Status: Acute (10) Diabetes mellitus: Status: Chronic Qualifiers: Diabetes mellitus type: type 2 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
[2021-08-19] MEDS: CARAFATE ORAL SUSP PO SCH ×2 (13:48→21:09)
[2021-08-19 14:28] LABS: HEMATOCRIT 24.2 % (42.0-54.0); HEMOGLOBIN 8.3 g/dL (13.5-18.0)
[2021-08-19 18:18] LABS: BILIRUBIN,URINE NEGATIVE (NEGATIVE); BLOOD/HEMOGLOBIN,URINE 2+ (NEGATIVE); GLUCOSE, URINE 2+ (NEGATIVE); KETONES,URINE NEGATIVE (NEGATIVE); LEUKOCYTE ESTERASE ,URINE NEGATIVE (NEGATIVE); NITRITES,URINE NEGATIVE (NEGATIVE); PROTEIN,URINE 2+ (NEGATIVE); UROBILINOGEN,URINE NORMAL (NORMAL)
[2021-08-19 18:23] LABS: APPEARANCE,URINE CLEAR (CLEAR); COLOR,URINE YELLOW (YELLOW)
[2021-08-19 18:29] LABS: BACTERIA,URINE 1+ /HPF (NEGATIVE); HYALINE CASTS, URINE MODERATE /LPF (NEGATIVE); SQUAMOUS EPITHELIAL CELL,UR FEW /HPF (NEGATIVE); YEAST,URINE MODERATE /HPF (NEGATIVE)
[2021-08-19] MEDS: NS 1,000 ML IV 1,000 ML IV SCH ×2 (20:30→23:39)
[2021-08-19] MEDS: RESTORIL CAP 15 MG PO PRN (20:36)
[2021-08-19] MEDS: SNACK - Diabetic Appropriate PO SCH (20:36)
[2021-08-19] MEDS: ROBITUSSIN DM PO PRN (23:04)
[2021-08-20 05:03] LABS: BASOPHILS % (AUTO) 0.6 % (0.2-1.0); EOSINOPHILS # (AUTO) 0.2 x10^3/uL (0.0-0.2); EOSINOPHILS % (AUTO) 4.7 % (0.9-2.9); HEMATOCRIT 22.4 % (42.0-54.0); HEMOGLOBIN 7.6 g/dL (13.5-18.0); LYMPHOCYTES # (AUTO) 0.5 X10^3/uL (1.3-2.9); LYMPHOCYTES % (AUTO) 12.6 % (21.0-51.0); MEAN CORPUSCULAR HEMOGLOBIN 29.2 pg (27.0-34.0); MEAN PLATELET VOLUME 8.6 fL (7.4-11.0); MONOCYTES # (AUTO) 0.4 x10^3/uL (0.3-0.8); MONOCYTES % (AUTO) 11.3 % (0.0-13.0); NEUTROPHILS # (AUTO) 2.7 x10^3/uL (2.2-4.8); NEUTROPHILS % (AUTO) 70.8 % (42.0-75.0); RED CELL DISTRIBUTION WIDTH 19.8 % (11.6-16.5); WHITE BLOOD COUNT 3.9 X10^3/uL (3.6-10.0)
[2021-08-20 05:09] LABS: ALANINE AMINOTRANSFERASE 21 Units/L (12-78); ALBUMIN 1.5 g/dL (3.4-5.0); ALKALINE PHOSPHATASE 73 Units/L (46-116); ASPARTATE AMINO TRANSFERASE 17 Units/L (15-37); BLOOD UREA NITROGEN 17 mg/dL (7-18); CALCIUM 6.4 mg/dL (8.5-10.1); CARBON DIOXIDE 25.7 mmol/L (21-32); CHLORIDE 107 mmol/L (98-107); COR CA(FOR HYPOALB) 8.4 mg/dL (8.5-10.1); COR NA(FOR HYPERGLY) 139 mmol/L (136-145); CREATININE 1.23 mg/dL (0.70-1.30); MAGNESIUM 2.1 mg/dL (1.7-2.9); SODIUM 137 mmol/L (136-145); TOTAL PROTEIN 4.5 g/dL (6.4-8.2); eGFR NON BLACK RACES > 60 (>60)
[2021-08-20] MEDS: CARAFATE ORAL SUSP PO SCH ×3 (05:24→21:13)
[2021-08-20] MEDS: NovoLIN R (or HumuLIN R) SUBCUT PRN ×3 (05:24→20:21)
[2021-08-20] MEDS: GLUCOPHAGE PO SCH (08:20)
[2021-08-20] MEDS: COLACE CAP 100 MG PO SCH ×2 (08:20→20:18)
[2021-08-20] MEDS: PROTONIX INJ 40 MG VIAL IVP SCH ×2 (08:21→20:20)
[2021-08-20] MEDS: LEVEMIR SC SCH (08:21)
[2021-08-20] MEDS: MILK OF MAGNESIA PO SCH ×2 (08:21→20:20)
[2021-08-20] MEDS: PEPCID 20 MG VIAL 20 MG in NS 50 ML IV 50 ML IV SCH (08:21)
[2021-08-20] MEDS: TOPROL XL PO SCH (08:21)
[2021-08-20] MEDS: XANAX PO SCH ×2 (08:21→20:20)
[2021-08-20] MEDS: PULMICORT NEB TX 0.5 MG NEB SCH ×2 (08:45→20:43)
[2021-08-20] MEDS: BROVANA IN SCH ×2 (08:45→20:43)
--- NOTE | 2021-08-20 12:54 | PCM.PROG ---
Progress Note Progress Note for Day of Date of Exam: 08/20/21 Subjective Subjective: Pt is a 76 year old male with a past medical history of Hypertension, DMT2, CAD(Pacemaker), Aortic valve replacement, HLD. He was admitted with COVID-19 pneumonia and acute on chronic renal failure. Pt is requiring 4L nasal cannula supplemental oxygen. Labs/imaging: Wbc 3.9, Hgb 7.6, Plt 62, Na 137, K 3.5, Cr 1.23, Glucose 190, Blood culture: NGTD. Patient is currently on pneumonia protocol that includes: IVF NS@KVO ml/h, Eliquis 5mg BID(hold), scheduled Bronchodilators Xopenex and Budesonide, Received Actemra 400mg x 1 dose, IV protonix 40mg BID, Famotidine 40mg BID, Levemir 5 units daily, Carafate, Tussionex prn, immune supporting supplements, supplemental O2, SSI, I/S, Physical therapy, Respiratory therapy consult, Smart Vest. Has central line. He has completed a course of Remdesivir. Due to stool occult being positive, will consult Dr Villanueva for evaluation of GI bleed. Otherwise, will continue with current plan of care and continue to wean/titrate supplemental oxygen as tolerated. Continue to closely monitor and follow up labs/imaging. Past Medical Family Social History Past Med/Fam/Surg Hx: No changes since H&P Allergies: Allergies No Known Drug Allergies Allergy (Verified 07/23/21 12:02) Review of Systems ROS: No change since H&P Vital Signs and I&O's Vital Signs: Temperature 97.9 F Pulse Rate 89 Respiratory Rate 25 Blood Pressure 116/55 O2 Sat by Pulse Oximetry 98 Intake and Output: Intake & Output 08/17/21 08/18/21 08/19/21 08/20/21 23:59 23:59 23:59 23:59 Intake Total 1256 / 1256 1412 / 1412 2817 / 2817 660 / 660 Output Total 1125 / 1125 1250 / 1250 1700 / 1700 400 / 400 Balance 131 / 131 162 / 162 1117 / 1117 260 / 260 Physical Exam Oriented: Normal Eyes: Normal Ear: Normal Nose: Normal Throat: Normal Respiratory: Diminished Cardiovascular: Normal : Normal Auscultation: Bowel Sounds: Normal Tenderness: Normal Skin: Normal Musculoskeletal: Normal Psychiatric: Normal Mood Description: Calm and Appropriate Affect: Normal Speech Pattern: Clear and Appropriate Laboratory and Diagnostics Result Diagrams: 08/23/21 04:17 08/23/21 04:17 Labs: 07/30/21 08:09 Sputum - Expectorated Sputum Sputum Culture - Final Enterobacter Aerogenes 07/30/21 08:09 Sputum - Expectorated Sputum - Final 07/26/21 16:38 Blood Blood Culture - Final 07/26/21 16:30 Blood Blood Culture - Final Laboratory WBC 3.9 X10^3/uL (3.6-10.0) 08/20/21 04:26 RBC 2.60 X10^6/uL (4.7-6.0) L 08/20/21 04:26 Hgb 7.6 g/dL (13.5-18.0) L 08/20/21 04:26 Hct 22.4 % (42.0-54.0) L 08/20/21 04:26 MCV 86.0 fL (80.0-100.0) 08/20/21 04:26 MCH 29.2 pg (27.0-34.0) 08/20/21 04:26 MCHC 34.0 g/dL (33.0-35.0) 08/20/21 04:26 RDW 19.8 % (11.6-16.5) H 08/20/21 04:26 Plt Count 62 X10^3/uL (150.0-450.0) L 08/20/21 04:26 Plt Count Comment Decreased (ADEQUATE) 08/06/21 05:37 MPV 8.6 fL (7.4-11.0) 08/20/21 04:26 Neut % (Auto) 70.8 % (42.0-75.0) 08/20/21 04:26 Lymph % (Auto) 12.6 % (21.0-51.0) L 08/20/21 04:26 [place] % (Auto) 11.3 % (0.0-13.0) 08/20/21 04:26 Eos % (Auto) 4.7 % (0.9-2.9) H 08/20/21 04:26 Baso % (Auto) 0.6 % (0.2-1.0) 08/20/21 04:26 Neut # (Auto) 2.7 x10^3/uL (2.2-4.8) 08/20/21 04:26 Lymph # (Auto) 0.5 X10^3/uL (1.3-2.9) L 08/20/21 04:26 [place] # (Auto) 0.4 x10^3/uL (0.3-0.8) 08/20/21 04:26 Eos # (Auto) 0.2 x10^3/uL (0.0-0.2) 08/20/21 04:26 Baso # (Auto) 0.0 X10^3/uL (0.0-0.1) 08/20/21 04:26 Absolute Nucleated RBC 0.1 /100WBC 08/20/21 04:26 Total Counted 100 08/06/21 05:37 Neutrophils % (Manual) 96 % (39-76) H 08/06/21 05:37 Lymphocytes % (Manual) 3 % (13-43) L 08/06/21 05:37 Monocytes % (Manual) 1 % (4-9) L 08/06/21 05:37 Plt Morphology Comment Normal (NORMAL) 08/06/21 05:37 RBC Morphology Normal (NORMAL) 08/06/21 05:37 Polychromasia Slight 08/01/21 05:00 PT 20.9 SECONDS (11.8-14.3) 08/10/21 07:55 INR Target Range - 08/10/21 07:55 INR 1.90 (0.8-1.3) H 08/10/21 07:55 APTT 26.6 SECONDS (22.9-36.5) 08/10/21 07:55 PTT Comment - 08/10/21 07:55 Fibrinogen 137 mg/dL (239-489) L* 08/10/21 07:55 D-Dimer 8.51 ug/ml (0.0-0.57) H* 08/10/21 07:55 Sample Site Lr 08/01/21 04:13 ABG pH 7.390 (7.35-7.45) 08/01/21 04:13 ABG pCO2 42.0 mmHg (35.0-45.0) 08/01/21 04:13 ABG pO2 72.0 mmHg (80.0-100.0) L 08/01/21 04:13 ABG HCO3 25.4 mmol/L (22-26) 08/01/21 04:13 ABG O2 Saturation 94.0 % (90-100) 08/01/21 04:13 ABG Base Excess 0.3 mmol/L (-2.0-2.0) 08/01/21 04:13 Gene Test Pos 08/01/21 04:13 A-a Gradient 232.0 mmHg 08/01/21 04:13 FiO2 50.0 08/01/21 04:13 Blood Gas Comments Natalia well ae 08/01/21 04:13 Sodium 137 mmol/L (136-145) 08/20/21 04:26 Corrected Sodium 139 mmol/L (136-145) 08/20/21 04:26 Potassium 3.5 mmol/L (3.5-5.1) 08/20/21 04:26 Chloride 107 mmol/L (98-107) 08/20/21 04:26 Carbon Dioxide 25.7 mmol/L (21-32) 08/20/21 04:26 BUN 17 mg/dL (7-18) 08/20/21 04:26 Creatinine 1.23 mg/dL (0.70-1.30) 08/20/21 04:26 Est GFR (MDRD) Af Amer > 60 (>60) 08/20/21 04:26 Est GFR (MDRD) Non-Af > 60 (>60) 08/20/21 04:26 Glucose 190 mg/dL (65-99) H 08/20/21 04:26 POC Glucose (mg/dL) 203 mg/dL (65-99) H 08/20/21 11:12 Calcium 6.4 mg/dL (8.5-10.1) L 08/20/21 04:26 Corrected Calcium 8.4 mg/dL (8.5-10.1) L 08/20/21 04:26 Phosphorus 3.8 mg/dL (2.6-4.7) 08/03/21 05:00 Magnesium 2.1 mg/dL (1.7-2.9) 08/20/21 04:26 Iron 33 ug/dL (50-175) L 08/11/21 04:32 Transferrin 280 mg/dL (202-364) 08/11/21 04:32 Ferritin 53 ng/mL (26-388) 08/11/21 04:32 Total Bilirubin 0.50 mg/dL (0.2-1.0) 08/20/21 04:26 AST 17 Units/L (15-37) 08/20/21 04:26 ALT 21 Units/L (12-78) 08/20/21 04:26 Alkaline Phosphatase 73 Units/L (46-116) 08/20/21 04:26 Creatine Kinase 86 Units/L (39-308) 07/23/21 12:30 CK-MB (CK-2) 1.3 ng/mL (0-4.0) 07/23/21 12:30 CK/CKMB % Calc 1.5 % (<4) 07/23/21 12:30 Troponin I High Sens 49.9 ng/L (4.0-60.0) 07/27/21 04:40 C-Reactive Protein < 0.50 mg/L (0-3.0) 08/08/21 04:46 B-Natriuretic Peptide 60.6 pg/mL (0-79) 08/03/21 05:00 Total Protein 4.5 g/dL (6.4-8.2) L 08/20/21 04:26 Albumin 1.5 g/dL (3.4-5.0) L 08/20/21 04:26 Globulin 3.0 g/dL (2.5-4.5) 08/20/21 04:26 Albumin/Globulin Ratio 0.5 Ratio (1.1-2.1) L 08/20/21 04:26 Prealbumin 32.0 mg/dL (18-35.7) 08/10/21 04:12 Triglycerides 59 mg/dL (0-150) 08/03/21 05:00 Vitamin B12 698 pg/mL (193-986) 08/11/21 04:32 Folate 16.3 ng/mL (>8.6) 08/11/21 04:32 Specimen Type Clean catch urine 08/19/21 18:00 Urine Color Yellow (YELLOW) 08/19/21 18:00 Urine Appearance Clear (CLEAR) 08/19/21 18:00 Urine pH 5.0 (5.0 - 8.0) 08/19/21 18:00 Ur Specific [place] 1.015 (1.000-1.030) 08/19/21 18:00 Urine Protein 2+ (NEGATIVE) 08/19/21 18:00 Urine Glucose (UA) 2+ (NEGATIVE) 08/19/21 18:00 Urine Ketones Negative (NEGATIVE) 08/19/21 18:00 Urine Occult Blood 2+ (NEGATIVE) 08/19/21 18:00 Urine Nitrite Negative (NEGATIVE) 08/19/21 18:00 Urine Bilirubin Negative (NEGATIVE) 08/19/21 18:00 Urine Urobilinogen Normal (NORMAL) 08/19/21 18:00 Ur Leukocyte Esterase Negative (NEGATIVE) 08/19/21 18:00 Urine RBC 3-5 /HPF (0-3) A 08/19/21 18:00 Urine WBC 0-2 /HPF (0-5) 08/19/21 18:00 Ur Squamous Epith Cells Few /HPF (NEGATIVE) 08/19/21 18:00 Amorphous Sediment 2+ /HPF (NEGATIVE) 07/23/21 19:40 Urine Bacteria 1+ /HPF (NEGATIVE) 08/19/21 18:00 Hyaline Casts Moderate /LPF (NEGATIVE) 08/19/21 18:00 Coarse Granular Casts Few /HPF (NEGATIVE) 07/23/21 19:40 Urine Mucus Few /HPF (NEGATIVE) 07/23/21 19:40 Urine Yeast Moderate /HPF (NEGATIVE) 08/19/21 18:00 Ur Culture Indicated? No/not indicated 08/19/21 18:00 Stool Description 50g black semi form 08/12/21 15:40 Stl Occult Blood (IFOB) Positive (NEGATIVE) A 08/12/21 15:40 SARS CoV-2 RNA Rapid HERMELINDO Positive (NEGATIVE) A 07/23/21 16:00 Blood Type A POSITIVE 08/19/21 08:41 Antibody Screen Negative 08/19/21 08:41 Crossmatch See Detail 08/19/21 08:41 Plan (1) Pneumonia due to COVID-19 virus: Status: Acute Plan: Case discussed with bedside RN Reynold. Patient is a very pleasant 76-year-old male who has been in ICU for hypoxic respiratory failure secondary to Covid pneumonia. I was previously consulted for continuous BiPAP however after optimization his oxygen requirement has significantly come down. A few days ago he was taken off high flow. Today he was weaned down from 5 L to 4 L oxygen via nasal cannula. From respiratory point of view he is doing very well. Unfortunately he was having melanotic stools and his hemoglobin dropped. Hemoglobin is 6.7. He is getting blood transfusions. Consider GI consult. Continue to wean oxygen as tolerated Continue lung recruitment maneuvers Monitor input/output to keep negative fluid balance From pulmonary standpoint, he is stable for discharge to rehab versus home depending on physical therapy's recommendations. No further pulmonary recommendations. Thank you for involving us in care of the patient. Please feel free to call us with any questions. (2) Acute on chronic respiratory failure with hypoxia: Status: Acute (3) Acute renal failure: Status: Acute Qualifiers: Acute renal failure type: unspecified Qualified Code(s): N17.9 - Acute kidney failure, unspecified Plan: IVF (4) Anemia: Status: Acute Qualifiers: Anemia type: unspecified type Qualified Code(s): D64.9 - Anemia, unspecified (5) Hypokalemia: Status: Acute (6) Elevated troponin level: Status: Acute (7) Elevated d-dimer: Status: Acute (8) Hypoalbuminemia: Status: Acute (9) Hypernatremia: Status: Acute (10) Diabetes mellitus: Status: Chronic Qualifiers: Diabetes mellitus complication status: with hyperglycemia Diabetes mellitus correction insulin use: with rn long term care use Diabetes mellitus type: type 2 Qualified Code(s): E11.65 - Type 2 diabetes mellitus with hyperglycemia; Z79.4 - care home (current) use of insulin (11) Hypertension: Status: Chronic Qualifiers: Hypertension type: primary hypertension Qualified Code(s): I10 - Essential (primary) hypertension
[2021-08-20] MEDS: SNACK - Diabetic Appropriate PO SCH (20:20)
[2021-08-20] MEDS: NS 1,000 ML IV 1,000 ML IV SCH (22:11)
[2021-08-21] MEDS: CARAFATE ORAL SUSP PO SCH ×3 (05:18→21:35)
[2021-08-21 05:20] LABS: BASOPHILS % (AUTO) 0.5 % (0.2-1.0); EOSINOPHILS # (AUTO) 0.2 x10^3/uL (0.0-0.2); EOSINOPHILS % (AUTO) 5.7 % (0.9-2.9); HEMATOCRIT 25.3 % (42.0-54.0); HEMOGLOBIN 8.4 g/dL (13.5-18.0); LYMPHOCYTES # (AUTO) 0.7 X10^3/uL (1.3-2.9); LYMPHOCYTES % (AUTO) 16.6 % (21.0-51.0); MEAN CORPUSCULAR HEMOGLOBIN 28.5 pg (27.0-34.0); MEAN CORPUSCULAR HGB CONC 33.3 g/dL (33.0-35.0); MEAN CORPUSCULAR VOLUME 85.7 fL (80.0-100.0); MEAN PLATELET VOLUME 8.4 fL (7.4-11.0); MONOCYTES # (AUTO) 0.5 x10^3/uL (0.3-0.8); MONOCYTES % (AUTO) 11.4 % (0.0-13.0); NEUTROPHILS # (AUTO) 2.7 x10^3/uL (2.2-4.8); NEUTROPHILS % (AUTO) 65.8 % (42.0-75.0); RED BLOOD COUNT 2.95 X10^6/uL (4.7-6.0); RED CELL DISTRIBUTION WIDTH 19.1 % (11.6-16.5)
[2021-08-21 05:35] LABS: ALANINE AMINOTRANSFERASE 25 Units/L (12-78); ALBUMIN 1.8 g/dL (3.4-5.0); ALKALINE PHOSPHATASE 117 Units/L (46-116); ASPARTATE AMINO TRANSFERASE 18 Units/L (15-37); BLOOD UREA NITROGEN 20 mg/dL (7-18); CALCIUM 7.5 mg/dL (8.5-10.1); CARBON DIOXIDE 28.9 mmol/L (21-32); CHLORIDE 105 mmol/L (98-107); COR CA(FOR HYPOALB) 9.3 mg/dL (8.5-10.1); COR NA(FOR HYPERGLY) 140 mmol/L (136-145); CREATININE 1.29 mg/dL (0.70-1.30); SODIUM 138 mmol/L (136-145); TOTAL PROTEIN 5.4 g/dL (6.4-8.2); eGFR NON BLACK RACES 58 (>60)
--- NOTE | 2021-08-21 06:48 | RAD ---
HISTORYSOBSTUDYCHEST, 1 [id number]/22/2022.TECHNIQUEAP view of the chestFINDINGSPatient is rotated. Left chest wall pacemaker with leads in good position. Cardiac and mediastinal contours are within normal limits. No significant change in bilateral airspace and interstitial opacities. No definite pleural effusion or pneumothorax.IMPRESSIONNo significant change.Electronically signed by: Sung Zapata (Aug 21, 2021 06:47:24)
[2021-08-21] MEDS: LEVEMIR SC SCH (08:09)
[2021-08-21] MEDS: MILK OF MAGNESIA PO SCH ×2 (08:09→21:34)
[2021-08-21] MEDS: GLUCOPHAGE PO SCH (08:09)
[2021-08-21] MEDS: COLACE CAP 100 MG PO SCH ×2 (08:09→21:34)
[2021-08-21] MEDS: PEPCID 20 MG VIAL 20 MG in NS 50 ML IV 50 ML IV SCH (08:09)
[2021-08-21] MEDS: PROTONIX INJ 40 MG VIAL IVP SCH ×2 (08:10→21:35)
[2021-08-21] MEDS: TOPROL XL PO SCH (08:10)
[2021-08-21] MEDS: ROBITUSSIN DM PO PRN ×3 (08:10→21:56)
[2021-08-21] MEDS: XANAX PO SCH ×2 (08:10→21:35)
[2021-08-21] MEDS: PULMICORT NEB TX 0.5 MG NEB SCH ×2 (08:30→20:53)
[2021-08-21] MEDS: BROVANA IN SCH ×2 (08:30→20:53)
[2021-08-21] MEDS ORDERED: ALBUMIN HUMAN 25%- 100 ML 100 ML IV ONE (09:33)
--- NOTE | 2021-08-21 09:33 | DR.PROGNOT ---
Hospital Progress Notes - Progress Note for Day of: Progress Note Date: 08/21/21 - Chief Complaint Chief Complaint: comfortable today , no abdominal pain .. no bleeding . BM not as dark . Hgb 8.4.. Album 1.8..CRP 121 . - Past Medical Family Social History Past Med/Fam/Surg Hx: No changes since H&P Allergies: Allergies No Known Drug Allergies Allergy (Verified 07/23/21 12:02) - Review Of Systems ROS: No change since H&P - Vital Signs Vital Signs: Temperature 97.9 F Pulse Rate 100 Respiratory Rate 34 Blood Pressure 136/59 O2 Sat by Pulse Oximetry 96 - Physical Exam Oriented: Normal Eyes: Normal Ear: Normal Nose: Normal Throat: Normal Respiratory: Diminished Cardiovascular: Normal : Normal GI:Auscultation: Normal GI:Palpation: Normal GI: Tenderness: Normal Skin: Normal Musculoskeletal: Normal Psychiatric: Normal Mood Description: Calm, Appropriate Affect: Normal Speech Pattern: Clear, Appropriate - Laboratory and Diagnostics Result Diagrams: 08/21/21 05:00 08/21/21 05:00 Labs: 07/30/21 08:09 Sputum - Expectorated Sputum Sputum Culture - Final Enterobacter Aerogenes 07/30/21 08:09 Sputum - Expectorated Sputum - Final 07/26/21 16:38 Blood Blood Culture - Final 07/26/21 16:30 Blood Blood Culture - Final Laboratory WBC 4.0 X10^3/uL (3.6-10.0) 08/21/21 05:00 RBC 2.95 X10^6/uL (4.7-6.0) L 08/21/21 05:00 Hgb 8.4 g/dL (13.5-18.0) L 08/21/21 05:00 Hct 25.3 % (42.0-54.0) L 08/21/21 05:00 MCV 85.7 fL (80.0-100.0) 08/21/21 05:00 MCH 28.5 pg (27.0-34.0) 08/21/21 05:00 MCHC 33.3 g/dL (33.0-35.0) 08/21/21 05:00 RDW 19.1 % (11.6-16.5) H 08/21/21 05:00 Plt Count 73 X10^3/uL (150.0-450.0) L 08/21/21 05:00 Plt Count Comment Decreased (ADEQUATE) 08/06/21 05:37 MPV 8.4 fL (7.4-11.0) 08/21/21 05:00 Neut % (Auto) 65.8 % (42.0-75.0) 08/21/21 05:00 Lymph % (Auto) 16.6 % (21.0-51.0) L 08/21/21 05:00 [place] % (Auto) 11.4 % (0.0-13.0) 08/21/21 05:00 Eos % (Auto) 5.7 % (0.9-2.9) H 08/21/21 05:00 Baso % (Auto) 0.5 % (0.2-1.0) 08/21/21 05:00 Neut # (Auto) 2.7 x10^3/uL (2.2-4.8) 08/21/21 05:00 Lymph # (Auto) 0.7 X10^3/uL (1.3-2.9) L 08/21/21 05:00 [place] # (Auto) 0.5 x10^3/uL (0.3-0.8) 08/21/21 05:00 Eos # (Auto) 0.2 x10^3/uL (0.0-0.2) 08/21/21 05:00 Baso # (Auto) 0.0 X10^3/uL (0.0-0.1) 08/21/21 05:00 Absolute Nucleated RBC 0.0 /100WBC 08/21/21 05:00 Total Counted 100 08/06/21 05:37 Neutrophils % (Manual) 96 % (39-76) H 08/06/21 05:37 Lymphocytes % (Manual) 3 % (13-43) L 08/06/21 05:37 Monocytes % (Manual) 1 % (4-9) L 08/06/21 05:37 Plt Morphology Comment Normal (NORMAL) 08/06/21 05:37 RBC Morphology Normal (NORMAL) 08/06/21 05:37 Polychromasia Slight 08/01/21 05:00 PT 20.9 SECONDS (11.8-14.3) 08/10/21 07:55 INR Target Range - 08/10/21 07:55 INR 1.90 (0.8-1.3) H 08/10/21 07:55 APTT 26.6 SECONDS (22.9-36.5) 08/10/21 07:55 PTT Comment - 08/10/21 07:55 Fibrinogen 137 mg/dL (239-489) L* 08/10/21 07:55 D-Dimer 9.28 ug/ml (0.0-0.57) H* 08/21/21 05:00 Sample Site Lr 08/01/21 04:13 ABG pH 7.390 (7.35-7.45) 08/01/21 04:13 ABG pCO2 42.0 mmHg (35.0-45.0) 08/01/21 04:13 ABG pO2 72.0 mmHg (80.0-100.0) L 08/01/21 04:13 ABG HCO3 25.4 mmol/L (22-26) 08/01/21 04:13 ABG O2 Saturation 94.0 % (90-100) 08/01/21 04:13 ABG Base Excess 0.3 mmol/L (-2.0-2.0) 08/01/21 04:13 Gene Test Pos 08/01/21 04:13 A-a Gradient 232.0 mmHg 08/01/21 04:13 FiO2 50.0 08/01/21 04:13 Blood Gas Comments Natalia well ae 08/01/21 04:13 Sodium 138 mmol/L (136-145) 08/21/21 05:00 Corrected Sodium 140 mmol/L (136-145) 08/21/21 05:00 Potassium 4.2 mmol/L (3.5-5.1) 08/21/21 05:00 Chloride 105 mmol/L (98-107) 08/21/21 05:00 Carbon Dioxide 28.9 mmol/L (21-32) 08/21/21 05:00 BUN 20 mg/dL (7-18) H 08/21/21 05:00 Creatinine 1.29 mg/dL (0.70-1.30) 08/21/21 05:00 Est GFR (MDRD) Af Amer > 60 (>60) 08/21/21 05:00 Est GFR (MDRD) Non-Af 58 (>60) L 08/21/21 05:00 Glucose 165 mg/dL (65-99) H 08/21/21 05:00 POC Glucose (mg/dL) 242 mg/dL (65-99) H 08/20/21 20:02 Calcium 7.5 mg/dL (8.5-10.1) L 08/21/21 05:00 Corrected Calcium 9.3 mg/dL (8.5-10.1) 08/21/21 05:00 Phosphorus 3.8 mg/dL (2.6-4.7) 08/03/21 05:00 Magnesium 2.1 mg/dL (1.7-2.9) 08/20/21 04:26 Iron 33 ug/dL (50-175) L 08/11/21 04:32 Transferrin 280 mg/dL (202-364) 08/11/21 04:32 Ferritin 53 ng/mL (26-388) 08/11/21 04:32 Total Bilirubin 0.50 mg/dL (0.2-1.0) 08/21/21 05:00 AST 18 Units/L (15-37) 08/21/21 05:00 ALT 25 Units/L (12-78) 08/21/21 05:00 Alkaline Phosphatase 117 Units/L (46-116) H 08/21/21 05:00 Creatine Kinase 86 Units/L (39-308) 07/23/21 12:30 CK-MB (CK-2) 1.3 ng/mL (0-4.0) 07/23/21 12:30 CK/CKMB % Calc 1.5 % (<4) 07/23/21 12:30 Troponin I High Sens 49.9 ng/L (4.0-60.0) 07/27/21 04:40 C-Reactive Protein 121.90 mg/L (0-3.0) H 08/21/21 05:00 B-Natriuretic Peptide 122 pg/mL (0-79) H 08/21/21 05:00 Total Protein 5.4 g/dL (6.4-8.2) L 08/21/21 05:00 Albumin 1.8 g/dL (3.4-5.0) L 08/21/21 05:00 Globulin 3.6 g/dL (2.5-4.5) 08/21/21 05:00 Albumin/Globulin Ratio 0.5 Ratio (1.1-2.1) L 08/21/21 05:00 Prealbumin 32.0 mg/dL (18-35.7) 08/10/21 04:12 Triglycerides 59 mg/dL (0-150) 08/03/21 05:00 Vitamin B12 698 pg/mL (193-986) 08/11/21 04:32 Folate 16.3 ng/mL (>8.6) 08/11/21 04:32 Specimen Type Clean catch urine 08/19/21 18:00 Urine Color Yellow (YELLOW) 08/19/21 18:00 Urine Appearance Clear (CLEAR) 08/19/21 18:00 Urine pH 5.0 (5.0 - 8.0) 08/19/21 18:00 Ur Specific [place] 1.015 (1.000-1.030) 08/19/21 18:00 Urine Protein 2+ (NEGATIVE) 08/19/21 18:00 Urine Glucose (UA) 2+ (NEGATIVE) 08/19/21 18:00 Urine Ketones Negative (NEGATIVE) 08/19/21 18:00 Urine Occult Blood 2+ (NEGATIVE) 08/19/21 18:00 Urine Nitrite Negative (NEGATIVE) 08/19/21 18:00 Urine Bilirubin Negative (NEGATIVE) 08/19/21 18:00 Urine Urobilinogen Normal (NORMAL) 08/19/21 18:00 Ur Leukocyte Esterase Negative (NEGATIVE) 08/19/21 18:00 Urine RBC 3-5 /HPF (0-3) A 08/19/21 18:00 Urine WBC 0-2 /HPF (0-5) 08/19/21 18:00 Ur Squamous Epith Cells Few /HPF (NEGATIVE) 08/19/21 18:00 Amorphous Sediment 2+ /HPF (NEGATIVE) 07/23/21 19:40 Urine Bacteria 1+ /HPF (NEGATIVE) 08/19/21 18:00 Hyaline Casts Moderate /LPF (NEGATIVE) 08/19/21 18:00 Coarse Granular Casts Few /HPF (NEGATIVE) 07/23/21 19:40 Urine Mucus Few /HPF (NEGATIVE) 07/23/21 19:40 Urine Yeast Moderate /HPF (NEGATIVE) 08/19/21 18:00 Ur Culture Indicated? No/not indicated 08/19/21 18:00 Stool Description 50g black semi form 08/12/21 15:40 Stl Occult Blood (IFOB) Positive (NEGATIVE) A 08/12/21 15:40 SARS CoV-2 RNA Rapid HERMELINDO Positive (NEGATIVE) A 07/23/21 16:00 Blood Type A POSITIVE 08/19/21 08:41 Antibody Screen Negative 08/19/21 08:41 Crossmatch See Detail 08/19/21 08:41 - Assessment and Plan 1: anemia required transfusion . melanotic stool . was on several anticoagulants . for EGD on Monday . - Problem Patient Problems: Patient Problems Hypoalbuminemia (Acute) E88.09 Hypernatremia (Acute) E87.0 Anemia (Acute) D64.9 Hypokalemia (Acute) E87.6 Elevated troponin level (Acute) R77.8 Elevated d-dimer (Acute) R79.89 Acute on chronic respiratory failure with hypoxia (Acute) J96.21 Diabetes mellitus (Chronic) E11.9 Hypertension (Chronic) I10 Pneumonia due to COVID-19 virus (Acute) U07.1, J12.82 COVID (Acute) U07.1 Acute renal failure (Acute) N17.9
[2021-08-21] MEDS: NovoLIN R (or HumuLIN R) SUBCUT PRN ×3 (11:41→21:45)
--- NOTE | 2021-08-21 19:48 | PCM.PROG ---
Progress Note - Progress Note for Day of Date of Exam: 08/21/21 - Subjective Subjective: IS A 76 YEAR OLD PATIENT OF . HE HAS BEEN HOSPITALIZED FOR ALMOST A MONTH FOR TREAMTENT OF PNEUMONIA DUE TO COVID-19, RESPIRATORY FAILURE, HYPOXIA, ACUTE RENAL FAILURE, ELEVATED D-DIMER, AND ANEMIA. PMH OF DM II AND HTN. SINCE ADMISSION, HE HAS RECEIVED FIVE UNITS OF PRBC, 2 UNITS OF FFP, AND 2 SUPER PACKS OF PLATELETS. TODAY, HE IS ALERT AND ORIENTED, LYING IN BED ON MORNING ROUNDS. HE DENIES COMPLAINTS OF NAUSEA, VOMITING, OR ABDOMINAL PAIN TODAY. HE IS CURRENTLY UTILIZING OXYGEN VIA NASAL CANNULA AT 3 LPM. ON EXAMINATION, HEART IS REGULAR IN RATE AND RHYTHM. BILATERAL LUNGS NOTED WITH RHONCHI AND SCATTERED WHEEZING. ABDOMEN IS ROUND, SOFT, AND NON-TENDER WITH NORMAL BOWEL SOUNDS NOTED IN ALL QUADRANTS. HIS VITALS THIS MORNING ARE: 97.7-100-34-91%-136/59. LABS WERE OBTAINED. ABNORMAL LAB VALUES INCLUDE THE FOLLOWING: RBC 2.95, HGB 8.4, HCT 25.3, PLT COUNT 73, D-DIMER 9.28, BUN 20, GLUCOSE 165, CALCIUM 7.5, ALK PHOS 117, CRP 121.90, BNP 122, TOTAL PROTEIN 5.4, ALBUMIN 1.8. CHEST XRAY REVEALED: Patient is rotated. Left chest wall pacemaker with leads in good position. Cardiac and mediastinal contours are within normal limits. No significant change in bilateral airspace and interstitial opacities. No definite pleural effusion or pneumothorax. HE IS SCHEDULED FOR AN EGD ON MONDAY. WE WILL CONTINUE WITH HIS IV FLUIDS, IV ANTIBIOTICS, RESPIRATORY TR EATMENTS, POTASSIUM AND MAGNESIUM REPLACEMENT, AND CURRENT PLAN OF CARE. WE WILL FOLLOW UP WITH AM LABS AND CHEST XRAY AND CONTINUE TO MONITOR. TIME SPENT ON CLINICAL ASSESSMENT, REVIEWING LABS AND IMAGING, DECISION MAKING, AND DOCUMENTATION WAS GREATER THAN 45 MINUTES. - Past Medical Family Social History Past Med/Fam/Surg Hx: No changes since H&P Allergies: Allergies No Known Drug Allergies Allergy (Verified 07/23/21 12:02) - Review of Systems ROS: No change since H&P - Vital Signs and I&O's Vital Signs: Temperature 97.7 F Pulse Rate 100 Respiratory Rate 36 Blood Pressure 99/52 O2 Sat by Pulse Oximetry 90 Intake and Output: Intake & Output 08/19/21 08/20/21 08/21/21 08/22/21 11:59 11:59 11:59 11:59 Intake Total 1542 / 1542 3047 / 3047 1393 / 1393 831 / 831 Output Total 1800 / 1800 1200 / 1200 1350 / 1350 350 / 350 Balance -258 / -258 1847 / 1847 43 / 43 481 / 481 - Physical Exam Oriented: Normal Eyes: Normal Ear: Normal Nose: Normal Throat: Normal Respiratory: Wheezes, Rhonchi Cardiovascular: Normal : Normal Auscultation: Bowel Sounds: Normal Palpation: Normal Tenderness: Normal Skin: Normal Musculoskeletal: Normal Psychiatric: Normal Mood Description: Calm, Appropriate Affect: Normal Speech Pattern: Clear, Appropriate - Laboratory and Diagnostics Result Diagrams: 08/21/21 05:00 08/21/21 05:00 Labs: 07/30/21 08:09 Sputum - Expectorated Sputum Sputum Culture - Final Enterobacter Aerogenes 07/30/21 08:09 Sputum - Expectorated Sputum - Final 07/26/21 16:38 Blood Blood Culture - Final 07/26/21 16:30 Blood Blood Culture - Final Laboratory WBC 4.0 X10^3/uL (3.6-10.0) 08/21/21 05:00 RBC 2.95 X10^6/uL (4.7-6.0) L 08/21/21 05:00 Hgb 8.4 g/dL (13.5-18.0) L 08/21/21 05:00 Hct 25.3 % (42.0-54.0) L 08/21/21 05:00 MCV 85.7 fL (80.0-100.0) 08/21/21 05:00 MCH 28.5 pg (27.0-34.0) 08/21/21 05:00 MCHC 33.3 g/dL (33.0-35.0) 08/21/21 05:00 RDW 19.1 % (11.6-16.5) H 08/21/21 05:00 Plt Count 73 X10^3/uL (150.0-450.0) L 08/21/21 05:00 Plt Count Comment Decreased (ADEQUATE) 08/06/21 05:37 MPV 8.4 fL (7.4-11.0) 08/21/21 05:00 Neut % (Auto) 65.8 % (42.0-75.0) 08/21/21 05:00 Lymph % (Auto) 16.6 % (21.0-51.0) L 08/21/21 05:00 [place] % (Auto) 11.4 % (0.0-13.0) 08/21/21 05:00 Eos % (Auto) 5.7 % (0.9-2.9) H 08/21/21 05:00 Baso % (Auto) 0.5 % (0.2-1.0) 08/21/21 05:00 Neut # (Auto) 2.7 x10^3/uL (2.2-4.8) 08/21/21 05:00 Lymph # (Auto) 0.7 X10^3/uL (1.3-2.9) L 08/21/21 05:00 [place] # (Auto) 0.5 x10^3/uL (0.3-0.8) 08/21/21 05:00 Eos # (Auto) 0.2 x10^3/uL (0.0-0.2) 08/21/21 05:00 Baso # (Auto) 0.0 X10^3/uL (0.0-0.1) 08/21/21 05:00 Absolute Nucleated RBC 0.0 /100WBC 08/21/21 05:00 Total Counted 100 08/06/21 05:37 Neutrophils % (Manual) 96 % (39-76) H 08/06/21 05:37 Lymphocytes % (Manual) 3 % (13-43) L 08/06/21 05:37 Monocytes % (Manual) 1 % (4-9) L 08/06/21 05:37 Plt Morphology Comment Normal (NORMAL) 08/06/21 05:37 RBC Morphology Normal (NORMAL) 08/06/21 05:37 Polychromasia Slight 08/01/21 05:00 PT 15.2 SECONDS (11.8-14.3) 08/21/21 05:00 INR Target Range - 08/21/21 05:00 INR 1.26 (0.8-1.3) 08/21/21 05:00 APTT 26.6 SECONDS (22.9-36.5) 08/10/21 07:55 PTT Comment - 08/10/21 07:55 Fibrinogen 137 mg/dL (239-489) L* 08/10/21 07:55 D-Dimer 9.28 ug/ml (0.0-0.57) H* 08/21/21 05:00 Sample Site Lr 08/01/21 04:13 ABG pH 7.390 (7.35-7.45) 08/01/21 04:13 ABG pCO2 42.0 mmHg (35.0-45.0) 08/01/21 04:13 ABG pO2 72.0 mmHg (80.0-100.0) L 08/01/21 04:13 ABG HCO3 25.4 mmol/L (22-26) 08/01/21 04:13 ABG O2 Saturation 94.0 % (90-100) 08/01/21 04:13 ABG Base Excess 0.3 mmol/L (-2.0-2.0) 08/01/21 04:13 Gene Test Pos 08/01/21 04:13 A-a Gradient 232.0 mmHg 08/01/21 04:13 FiO2 50.0 08/01/21 04:13 Blood Gas Comments Natalia well ae 08/01/21 04:13 Sodium 138 mmol/L (136-145) 08/21/21 05:00 Corrected Sodium 140 mmol/L (136-145) 08/21/21 05:00 Potassium 4.2 mmol/L (3.5-5.1) 08/21/21 05:00 Chloride 105 mmol/L (98-107) 08/21/21 05:00 Carbon Dioxide 28.9 mmol/L (21-32) 08/21/21 05:00 BUN 20 mg/dL (7-18) H 08/21/21 05:00 Creatinine 1.29 mg/dL (0.70-1.30) 08/21/21 05:00 Est GFR (MDRD) Af Amer > 60 (>60) 08/21/21 05:00 Est GFR (MDRD) Non-Af 58 (>60) L 08/21/21 05:00 Glucose 165 mg/dL (65-99) H 08/21/21 05:00 POC Glucose (mg/dL) 239 mg/dL (65-99) H 08/21/21 19:14 Calcium 7.5 mg/dL (8.5-10.1) L 08/21/21 05:00 Corrected Calcium 9.3 mg/dL (8.5-10.1) 08/21/21 05:00 Phosphorus 3.8 mg/dL (2.6-4.7) 08/03/21 05:00 Magnesium 2.1 mg/dL (1.7-2.9) 08/20/21 04:26 Iron 33 ug/dL (50-175) L 08/11/21 04:32 Transferrin 280 mg/dL (202-364) 08/11/21 04:32 Ferritin 53 ng/mL (26-388) 08/11/21 04:32 Total Bilirubin 0.50 mg/dL (0.2-1.0) 08/21/21 05:00 AST 18 Units/L (15-37) 08/21/21 05:00 ALT 25 Units/L (12-78) 08/21/21 05:00 Alkaline Phosphatase 117 Units/L (46-116) H 08/21/21 05:00 Creatine Kinase 86 Units/L (39-308) 07/23/21 12:30 CK-MB (CK-2) 1.3 ng/mL (0-4.0) 07/23/21 12:30 CK/CKMB % Calc 1.5 % (<4) 07/23/21 12:30 Troponin I High Sens 49.9 ng/L (4.0-60.0) 07/27/21 04:40 C-Reactive Protein 121.90 mg/L (0-3.0) H 08/21/21 05:00 B-Natriuretic Peptide 122 pg/mL (0-79) H 08/21/21 05:00 Total Protein 5.4 g/dL (6.4-8.2) L 08/21/21 05:00 Albumin 1.8 g/dL (3.4-5.0) L 08/21/21 05:00 Globulin 3.6 g/dL (2.5-4.5) 08/21/21 05:00 Albumin/Globulin Ratio 0.5 Ratio (1.1-2.1) L 08/21/21 05:00 Prealbumin 32.0 mg/dL (18-35.7) 08/10/21 04:12 Triglycerides 59 mg/dL (0-150) 08/03/21 05:00 Vitamin B12 698 pg/mL (193-986) 08/11/21 04:32 Folate 16.3 ng/mL (>8.6) 08/11/21 04:32 Specimen Type Clean catch urine 08/19/21 18:00 Urine Color Yellow (YELLOW) 08/19/21 18:00 Urine Appearance Clear (CLEAR) 08/19/21 18:00 Urine pH 5.0 (5.0 - 8.0) 08/19/21 18:00 Ur Specific [place] 1.015 (1.000-1.030) 08/19/21 18:00 Urine Protein 2+ (NEGATIVE) 08/19/21 18:00 Urine Glucose (UA) 2+ (NEGATIVE) 08/19/21 18:00 Urine Ketones Negative (NEGATIVE) 08/19/21 18:00 Urine Occult Blood 2+ (NEGATIVE) 08/19/21 18:00 Urine Nitrite Negative (NEGATIVE) 08/19/21 18:00 Urine Bilirubin Negative (NEGATIVE) 08/19/21 18:00 Urine Urobilinogen Normal (NORMAL) 08/19/21 18:00 Ur Leukocyte Esterase Negative (NEGATIVE) 08/19/21 18:00 Urine RBC 3-5 /HPF (0-3) A 08/19/21 18:00 Urine WBC 0-2 /HPF (0-5) 08/19/21 18:00 Ur Squamous Epith Cells Few /HPF (NEGATIVE) 08/19/21 18:00 Amorphous Sediment 2+ /HPF (NEGATIVE) 07/23/21 19:40 Urine Bacteria 1+ /HPF (NEGATIVE) 08/19/21 18:00 Hyaline Casts Moderate /LPF (NEGATIVE) 08/19/21 18:00 Coarse Granular Casts Few /HPF (NEGATIVE) 07/23/21 19:40 Urine Mucus Few /HPF (NEGATIVE) 07/23/21 19:40 Urine Yeast Moderate /HPF (NEGATIVE) 08/19/21 18:00 Ur Culture Indicated? No/not indicated 08/19/21 18:00 Stool Description 50g black semi form 08/12/21 15:40 Stl Occult Blood (IFOB) Positive (NEGATIVE) A 08/12/21 15:40 SARS CoV-2 RNA Rapid HERMELINDO Positive (NEGATIVE) A 07/23/21 16:00 Blood Type A POSITIVE 08/19/21 08:41 Antibody Screen Negative 08/19/21 08:41 Crossmatch See Detail 08/19/21 08:41 - Plan (1) Pneumonia due to COVID-19 virus Status: Acute (2) Acute on chronic respiratory failure with hypoxia Status: Acute (3) Acute renal failure Status: Acute Qualifiers: Acute renal failure type: unspecified Qualified Code(s): N17.9 - Acute kidney failure, unspecified Plan: IVF (4) Anemia Status: Acute Qualifiers: Anemia type: unspecified type Qualified Code(s): D64.9 - Anemia, unspecified (5) Hypokalemia Status: Acute (6) Elevated troponin level Status: Acute (7) Elevated d-dimer Status: Acute (8) Hypoalbuminemia Status: Acute (9) Hypernatremia Status: Acute (10) Diabetes mellitus Status: Chronic Qualifiers: Diabetes mellitus type: type 2 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
[2021-08-21] MEDS: NS 1,000 ML IV 1,000 ML IV SCH (21:34)
[2021-08-21] MEDS: SNACK - Diabetic Appropriate PO SCH (21:34)
[2021-08-22 05:01] LABS: BASOPHILS % (AUTO) 0.3 % (0.2-1.0); EOSINOPHILS # (AUTO) 0.2 x10^3/uL (0.0-0.2); EOSINOPHILS % (AUTO) 5.3 % (0.9-2.9); HEMATOCRIT 24.2 % (42.0-54.0); HEMOGLOBIN 8.1 g/dL (13.5-18.0); LYMPHOCYTES # (AUTO) 0.7 X10^3/uL (1.3-2.9); LYMPHOCYTES % (AUTO) 16.9 % (21.0-51.0); MEAN CORPUSCULAR HEMOGLOBIN 28.9 pg (27.0-34.0); MEAN CORPUSCULAR HGB CONC 33.5 g/dL (33.0-35.0); MEAN CORPUSCULAR VOLUME 86.5 fL (80.0-100.0); MONOCYTES # (AUTO) 0.4 x10^3/uL (0.3-0.8); NEUTROPHILS # (AUTO) 2.7 x10^3/uL (2.2-4.8); NEUTROPHILS % (AUTO) 67.5 % (42.0-75.0); RED BLOOD COUNT 2.79 X10^6/uL (4.7-6.0); WHITE BLOOD COUNT 3.9 X10^3/uL (3.6-10.0)
[2021-08-22 05:22] LABS: ALANINE AMINOTRANSFERASE 24 Units/L (12-78); ALKALINE PHOSPHATASE 86 Units/L (46-116); ASPARTATE AMINO TRANSFERASE 18 Units/L (15-37); BLOOD UREA NITROGEN 17 mg/dL (7-18); CALCIUM 7.5 mg/dL (8.5-10.1); CHLORIDE 106 mmol/L (98-107); COR CA(FOR HYPOALB) 9.1 mg/dL (8.5-10.1); COR NA(FOR HYPERGLY) 140 mmol/L (136-145); CREATININE 1.18 mg/dL (0.70-1.30); SODIUM 139 mmol/L (136-145); TOTAL PROTEIN 5.4 g/dL (6.4-8.2); eGFR NON BLACK RACES > 60 (>60)
[2021-08-22] MEDS: CARAFATE ORAL SUSP PO SCH ×3 (05:43→21:22)
--- NOTE | 2021-08-22 06:22 | RAD ---
HISTORYSOBSTUDYCHEST, 1 [id number]/26/2022.TECHNIQUEAP view of the chestFINDINGSLeft chest wall pacemaker with leads in good position. Right subclavian central line is in good position. Cardiac and mediastinal contours are within normal limits. No significant change in bilateral airspace and interstitial opacities. No definite pleural effusion or pneumothorax. Soft tissue attenuation limits evaluation.IMPRESSIONNo significant change.Electronically signed by: Sung Zapata (Aug 22, 2021 06:21:36)
[2021-08-22] MEDS: COLACE CAP 100 MG PO SCH ×2 (08:23→20:30)
[2021-08-22] MEDS: MILK OF MAGNESIA PO SCH ×2 (08:23→20:30)
[2021-08-22] MEDS: PEPCID 20 MG VIAL 20 MG in NS 50 ML IV 50 ML IV SCH (08:23)
[2021-08-22] MEDS: PROTONIX INJ 40 MG VIAL IVP SCH ×2 (08:24→20:31)
[2021-08-22] MEDS: XANAX PO SCH ×2 (08:24→20:31)
[2021-08-22] MEDS: TOPROL XL PO SCH (08:24)
[2021-08-22] MEDS: LEVEMIR SC SCH (08:25)
--- NOTE | 2021-08-22 08:29 | VAS ---
HISTORYReason For Study pain swelling and redness in bilateral legs.STUDYLOWER EXT VENOUS, BILATERALCOMPARISON[08/05/2021]TECHNIQUE Doppler ultrasound of the [bilateral lower] extremity deep venous system.FINDINGSNegative for DVT in the [bilateral lower] extremity deep venous system.IMPRESSION[Negative for DVT in the visualized veins.]Electronically signed by: Sung Zapata (Aug 22, 2021 08:27:30)
[2021-08-22] MEDS: GLUCOPHAGE PO SCH (08:32)
[2021-08-22] MEDS: PULMICORT NEB TX 0.5 MG NEB SCH ×2 (08:36→21:20)
[2021-08-22] MEDS: BROVANA IN SCH ×2 (08:36→21:20)
--- NOTE | 2021-08-22 09:14 | PCM.PROG ---
Progress Note - Progress Note for Day of Date of Exam: 08/22/21 - Subjective Subjective: IS A 76 YEAR OLD PATIENT OF . HE HAS BEEN HOSPITALIZED FOR ALMOST A MONTH FOR TREAMTENT OF PNEUMONIA DUE TO COVID-19, RESPIRATORY FAILURE, HYPOXIA, ACUTE RENAL FAILURE, ELEVATED D-DIMER, AND ANEMIA. PMH OF DM II AND HTN. SINCE ADMISSION, HE HAS RECEIVED 5 UNITS OF PRBC, 2 UNITS OF FFP, AND 2 SUPER PACKS OF PLATELETS. TODAY, HE IS ALERT AND ORIENTED, LYING IN BED ON MORNING ROUNDS. HE DENIES COMPLAINTS OF NAUSEA, VOMITING, OR ABDOMINAL PAIN TODAY. HE IS CURRENTLY UTILIZING OXYGEN VIA NASAL CANNULA AT 3 LPM. ON EXAMINATION, HEART IS REGULAR IN RATE AND RHYTHM. BILATERAL LUNGS NOTED WITH RHONCHI AND SCATTERED WHEEZING. ABDOMEN IS ROUND, SOFT, AND NON-TENDER WITH NORMAL BOWEL SOUNDS NOTED IN ALL QUADRANTS. THERE IS ERYTHEMA, WARMTH, AND TENDERNESS TO THE RIGHT LOWER EXTREMITY, EXTENDING FROM THE ANKLE TO MID CALF. HIS VITALS THIS MORNING ARE: 97.6-109-30-93%-129/58. LABS WERE OBTAINED. ABNORMAL LAB VALUES INCLUDE THE FOLLOWING: RBC 2.79, HGB 8.1, HCT 24.2, PLT COUNT 70, GLUCOSE 152, CALCIUM 7.5, CRP 112.70, BNP 153, TOTAL PROTEIN 5.4, ALBUMIN 2.0. CHEST XRAY REVEALED NO CHANGE FROM YESTERDAY. WE OBTAINED A VENOUS DOPPLER YESTERDAY. IT IS NEGATIVE FOR DVT. HE IS SCHEDULED FOR AN EGD ON MONDAY. WE WILL CONTINUE WITH HIS IV FLUIDS, RESPIRATORY TREATMENTS, POTASSIUM AND MAGNESIUM REPLACEMENT, AND CURRENT PLAN OF CARE. WE WILL ALSO ADD ZOSYN 3.375G IV TID FOR CELLULITIS OF RLE. OTHERWISE, WE WILL FOLLOW UP WITH AM LABS AND CHEST XRAY AND CONTINUE TO MONITOR. TIME SPENT ON CLINICAL ASSESSMENT, REVIEWING LABS AND IMAGING, DECISION MAKING, AND DOCUMENTATION WAS GREATER THAN 45 MINUTES. - Past Medical Family Social History Past Med/Fam/Surg Hx: No changes since H&P Allergies: Allergies No Known Drug Allergies Allergy (Verified 07/23/21 12:02) - Review of Systems ROS: No change since H&P - Vital Signs and I&O's Vital Signs: Temperature 97.6 F Pulse Rate 109 Respiratory Rate 30 Blood Pressure 113/53 O2 Sat by Pulse Oximetry 93 Intake and Output: Intake & Output 08/19/21 08/20/21 08/21/21 08/22/21 11:59 11:59 11:59 11:59 Intake Total 1542 / 1542 3047 / 3047 1393 / 1393 1712 / 1712 Output Total 1800 / 1800 1200 / 1200 1350 / 1350 1025 / 1025 Balance -258 / -258 1847 / 1847 43 / 43 687 / 687 - Physical Exam Oriented: Normal Eyes: Normal Ear: Normal Nose: Normal Throat: Normal Respiratory: Wheezes, Rhonchi Cardiovascular: Normal : Normal Auscultation: Bowel Sounds: Normal Palpation: Normal Tenderness: Normal Skin: Red (RLE), Tender, Hot Musculoskeletal: Right, Leg, Tender Psychiatric: Normal Mood Description: Calm, Appropriate Affect: Normal Speech Pattern: Clear, Appropriate - Laboratory and Diagnostics Result Diagrams: 08/22/21 04:10 08/22/21 04:10 Labs: 07/30/21 08:09 Sputum - Expectorated Sputum Sputum Culture - Final Enterobacter Aerogenes 07/30/21 08:09 Sputum - Expectorated Sputum - Final 07/26/21 16:38 Blood Blood Culture - Final 07/26/21 16:30 Blood Blood Culture - Final Laboratory WBC 3.9 X10^3/uL (3.6-10.0) 08/22/21 04:10 RBC 2.79 X10^6/uL (4.7-6.0) L 08/22/21 04:10 Hgb 8.1 g/dL (13.5-18.0) L 08/22/21 04:10 Hct 24.2 % (42.0-54.0) L 08/22/21 04:10 MCV 86.5 fL (80.0-100.0) 08/22/21 04:10 MCH 28.9 pg (27.0-34.0) 08/22/21 04:10 MCHC 33.5 g/dL (33.0-35.0) 08/22/21 04:10 RDW 19.0 % (11.6-16.5) H 08/22/21 04:10 Plt Count 70 X10^3/uL (150.0-450.0) L 08/22/21 04:10 Plt Count Comment Decreased (ADEQUATE) 08/06/21 05:37 MPV 9.0 fL (7.4-11.0) 08/22/21 04:10 Neut % (Auto) 67.5 % (42.0-75.0) 08/22/21 04:10 Lymph % (Auto) 16.9 % (21.0-51.0) L 08/22/21 04:10 Cass % (Auto) 10.0 % (0.0-13.0) 08/22/21 04:10 Eos % (Auto) 5.3 % (0.9-2.9) H 08/22/21 04:10 Baso % (Auto) 0.3 % (0.2-1.0) 08/22/21 04:10 Neut # (Auto) 2.7 x10^3/uL (2.2-4.8) 08/22/21 04:10 Lymph # (Auto) 0.7 X10^3/uL (1.3-2.9) L 08/22/21 04:10 [place] # (Auto) 0.4 x10^3/uL (0.3-0.8) 08/22/21 04:10 Eos # (Auto) 0.2 x10^3/uL (0.0-0.2) 08/22/21 04:10 Baso # (Auto) 0.0 X10^3/uL (0.0-0.1) 08/22/21 04:10 Absolute Nucleated RBC 0.1 /100WBC 08/22/21 04:10 Total Counted 100 08/06/21 05:37 Neutrophils % (Manual) 96 % (39-76) H 08/06/21 05:37 Lymphocytes % (Manual) 3 % (13-43) L 08/06/21 05:37 Monocytes % (Manual) 1 % (4-9) L 08/06/21 05:37 Plt Morphology Comment Normal (NORMAL) 08/06/21 05:37 RBC Morphology Normal (NORMAL) 08/06/21 05:37 Polychromasia Slight 08/01/21 05:00 PT 15.2 SECONDS (11.8-14.3) 08/21/21 05:00 INR Target Range - 08/21/21 05:00 INR 1.26 (0.8-1.3) 08/21/21 05:00 APTT 26.6 SECONDS (22.9-36.5) 08/10/21 07:55 PTT Comment - 08/10/21 07:55 Fibrinogen 137 mg/dL (239-489) L* 08/10/21 07:55 D-Dimer 9.28 ug/ml (0.0-0.57) H* 08/21/21 05:00 Sample Site Lr 08/01/21 04:13 ABG pH 7.390 (7.35-7.45) 08/01/21 04:13 ABG pCO2 42.0 mmHg (35.0-45.0) 08/01/21 04:13 ABG pO2 72.0 mmHg (80.0-100.0) L 08/01/21 04:13 ABG HCO3 25.4 mmol/L (22-26) 08/01/21 04:13 ABG O2 Saturation 94.0 % (90-100) 08/01/21 04:13 ABG Base Excess 0.3 mmol/L (-2.0-2.0) 08/01/21 04:13 Gene Test Pos 08/01/21 04:13 A-a Gradient 232.0 mmHg 08/01/21 04:13 FiO2 50.0 08/01/21 04:13 Blood Gas Comments Natalia well ae 08/01/21 04:13 Sodium 139 mmol/L (136-145) 08/22/21 04:10 Corrected Sodium 140 mmol/L (136-145) 08/22/21 04:10 Potassium 3.8 mmol/L (3.5-5.1) 08/22/21 04:10 Chloride 106 mmol/L (98-107) 08/22/21 04:10 Carbon Dioxide 28.0 mmol/L (21-32) 08/22/21 04:10 BUN 17 mg/dL (7-18) 08/22/21 04:10 Creatinine 1.18 mg/dL (0.70-1.30) 08/22/21 04:10 Est GFR (MDRD) Af Amer > 60 (>60) 08/22/21 04:10 Est GFR (MDRD) Non-Af > 60 (>60) 08/22/21 04:10 Glucose 152 mg/dL (65-99) H 08/22/21 04:10 POC Glucose (mg/dL) 239 mg/dL (65-99) H 08/21/21 19:14 Calcium 7.5 mg/dL (8.5-10.1) L 08/22/21 04:10 Corrected Calcium 9.1 mg/dL (8.5-10.1) 08/22/21 04:10 Phosphorus 3.8 mg/dL (2.6-4.7) 08/03/21 05:00 Magnesium 2.1 mg/dL (1.7-2.9) 08/20/21 04:26 Iron 33 ug/dL (50-175) L 08/11/21 04:32 Transferrin 280 mg/dL (202-364) 08/11/21 04:32 Ferritin 53 ng/mL (26-388) 08/11/21 04:32 Total Bilirubin 0.50 mg/dL (0.2-1.0) 08/22/21 04:10 AST 18 Units/L (15-37) 08/22/21 04:10 ALT 24 Units/L (12-78) 08/22/21 04:10 Alkaline Phosphatase 86 Units/L (46-116) 08/22/21 04:10 Creatine Kinase 86 Units/L (39-308) 07/23/21 12:30 CK-MB (CK-2) 1.3 ng/mL (0-4.0) 07/23/21 12:30 CK/CKMB % Calc 1.5 % (<4) 07/23/21 12:30 Troponin I High Sens 49.9 ng/L (4.0-60.0) 07/27/21 04:40 C-Reactive Protein 112.70 mg/L (0-3.0) H 08/22/21 04:10 B-Natriuretic Peptide 153 pg/mL (0-79) H 08/22/21 04:10 Total Protein 5.4 g/dL (6.4-8.2) L 08/22/21 04:10 Albumin 2.0 g/dL (3.4-5.0) L 08/22/21 04:10 Globulin 3.4 g/dL (2.5-4.5) 08/22/21 04:10 Albumin/Globulin Ratio 0.6 Ratio (1.1-2.1) L 08/22/21 04:10 Prealbumin 32.0 mg/dL (18-35.7) 08/10/21 04:12 Triglycerides 59 mg/dL (0-150) 08/03/21 05:00 Vitamin B12 698 pg/mL (193-986) 08/11/21 04:32 Folate 16.3 ng/mL (>8.6) 08/11/21 04:32 Specimen Type Clean catch urine 08/19/21 18:00 Urine Color Yellow (YELLOW) 08/19/21 18:00 Urine Appearance Clear (CLEAR) 08/19/21 18:00 Urine pH 5.0 (5.0 - 8.0) 08/19/21 18:00 Ur Specific [place] 1.015 (1.000-1.030) 08/19/21 18:00 Urine Protein 2+ (NEGATIVE) 08/19/21 18:00 Urine Glucose (UA) 2+ (NEGATIVE) 08/19/21 18:00 Urine Ketones Negative (NEGATIVE) 08/19/21 18:00 Urine Occult Blood 2+ (NEGATIVE) 08/19/21 18:00 Urine Nitrite Negative (NEGATIVE) 08/19/21 18:00 Urine Bilirubin Negative (NEGATIVE) 08/19/21 18:00 Urine Urobilinogen Normal (NORMAL) 08/19/21 18:00 Ur Leukocyte Esterase Negative (NEGATIVE) 08/19/21 18:00 Urine RBC 3-5 /HPF (0-3) A 08/19/21 18:00 Urine WBC 0-2 /HPF (0-5) 08/19/21 18:00 Ur Squamous Epith Cells Few /HPF (NEGATIVE) 08/19/21 18:00 Amorphous Sediment 2+ /HPF (NEGATIVE) 07/23/21 19:40 Urine Bacteria 1+ /HPF (NEGATIVE) 08/19/21 18:00 Hyaline Casts Moderate /LPF (NEGATIVE) 08/19/21 18:00 Coarse Granular Casts Few /HPF (NEGATIVE) 07/23/21 19:40 Urine Mucus Few /HPF (NEGATIVE) 07/23/21 19:40 Urine Yeast Moderate /HPF (NEGATIVE) 08/19/21 18:00 Ur Culture Indicated? No/not indicated 08/19/21 18:00 Stool Description 50g black semi form 08/12/21 15:40 Stl Occult Blood (IFOB) Positive (NEGATIVE) A 08/12/21 15:40 SARS CoV-2 RNA Rapid HERMELINDO Positive (NEGATIVE) A 07/23/21 16:00 Blood Type A POSITIVE 08/19/21 08:41 Antibody Screen Negative 08/19/21 08:41 Crossmatch See Detail 08/19/21 08:41 - Plan (1) Pneumonia due to COVID-19 virus Status: Acute Plan: Case discussed with bedside RN Reynold. Patient is a very pleasant 76-year-old male who has been in ICU for hypoxic respiratory failure secondary to Covid pneumonia. I was previously consulted for continuous BiPAP however after optimization his oxygen requirement has significantly come down. A few days ago he was taken off high flow. Today he was weaned down from 5 L to 4 L oxygen via nasal cannula. From respiratory point of view he is doing very well. Unfortunately he was having melanotic stools and his hemoglobin dropped. Hemoglobin is 6.7. He is getting blood transfusions. Consider GI consult. Continue to wean oxygen as tolerated. Continue lung recruitment maneuvers. Monitor input/output to keep negative fluid balance. From pulmonary standpoint, he is stable for discharge to rehab versus home depending on physical therapy's recommendations. No further pulmonary recommendations. Thank you for involving us in care of the patient. Please feel free to call us with any questions. (2) Acute on chronic respiratory failure with hypoxia Status: Acute (3) Acute renal failure Status: Acute Qualifiers: Acute renal failure type: unspecified Qualified Code(s): N17.9 - Acute kidney failure, unspecified Plan: IVF (4) Cellulitis of right lower extremity Status: Acute (5) Anemia Status: Acute Qualifiers: Anemia type: unspecified type Qualified Code(s): D64.9 - Anemia, unspecified (6) Hypokalemia Status: Acute (7) Elevated troponin level Status: Acute (8) Elevated d-dimer Status: Acute (9) Hypoalbuminemia Status: Acute (10) Hypernatremia Status: Acute (11) Diabetes mellitus Status: Chronic Qualifiers: Diabetes mellitus type: type 2 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
[2021-08-22] MEDS: ZOSYN VIAL 3.375 GRAMS 3.375 G in NS 100 ML IV 100 ML IV SCH ×3 (10:47→21:22)
[2021-08-22] MEDS: NovoLIN R (or HumuLIN R) SUBCUT PRN ×2 (12:03→16:32)
[2021-08-22] MEDS: SNACK - Diabetic Appropriate PO SCH (20:29)
[2021-08-22] MEDS: NS 1,000 ML IV 1,000 ML IV SCH (20:32)
[2021-08-23 04:58] LABS: BASOPHILS % (AUTO) 0.7 % (0.2-1.0); EOSINOPHILS # (AUTO) 0.2 x10^3/uL (0.0-0.2); EOSINOPHILS % (AUTO) 4.9 % (0.9-2.9); HEMATOCRIT 24.1 % (42.0-54.0); LYMPHOCYTES # (AUTO) 0.7 X10^3/uL (1.3-2.9); LYMPHOCYTES % (AUTO) 17.9 % (21.0-51.0); MEAN CORPUSCULAR HEMOGLOBIN 28.9 pg (27.0-34.0); MEAN CORPUSCULAR HGB CONC 33.2 g/dL (33.0-35.0); MEAN PLATELET VOLUME 8.5 fL (7.4-11.0); MONOCYTES # (AUTO) 0.4 x10^3/uL (0.3-0.8); MONOCYTES % (AUTO) 9.8 % (0.0-13.0); NEUTROPHILS # (AUTO) 2.5 x10^3/uL (2.2-4.8); NEUTROPHILS % (AUTO) 66.7 % (42.0-75.0); RED BLOOD COUNT 2.77 X10^6/uL (4.7-6.0); RED CELL DISTRIBUTION WIDTH 18.8 % (11.6-16.5); WHITE BLOOD COUNT 3.8 X10^3/uL (3.6-10.0)
[2021-08-23] MEDS: CARAFATE ORAL SUSP PO SCH ×3 (05:08→21:01)
[2021-08-23] MEDS: ZOSYN VIAL 3.375 GRAMS 3.375 G in NS 100 ML IV 100 ML IV SCH ×3 (05:08→21:00)
[2021-08-23 05:15] LABS: ALANINE AMINOTRANSFERASE 24 Units/L (12-78); ALBUMIN 1.8 g/dL (3.4-5.0); ALKALINE PHOSPHATASE 90 Units/L (46-116); ASPARTATE AMINO TRANSFERASE 17 Units/L (15-37); BLOOD UREA NITROGEN 16 mg/dL (7-18); CALCIUM 7.5 mg/dL (8.5-10.1); CARBON DIOXIDE 28.1 mmol/L (21-32); CHLORIDE 106 mmol/L (98-107); COR CA(FOR HYPOALB) 9.3 mg/dL (8.5-10.1); COR NA(FOR HYPERGLY) 140 mmol/L (136-145); SODIUM 139 mmol/L (136-145); TOTAL PROTEIN 5.4 g/dL (6.4-8.2); eGFR NON BLACK RACES > 60 (>60)
--- NOTE | 2021-08-23 06:55 | RAD ---
HISTORYSOBSTUDYAP chestCOMPARISONFebruary 2021FINDINGSHeart size is stable, upper normal. There is no change in extent or distribution of bilateral pulmonary infiltrates. The extreme upper lobes and apices remain clear. No change in position of pacemaker or right PICC.IMPRESSIONStable appearance of bilateral pneumonia. No new abnormality demonstrated.Electronically signed by: LOTUS OCONNOR (Aug 23, 2021 06:54:42)
[2021-08-23] MEDS ORDERED: PEPCID 20 MG VIAL ONE (08:43)
[2021-08-23] MEDS ORDERED: ROCEPHIN 1 GRAM IV PREMIX 1 G/50 ML IV.SOLN. IV SCH (09:00)
[2021-08-23] MEDS: PULMICORT NEB TX 0.5 MG NEB SCH ×2 (09:15→20:20)
[2021-08-23] MEDS: BROVANA IN SCH ×2 (09:15→20:20)
[2021-08-23] MEDS: TOPROL XL PO SCH (09:38)
[2021-08-23] MEDS: XANAX PO SCH ×2 (09:38→20:27)
[2021-08-23] MEDS: PROTONIX INJ 40 MG VIAL IVP SCH ×2 (09:39→20:27)
[2021-08-23] MEDS: PEPCID 20 MG VIAL 20 MG in NS 50 ML IV 50 ML IV SCH (09:44)
[2021-08-23] MEDS: LEVEMIR SC SCH (12:52)
[2021-08-23] MEDS ORDERED: NS 1,000 ML IV 1,000 ML ONE (14:07)
[2021-08-23] MEDS ORDERED: DIPRIVAN VIAL 20 ML ONE (14:17)
[2021-08-23] MEDS: D5 1/2 NS 1,000 ML 1,000 ML IV SCH (14:54)
[2021-08-23] MEDS: GLUCOPHAGE PO SCH ×2 (14:54→17:43)
[2021-08-23] MEDS: COLACE CAP 100 MG PO SCH ×2 (14:58→20:27)
[2021-08-23] MEDS: MILK OF MAGNESIA PO SCH ×2 (15:00→20:27)
--- NOTE | 2021-08-23 15:53 | PCM.PROG ---
Progress Note Progress Note for Day of Date of Exam: 08/23/21 Subjective Subjective: Pt is a 76 year old male with a past medical history of Hypertension, DMT2, CAD(Pacemaker), Aortic valve replacement, HLD. He was admitted with COVID-19 pneumonia and acute on chronic renal failure. Pt this morning on a simple mask at 80% FiO2. He is scheduled for EGD today. Labs/imaging: Wbc 3.8, Hgb 8.0, Plt 68, Na 139, K 3.6, Cr 1.20, Glucose 157, Blood culture: NGTD. CXR: no significant change from prior. Patient is currently on pneumonia protocol that includes: IVF NS@KVO ml/h, Eliquis 5mg BID(hold), scheduled Bronchodilators Xopenex and Budesonide, Received Actemra 400mg x 1 dose, IV protonix 40mg BID, Famotidine 40mg BID, Levemir 5 units daily, Carafate, Tussionex prn, immune supporting supplements, supplemental O2, SSI, I/S, Physical therapy, Respiratory therapy consult, Smart Vest. Has central line. He has completed a course of Remdesivir. He does have cellulitis of right lower extremity and is on antibiotics IV Zosyn Q8h, U/S RLE negative for DVT. Otherwise, will continue with current plan of care and continue to wean/titrate supplemental oxygen as tolerated. Continue to closely monitor and follow up labs/imaging. Past Medical Family Social History Past Med/Fam/Surg Hx: No changes since H&P Allergies: Allergies No Known Drug Allergies Allergy (Verified 07/23/21 12:02) Review of Systems ROS: No change since H&P Vital Signs and I&O's Vital Signs: Temperature 98.8 F Pulse Rate 99 Respiratory Rate 24 Blood Pressure 119/52 O2 Sat by Pulse Oximetry 93 Intake and Output: Intake & Output 08/20/21 08/21/21 08/22/21 08/23/21 23:59 23:59 23:59 23:59 Intake Total 1783 / 1783 1724 / 1724 1704 / 1704 422 / 422 Output Total 1450 / 1450 1075 / 1075 925 / 925 350 / 350 Balance 333 / 333 649 / 649 779 / 779 72 / 72 Physical Exam Oriented: Normal Eyes: Normal Ear: Normal Nose: Normal Throat: Normal Respiratory: Wheezes and Rhonchi Cardiovascular: Normal : Normal Auscultation: Bowel Sounds: Normal Tenderness: Normal Skin: Red (RLE), Tender and Hot Musculoskeletal: Right, Leg and Tender Psychiatric: Normal Mood Description: Calm and Appropriate Affect: Normal Speech Pattern: Clear and Appropriate Laboratory and Diagnostics Result Diagrams: 08/23/21 04:17 08/23/21 04:17 Labs: 07/30/21 08:09 Sputum - Expectorated Sputum Sputum Culture - Final Enterobacter Aerogenes 07/30/21 08:09 Sputum - Expectorated Sputum - Final 07/26/21 16:38 Blood Blood Culture - Final 07/26/21 16:30 Blood Blood Culture - Final Laboratory WBC 3.8 X10^3/uL (3.6-10.0) 08/23/21 04:17 RBC 2.77 X10^6/uL (4.7-6.0) L 08/23/21 04:17 Hgb 8.0 g/dL (13.5-18.0) L 08/23/21 04:17 Hct 24.1 % (42.0-54.0) L 08/23/21 04:17 MCV 87.0 fL (80.0-100.0) 08/23/21 04:17 MCH 28.9 pg (27.0-34.0) 08/23/21 04:17 MCHC 33.2 g/dL (33.0-35.0) 08/23/21 04:17 RDW 18.8 % (11.6-16.5) H 08/23/21 04:17 Plt Count 68 X10^3/uL (150.0-450.0) L 08/23/21 04:17 Plt Count Comment Decreased (ADEQUATE) 08/06/21 05:37 MPV 8.5 fL (7.4-11.0) 08/23/21 04:17 Neut % (Auto) 66.7 % (42.0-75.0) 08/23/21 04:17 Lymph % (Auto) 17.9 % (21.0-51.0) L 08/23/21 04:17 [place] % (Auto) 9.8 % (0.0-13.0) 08/23/21 04:17 Eos % (Auto) 4.9 % (0.9-2.9) H 08/23/21 04:17 Baso % (Auto) 0.7 % (0.2-1.0) 08/23/21 04:17 Neut # (Auto) 2.5 x10^3/uL (2.2-4.8) 08/23/21 04:17 Lymph # (Auto) 0.7 X10^3/uL (1.3-2.9) L 08/23/21 04:17 [place] # (Auto) 0.4 x10^3/uL (0.3-0.8) 08/23/21 04:17 Eos # (Auto) 0.2 x10^3/uL (0.0-0.2) 08/23/21 04:17 Baso # (Auto) 0.0 X10^3/uL (0.0-0.1) 08/23/21 04:17 Absolute Nucleated RBC 0.1 /100WBC 08/23/21 04:17 Total Counted 100 08/06/21 05:37 Neutrophils % (Manual) 96 % (39-76) H 08/06/21 05:37 Lymphocytes % (Manual) 3 % (13-43) L 08/06/21 05:37 Monocytes % (Manual) 1 % (4-9) L 08/06/21 05:37 Plt Morphology Comment Normal (NORMAL) 08/06/21 05:37 RBC Morphology Normal (NORMAL) 08/06/21 05:37 Polychromasia Slight 08/01/21 05:00 PT 15.2 SECONDS (11.8-14.3) 08/21/21 05:00 INR Target Range - 08/21/21 05:00 INR 1.26 (0.8-1.3) 08/21/21 05:00 APTT 26.6 SECONDS (22.9-36.5) 08/10/21 07:55 PTT Comment - 08/10/21 07:55 Fibrinogen 137 mg/dL (239-489) L* 08/10/21 07:55 D-Dimer 9.28 ug/ml (0.0-0.57) H* 08/21/21 05:00 Sample Site Lr 08/01/21 04:13 ABG pH 7.390 (7.35-7.45) 08/01/21 04:13 ABG pCO2 42.0 mmHg (35.0-45.0) 08/01/21 04:13 ABG pO2 72.0 mmHg (80.0-100.0) L 08/01/21 04:13 ABG HCO3 25.4 mmol/L (22-26) 08/01/21 04:13 ABG O2 Saturation 94.0 % (90-100) 08/01/21 04:13 ABG Base Excess 0.3 mmol/L (-2.0-2.0) 08/01/21 04:13 Gene Test Pos 08/01/21 04:13 A-a Gradient 232.0 mmHg 08/01/21 04:13 FiO2 50.0 08/01/21 04:13 Blood Gas Comments Natalia well ae 08/01/21 04:13 Sodium 139 mmol/L (136-145) 08/23/21 04:17 Corrected Sodium 140 mmol/L (136-145) 08/23/21 04:17 Potassium 3.6 mmol/L (3.5-5.1) 08/23/21 04:17 Chloride 106 mmol/L (98-107) 08/23/21 04:17 Carbon Dioxide 28.1 mmol/L (21-32) 08/23/21 04:17 BUN 16 mg/dL (7-18) 08/23/21 04:17 Creatinine 1.20 mg/dL (0.70-1.30) 08/23/21 04:17 Est GFR (MDRD) Af Amer > 60 (>60) 08/23/21 04:17 Est GFR (MDRD) Non-Af > 60 (>60) 08/23/21 04:17 Glucose 157 mg/dL (65-99) H 08/23/21 04:17 POC Glucose (mg/dL) 188 mg/dL (65-99) H 08/23/21 12:02 Calcium 7.5 mg/dL (8.5-10.1) L 08/23/21 04:17 Corrected Calcium 9.3 mg/dL (8.5-10.1) 08/23/21 04:17 Phosphorus 3.8 mg/dL (2.6-4.7) 08/03/21 05:00 Magnesium 2.1 mg/dL (1.7-2.9) 08/20/21 04:26 Iron 33 ug/dL (50-175) L 08/11/21 04:32 Transferrin 280 mg/dL (202-364) 08/11/21 04:32 Ferritin 53 ng/mL (26-388) 08/11/21 04:32 Total Bilirubin 0.60 mg/dL (0.2-1.0) 08/23/21 04:17 AST 17 Units/L (15-37) 08/23/21 04:17 ALT 24 Units/L (12-78) 08/23/21 04:17 Alkaline Phosphatase 90 Units/L (46-116) 08/23/21 04:17 Creatine Kinase 86 Units/L (39-308) 07/23/21 12:30 CK-MB (CK-2) 1.3 ng/mL (0-4.0) 07/23/21 12:30 CK/CKMB % Calc 1.5 % (<4) 07/23/21 12:30 Troponin I High Sens 49.9 ng/L (4.0-60.0) 07/27/21 04:40 C-Reactive Protein 112.70 mg/L (0-3.0) H 08/22/21 04:10 B-Natriuretic Peptide 153 pg/mL (0-79) H 08/22/21 04:10 Total Protein 5.4 g/dL (6.4-8.2) L 08/23/21 04:17 Albumin 1.8 g/dL (3.4-5.0) L 08/23/21 04:17 Globulin 3.6 g/dL (2.5-4.5) 08/23/21 04:17 Albumin/Globulin Ratio 0.5 Ratio (1.1-2.1) L 08/23/21 04:17 Prealbumin 32.0 mg/dL (18-35.7) 08/10/21 04:12 Triglycerides 59 mg/dL (0-150) 08/03/21 05:00 Vitamin B12 698 pg/mL (193-986) 08/11/21 04:32 Folate 16.3 ng/mL (>8.6) 08/11/21 04:32 Specimen Type Clean catch urine 08/19/21 18:00 Urine Color Yellow (YELLOW) 08/19/21 18:00 Urine Appearance Clear (CLEAR) 08/19/21 18:00 Urine pH 5.0 (5.0 - 8.0) 08/19/21 18:00 Ur Specific [place] 1.015 (1.000-1.030) 08/19/21 18:00 Urine Protein 2+ (NEGATIVE) 08/19/21 18:00 Urine Glucose (UA) 2+ (NEGATIVE) 08/19/21 18:00 Urine Ketones Negative (NEGATIVE) 08/19/21 18:00 Urine Occult Blood 2+ (NEGATIVE) 08/19/21 18:00 Urine Nitrite Negative (NEGATIVE) 08/19/21 18:00 Urine Bilirubin Negative (NEGATIVE) 08/19/21 18:00 Urine Urobilinogen Normal (NORMAL) 08/19/21 18:00 Ur Leukocyte Esterase Negative (NEGATIVE) 08/19/21 18:00 Urine RBC 3-5 /HPF (0-3) A 08/19/21 18:00 Urine WBC 0-2 /HPF (0-5) 08/19/21 18:00 Ur Squamous Epith Cells Few /HPF (NEGATIVE) 08/19/21 18:00 Amorphous Sediment 2+ /HPF (NEGATIVE) 07/23/21 19:40 Urine Bacteria 1+ /HPF (NEGATIVE) 08/19/21 18:00 Hyaline Casts Moderate /LPF (NEGATIVE) 08/19/21 18:00 Coarse Granular Casts Few /HPF (NEGATIVE) 07/23/21 19:40 Urine Mucus Few /HPF (NEGATIVE) 07/23/21 19:40 Urine Yeast Moderate /HPF (NEGATIVE) 08/19/21 18:00 Ur Culture Indicated? No/not indicated 08/19/21 18:00 Stool Description 50g black semi form 08/12/21 15:40 Stl Occult Blood (IFOB) Positive (NEGATIVE) A 08/12/21 15:40 SARS CoV-2 RNA Rapid HERMELINDO Positive (NEGATIVE) A 07/23/21 16:00 Tissue Pathology To follow 08/23/21 14:21 Blood Type A POSITIVE 08/19/21 08:41 Antibody Screen Negative 08/19/21 08:41 Crossmatch See Detail 08/19/21 08:41 Plan (1) Pneumonia due to COVID-19 virus: Status: Acute Plan: Case discussed with bedside HEATHER Flaherty. Patient is a very pleasant 76-year-old male who has been in ICU for hypoxic respiratory failure secondary to Covid pneumonia. I was previously consulted for continuous BiPAP however after optimization his oxygen requirement has significantly come down. A few days ago he was taken off high flow. Today he was weaned down from 5 L to 4 L oxygen via nasal cannula. From respiratory point of view he is doing very well. Unfortunately he was having melanotic stools and his hemoglobin dropped. Hemoglobin is 6.7. He is getting blood transfusions. Consider GI consult. Continue to wean oxygen as tolerated Continue lung recruitment maneuvers Monitor input/output to keep negative fluid balance From pulmonary standpoint, he is stable for discharge to rehab versus home depending on physical therapy's recommendations. No further pulmonary recommendations. Thank you for involving us in care of the patient. Please feel free to call us with any questions. (2) Acute on chronic respiratory failure with hypoxia: Status: Acute (3) Acute renal failure: Status: Acute Qualifiers: Acute renal failure type: unspecified Qualified Code(s): N17.9 - Acute kidney failure, unspecified Plan: IVF (4) Anemia: Status: Acute Qualifiers: Anemia type: unspecified type Qualified Code(s): D64.9 - Anemia, unspecified (5) Hypokalemia: Status: Acute (6) Elevated troponin level: Status: Acute (7) Elevated d-dimer: Status: Acute (8) Hypoalbuminemia: Status: Acute (9) Hypernatremia: Status: Acute (10) Diabetes mellitus: Status: Chronic Qualifiers: Diabetes mellitus complication status: with hyperglycemia Diabetes mellitus care home insulin use: with care home use Diabetes mellitus type: type 2 Qualified Code(s): E11.65 - Type 2 diabetes mellitus with hyperglycemia; 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
[2021-08-23] MEDS: ROBITUSSIN DM PO PRN (17:44)
[2021-08-23] MEDS: RESTORIL CAP 15 MG PO PRN (20:26)
[2021-08-23] MEDS: SNACK - Diabetic Appropriate PO SCH (20:26)
[2021-08-23] MEDS: TUSSIONEX PENNKINETIC SUSP PO PRN (20:29)
[2021-08-23] MEDS: NovoLIN R (or HumuLIN R) SUBCUT PRN (20:39)
[2021-08-24 05:06] LABS: BASOPHILS % (AUTO) 0.8 % (0.2-1.0); EOSINOPHILS # (AUTO) 0.2 x10^3/uL (0.0-0.2); EOSINOPHILS % (AUTO) 4.4 % (0.9-2.9); HEMATOCRIT 22.6 % (42.0-54.0); HEMOGLOBIN 7.6 g/dL (13.5-18.0); LYMPHOCYTES # (AUTO) 0.6 X10^3/uL (1.3-2.9); LYMPHOCYTES % (AUTO) 16.2 % (21.0-51.0); MEAN CORPUSCULAR HEMOGLOBIN 29.1 pg (27.0-34.0); MEAN CORPUSCULAR HGB CONC 33.6 g/dL (33.0-35.0); MEAN CORPUSCULAR VOLUME 86.7 fL (80.0-100.0); MEAN PLATELET VOLUME 8.5 fL (7.4-11.0); MONOCYTES # (AUTO) 0.4 x10^3/uL (0.3-0.8); MONOCYTES % (AUTO) 11.3 % (0.0-13.0); NEUTROPHILS # (AUTO) 2.6 x10^3/uL (2.2-4.8); NEUTROPHILS % (AUTO) 67.3 % (42.0-75.0); RED BLOOD COUNT 2.61 X10^6/uL (4.7-6.0); RED CELL DISTRIBUTION WIDTH 18.9 % (11.6-16.5); WHITE BLOOD COUNT 3.8 X10^3/uL (3.6-10.0)
[2021-08-24 05:14] LABS: ALANINE AMINOTRANSFERASE 24 Units/L (12-78); ALBUMIN 1.7 g/dL (3.4-5.0); ALKALINE PHOSPHATASE 104 Units/L (46-116); ASPARTATE AMINO TRANSFERASE 19 Units/L (15-37); BLOOD UREA NITROGEN 15 mg/dL (7-18); CALCIUM 7.3 mg/dL (8.5-10.1); CARBON DIOXIDE 29.3 mmol/L (21-32); CHLORIDE 107 mmol/L (98-107); COR CA(FOR HYPOALB) 9.1 mg/dL (8.5-10.1); COR NA(FOR HYPERGLY) 143 mmol/L (136-145); CREATININE 1.18 mg/dL (0.70-1.30); SODIUM 142 mmol/L (136-145); TOTAL PROTEIN 5.2 g/dL (6.4-8.2); eGFR NON BLACK RACES > 60 (>60)
[2021-08-24] MEDS: CARAFATE ORAL SUSP PO SCH ×3 (05:27→21:28)
[2021-08-24] MEDS: D5 1/2 NS 1,000 ML 1,000 ML IV SCH (05:27)
[2021-08-24] MEDS: ZOSYN VIAL 3.375 GRAMS 3.375 G in NS 100 ML IV 100 ML IV SCH ×3 (05:27→21:28)
[2021-08-24] MEDS: ROBITUSSIN DM PO PRN ×2 (05:55→22:00)
--- NOTE | 2021-08-24 07:38 | RAD ---
HISTORYSOBSTUDYCHEST, 1 [id number]/28/2022.TECHNIQUEAP view of the chestFINDINGSCardiac and mediastinal contours are within normal limits. Left chest wall pacemaker and cardiac valve in situ. No significant change in bilateral airspace and interstitial opacities. Cannot exclude small pleural effusions. No discernible pneumothorax. Soft tissue attenuation limits evaluation.IMPRESSIONNo significant change.Electronically signed by: Sung Zapata (Aug 24, 2021 07:37:34)
[2021-08-24] MEDS: PEPCID 20 MG VIAL 20 MG in NS 50 ML IV 50 ML IV SCH (08:27)
[2021-08-24] MEDS: COLACE CAP 100 MG PO SCH ×2 (08:28→21:27)
[2021-08-24] MEDS: LEVEMIR SC SCH (08:28)
[2021-08-24] MEDS: PROTONIX INJ 40 MG VIAL IVP SCH ×2 (08:29→21:28)
[2021-08-24] MEDS: MILK OF MAGNESIA PO SCH ×2 (08:29→21:27)
[2021-08-24] MEDS: XANAX PO SCH ×2 (08:29→22:00)
[2021-08-24] MEDS: SOLU-Medrol 40 MG VIAL IVP SCH ×2 (08:29→21:28)
[2021-08-24] MEDS: TOPROL XL PO SCH (08:29)
[2021-08-24] MEDS: GLUCOPHAGE PO SCH (08:45)
[2021-08-24] MEDS: PULMICORT NEB TX 0.5 MG NEB SCH ×2 (09:12→21:12)
[2021-08-24] MEDS: BROVANA IN SCH ×2 (09:12→21:12)
[2021-08-24] MEDS ORDERED: STERILE WATER IRRIGATION IR ONE (10:47)
[2021-08-24] MEDS: NovoLIN R (or HumuLIN R) SUBCUT PRN ×3 (11:05→21:30)
[2021-08-24] MEDS ORDERED: NS 1,000 ML IV 1,000 ML ONE (13:47)
[2021-08-24] MEDS ORDERED: NS 1,000 ML IV 1,000 ML IV SCH (14:00)
[2021-08-24] MEDS: SNACK - Diabetic Appropriate PO SCH (21:27)
[2021-08-25] MEDS: TUSSIONEX PENNKINETIC SUSP PO PRN (01:07)
[2021-08-25] MEDS: CARAFATE ORAL SUSP PO SCH ×3 (05:18→21:25)
[2021-08-25] MEDS: ROBITUSSIN DM PO PRN (05:18)
[2021-08-25] MEDS: ZOSYN VIAL 3.375 GRAMS 3.375 G in NS 100 ML IV 100 ML IV SCH ×3 (05:19→21:25)
[2021-08-25 05:25] LABS: BASOPHILS % (AUTO) 0.4 % (0.2-1.0); HEMOGLOBIN 7.7 g/dL (13.5-18.0); LYMPHOCYTES # (AUTO) 0.4 X10^3/uL (1.3-2.9); LYMPHOCYTES % (AUTO) 10.5 % (21.0-51.0); MEAN CORPUSCULAR HEMOGLOBIN 29.2 pg (27.0-34.0); MEAN CORPUSCULAR HGB CONC 33.6 g/dL (33.0-35.0); MEAN CORPUSCULAR VOLUME 86.8 fL (80.0-100.0); MEAN PLATELET VOLUME 9.5 fL (7.4-11.0); MONOCYTES # (AUTO) 0.1 x10^3/uL (0.3-0.8); MONOCYTES % (AUTO) 2.3 % (0.0-13.0); NEUTROPHILS # (AUTO) 3.2 x10^3/uL (2.2-4.8); NEUTROPHILS % (AUTO) 86.8 % (42.0-75.0); RED BLOOD COUNT 2.65 X10^6/uL (4.7-6.0); RED CELL DISTRIBUTION WIDTH 18.2 % (11.6-16.5); WHITE BLOOD COUNT 3.7 X10^3/uL (3.6-10.0)
[2021-08-25 05:35] LABS: ALBUMIN 1.7 g/dL (3.4-5.0); CALCIUM 7.6 mg/dL (8.5-10.1); COR CA(FOR HYPOALB) 9.4 mg/dL (8.5-10.1); CREATININE 1.5 mg/dL (0.70-1.30); TOTAL PROTEIN 5.5 g/dL (6.4-8.2)
--- NOTE | 2021-08-25 07:20 | RAD ---
HISTORYSOBSTUDYCHEST, 1 [id number]/01/2022.[facility]CHNI[facility]AP [facility] leads similar position. Post cardiac valve replacement. Cardiac and mediastinal contours are within normal limits. No significant change in bilateral airspace and interstitial opacities. Cannot exclude small pleural effusions. No pneumothorax. Soft tissue attenuation limits evaluation.IMPRESSIONNo significant change.Electronically signed by: Sung Zapata (Aug 25, 2021 07:18:54)
[2021-08-25] MEDS: COLACE CAP 100 MG PO SCH ×2 (08:15→21:24)
[2021-08-25] MEDS: LEVEMIR SC SCH (08:15)
[2021-08-25] MEDS: GLUCOPHAGE PO SCH (08:15)
[2021-08-25] MEDS: MILK OF MAGNESIA PO SCH ×2 (08:16→21:24)
[2021-08-25] MEDS: PROTONIX INJ 40 MG VIAL IVP SCH ×2 (08:16→21:25)
[2021-08-25] MEDS: TOPROL XL PO SCH (08:16)
[2021-08-25] MEDS: XANAX PO SCH ×2 (08:16→21:25)
[2021-08-25] MEDS: PEPCID 20 MG VIAL 20 MG in NS 50 ML IV 50 ML IV SCH (08:16)
[2021-08-25] MEDS: SOLU-Medrol 40 MG VIAL IVP SCH ×2 (08:16→21:25)
[2021-08-25] MEDS: PULMICORT NEB TX 0.5 MG NEB SCH ×2 (08:25→20:52)
[2021-08-25] MEDS: BROVANA IN SCH ×2 (08:25→20:52)
[2021-08-25] MEDS: NovoLIN R (or HumuLIN R) SUBCUT PRN ×3 (11:30→21:30)
--- NOTE | 2021-08-25 14:19 | PCM.PROG ---
Progress Note Progress Note for Day of Date of Exam: 08/24/21 Subjective Subjective: Pt is a 76 year old male with a past medical history of Hypertension, DMT2, CAD(Pacemaker), Aortic valve replacement, HLD. He was admitted with COVID-19 pneumonia and acute on chronic renal failure. Pt this morning he is on heated high flow oxygen with 80% FiO2. Labs/imaging: Wbc 3.8, Hgb 7.6, Plt 71, Na 142, K 3.6, Cr 1.18, Glucose 129, Blood culture: NGTD. CXR: no significant change from prior. Patient is currently on pneumonia protocol that includes: IVF NS@KVO ml/h, Eliquis 5mg BID(hold), scheduled Bronchodilators Xopenex and Budesonide, Received Actemra 400mg x 1 dose, IV protonix 40mg BID, Famotidine 40mg BID, Levemir 5 units daily, Carafate, Tussionex prn, immune supporting supplements, supplemental O2, SSI, I/S, Physical therapy, Respiratory therapy consult, Smart Vest. Has central line. He has completed a course of Remdesivir. He does have cellulitis of right lower extremity and is on antibiotics IV Zosyn Q8h, cellulitis improving. Will start on Solumedrol 40mg BID. Otherwise, will continue with current plan of care and continue to wean/titrate supplemental oxygen as tolerated. Continue to closely monitor and follow up labs/imaging. Past Medical Family Social History Past Med/Fam/Surg Hx: No changes since H&P Allergies: Allergies No Known Drug Allergies Allergy (Verified 07/23/21 12:02) Review of Systems ROS: No change since H&P Vital Signs and I&O's Vital Signs: Temperature 97.8 F Pulse Rate 93 Respiratory Rate 13 Blood Pressure 122/60 O2 Sat by Pulse Oximetry 93 Intake and Output: Intake & Output 08/22/21 08/23/21 08/24/21 08/25/21 23:59 23:59 23:59 23:59 Intake Total 1704 / 1704 2093 / 2093 2853 / 2853 288 / 288 Output Total 925 / 925 1000 / 1000 1000 / 1000 Balance 779 / 779 1093 / 1093 1853 / 1853 288 / 288 Physical Exam Oriented: Normal Eyes: Normal Ear: Normal Nose: Normal Throat: Normal Respiratory: Wheezes and Rhonchi Cardiovascular: Normal : Normal Auscultation: Bowel Sounds: Normal Tenderness: Normal Skin: Red (RLE), Tender and Hot Musculoskeletal: Right, Leg and Tender Psychiatric: Normal Mood Description: Calm and Appropriate Affect: Normal Speech Pattern: Clear and Appropriate Laboratory and Diagnostics Result Diagrams: 08/25/21 04:57 08/25/21 04:57 Labs: 07/30/21 08:09 Sputum - Expectorated Sputum Sputum Culture - Final Enterobacter Aerogenes 07/30/21 08:09 Sputum - Expectorated Sputum - Final 07/26/21 16:38 Blood Blood Culture - Final 07/26/21 16:30 Blood Blood Culture - Final Laboratory WBC 3.7 X10^3/uL (3.6-10.0) 08/25/21 04:57 RBC 2.65 X10^6/uL (4.7-6.0) L 08/25/21 04:57 Hgb 7.7 g/dL (13.5-18.0) L 08/25/21 04:57 Hct 23.0 % (42.0-54.0) L 08/25/21 04:57 MCV 86.8 fL (80.0-100.0) 08/25/21 04:57 MCH 29.2 pg (27.0-34.0) 08/25/21 04:57 MCHC 33.6 g/dL (33.0-35.0) 08/25/21 04:57 RDW 18.2 % (11.6-16.5) H 08/25/21 04:57 Plt Count 86 X10^3/uL (150.0-450.0) L 08/25/21 04:57 Plt Count Comment Decreased (ADEQUATE) 08/06/21 05:37 MPV 9.5 fL (7.4-11.0) 08/25/21 04:57 Neut % (Auto) 86.8 % (42.0-75.0) H 08/25/21 04:57 Lymph % (Auto) 10.5 % (21.0-51.0) L 08/25/21 04:57 [place] % (Auto) 2.3 % (0.0-13.0) 08/25/21 04:57 Eos % (Auto) 0.0 % (0.9-2.9) L 08/25/21 04:57 Baso % (Auto) 0.4 % (0.2-1.0) 08/25/21 04:57 Neut # (Auto) 3.2 x10^3/uL (2.2-4.8) 08/25/21 04:57 Lymph # (Auto) 0.4 X10^3/uL (1.3-2.9) L 08/25/21 04:57 [place] # (Auto) 0.1 x10^3/uL (0.3-0.8) L 08/25/21 04:57 Eos # (Auto) 0.0 x10^3/uL (0.0-0.2) 08/25/21 04:57 Baso # (Auto) 0.0 X10^3/uL (0.0-0.1) 08/25/21 04:57 Absolute Nucleated RBC 0.0 /100WBC 08/25/21 04:57 Total Counted 100 08/06/21 05:37 Neutrophils % (Manual) 96 % (39-76) H 08/06/21 05:37 Lymphocytes % (Manual) 3 % (13-43) L 08/06/21 05:37 Monocytes % (Manual) 1 % (4-9) L 08/06/21 05:37 Plt Morphology Comment Normal (NORMAL) 08/06/21 05:37 RBC Morphology Normal (NORMAL) 08/06/21 05:37 Polychromasia Slight 08/01/21 05:00 PT 15.2 SECONDS (11.8-14.3) 08/21/21 05:00 INR Target Range - 08/21/21 05:00 INR 1.26 (0.8-1.3) 08/21/21 05:00 APTT 26.6 SECONDS (22.9-36.5) 08/10/21 07:55 PTT Comment - 08/10/21 07:55 Fibrinogen 137 mg/dL (239-489) L* 08/10/21 07:55 D-Dimer 9.28 ug/ml (0.0-0.57) H* 08/21/21 05:00 Sample Site Lr 08/01/21 04:13 ABG pH 7.390 (7.35-7.45) 02/06/22 04:13 ABG pCO2 42.0 mmHg (35.0-45.0) 08/01/21 04:13 ABG pO2 72.0 mmHg (80.0-100.0) L 08/01/21 04:13 ABG HCO3 25.4 mmol/L (22-26) 08/01/21 04:13 ABG O2 Saturation 94.0 % (90-100) 08/01/21 04:13 ABG Base Excess 0.3 mmol/L (-2.0-2.0) 08/01/21 04:13 Gene Test Pos 08/01/21 04:13 A-a Gradient 232.0 mmHg 08/01/21 04:13 FiO2 50.0 08/01/21 04:13 Blood Gas Comments Natalia well ae 08/01/21 04:13 Sodium 142 mmol/L (136-145) 08/25/21 04:57 Corrected Sodium 144 mmol/L (136-145) 08/25/21 04:57 Potassium 4.3 mmol/L (3.5-5.1) 08/25/21 04:57 Chloride 108 mmol/L (98-107) H 08/25/21 04:57 Carbon Dioxide 29.0 mmol/L (21-32) 08/25/21 04:57 BUN 20 mg/dL (7-18) H 08/25/21 04:57 Creatinine 1.50 mg/dL (0.70-1.30) H 08/25/21 04:57 Est GFR (MDRD) Af Amer 59 (>60) 08/25/21 04:57 Est GFR (MDRD) Non-Af 49 (>60) L 08/25/21 04:57 Glucose 173 mg/dL (65-99) H 08/25/21 04:57 POC Glucose (mg/dL) 301 mg/dL (65-99) H 08/25/21 11:34 Calcium 7.6 mg/dL (8.5-10.1) L 08/25/21 04:57 Corrected Calcium 9.4 mg/dL (8.5-10.1) 08/25/21 04:57 Phosphorus 3.8 mg/dL (2.6-4.7) 08/03/21 05:00 Magnesium 2.1 mg/dL (1.7-2.9) 08/20/21 04:26 Iron 33 ug/dL (50-175) L 08/11/21 04:32 Transferrin 280 mg/dL (202-364) 08/11/21 04:32 Ferritin 53 ng/mL (26-388) 08/11/21 04:32 Total Bilirubin 0.40 mg/dL (0.2-1.0) 08/25/21 04:57 AST 15 Units/L (15-37) 08/25/21 04:57 ALT 24 Units/L (12-78) 08/25/21 04:57 Alkaline Phosphatase 94 Units/L (46-116) 08/25/21 04:57 Creatine Kinase 86 Units/L (39-308) 07/23/21 12:30 CK-MB (CK-2) 1.3 ng/mL (0-4.0) 07/23/21 12:30 CK/CKMB % Calc 1.5 % (<4) 07/23/21 12:30 Troponin I High Sens 49.9 ng/L (4.0-60.0) 07/27/21 04:40 C-Reactive Protein 112.70 mg/L (0-3.0) H 08/22/21 04:10 B-Natriuretic Peptide 153 pg/mL (0-79) H 08/22/21 04:10 Total Protein 5.5 g/dL (6.4-8.2) L 08/25/21 04:57 Albumin 1.7 g/dL (3.4-5.0) L 08/25/21 04:57 Globulin 3.8 g/dL (2.5-4.5) 08/25/21 04:57 Albumin/Globulin Ratio 0.4 Ratio (1.1-2.1) L 08/25/21 04:57 Prealbumin 32.0 mg/dL (18-35.7) 08/10/21 04:12 Triglycerides 59 mg/dL (0-150) 08/03/21 05:00 Vitamin B12 698 pg/mL (193-986) 08/11/21 04:32 Folate 16.3 ng/mL (>8.6) 08/11/21 04:32 Specimen Type Clean catch urine 08/19/21 18:00 Urine Color Yellow (YELLOW) 08/19/21 18:00 Urine Appearance Clear (CLEAR) 08/19/21 18:00 Urine pH 5.0 (5.0 - 8.0) 08/19/21 18:00 Ur Specific [place] 1.015 (1.000-1.030) 08/19/21 18:00 Urine Protein 2+ (NEGATIVE) 08/19/21 18:00 Urine Glucose (UA) 2+ (NEGATIVE) 08/19/21 18:00 Urine Ketones Negative (NEGATIVE) 08/19/21 18:00 Urine Occult Blood 2+ (NEGATIVE) 08/19/21 18:00 Urine Nitrite Negative (NEGATIVE) 08/19/21 18:00 Urine Bilirubin Negative (NEGATIVE) 08/19/21 18:00 Urine Urobilinogen Normal (NORMAL) 08/19/21 18:00 Ur Leukocyte Esterase Negative (NEGATIVE) 08/19/21 18:00 Urine RBC 3-5 /HPF (0-3) A 08/19/21 18:00 Urine WBC 0-2 /HPF (0-5) 08/19/21 18:00 Ur Squamous Epith Cells Few /HPF (NEGATIVE) 08/19/21 18:00 Amorphous Sediment 2+ /HPF (NEGATIVE) 07/23/21 19:40 Urine Bacteria 1+ /HPF (NEGATIVE) 08/19/21 18:00 Hyaline Casts Moderate /LPF (NEGATIVE) 08/19/21 18:00 Coarse Granular Casts Few /HPF (NEGATIVE) 07/23/21 19:40 Urine Mucus Few /HPF (NEGATIVE) 07/23/21 19:40 Urine Yeast Moderate /HPF (NEGATIVE) 08/19/21 18:00 Ur Culture Indicated? No/not indicated 08/19/21 18:00 Stool Description 50g black semi form 08/12/21 15:40 Stl Occult Blood (IFOB) Positive (NEGATIVE) A 08/12/21 15:40 SARS CoV-2 RNA Rapid HERMELINDO Positive (NEGATIVE) A 07/23/21 16:00 Tissue Pathology To follow 08/23/21 14:21 Blood Type A POSITIVE 08/19/21 08:41 Antibody Screen Negative 08/19/21 08:41 Crossmatch See Detail 08/19/21 08:41 Plan (1) Pneumonia due to COVID-19 virus: Status: Acute Plan: Case discussed with bedside HEATHER Flaherty. Patient is a very pleasant 76-year-old male who has been in ICU for hypoxic respiratory failure secondary to Covid pneumonia. I was previously consulted for continuous BiPAP however after optimization his oxygen requirement has significantly come down. A few days ago he was taken off high flow. Today he was weaned down from 5 L to 4 L oxygen via nasal cannula. From respiratory point of view he is doing very well. Unfortunately he was having melanotic stools and his hemoglobin dropped. Hemoglobin is 6.7. He is getting blood transfusions. Consider GI consult. Continue to wean oxygen as tolerated Continue lung recruitment maneuvers Monitor input/output to keep negative fluid balance From pulmonary standpoint, he is stable for discharge to rehab versus home depending on physical therapy's recommendations. No further pulmonary recommendations. Thank you for involving us in care of the patient. Please feel free to call us with any questions. (2) Acute on chronic respiratory failure with hypoxia: Status: Acute (3) Acute renal failure: Status: Acute Qualifiers: Acute renal failure type: unspecified Qualified Code(s): N17.9 - Acute kidney failure, unspecified Plan: IVF (4) Anemia: Status: Acute Qualifiers: Anemia type: unspecified type Qualified Code(s): D64.9 - Anemia, unspecified (5) Hypokalemia: Status: Acute (6) Elevated troponin level: Status: Acute (7) Elevated d-dimer: Status: Acute (8) Hypoalbuminemia: Status: Acute (9) Hypernatremia: Status: Acute (10) Diabetes mellitus: Status: Chronic Qualifiers: Diabetes mellitus complication status: with hyperglycemia Diabetes mellitus filler leaf cutter long insulin use: with filler leaf cutter long use Diabetes mellitus type: type 2 Qualified Code(s): E11.65 - Type 2 diabetes mellitus with hyperglycemia; Z79.4 - long-term (current) use of insulin (11) Hypertension: Status: Chronic Qualifiers: Hypertension type: primary hypertension Qualified Code(s): I10 - Essential (primary) hypertension
--- NOTE | 2021-08-25 14:58 | PCM.PROG ---
Progress Note Progress Note for Day of Date of Exam: 08/25/21 Subjective Subjective: Pt is a 76 year old male with a past medical history of Hypertension, DMT2, CAD(Pacemaker), Aortic valve replacement, HLD. He was admitted with COVID-19 pneumonia and acute on chronic renal failure. This morning he is on heated high flow oxygen with 84% FiO2. He appears a little dehydrated. Labs/imaging: Wbc 3.7, Hgb 7.7, Plt 86, Na 142, K 4.3, Cr 1.50, Glucose 173, Blood culture: NGTD. CXR: no significant change from prior. Patient is currently on pneumonia protocol that includes: IVF NS@KVO ml/h, Eliquis 5mg BID(hold), IV Solumedrol 40mg BID, scheduled Bronchodilators Xopenex and [place] esonide, Received Actemra 400mg x 1 dose, IV protonix 40mg BID, Famotidine 40mg BID, Levemir 5 units daily, Carafate, Tussionex prn, immune supporting supplements, supplemental O2, SSI, I/S, Physical therapy, Respiratory therapy consult, Smart Vest. Has central line. He has completed a course of Remdesivir. He does have cellulitis of right lower extremity that is improving and is on antibiotics IV Zosyn Q8h. Will give 1L NS and then back to KVO. Get repeat COVID-19 test. 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 Otherwise, will continue with current plan of care and continue to wean/titrate supplemental oxygen as tolerated. Continue to closely monitor and follow up labs/imaging. Past Medical Family Social History Past Med/Fam/Surg Hx: No changes since H&P Allergies: Allergies No Known Drug Allergies Allergy (Verified 07/23/21 12:02) Review of Systems ROS: No change since H&P Vital Signs and I&O's Vital Signs: Temperature 97.8 F Pulse Rate 93 Respiratory Rate 13 Blood Pressure 122/60 O2 Sat by Pulse Oximetry 93 Intake and Output: Intake & Output 08/22/21 08/23/21 08/24/21 08/25/21 23:59 23:59 23:59 23:59 Intake Total 1704 / 1704 2093 / 2093 2853 / 2853 288 / 288 Output Total 925 / 925 1000 / 1000 1000 / 1000 Balance 779 / 779 1093 / 1093 1853 / 1853 288 / 288 Physical Exam Oriented: Normal Eyes: Normal Ear: Normal Nose: Normal Throat: Normal Respiratory: Diminished Cardiovascular: Normal : Normal Auscultation: Bowel Sounds: Normal Tenderness: Normal Skin: Red (RLE), Tender and Hot Musculoskeletal: Right, Leg and Tender Psychiatric: Normal Mood Description: Calm and Appropriate Affect: Normal Speech Pattern: Clear and Appropriate Laboratory and Diagnostics Result Diagrams: 08/25/21 04:57 08/25/21 04:57 Labs: 07/30/21 08:09 Sputum - Expectorated Sputum Sputum Culture - Final Enterobacter Aerogenes 07/30/21 08:09 Sputum - Expectorated Sputum - Final 07/26/21 16:38 Blood Blood Culture - Final 07/26/21 16:30 Blood Blood Culture - Final Laboratory WBC 3.7 X10^3/uL (3.6-10.0) 08/25/21 04:57 RBC 2.65 X10^6/uL (4.7-6.0) L 08/25/21 04:57 Hgb 7.7 g/dL (13.5-18.0) L 08/25/21 04:57 Hct 23.0 % (42.0-54.0) L 08/25/21 04:57 MCV 86.8 fL (80.0-100.0) 08/25/21 04:57 MCH 29.2 pg (27.0-34.0) 08/25/21 04:57 MCHC 33.6 g/dL (33.0-35.0) 08/25/21 04:57 RDW 18.2 % (11.6-16.5) H 08/25/21 04:57 Plt Count 86 X10^3/uL (150.0-450.0) L 08/25/21 04:57 Plt Count Comment Decreased (ADEQUATE) 08/06/21 05:37 MPV 9.5 fL (7.4-11.0) 08/25/21 04:57 Neut % (Auto) 86.8 % (42.0-75.0) H 08/25/21 04:57 Lymph % (Auto) 10.5 % (21.0-51.0) L 08/25/21 04:57 [place] % (Auto) 2.3 % (0.0-13.0) 08/25/21 04:57 Eos % (Auto) 0.0 % (0.9-2.9) L 08/25/21 04:57 Baso % (Auto) 0.4 % (0.2-1.0) 08/25/21 04:57 Neut # (Auto) 3.2 x10^3/uL (2.2-4.8) 08/25/21 04:57 Lymph # (Auto) 0.4 X10^3/uL (1.3-2.9) L 08/25/21 04:57 [place] # (Auto) 0.1 x10^3/uL (0.3-0.8) L 08/25/21 04:57 Eos # (Auto) 0.0 x10^3/uL (0.0-0.2) 08/25/21 04:57 Baso # (Auto) 0.0 X10^3/uL (0.0-0.1) 08/25/21 04:57 Absolute Nucleated RBC 0.0 /100WBC 08/25/21 04:57 Total Counted 100 08/06/21 05:37 Neutrophils % (Manual) 96 % (39-76) H 08/06/21 05:37 Lymphocytes % (Manual) 3 % (13-43) L 08/06/21 05:37 Monocytes % (Manual) 1 % (4-9) L 08/06/21 05:37 Plt Morphology Comment Normal (NORMAL) 08/06/21 05:37 RBC Morphology Normal (NORMAL) 08/06/21 05:37 Polychromasia Slight 08/01/21 05:00 PT 15.2 SECONDS (11.8-14.3) 08/21/21 05:00 INR Target Range - 08/21/21 05:00 INR 1.26 (0.8-1.3) 08/21/21 05:00 APTT 26.6 SECONDS (22.9-36.5) 08/10/21 07:55 PTT Comment - 08/10/21 07:55 Fibrinogen 137 mg/dL (239-489) L* 08/10/21 07:55 D-Dimer 9.28 ug/ml (0.0-0.57) H* 08/21/21 05:00 Sample Site Lr 08/01/21 04:13 ABG pH 7.390 (7.35-7.45) 08/01/21 04:13 ABG pCO2 42.0 mmHg (35.0-45.0) 08/01/21 04:13 ABG pO2 72.0 mmHg (80.0-100.0) L 08/01/21 04:13 ABG HCO3 25.4 mmol/L (22-26) 08/01/21 04:13 ABG O2 Saturation 94.0 % (90-100) 08/01/21 04:13 ABG Base Excess 0.3 mmol/L (-2.0-2.0) 08/01/21 04:13 Gene Test Pos 08/01/21 04:13 A-a Gradient 232.0 mmHg 08/01/21 04:13 FiO2 50.0 08/01/21 04:13 Blood Gas Comments Natalia well ae 08/01/21 04:13 Sodium 142 mmol/L (136-145) 08/25/21 04:57 Corrected Sodium 144 mmol/L (136-145) 08/25/21 04:57 Potassium 4.3 mmol/L (3.5-5.1) 08/25/21 04:57 Chloride 108 mmol/L (98-107) H 08/25/21 04:57 Carbon Dioxide 29.0 mmol/L (21-32) 08/25/21 04:57 BUN 20 mg/dL (7-18) H 08/25/21 04:57 Creatinine 1.50 mg/dL (0.70-1.30) H 08/25/21 04:57 Est GFR (MDRD) Af Amer 59 (>60) 08/25/21 04:57 Est GFR (MDRD) Non-Af 49 (>60) L 08/25/21 04:57 Glucose 173 mg/dL (65-99) H 08/25/21 04:57 POC Glucose (mg/dL) 301 mg/dL (65-99) H 08/25/21 11:34 Calcium 7.6 mg/dL (8.5-10.1) L 08/25/21 04:57 Corrected Calcium 9.4 mg/dL (8.5-10.1) 08/25/21 04:57 Phosphorus 3.8 mg/dL (2.6-4.7) 08/03/21 05:00 Magnesium 2.1 mg/dL (1.7-2.9) 08/20/21 04:26 Iron 33 ug/dL (50-175) L 08/11/21 04:32 Transferrin 280 mg/dL (202-364) 08/11/21 04:32 Ferritin 53 ng/mL (26-388) 08/11/21 04:32 Total Bilirubin 0.40 mg/dL (0.2-1.0) 08/25/21 04:57 AST 15 Units/L (15-37) 08/25/21 04:57 ALT 24 Units/L (12-78) 08/25/21 04:57 Alkaline Phosphatase 94 Units/L (46-116) 08/25/21 04:57 Creatine Kinase 86 Units/L (39-308) 07/23/21 12:30 CK-MB (CK-2) 1.3 ng/mL (0-4.0) 07/23/21 12:30 CK/CKMB % Calc 1.5 % (<4) 07/23/21 12:30 Troponin I High Sens 49.9 ng/L (4.0-60.0) 07/27/21 04:40 C-Reactive Protein 112.70 mg/L (0-3.0) H 08/22/21 04:10 B-Natriuretic Peptide 153 pg/mL (0-79) H 08/22/21 04:10 Total Protein 5.5 g/dL (6.4-8.2) L 08/25/21 04:57 Albumin 1.7 g/dL (3.4-5.0) L 08/25/21 04:57 Globulin 3.8 g/dL (2.5-4.5) 08/25/21 04:57 Albumin/Globulin Ratio 0.4 Ratio (1.1-2.1) L 08/25/21 04:57 Prealbumin 32.0 mg/dL (18-35.7) 08/10/21 04:12 Triglycerides 59 mg/dL (0-150) 08/03/21 05:00 Vitamin B12 698 pg/mL (193-986) 08/11/21 04:32 Folate 16.3 ng/mL (>8.6) 08/11/21 04:32 Specimen Type Clean catch urine 08/19/21 18:00 Urine Color Yellow (YELLOW) 08/19/21 18:00 Urine Appearance Clear (CLEAR) 08/19/21 18:00 Urine pH 5.0 (5.0 - 8.0) 08/19/21 18:00 Ur Specific [place] 1.015 (1.000-1.030) 08/19/21 18:00 Urine Protein 2+ (NEGATIVE) 08/19/21 18:00 Urine Glucose (UA) 2+ (NEGATIVE) 08/19/21 18:00 Urine Ketones Negative (NEGATIVE) 08/19/21 18:00 Urine Occult Blood 2+ (NEGATIVE) 08/19/21 18:00 Urine Nitrite Negative (NEGATIVE) 08/19/21 18:00 Urine Bilirubin Negative (NEGATIVE) 08/19/21 18:00 Urine Urobilinogen Normal (NORMAL) 08/19/21 18:00 Ur Leukocyte Esterase Negative (NEGATIVE) 08/19/21 18:00 Urine RBC 3-5 /HPF (0-3) A 08/19/21 18:00 Urine WBC 0-2 /HPF (0-5) 08/19/21 18:00 Ur Squamous Epith Cells Few /HPF (NEGATIVE) 08/19/21 18:00 Amorphous Sediment 2+ /HPF (NEGATIVE) 07/23/21 19:40 Urine Bacteria 1+ /HPF (NEGATIVE) 08/19/21 18:00 Hyaline Casts Moderate /LPF (NEGATIVE) 08/19/21 18:00 Coarse Granular Casts Few /HPF (NEGATIVE) 07/23/21 19:40 Urine Mucus Few /HPF (NEGATIVE) 07/23/21 19:40 Urine Yeast Moderate /HPF (NEGATIVE) 08/19/21 18:00 Ur Culture Indicated? No/not indicated 08/19/21 18:00 Stool Description 50g black semi form 08/12/21 15:40 Stl Occult Blood (IFOB) Positive (NEGATIVE) A 08/12/21 15:40 SARS CoV-2 RNA Rapid HERMELINDO Positive (NEGATIVE) A 07/23/21 16:00 Tissue Pathology To follow 08/23/21 14:21 Blood Type A POSITIVE 08/19/21 08:41 Antibody Screen Negative 08/19/21 08:41 Crossmatch See Detail 08/19/21 08:41 Plan (1) Pneumonia due to COVID-19 virus: Status: Acute Plan: Case discussed with bedside RN Reynold. Patient is a very pleasant 76-year-old male who has been in ICU for hypoxic respiratory failure secondary to Covid pneumonia. I was previously consulted for continuous BiPAP however after optimization his oxygen requirement has significantly come down. A few days ago he was taken off high flow. Today he was weaned down from 5 L to 4 L oxygen via nasal cannula. From respiratory point of view he is doing very well. Unfortunately he was having melanotic stools and his hemoglobin dropped. Hemoglobin is 6.7. He is getting blood transfusions. Consider GI consult. Continue to wean oxygen as tolerated Continue lung recruitment maneuvers Monitor input/output to keep negative fluid balance From pulmonary standpoint, he is stable for discharge to rehab versus home depending on physical therapy's recommendations. No further pulmonary recommendations. Thank you for involving us in care of the patient. Please feel free to call us with any questions. (2) Acute on chronic respiratory failure with hypoxia: Status: Acute (3) Acute renal failure: Status: Acute Qualifiers: Acute renal failure type: unspecified Qualified Code(s): N17.9 - Acute kidney failure, unspecified Plan: IVF (4) Anemia: Status: Acute Qualifiers: Anemia type: unspecified type Qualified Code(s): D64.9 - Anemia, unspecified (5) Hypokalemia: Status: Acute (6) Elevated troponin level: Status: Acute (7) Elevated d-dimer: Status: Acute (8) Hypoalbuminemia: Status: Acute (9) Hypernatremia: Status: Acute (10) Diabetes mellitus: Status: Chronic Qualifiers: Diabetes mellitus complication status: with hyperglycemia Diabetes mellitus it data architect insulin use: with it data architect use Diabetes mellitus type: type 2 Qualified Code(s): E11.65 - Type 2 diabetes mellitus with hyperglycemia; Z79.4 - [facility] (current) use of insulin (11) Hypertension: Status: Chronic Qualifiers: Hypertension type: primary hypertension Qualified Code(s): I10 - Essential (primary) hypertension
[2021-08-25] MEDS: SNACK - Diabetic Appropriate PO SCH (20:45)
[2021-08-26] MEDS: NS 1,000 ML IV 1,000 ML IV SCH ×2 (02:26→20:30)
[2021-08-26] MEDS: TUSSIONEX PENNKINETIC SUSP PO PRN (03:13)
[2021-08-26 05:22] LABS: BASOPHILS % (AUTO) 0.2 % (0.2-1.0); HEMATOCRIT 23.5 % (42.0-54.0); HEMOGLOBIN 7.7 g/dL (13.5-18.0); LYMPHOCYTES # (AUTO) 0.5 X10^3/uL (1.3-2.9); LYMPHOCYTES % (AUTO) 10.6 % (21.0-51.0); MEAN CORPUSCULAR HEMOGLOBIN 28.7 pg (27.0-34.0); MEAN CORPUSCULAR HGB CONC 32.9 g/dL (33.0-35.0); MEAN CORPUSCULAR VOLUME 87.2 fL (80.0-100.0); MEAN PLATELET VOLUME 9.3 fL (7.4-11.0); MONOCYTES # (AUTO) 0.2 x10^3/uL (0.3-0.8); MONOCYTES % (AUTO) 4.2 % (0.0-13.0); NEUTROPHILS # (AUTO) 4.1 x10^3/uL (2.2-4.8); RED BLOOD COUNT 2.69 X10^6/uL (4.7-6.0); RED CELL DISTRIBUTION WIDTH 18.2 % (11.6-16.5); WHITE BLOOD COUNT 4.9 X10^3/uL (3.6-10.0)
[2021-08-26 05:33] LABS: ALBUMIN 1.8 g/dL (3.4-5.0); CALCIUM 7.8 mg/dL (8.5-10.1); CARBON DIOXIDE 26.9 mmol/L (21-32); COR CA(FOR HYPOALB) 9.6 mg/dL (8.5-10.1); CREATININE 1.73 mg/dL (0.70-1.30); TOTAL PROTEIN 5.8 g/dL (6.4-8.2)
[2021-08-26] MEDS: ZOSYN VIAL 3.375 GRAMS 3.375 G in NS 100 ML IV 100 ML IV SCH ×3 (05:45→21:14)
[2021-08-26] MEDS: CARAFATE ORAL SUSP PO SCH ×3 (05:45→20:45)
[2021-08-26] MEDS: NovoLIN R (or HumuLIN R) SUBCUT PRN ×4 (06:20→21:15)
[2021-08-26] MEDS: BROVANA IN SCH ×2 (08:30→21:00)
[2021-08-26] MEDS: PULMICORT NEB TX 0.5 MG NEB SCH ×2 (08:30→21:00)
[2021-08-26] MEDS: GLUCOPHAGE PO SCH (08:37)
[2021-08-26] MEDS: COLACE CAP 100 MG PO SCH ×2 (08:37→20:45)
[2021-08-26] MEDS: LEVEMIR SC SCH (08:38)
[2021-08-26] MEDS: PEPCID 20 MG VIAL 20 MG in NS 50 ML IV 50 ML IV SCH (08:38)
[2021-08-26] MEDS: PROTONIX INJ 40 MG VIAL IVP SCH ×2 (08:38→20:45)
[2021-08-26] MEDS: MILK OF MAGNESIA PO SCH ×2 (08:38→20:45)
[2021-08-26] MEDS: SOLU-Medrol 40 MG VIAL IVP SCH (08:39)
[2021-08-26] MEDS: TOPROL XL PO SCH (08:39)
[2021-08-26] MEDS: XANAX PO SCH ×2 (08:39→20:45)
[2021-08-26] MEDS: ROBITUSSIN DM PO PRN ×2 (08:39→13:32)
[2021-08-26] MEDS: SNACK - Diabetic Appropriate PO SCH (20:45)
[2021-08-26] MEDS ORDERED: RESTORIL CAP 15 MG PO SCH (21:00)
[2021-08-27] MEDS: TUSSIONEX PENNKINETIC SUSP PO PRN (00:46)
[2021-08-27 05:01] LABS: BASOPHILS % (AUTO) 0.6 % (0.2-1.0); EOSINOPHILS # (AUTO) 0.1 x10^3/uL (0.0-0.2); EOSINOPHILS % (AUTO) 1.4 % (0.9-2.9); HEMATOCRIT 22.1 % (42.0-54.0); HEMOGLOBIN 7.2 g/dL (13.5-18.0); LYMPHOCYTES # (AUTO) 0.8 X10^3/uL (1.3-2.9); LYMPHOCYTES % (AUTO) 20.3 % (21.0-51.0); MEAN CORPUSCULAR HEMOGLOBIN 28.4 pg (27.0-34.0); MEAN CORPUSCULAR HGB CONC 32.7 g/dL (33.0-35.0); MEAN CORPUSCULAR VOLUME 86.9 fL (80.0-100.0); MONOCYTES # (AUTO) 0.4 x10^3/uL (0.3-0.8); NEUTROPHILS # (AUTO) 2.7 x10^3/uL (2.2-4.8); NEUTROPHILS % (AUTO) 67.7 % (42.0-75.0); RED BLOOD COUNT 2.54 X10^6/uL (4.7-6.0); RED CELL DISTRIBUTION WIDTH 18.5 % (11.6-16.5); WHITE BLOOD COUNT 3.9 X10^3/uL (3.6-10.0)
[2021-08-27 05:16] LABS: ALBUMIN 1.8 g/dL (3.4-5.0); CALCIUM 7.7 mg/dL (8.5-10.1); CARBON DIOXIDE 26.9 mmol/L (21-32); COR CA(FOR HYPOALB) 9.5 mg/dL (8.5-10.1); CREATININE 1.7 mg/dL (0.70-1.30); TOTAL PROTEIN 5.4 g/dL (6.4-8.2)
[2021-08-27] MEDS: CARAFATE ORAL SUSP PO SCH (05:54)
[2021-08-27] MEDS: ZOSYN VIAL 3.375 GRAMS 3.375 G in NS 100 ML IV 100 ML IV SCH (05:54)
[2021-08-27] MEDS: LEVEMIR SC SCH (08:08)
[2021-08-27] MEDS: COLACE CAP 100 MG PO SCH (08:08)
[2021-08-27] MEDS: GLUCOPHAGE PO SCH (08:08)
[2021-08-27] MEDS: PEPCID 20 MG VIAL 20 MG in NS 50 ML IV 50 ML IV SCH (08:09)
[2021-08-27] MEDS: SOLU-Medrol 40 MG VIAL IVP SCH (08:09)
[2021-08-27] MEDS: TOPROL XL PO SCH (08:09)
[2021-08-27] MEDS: PROTONIX INJ 40 MG VIAL IVP SCH (08:09)
[2021-08-27] MEDS: XANAX PO SCH (08:09)
[2021-08-27] MEDS: MILK OF MAGNESIA PO SCH (08:09)
[2021-08-27] MEDS: ROBITUSSIN DM PO PRN (08:13)
[2021-08-27] MEDS: BROVANA IN SCH (08:50)
[2021-08-27] MEDS: PULMICORT NEB TX 0.5 MG NEB SCH (08:50)
--- NOTE | 2021-08-27 09:06 | PCM.PROG ---
Progress Note Progress Note for Day of Date of Exam: 08/26/21 Subjective Subjective: Pt is a 76 year old male with a past medical history of Hypertension, DMT2, CAD(Pacemaker), Aortic valve replacement, HLD. He was admitted with COVID-19 pneumonia and acute on chronic renal failure. This morning he is on heated high flow oxygen with 83% FiO2. He reports symptoms have improved from day prior. Labs/imaging: Wbc 4.9, Hgb 7.7, Plt 103, Na 141, K 4.2, Cr 1.73, Glucose 261, Blood culture: NGTD. CXR: no significant change from prior. Patient is currently on pneumonia protocol that includes: IVF NS@KVO ml/h, Eliquis 5mg BID(hold), IV Solumedrol 40mg BID, scheduled Bronchodilators Xopenex and Budesonide, Received Actemra 400mg x 1 dose, IV protonix 40mg BID, Famotidine 40mg BID, Levemir 5 units daily, Carafate, Tussionex prn, immune supporting supplements, supplemental O2, SSI, I/S, Physical therapy, Respiratory therapy consult, Smart Vest. Has central line. He has completed a course of Remdesivir. He does have cellulitis of right lower extremity that is improving and is on antibiotics IV Zosyn Q8h. Will increase IVF to 75ml/h, decrease solumedrol to 40mg daily. manager child to work on LTAC placement. Otherwise, will continue with current plan of care and continue to wean/titrate supplemental oxygen as tolerated. Continue to closely monitor and follow up labs/imaging. Past Medical Family Social History Past Med/Fam/Surg Hx: No changes since H&P Allergies: Allergies No Known Drug Allergies Allergy (Verified 07/23/21 12:02) Review of Systems ROS: No change since H&P Vital Signs and I&O's Vital Signs: Temperature 97.6 F Pulse Rate 87 Respiratory Rate 22 Blood Pressure 118/56 O2 Sat by Pulse Oximetry 88 Intake and Output: Intake & Output 08/24/21 08/25/21 08/26/21 08/27/21 23:59 23:59 23:59 23:59 Intake Total 2853 / 2853 2249 / 2249 2890 / 2890 700 / 700 Output Total 1000 / 1000 400 / 400 1025 / 1025 400 / 400 Balance 1853 / 1853 1849 / 1849 1865 / 1865 300 / 300 Physical Exam Oriented: Normal Eyes: Normal Ear: Normal Nose: Normal Throat: Normal Respiratory: Diminished Cardiovascular: Normal : Normal Auscultation: Bowel Sounds: Normal Tenderness: Normal Skin: Red (RLE), Tender and Hot Musculoskeletal: Right, Leg and Tender Psychiatric: Normal Mood Description: Calm and Appropriate Affect: Normal Speech Pattern: Clear and Appropriate Laboratory and Diagnostics Result Diagrams: 08/27/21 04:35 08/27/21 04:35 Labs: 07/30/21 08:09 Sputum - Expectorated Sputum Sputum Culture - Final Enterobacter Aerogenes 07/30/21 08:09 Sputum - Expectorated Sputum - Final 07/26/21 16:38 Blood Blood Culture - Final 07/26/21 16:30 Blood Blood Culture - Final Laboratory WBC 3.9 X10^3/uL (3.6-10.0) 08/27/21 04:35 RBC 2.54 X10^6/uL (4.7-6.0) L 08/27/21 04:35 Hgb 7.2 g/dL (13.5-18.0) L 08/27/21 04:35 Hct 22.1 % (42.0-54.0) L 08/27/21 04:35 MCV 86.9 fL (80.0-100.0) 08/27/21 04:35 MCH 28.4 pg (27.0-34.0) 08/27/21 04:35 MCHC 32.7 g/dL (33.0-35.0) L 08/27/21 04:35 RDW 18.5 % (11.6-16.5) H 08/27/21 04:35 Plt Count 113 X10^3/uL (150.0-450.0) L 08/27/21 04:35 Plt Count Comment Decreased (ADEQUATE) 08/06/21 05:37 MPV 9.0 fL (7.4-11.0) 08/27/21 04:35 Neut % (Auto) 67.7 % (42.0-75.0) 08/27/21 04:35 Lymph % (Auto) 20.3 % (21.0-51.0) L 08/27/21 04:35 Terrell % (Auto) 10.0 % (0.0-13.0) 08/27/21 04:35 Eos % (Auto) 1.4 % (0.9-2.9) 08/27/21 04:35 Baso % (Auto) 0.6 % (0.2-1.0) 08/27/21 04:35 Neut # (Auto) 2.7 x10^3/uL (2.2-4.8) 08/27/21 04:35 Lymph # (Auto) 0.8 X10^3/uL (1.3-2.9) L 08/27/21 04:35 Terrell # (Auto) 0.4 x10^3/uL (0.3-0.8) 08/27/21 04:35 Eos # (Auto) 0.1 x10^3/uL (0.0-0.2) 08/27/21 04:35 Baso # (Auto) 0.0 X10^3/uL (0.0-0.1) 08/27/21 04:35 Absolute Nucleated RBC 0.0 /100WBC 08/27/21 04:35 Total Counted 100 08/06/21 05:37 Neutrophils % (Manual) 96 % (39-76) H 08/06/21 05:37 Lymphocytes % (Manual) 3 % (13-43) L 08/06/21 05:37 Monocytes % (Manual) 1 % (4-9) L 08/06/21 05:37 Plt Morphology Comment Normal (NORMAL) 08/06/21 05:37 RBC Morphology Normal (NORMAL) 08/06/21 05:37 Polychromasia Slight 08/01/21 05:00 PT 15.2 SECONDS (11.8-14.3) 08/21/21 05:00 INR Target Range - 08/21/21 05:00 INR 1.26 (0.8-1.3) 08/21/21 05:00 APTT 26.6 SECONDS (22.9-36.5) 08/10/21 07:55 PTT Comment - 08/10/21 07:55 Fibrinogen 137 mg/dL (239-489) L* 08/10/21 07:55 D-Dimer 9.28 ug/ml (0.0-0.57) H* 08/21/21 05:00 Sample Site Lr 08/01/21 04:13 ABG pH 7.390 (7.35-7.45) 08/01/21 04:13 ABG pCO2 42.0 mmHg (35.0-45.0) 08/01/21 04:13 ABG pO2 72.0 mmHg (80.0-100.0) L 08/01/21 04:13 ABG HCO3 25.4 mmol/L (22-26) 08/01/21 04:13 ABG O2 Saturation 94.0 % (90-100) 08/01/21 04:13 ABG Base Excess 0.3 mmol/L (-2.0-2.0) 08/01/21 04:13 Gene Test Pos 08/01/21 04:13 A-a Gradient 232.0 mmHg 08/01/21 04:13 FiO2 50.0 08/01/21 04:13 Blood Gas Comments Natalia well ae 08/01/21 04:13 Sodium 144 mmol/L (136-145) 08/27/21 04:35 Corrected Sodium 144 mmol/L (136-145) 08/27/21 04:35 Potassium 3.5 mmol/L (3.5-5.1) 08/27/21 04:35 Chloride 112 mmol/L (98-107) H 08/27/21 04:35 Carbon Dioxide 26.9 mmol/L (21-32) 08/27/21 04:35 BUN 32 mg/dL (7-18) H 08/27/21 04:35 Creatinine 1.70 mg/dL (0.70-1.30) H 08/27/21 04:35 Est GFR (MDRD) Af Amer 51 (>60) L 08/27/21 04:35 Est GFR (MDRD) Non-Af 42 (>60) L 08/27/21 04:35 Glucose 119 mg/dL (65-99) H 08/27/21 04:35 POC Glucose (mg/dL) 256 mg/dL (65-99) H 08/26/21 20:13 Calcium 7.7 mg/dL (8.5-10.1) L 08/27/21 04:35 Corrected Calcium 9.5 mg/dL (8.5-10.1) 08/27/21 04:35 Phosphorus 3.8 mg/dL (2.6-4.7) 08/03/21 05:00 Magnesium 2.1 mg/dL (1.7-2.9) 08/20/21 04:26 Iron 33 ug/dL (50-175) L 08/11/21 04:32 Transferrin 280 mg/dL (202-364) 08/11/21 04:32 Ferritin 53 ng/mL (26-388) 08/11/21 04:32 Total Bilirubin 0.30 mg/dL (0.2-1.0) 08/27/21 04:35 AST 17 Units/L (15-37) 08/27/21 04:35 ALT 27 Units/L (12-78) 08/27/21 04:35 Alkaline Phosphatase 80 Units/L (46-116) 08/27/21 04:35 Creatine Kinase 86 Units/L (39-308) 07/23/21 12:30 CK-MB (CK-2) 1.3 ng/mL (0-4.0) 07/23/21 12:30 CK/CKMB % Calc 1.5 % (<4) 07/23/21 12:30 Troponin I High Sens 49.9 ng/L (4.0-60.0) 07/27/21 04:40 C-Reactive Protein 112.70 mg/L (0-3.0) H 08/22/21 04:10 B-Natriuretic Peptide 153 pg/mL (0-79) H 08/22/21 04:10 Total Protein 5.4 g/dL (6.4-8.2) L 08/27/21 04:35 Albumin 1.8 g/dL (3.4-5.0) L 08/27/21 04:35 Globulin 3.6 g/dL (2.5-4.5) 08/27/21 04:35 Albumin/Globulin Ratio 0.5 Ratio (1.1-2.1) L 08/27/21 04:35 Prealbumin 32.0 mg/dL (18-35.7) 08/10/21 04:12 Triglycerides 59 mg/dL (0-150) 08/03/21 05:00 Vitamin B12 698 pg/mL (193-986) 08/11/21 04:32 Folate 16.3 ng/mL (>8.6) 08/11/21 04:32 Specimen Type Clean catch urine 08/19/21 18:00 Urine Color Yellow (YELLOW) 08/19/21 18:00 Urine Appearance Clear (CLEAR) 08/19/21 18:00 Urine pH 5.0 (5.0 - 8.0) 08/19/21 18:00 Ur Specific [place] 1.015 (1.000-1.030) 08/19/21 18:00 Urine Protein 2+ (NEGATIVE) 08/19/21 18:00 Urine Glucose (UA) 2+ (NEGATIVE) 08/19/21 18:00 Urine Ketones Negative (NEGATIVE) 08/19/21 18:00 Urine Occult Blood 2+ (NEGATIVE) 08/19/21 18:00 Urine Nitrite Negative (NEGATIVE) 08/19/21 18:00 Urine Bilirubin Negative (NEGATIVE) 08/19/21 18:00 Urine Urobilinogen Normal (NORMAL) 08/19/21 18:00 Ur Leukocyte Esterase Negative (NEGATIVE) 08/19/21 18:00 Urine RBC 3-5 /HPF (0-3) A 08/19/21 18:00 Urine WBC 0-2 /HPF (0-5) 08/19/21 18:00 Ur Squamous Epith Cells Few /HPF (NEGATIVE) 08/19/21 18:00 Amorphous Sediment 2+ /HPF (NEGATIVE) 07/23/21 19:40 Urine Bacteria 1+ /HPF (NEGATIVE) 08/19/21 18:00 Hyaline Casts Moderate /LPF (NEGATIVE) 08/19/21 18:00 Coarse Granular Casts Few /HPF (NEGATIVE) 07/23/21 19:40 Urine Mucus Few /HPF (NEGATIVE) 07/23/21 19:40 Urine Yeast Moderate /HPF (NEGATIVE) 08/19/21 18:00 Ur Culture Indicated? No/not indicated 08/19/21 18:00 Stool Description 50g black semi form 08/12/21 15:40 Stl Occult Blood (IFOB) Positive (NEGATIVE) A 08/12/21 15:40 SARS CoV-2 RNA Rapid HERMELINDO Positive (NEGATIVE) A 08/25/21 15:55 Tissue Pathology To follow 08/23/21 14:21 Blood Type A POSITIVE 08/19/21 08:41 Antibody Screen Negative 08/19/21 08:41 Crossmatch See Detail 08/19/21 08:41 Plan (1) Pneumonia due to COVID-19 virus: Status: Acute Plan: Case discussed with bedside RN Reynold. Patient is a very pleasant 76-year-old male who has been in ICU for hypoxic respiratory failure secondary to Covid pneumonia. I was previously consulted for continuous BiPAP however after optimization his oxygen requirement has significantly come down. A few days ago he was taken off high flow. Today he was weaned down from 5 L to 4 L oxygen via nasal cannula. From respiratory point of view he is doing very well. Unfortunately he was having melanotic stools and his hemoglobin dropped. Hemoglobin is 6.7. He is getting blood transfusions. Consider GI consult. Continue to wean oxygen as tolerated Continue lung recruitment maneuvers Monitor input/output to keep negative fluid balance From pulmonary standpoint, he is stable for discharge to rehab versus home depending on physical therapy's recommendations. No further pulmonary recommendations. Thank you for involving us in care of the patient. Please feel free to call us with any questions. (2) Acute on chronic respiratory failure with hypoxia: Status: Acute (3) Acute renal failure: Status: Acute Qualifiers: Acute renal failure type: unspecified Qualified Code(s): N17.9 - Acute kidney failure, unspecified Plan: IVF (4) Anemia: Status: Acute Qualifiers: Anemia type: unspecified type Qualified Code(s): D64.9 - Anemia, unspecified (5) Hypokalemia: Status: Acute (6) Elevated troponin level: Status: Acute (7) Elevated d-dimer: Status: Acute (8) Hypoalbuminemia: Status: Acute (9) Hypernatremia: Status: Acute (10) Diabetes mellitus: Status: Chronic Qualifiers: Diabetes mellitus complication status: with hyperglycemia Diabetes mellitus retirement insulin use: with retirement use Diabetes mellitus type: type 2 Qualified Code(s): E11.65 - Type 2 diabetes mellitus with hyperglycemia; 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
--- NOTE | 2021-08-27 09:09 | W.DIS.FURT ---
Summary of Discharge Discharge Summary of Date Date of Exam: 08/27/21 Admission Diagnosis Patient Problems (Updated 08/22/21 @ 09:14 by Mauricio Otero) Cellulitis of right lower extremity (Acute) L03.115 Hypoalbuminemia (Acute) E88.09 Hypernatremia (Acute) E87.0 Anemia (Acute) D64.9 Hypokalemia (Acute) E87.6 Elevated troponin level (Acute) R77.8 Elevated d-dimer (Acute) R79.89 Acute on chronic respiratory failure with hypoxia (Acute) J96.21 Diabetes mellitus (Chronic) E11.9 Hypertension (Chronic) I10 Pneumonia due to COVID-19 virus (Acute) U07.1, J12.82 COVID (Acute) U07.1 Acute renal failure (Acute) N17.9 Vital Signs: Vital Signs (72 hours) 08/24/21 09:11 08/24/21 10:00 08/24/21 10:01 Temperature Pulse Rate 108 H 93 H 92 H Respiratory Rate 34 H 30 H Blood Pressure 123/58 123/58 O2 Sat by Pulse Oximetry 80 L 94 L 95 08/24/21 11:00 08/24/21 12:00 08/24/21 13:00 Temperature 98.2 F Pulse Rate 100 H 93 H 81 Respiratory Rate 41 H 30 H 20 Blood Pressure 124/65 98/57 O2 Sat by Pulse Oximetry 85 L 98 100 08/24/21 13:07 08/24/21 14:00 08/24/21 15:00 Temperature Pulse Rate 84 91 H 93 H Respiratory Rate 20 41 H 20 Blood Pressure 98/57 117/56 O2 Sat by Pulse Oximetry 99 94 L 98 08/24/21 15:47 08/24/21 16:00 08/24/21 16:01 Temperature 97.7 F Pulse Rate 93 H 92 H 92 H Respiratory Rate 28 H 31 H 29 H Blood Pressure 117/56 97/54 97/64 O2 Sat by Pulse Oximetry 96 97 98 08/24/21 17:00 08/24/21 18:00 08/24/21 19:00 Temperature Pulse Rate 84 86 84 Respiratory Rate 18 18 19 Blood Pressure 106/55 120/59 114/55 O2 Sat by Pulse Oximetry 99 97 98 08/24/21 20:00 08/24/21 21:00 08/24/21 21:12 Temperature 97.7 F Pulse Rate 84 81 81 Respiratory Rate 19 27 H 20 Blood Pressure 121/60 116/60 O2 Sat by Pulse Oximetry 94 L 97 92 L 08/24/21 22:00 08/24/21 23:00 08/25/21 00:00 Temperature 97.8 F Pulse Rate 80 77 80 Respiratory Rate 25 H 20 30 H Blood Pressure 104/60 103/55 94/61 O2 Sat by Pulse Oximetry 94 L 98 97 08/25/21 01:00 08/25/21 01:04 08/25/21 02:00 Temperature Pulse Rate 90 91 H 78 Respiratory Rate 34 H 34 H 20 Blood Pressure 127/60 127/60 102/58 O2 Sat by Pulse Oximetry 89 L 88 L 96 08/25/21 03:00 08/25/21 04:00 08/25/21 05:00 Temperature 97.8 F Pulse Rate 78 80 83 Respiratory Rate 25 H 22 32 H Blood Pressure 111/57 109/55 111/62 O2 Sat by Pulse Oximetry 95 96 90 L 08/25/21 06:00 08/25/21 07:00 08/25/21 08:00 Temperature 97.8 F Pulse Rate 78 79 92 H Respiratory Rate 16 13 Blood Pressure 106/56 105/55 O2 Sat by Pulse Oximetry 98 97 90 L 08/25/21 08:01 08/25/21 08:25 08/25/21 09:00 Temperature Pulse Rate 90 91 H Respiratory Rate Blood Pressure 124/64 100/58 O2 Sat by Pulse Oximetry 91 L 90 L 93 L 08/25/21 10:00 08/25/21 10:39 08/25/21 11:00 Temperature Pulse Rate 100 H 101 H 97 H Respiratory Rate Blood Pressure 127/59 O2 Sat by Pulse Oximetry 90 L 88 L 91 L 08/25/21 11:01 08/25/21 12:00 08/25/21 13:00 Temperature 97.8 F Pulse Rate 95 H 91 H 96 H Respiratory Rate Blood Pressure 123/58 133/64 O2 Sat by Pulse Oximetry 93 L 97 91 L 08/25/21 14:00 08/25/21 15:00 08/25/21 16:00 Temperature 98.1 F Pulse Rate 93 H 91 H 86 Respiratory Rate 28 H 20 Blood Pressure 122/60 112/57 107/56 O2 Sat by Pulse Oximetry 93 L 93 L 99 03/02/22 17:00 08/25/21 18:00 08/25/21 19:00 Temperature Pulse Rate 83 85 92 H Respiratory Rate 18 21 26 H Blood Pressure 114/57 116/60 130/64 O2 Sat by Pulse Oximetry 97 97 95 08/25/21 20:00 08/25/21 20:52 08/25/21 21:00 Temperature 97.9 F Pulse Rate 88 93 H 93 H Respiratory Rate 25 H 26 H 28 H Blood Pressure 119/60 123/66 O2 Sat by Pulse Oximetry 98 93 L 94 L 08/25/21 22:00 08/25/21 23:00 08/26/21 00:00 Temperature 97.5 F L Pulse Rate 91 H 90 90 Respiratory Rate 20 22 28 H Blood Pressure 106/57 115/59 121/60 O2 Sat by Pulse Oximetry 95 93 L 91 L 08/26/21 01:00 08/26/21 02:00 08/26/21 03:00 Temperature Pulse Rate 88 92 H 96 H Respiratory Rate 24 30 H 32 H Blood Pressure 120/58 133/63 133/61 O2 Sat by Pulse Oximetry 96 94 L 88 L 08/26/21 04:00 08/26/21 05:00 08/26/21 06:00 Temperature Pulse Rate 92 H 92 H 89 Respiratory Rate 24 25 H 25 H Blood Pressure 131/63 120/59 122/62 O2 Sat by Pulse Oximetry 92 L 92 L 91 L 08/26/21 07:00 08/26/21 07:01 08/26/21 08:00 Temperature Pulse Rate 107 H 104 H 103 H Respiratory Rate 34 H 36 H 39 H Blood Pressure 157/74 O2 Sat by Pulse Oximetry 86 L 87 L 89 L 08/26/21 08:01 08/26/21 08:30 08/26/21 09:00 Temperature Pulse Rate 106 H 109 H Respiratory Rate 35 H 27 H Blood Pressure 142/71 O2 Sat by Pulse Oximetry 91 L 97 95 08/26/21 09:01 08/26/21 09:42 08/26/21 10:00 Temperature Pulse Rate 110 H 106 H 102 H Respiratory Rate 32 H 35 H 25 H Blood Pressure 122/60 132/62 O2 Sat by Pulse Oximetry 94 L 84 L 87 L 08/26/21 10:01 08/26/21 11:00 08/26/21 12:00 Temperature 97.6 F Pulse Rate 103 H 106 H 91 H Respiratory Rate 29 H 32 H 18 Blood Pressure 120/63 133/63 O2 Sat by Pulse Oximetry 90 L 91 L 95 08/26/21 13:00 08/26/21 13:28 08/26/21 14:00 Temperature Pulse Rate 95 H 101 H 98 H Respiratory Rate 35 H 36 H 37 H Blood Pressure 140/93 O2 Sat by Pulse Oximetry 96 84 L 88 L 08/26/21 14:01 08/26/21 15:00 08/26/21 16:00 Temperature 98.2 F Pulse Rate 99 H 94 H 92 H Respiratory Rate 40 H 19 30 H Blood Pressure 132/59 124/58 126/62 O2 Sat by Pulse Oximetry 89 L 91 L 88 L 08/26/21 17:00 08/26/21 18:00 08/26/21 18:01 Temperature Pulse Rate 99 H 106 H 105 H Respiratory Rate 43 H 41 H Blood Pressure 121/60 137/64 O2 Sat by Pulse Oximetry 81 L 08/26/21 19:00 08/26/21 19:01 08/26/21 20:00 Temperature 98.2 F Pulse Rate 98 H 97 H 95 H Respiratory Rate 36 H 28 H 42 H Blood Pressure 120/78 O2 Sat by Pulse Oximetry 88 L 08/26/21 20:01 08/26/21 21:00 08/26/21 21:01 Temperature Pulse Rate 96 H 92 H Respiratory Rate 40 H 24 Blood Pressure 164/74 131/62 O2 Sat by Pulse Oximetry 87 L 91 L 08/26/21 22:00 08/26/21 23:00 08/26/21 23:01 Temperature Pulse Rate 81 83 83 Respiratory Rate 20 24 24 Blood Pressure 112/53 128/58 O2 Sat by Pulse Oximetry 92 L 95 92 L 08/27/21 00:00 08/27/21 00:01 08/27/21 01:00 Temperature 97.9 F Pulse Rate 82 82 90 Respiratory Rate 23 23 35 H Blood Pressure 121/53 128/58 O2 Sat by Pulse Oximetry 95 95 85 L 08/27/21 02:00 08/27/21 03:00 08/27/21 04:00 Temperature 97.6 F Pulse Rate 80 83 87 Respiratory Rate 19 21 25 H Blood Pressure 115/59 122/60 131/59 O2 Sat by Pulse Oximetry 91 L 91 L 87 L 08/27/21 05:00 08/27/21 06:00 08/27/21 07:00 Temperature Pulse Rate 85 87 84 Respiratory Rate 24 22 21 Blood Pressure 123/58 118/56 123/58 O2 Sat by Pulse Oximetry 89 L 88 L 91 L 08/27/21 08:00 08/27/21 08:01 08/27/21 09:00 Temperature Pulse Rate 112 H 111 H 101 H Respiratory Rate 31 H 33 H 31 H Blood Pressure 158/77 O2 Sat by Pulse Oximetry 81 L 82 L 92 L 08/27/21 09:01 Temperature Pulse Rate 102 H Respiratory Rate 31 H Blood Pressure 132/66 O2 Sat by Pulse Oximetry 94 L Labs: Laboratory Last Values WBC 3.9 X10^3/uL (3.6-10.0) 08/27/21 04:35 RBC 2.54 X10^6/uL (4.7-6.0) L 08/27/21 04:35 Hgb 7.2 g/dL (13.5-18.0) L 08/27/21 04:35 Hct 22.1 % (42.0-54.0) L 08/27/21 04:35 MCV 86.9 fL (80.0-100.0) 08/27/21 04:35 MCH 28.4 pg (27.0-34.0) 08/27/21 04:35 MCHC 32.7 g/dL (33.0-35.0) L 08/27/21 04:35 RDW 18.5 % (11.6-16.5) H 08/27/21 04:35 Plt Count 113 X10^3/uL (150.0-450.0) L 08/27/21 04:35 Plt Count Comment Decreased (ADEQUATE) 08/06/21 05:37 MPV 9.0 fL (7.4-11.0) 08/27/21 04:35 Neut % (Auto) 67.7 % (42.0-75.0) 08/27/21 04:35 Lymph % (Auto) 20.3 % (21.0-51.0) L 08/27/21 04:35 [place] % (Auto) 10.0 % (0.0-13.0) 08/27/21 04:35 Eos % (Auto) 1.4 % (0.9-2.9) 08/27/21 04:35 Baso % (Auto) 0.6 % (0.2-1.0) 08/27/21 04:35 Neut # (Auto) 2.7 x10^3/uL (2.2-4.8) 08/27/21 04:35 Lymph # (Auto) 0.8 X10^3/uL (1.3-2.9) L 08/27/21 04:35 [place] # (Auto) 0.4 x10^3/uL (0.3-0.8) 08/27/21 04:35 Eos # (Auto) 0.1 x10^3/uL (0.0-0.2) 08/27/21 04:35 Baso # (Auto) 0.0 X10^3/uL (0.0-0.1) 08/27/21 04:35 Absolute Nucleated RBC 0.0 /100WBC 08/27/21 04:35 Total Counted 100 08/06/21 05:37 Neutrophils % (Manual) 96 % (39-76) H 08/06/21 05:37 Lymphocytes % (Manual) 3 % (13-43) L 08/06/21 05:37 Monocytes % (Manual) 1 % (4-9) L 08/06/21 05:37 Plt Morphology Comment Normal (NORMAL) 08/06/21 05:37 RBC Morphology Normal (NORMAL) 08/06/21 05:37 Polychromasia Slight 08/01/21 05:00 PT 15.2 SECONDS (11.8-14.3) 08/21/21 05:00 INR Target Range - 08/21/21 05:00 INR 1.26 (0.8-1.3) 08/21/21 05:00 APTT 26.6 SECONDS (22.9-36.5) 08/10/21 07:55 PTT Comment - 08/10/21 07:55 Fibrinogen 137 mg/dL (239-489) L* 08/10/21 07:55 D-Dimer 9.28 ug/ml (0.0-0.57) H* 08/21/21 05:00 Sample Site Lr 08/01/21 04:13 ABG pH 7.390 (7.35-7.45) 08/01/21 04:13 ABG pCO2 42.0 mmHg (35.0-45.0) 08/01/21 04:13 ABG pO2 72.0 mmHg (80.0-100.0) L 08/01/21 04:13 ABG HCO3 25.4 mmol/L (22-26) 08/01/21 04:13 ABG O2 Saturation 94.0 % (90-100) 08/01/21 04:13 ABG Base Excess 0.3 mmol/L (-2.0-2.0) 08/01/21 04:13 Gene Test Pos 08/01/21 04:13 A-a Gradient 232.0 mmHg 08/01/21 04:13 FiO2 50.0 08/01/21 04:13 Blood Gas Comments Natalia well ae 08/01/21 04:13 Sodium 144 mmol/L (136-145) 08/27/21 04:35 Corrected Sodium 144 mmol/L (136-145) 08/27/21 04:35 Potassium 3.5 mmol/L (3.5-5.1) 08/27/21 04:35 Chloride 112 mmol/L (98-107) H 08/27/21 04:35 Carbon Dioxide 26.9 mmol/L (21-32) 08/27/21 04:35 BUN 32 mg/dL (7-18) H 08/27/21 04:35 Creatinine 1.70 mg/dL (0.70-1.30) H 08/27/21 04:35 Est GFR (MDRD) Af Amer 51 (>60) L 08/27/21 04:35 Est GFR (MDRD) Non-Af 42 (>60) L 08/27/21 04:35 Glucose 119 mg/dL (65-99) H 08/27/21 04:35 POC Glucose (mg/dL) 256 mg/dL (65-99) H 08/26/21 20:13 Calcium 7.7 mg/dL (8.5-10.1) L 08/27/21 04:35 Corrected Calcium 9.5 mg/dL (8.5-10.1) 08/27/21 04:35 Phosphorus 3.8 mg/dL (2.6-4.7) 08/03/21 05:00 Magnesium 2.1 mg/dL (1.7-2.9) 08/20/21 04:26 Iron 33 ug/dL (50-175) L 08/11/21 04:32 Transferrin 280 mg/dL (202-364) 08/11/21 04:32 Ferritin 53 ng/mL (26-388) 08/11/21 04:32 Total Bilirubin 0.30 mg/dL (0.2-1.0) 08/27/21 04:35 AST 17 Units/L (15-37) 08/27/21 04:35 ALT 27 Units/L (12-78) 08/27/21 04:35 Alkaline Phosphatase 80 Units/L (46-116) 08/27/21 04:35 Creatine Kinase 86 Units/L (39-308) 07/23/21 12:30 CK-MB (CK-2) 1.3 ng/mL (0-4.0) 07/23/21 12:30 CK/CKMB % Calc 1.5 % (<4) 07/23/21 12:30 Troponin I High Sens 49.9 ng/L (4.0-60.0) 07/27/21 04:40 C-Reactive Protein 112.70 mg/L (0-3.0) H 08/22/21 04:10 B-Natriuretic Peptide 153 pg/mL (0-79) H 08/22/21 04:10 Total Protein 5.4 g/dL (6.4-8.2) L 08/27/21 04:35 Albumin 1.8 g/dL (3.4-5.0) L 08/27/21 04:35 Globulin 3.6 g/dL (2.5-4.5) 08/27/21 04:35 Albumin/Globulin Ratio 0.5 Ratio (1.1-2.1) L 08/27/21 04:35 Prealbumin 32.0 mg/dL (18-35.7) 08/10/21 04:12 Triglycerides 59 mg/dL (0-150) 08/03/21 05:00 Vitamin B12 698 pg/mL (193-986) 08/11/21 04:32 Folate 16.3 ng/mL (>8.6) 08/11/21 04:32 Specimen Type Clean catch urine 08/19/21 18:00 Urine Color Yellow (YELLOW) 08/19/21 18:00 Urine Appearance Clear (CLEAR) 08/19/21 18:00 Urine pH 5.0 (5.0 - 8.0) 08/19/21 18:00 Ur Specific [place] 1.015 (1.000-1.030) 08/19/21 18:00 Urine Protein 2+ (NEGATIVE) 08/19/21 18:00 Urine Glucose (UA) 2+ (NEGATIVE) 08/19/21 18:00 Urine Ketones Negative (NEGATIVE) 08/19/21 18:00 Urine Occult Blood 2+ (NEGATIVE) 08/19/21 18:00 Urine Nitrite Negative (NEGATIVE) 08/19/21 18:00 Urine Bilirubin Negative (NEGATIVE) 08/19/21 18:00 Urine Urobilinogen Normal (NORMAL) 08/19/21 18:00 Ur Leukocyte Esterase Negative (NEGATIVE) 08/19/21 18:00 Urine RBC 3-5 /HPF (0-3) A 08/19/21 18:00 Urine WBC 0-2 /HPF (0-5) 08/19/21 18:00 Ur Squamous Epith Cells Few /HPF (NEGATIVE) 08/19/21 18:00 Amorphous Sediment 2+ /HPF (NEGATIVE) 07/23/21 19:40 Urine Bacteria 1+ /HPF (NEGATIVE) 08/19/21 18:00 Hyaline Casts Moderate /LPF (NEGATIVE) 08/19/21 18:00 Coarse Granular Casts Few /HPF (NEGATIVE) 07/23/21 19:40 Urine Mucus Few /HPF (NEGATIVE) 07/23/21 19:40 Urine Yeast Moderate /HPF (NEGATIVE) 08/19/21 18:00 Ur Culture Indicated? No/not indicated 08/19/21 18:00 Stool Description 50g black semi form 08/12/21 15:40 Stl Occult Blood (IFOB) Positive (NEGATIVE) A 08/12/21 15:40 SARS CoV-2 RNA Rapid HERMELINDO Positive (NEGATIVE) A 08/25/21 15:55 Tissue Pathology To follow 08/23/21 14:21 Blood Type A POSITIVE 08/19/21 08:41 Antibody Screen Negative 08/19/21 08:41 Crossmatch See Detail 08/19/21 08:41 Reason For Visit: COVID PNEUMONIA, ARF, HYPOXIA Discharge Diagnosis All Active Problems (Updated 08/22/21 @ 09:14 by Mauricio Otero) Cellulitis of right lower extremity (Acute) Hypoalbuminemia (Acute) Hypernatremia (Acute) Anemia (Acute) Hypokalemia (Acute) Elevated troponin level (Acute) Elevated d-dimer (Acute) Acute on chronic respiratory failure with hypoxia (Acute) Diabetes mellitus (Chronic) Hypertension (Chronic) Pneumonia due to COVID-19 virus (Acute) COVID (Acute) Acute renal failure (Acute) Plan of Treatment: Continue with present treatment and follow up plan. Pt is to keep follow up appointment as instructed and take medications as ordered. Discharge Medications Discharge Medications: No Known Drug Allergies Allergy (Verified 07/23/21 12:02) CONTINUE taking the following medications alprazolam 0.25 mg PO BID PRN 07/23/21 [History] aspirin 81 mg PO DAILY 07/23/21 [History] atorvastatin 20 mg PO DAILY 07/23/21 [History] clopidogrel 75 mg PO DAILY 07/23/21 [History] codeine-guaifenesin 5 ml PO Q4HR PRN 07/23/21 [History] diphenhydramine HCl [Benadryl] 25 mg PO QHS 07/23/21 [History] doxycycline monohydrate 100 mg PO BID 07/23/21 [History] insulin detemir U-100 [Levemir FlexTouch U-100 Insuln] 30 unit SUBCUT BID 07/23/21 [History] losartan 100 mg PO DAILY 07/23/21 [History] methimazole 10 mg PO DAILY 07/23/21 [History] multivitamin 1 tab PO DAILY 07/23/21 [History] sitagliptin [Januvia] 100 mg PO ONCE 07/23/21 [History] tamsulosin 0.4 mg PO DAILY 07/23/21 [History] acetaminophen 1,000 mg PO Q6H PRN 07/24/21 [History] metoprolol succinate 25 mg PO DAILY 07/24/21 [History] multivitamin,[id number] [Complete Multivitamin] 1 tab PO DAILY 07/24/21 [History] vitamin A-vitamin C-vit E-min [Eye Health] 1 tab PO BID 07/24/21 [History] Discharge Plan Discharge Plan Patient Disposition: [facility] Condition: Stable Health Concerns: Post Hospitalization: new medications and changes needed to prevent readmission or further decline. Pt educated and given instructions on all concerns. Plan of Treatment: Continue with present treatment and follow up plan. Pt is to keep follow up appointment as instructed and take medications as ordered. Prescriptions: No Action clopidogrel 75 mg tablet 75 mg PO DAILY RF: 0 doxycycline monohydrate 100 mg tablet 100 mg PO BID RF: 0 tamsulosin 0.4 mg capsule 0.4 mg PO DAILY RF: 0 aspirin 81 mg tablet,chewable 81 mg PO DAILY RF: 0 codeine-guaifenesin 10-100 mg/5 mL liquid 5 ml PO Q4HR PRN (Reason: Cough) RF: 0 methimazole 10 mg tablet 10 mg PO DAILY RF: 0 multivitamin Tablet 1 tab PO DAILY RF: 0 atorvastatin 20 mg Tablet 20 mg PO DAILY RF: 0 alprazolam 0.25 mg Tablet 0.25 mg PO BID PRN (Reason: Anxiety) RF: 0 diphenhydramine HCl [Benadryl] 25 mg Capsule 25 mg PO QHS RF: 0 losartan 100 mg Tablet 100 mg PO DAILY RF: 0 Levemir FlexTouch U-100 Insuln 100 unit/mL (3 mL) Insulin Pen 30 unit SUBCUT BID RF: 0 Januvia 100 mg Tablet 100 mg PO ONCE RF: 0 metoprolol succinate 25 mg Tablet Extended Release 24 Hr 25 mg PO DAILY RF: 0 acetaminophen 500 mg Tablet 1,000 mg PO Q6H PRNRF: 0 Eye Health Tablet 1 tab PO BID RF: 0 Complete Multivitamin Tablet 1 tab PO DAILY RF: 0 Follow ups/Referrals Follow ups/Referrals: [facility],None [Primary Care Provider] - 1 WEEK Instructions Instructions: Anemia, Hypokalemia, COVID-19 Frequently Asked Questions, Prone Position Therapy, V-safe Information Sheet - CDC (06/05/2020), COVID-19, COVID- 19: How to Protect Yourself and Others - CDC, Community-Acquired Pneumonia, Adult, [id number]
[2021-08-27] MEDS: NS 1,000 ML IV 1,000 ML IV SCH (09:24)
[2021-08-27] MEDS: NovoLIN R (or HumuLIN R) SUBCUT PRN (11:36)
[2021-08-27 12:05] VITALS: BP 132/60
== END 2021-08-27 13:00 | disposition short-term general hospital (02) | DRG 177 ==
LOC: ER 12:01 → ICU 18:16
PROVIDERS: ADMIT Internal Medicine; ATTEND Family Medicine
DX: N17.8 Other acute kidney failure; R13.11 Dysphagia, oral phase; U07.1 COVID-19; N18.9 Chronic kidney disease, unspecified; E11.65 Type 2 diabetes mellitus with hyperglycemia; B96.89 Other specified bacterial agents as the cause of diseases classified elsewhere; R79.89 Other specified abnormal findings of blood chemistry; Z95.0 Presence of cardiac pacemaker; I12.9 Hypertensive chronic kidney disease with stage 1 through stage 4 chronic kidney disease, or unspecified chronic kidney disease; L03.115 Cellulitis of right lower limb; K92.2 Gastrointestinal hemorrhage, unspecified; R79.1 Abnormal coagulation profile; Z79.4 Long term (current) use of insulin; E87.0 Hyperosmolality and hypernatremia; E87.6 Hypokalemia; I87.2 Venous insufficiency (chronic) (peripheral); R77.8 Other specified abnormalities of plasma proteins; J96.21 Acute and chronic respiratory failure with hypoxia; D50.8 Other iron deficiency anemias; R79.82 Elevated C-reactive protein (CRP); R26.89 Other abnormalities of gait and mobility; J12.82 Pneumonia due to coronavirus disease 2019; R94.31 Abnormal electrocardiogram [ECG] [EKG]